=== PATIENT | female | born 1995 | race Caucasian/White ===

== ENCOUNTER 2023-04-06 20:28 | Outpatient (REF) | payer OTHER, SELFPAY ==
[2023-04-09 14:09] LABS: Age Gdln ACOG Testing Note (.); IGP, rfx Aptima HPV ASCU Note (.)
== END 2023-04-06 20:29 | disposition home or self-care (01) ==
LOC: LAB 20:28
PROVIDERS: PCP Obstetrics & Gynecology; Visit Provider Obstetrics & Gynecology
DX: Z01.419 Encounter for gynecological examination (general) (routine) without abnormal findings (principal)
CPT/HCPCS: G0145

== ENCOUNTER 2023-05-14 08:22 | Outpatient (OUT) | payer OTHER, SELFPAY ==
--- NOTE | 2023-05-14 08:23 | US_ITS ---
[address] [address] Patient Name: NEGIN BURNHAM MRN: [id number] date: 1995 Sex: F Assigned Patient Location: US Current Patient Location: US Accession/Order Number: [id number] Exam Date: 05/14/2023 08:23 Report Date: 05/14/2023 09:11 At the request of: ERMELINDA JOHN Procedure: US OB transvaginal EXAMINATION: US OB transvaginal HISTORY: MISSED MENSES COMPARISON: No relevant comparison available. FINDINGS: Johnson intrauterine gestation Gestational sac: 4.62 cm, 10 weeks 2 days CRL: 3.7 cm, 10 weeks 5 days Yolk sac: 4 m Heart rate: 183 bpm Cervix: Closed, 5.6 cm Uterus is normal, anteverted, anteflexed The ovaries are not visualized Clinical age: 10 weeks 4 days Clinical CHANDA: 12/06/2023 Ultrasound age: 10 weeks 5 days Ultrasound CHANDA: 12/05/2023 US/US OB transvaginal IMPRESSION: Viable johnson intrauterine gestation measuring 10 weeks 5 days Electronically authenticated by: SCOT PRICE Date: 05/14/2023 09:11
--- OUTSIDE RECORDS SUMMARY | 2023-05-14 08:26 | XMS_ITS | CCD ---
Author Name Unknown Address [id number] [place] [address] Organization [facility] Care Team Providers Care Extended Day Teacher Name Role Phone Macie Lorenzana Unavailable DR MACIE LORENZANA Primary Care Unavailable RENEE BORJAS Admitting Unavailable RENEE BORJAS Attending Unavailable RENEE BORJAS Consulting Unavailable DR ERMELINDA CODY Admitting Unavailable DR ERMELINDA CODY Attending Unavailable DR MACIE LORENZANA Primary Care Unavailable DR ERMELINDA CODY Consulting Unavailable ERMELINDA CODY Attending Unavailable Allergies Allergy Classification Reported Allergen(s) Allergy Type Date of Onset Reaction(s) Facility (5 sources) Azithromycin Drug Allergy migraines [facility] Other Medications Current Medications Medication Drug Class(es) Dates Sig (Normalized) Sig (Original) [id number] 200 actuat albuterol 0.09 mg/actuat metered dose inhaler (2 sources) beta2-Adrenergic Agonist Start: 10-26-2017 take 2 puff(s) by inhalation every four hours as needed ProAir HFA 108 (90 Base) MCG/ACT 2 puffs as needed Inhalation every 4 hrs prn PRN Oct, Active ethinyl estradiol 0.02 mg / norethindrone acetate 1 mg oral tablet (5 sources) Estrogen take 1 tablet by mouth every twenty-four hours 05/29 1-20 MG-MCG 1 tablet Orally Once a day Active levoFLOXacin 500 mg oral tablet (6 sources) Quinolone Antimicrobial Start: 04-08-2021 take 1 tablet by mouth every twenty-four hours levoFLOXacin 500 MG 1 tablet Orally Once a day for 10 day(s) Apr, Active oseltamivir 75 mg oral capsule (3 sources) Neuraminidase Inhibitor Start: 04-07-2022 take 1 capsule by mouth every twelve hours Tamiflu 75 MG 1 capsule Orally Twice a day for 5 day(s) Mar, Active predniSONE 20 mg oral tablet (5 sources) Start: 11-13-2021 predniSONE 20 MG 1 tablet Orally TID x 3 days, BID x 3 days then daily x 3 days Nov, Active ProAir HFA 108 (90 Base) MCG/ACT (3 sources) Start: 10-26-2017 take 2 puff(s) by inhalation every four hours as needed ProAir HFA 108 (90 Base) MCG/ACT 2 puffs as needed Inhalation every 4 hrs prn PRN Oct, Active Completed/Discontinued Medications Medication Drug Class(es) Dates Sig (Normalized) Sig (Original) dexamethasone 2 mg oral tablet (5 sources) Corticosteroid Start: 04-08-2021 Dexamethasone 2 MG 1 tablet Orally TID x 3 days, BID x 3 days then daily x 3 days for 9 days Mar, Not-Taking ibuprofen 800 mg oral tablet (5 sources) Nonsteroidal Anti-inflammatory Drug Start: 10-26-2017 take 1 tablet by mouth three times daily at mealtime as needed Ibuprofen 800 MG 1 tablet with food or milk as needed Orally Three times a day PRN Oct, Not-Taking LORazepam 0.5 mg oral tablet (5 sources) Benzodiazepine Start: 10-26-2017 take 1 tablet by mouth every twelve hours as needed Ativan 0.5 MG 1 tablet as needed Orally every 12 hours PRN Oct, Not-Taking phentermine hydrochloride 37.5 mg oral tablet (5 sources) Sympathomimetic Amine Anorectic Start: 08-31-2019 take 1 tablet by mouth every twenty-four hours Adipex-P 37.5 MG 1 tablet Orally Once a day for 30 days Aug, Not-Taking sulfamethoxazole 800 mg / trimethoprim 160 mg oral tablet (5 sources) Dihydrofolate Reductase Inhibitor Antibacterial, Sulfonamide Antimicrobial Start: 06-18-2020 take 1 tablet by mouth every twelve hours Bactrim DS 800-160 MG 1 tablet Orally Twice a day for 10 day(s) Jun, Not-Taking vitamin b12 0.1 mg oral tablet (5 sources) Vitamin B12 Vitamin B-12 100 MCG as directed Orally Not-Taking Problems Active Problems Problem Classification Problem Date Documented Date Episodic/Chronic Administrative/social admission (5 sources) Dietary management surveillance; Translations: [Dietary counseling and surveillance] Episodic Anxiety disorders (5 sources) Anxiety; Translations: [Anxiety disorder, unspecified] Chronic Asthma (5 sources) Asthma; Translations: [Unspecified asthma, uncomplicated] Chronic Diseases of white blood cells (5 sources) Lymphocytosis; Translations: [Lymphocytosis (symptomatic)] Chronic Headache; including migraine (5 sources) Migraine; Translations: [Migraine, unspecified, not intractable, without status migrainosus] Chronic Immunizations and screening for infectious disease (1 source) Encounter for screening for human papillomavirus (HPV); Translations: [ENC SCREENING HUMAN PAPILLOMAVIRUS] Onset: 03-27-2022 Episodic Malaise and fatigue (5 sources) Fatigue; Translations: [Other fatigue] Episodic Other nutritional; endocrine; and metabolic disorders (5 sources) Obesity; Translations: [Obesity, unspecified] Chronic Other nutritional; endocrine; and metabolic disorders (5 sources) Obese class I; Translations: [Body mass index (BMI) 33.0-33.9, adult] Chronic Other screening for suspected conditions (not mental disorders or infectious disease) (4 sources) Encounter for screening for malignant neoplasm of cervix; Translations: [ENC SCREENING MALIG NEOPLASM CERV] Onset: 03-24-2022 Episodic Unclassified (2 sources) CONTACT W/AND (SUSP) EXPOS COVID-19; Translations: [CONTACT W/AND (SUSP) EXPOS COVID-19] Onset: 04-08-2021 Viral infection (1 source) COVID-19; Translations: [COVID-19] Onset: 04-08-2021 Past or Other Problems Problem Classification Problem Date Documented Da te Episodic/Chronic Superficial injury; contusion (1 source) Insect bite (nonvenomous) of right upper arm, initial encounter Onset: 11-13-2021 Resolved: 11-13-2021 Episodic Unclassified (1 source) CONTACT W/AND (SUSP) EXPOS COVID-19; Translations: [CONTACT W/AND (SUSP) EXPOS COVID-19] Onset: 04-07-2021 Unclassified (1 source) Acute cough R05.1 Results Test Name Value Interpretation Reference Range Facility Quick Fluon 04-07-2022 FLUAV Ab CF (S) [Titer] Positive [facility] Other FLUBV Ab CF (S) [Titer] Negative [facility] Other PAP ACOG PANEL 2: 21 to 29on 04-04-2022 . . Normal [facility] Comment on above: Performed By: #### [id number] #### [facility] [address] [place] [address] Dr. Aranza Dolan Age Gdln ACOG Testing 21-29 Normal [facility] Comment on above: Performed By: #### [id number] #### [facility] [address] [address] [address] Aranza Dolan DIAGNOSIS: Comment Abnormal [facility] Comment on above: Result Comment: EPIT HELIAL CELL ABNORMALITY. ATYPICAL SQUAMOUS CELLS OF UNDETERMINED SIGNIFICANCE (ASC-US). FUNGAL ORGANISMS MORPHOLOGICALLY CONSISTENT WITH RAQUEL SPECIES ARE PRESENT. Performed By: #### [id number] #### [facility] [address] [place] [address] Dr. Aranza Dolan Electronically signed by: Comment Normal [facility] Comment on above: Result Comment: Adelina Ochoa MD, Pathologist Performed By: #### [id number] #### [facility] [address] [place] [address] Dr. Aranza Dolan HPV Aptima Negative Normal Negative [facility] Comment on above: Result Comment: This nucleic acid amplification test detects fourteen high-risk HPV types (16,18,31,33,35,39,45,51,52,56,58,59,66,68) without differentiation. Performed By: #### [id number] #### [facility] [address] [place] [address] Dr. Aranza Dolan Methodology: Comment Normal [facility] Comment on above: Result Comment: This liquid based ThinPrep(R) pap test was screened with the use of an image guided system. Performed By: #### [id number] #### [facility] [address] [place] [address] Dr. Aranza Dolan Note: Comment Normal [facility] Comment on above: Result Comment: The Pap smear is a screening test designed to aid in the detection of premalignant and malignant conditions of the uterine cervix. It is not a diagnostic procedure and should not be used as the sole means of detecting cervical cancer. Both false-positive and false-negative reports do occur. . Performed By: #### [id number] #### [facility] [address] [place] [address] Dr. Aranza Dolan Pathologist Provided ICD10 Comment Normal [facility] Comment on above: Result Comment: R87. 610, R87.5 Performed By: #### [id number] #### [facility] [address] [place] [address] Dr. Aranza Dolan Performed by: Comment Normal [facility] Comment on above: Result Comment: Francheska Gee Production Dispatcher (ASCP) Performed By: #### [id number] #### [facility] [address] [place] [address] Dr. Aranza Dolan Recommendation: Comment Abnormal [facility] Comment on above: Result Comment: Sugg est follow up as clinically appropriate. Performed By: #### [id number] #### [facility] [address] [place] [address] Dr. Aranza Dolan Reflex Criteria: Comment Normal [facility] Comment on above: Result Comment: See below for HPV testing results. . Performed By: #### [id number] #### [facility] [address] [place] [address] Dr. Aranza Dolan Specimen adequacy: Comment Normal [facility] Comment on above: Result Comment: Sati sfactory for evaluation. Endocervical and/or squamous metaplastic cells (endocervical component) are present. Performed By: #### [id number] #### [facility] [address] [place] [address] Dr. Aranza Dolan [facility]11 SARS-CoV-2 (COVID-19) RNA RAMON+probe Ql (Unsp spec) Detected Critically abnormal NOT DETECTED [facility] Comment on above: Result Comment: This test is not yet approved or cleared by the [place] FDA. When there are no FDA-approved or cleared tests available, and other criteria are met, FDA can make tests available under an emergency access mechanism called an Emergency Use Authorization (EUA). The EUA for this test is supported by the [place] of Health and Human Service's declaration that circumstances exist to justify the emergency use of in vitro diagnostics for the detection and/or diagnosis of the virus that causes COVID-19. This EUA will remain in effect for the duration of the COVID-19 declaration justifying emergency of IVDs, unless it is terminated or revoked by the FDA (after which the test may no longer be used). Performed By: #### [facility] #### [facility] [address] [place] [address] Dr. Aranza Dolan Vital Signs Date Time Vital Sign Value Performing Clinician Facility 11-13-2021 16:45-0400 Body height 170.18 cm Macie Lorenzana Other [facility] Other 11-13-2021 16:45-0400 Body mass index (BMI) [Ratio] 33.83 kg/m2 Macie Lorenzana Other [facility] Other 11-13-2021 16:45-0400 Body weight 97.98 kg Macie Lorenzana Other [facility] Other 11-13-2021 16:45-0400 Diastolic blood pressure 80 mm[Hg] Macie Lorenzana Other [facility] Other 11-13-2021 16:45-0400 Respiratory rate 16 /min Macie Lorenzana Other [facility] Other 11-13-2021 16:45-0400 SaO2% (BldA) [Mass fraction] 98 % Macie Lorenzana Other [facility] Other 11-13-2021 16:45-0400 Systolic blood pressure 126 mm[Hg] Macie Lorenzana Other [facility] Other Encounters Encounter Date Encounter Type Care Provider Facility Start: 04-06-2023 End: 04-06-2023 ambulatory ERMELINDA CODY Not Available Start: 04-15-2022 End: 04-15-2022 ambulatory Macie Lorenzana Other [facility] Other Start: 04-15-2022 Telephone encounter Macie Lorenzana [facility] Start: 04-07-2022 End: 04-07-2022 ambulatory Macie Lorenzana Other [facility] Other Start: 04-07-2022 Nursing evaluation o f patient and report Macie Lorenzana [facility] Start: 04-07-2022 Telephone encounter Macie Lorenzana [facility] Start: 03-24-2022 End: 03-24-[address] ERMELINDA CODY Facility:[facility] Start: 11-13-2021 End: 11-13-2021 ambulatory Macie Lorenzana Other [facility] Other Start: 11-13-2021 Office outpatient vi sit 15 minutes Macie Lorenzana [facility] Start: 11-13-2021 Telephone encounter Macie Lorenzana [facility] Start: 04-07-2021 End: 04-07-[address] MACIE LORENZANA Facility:[facility] Immunizations Immunization Date Immunization Notes Care Provider Fa cility NEGATED: Highlighted row has not occurred!07-18-2019 influenza, seasonal, injectable Patient Objection Macie Lorenzana Other [facility] Other Payers Date Payer Category Payer Medicaid [id number] 1995 Unknown [id number] 1995 Unknown [id number] 1995 Unknown [id number] 1960 Unknown [id number] 2.1 [id number] Social History Date Type Detail Facility Unknown if ever smoked [facility] Other Sex Assigned At Sex Assigned At Bir th [facility] Other Evaluation note 04-07-2022 Note Date & Type Note Facility 04-07-2022 Evaluation note Encounter Date Diagnosis Assessment Notes Mar, Acute cough (ICD-10 - R05.1) [facility] Other Evaluation note 11-13-2021 Note Date & Type Note Facility 11-13-2021 Evaluation note Encounter Date Diagnosis Assessment Notes Nov, Insect bite (nonvenomous) of right upper arm, initial encounter (ICD-10 - S40.861A) Noted of left forearm. I did prescribe the above prednisone and patient is to continue taking benadryl at bedtime. Patient is to call next week with an update. [facility] Other History general Narrative - Reported 06-24-2016 Note Date & Type Note Facility 06-24-2016 History general N arrative - Reported Type Medical History follows with Dr. Ananth Cody for PAP Medical History Biometric Screening 06/24/[place] [facility] [place] Medical History 02/13/2019 EKG Surgical History tubes in ears Surgical History 03/05/21 Hospitalization History Childbirth [facility] Other Evaluation note Note Date & Type Note Facility Evaluation note No Information [facility] Other Summary Purpose Family History No Family History Records FoundNo Family History Records Found Advance Directives No Advanced Directives Records FoundNo Advanced Directives Records Found Additional Source Comments REASON FOR VISIT (unrecogniz ed section and content) Clinical Acute Illnessbug bi te on right armClinicalflu swab-( positive)Clinical INFORMATION SOURCE (unrecogn ized section and content) DATE CREATED AUTHOR 04/04/2022 [facility] DATE CREATED AUTHOR AUTHOR'S ORGANIZ ATION 04/08/2023 [facility] EPIC FOR RECORDS PERTAINING TO PATIENTS WHO ARE OR HAVE BEEN ENROLLED IN A CHEMICAL DEPENDENCY/SUBSTANCEABUSE PROGRAM, SOME INFORMATION MAY BE OMITTED. This clinical summary was aggregated from multiple sources. Caution should be exercised in using it in the provision of clinical care. This summary normalizes information from multiple sources, and as a consequence, information in this document may materially change the coding, format and clinical context of patient data. In addition, data may be omitted in some cases. CLINICAL DECISIONS SHOULD BE BASED ON THE PRIMARY CLINICAL RECORDS. [facility] [employer], [facility]. provides no warranty or guarantee of the accuracy or completeness of information in this document.
== END 2023-05-14 08:23 | disposition home or self-care (01) ==
LOC: US 08:22
PROVIDERS: PCP Obstetrics & Gynecology; Visit Provider Obstetrics & Gynecology
DX: Z34.91 Encounter for supervision of normal pregnancy, unspecified, first trimester (principal); Z3A.10 10 weeks gestation of pregnancy
CPT/HCPCS: 76817

== ENCOUNTER 2023-05-14 09:24 | Outpatient (OUT) | payer OTHER, SELFPAY ==
--- OUTSIDE RECORDS SUMMARY | 2023-05-14 09:46 | XMS_ITS | CCD ---
Author Name Unknown Address [address] [place] [address] Organization [facility] Care Team Providers Care Laborer Heading Name Role Phone Macie Lorenzana Unavailable DR [...] Facility (5 sources) Azithromycin Drug Allergy migraines [facility] Other Medications Current Medications Medication Drug Class(es) Dates Sig (Normalized) Sig (Original) [id number] 200 actuat albuterol 0.09 mg/actuat metered dose [...] 04-07-2022 FLUAV Ab CF (S) [Titer] Positive [facility] Other FLUBV Ab CF (S) [Titer] Negative [facility] Other PAP ACOG PANEL 2: 21 to 29on 04-04-2022 . . Normal [facility] Comment on above: Performed By: #### [id number] #### [facility] [address] [place] [address] Dr. Aranza Dolan Age Gdln ACOG Testing 21-29 Normal [facility] Comment on above: Performed By: #### [id number] #### [facility] [address] [address] [address] Aranza Dolan DIAGNOSIS: Comment Abnormal [facility] Comment on above: Result Comment: EPIT HELIAL CELL ABNORMALITY. ATYPICAL SQUAMOUS CELLS OF UNDETERMINED SIGNIFICANCE (ASC-US). FUNGAL ORGANISMS MORPHOLOGICALLY CONSISTENT WITH RAQUEL SPECIES ARE PRESENT. Performed By: #### [id number] #### [facility] [address] [place] [address] Dr. Aranza oDlan Electronically signed by: Comment Normal [facility] Comment on above: Result Comment: Adelina Ochoa MD, Pathologist Performed By: #### 4 [id number] #### [facility] [address] [place] [address] Dr. Aranza Dolan HPV Aptima Negative Normal Negative [facility] Comment on above: Result Comment: This nucleic acid amplification test detects fourteen high-risk HPV types (16,18,31,33,35,39,45,51,52,56,58,59,66,68) without differentiation. Performed By: #### 4 [id number] #### [facility] [address] [place] [address] Dr. Aranza Dolan Methodology: Comment Normal [facility] Comment on above: Result Comment: This liquid based ThinPrep(R) pap test was screened with the use of an image guided system. Performed By: #### 4 [id number] #### [facility] [address] [place] [address] Dr. Aranza Dolan Note: Comment Normal [facility] Comment on above: Result Comment: The Pap smear is a screening test designed to aid in the detection of premalignant and malignant conditions of the uterine cervix. It is not a diagnostic procedure and should not be used as the sole means of detecting cervical cancer. Both false-positive and false-negative reports do occur. . Performed By: #### 4 [id number] #### [facility] [address] [place] [address] Dr. Aranza Dolan Pathologist Provided ICD10 Comment Normal [facility] Comment on above: Result Comment: R87. 610, R87.5 Performed By: #### 4 [id number] #### [facility] [address] [place] [address] Dr. Aranza Dolan Performed by: Comment Normal [facility] Comment on above: Result Comment: Francheska Gee Spray Mixer (ASCP) Performed By: #### 4 [id number] #### [facility] [address] [place] [address] Dr. Aranza Dolan Recommendation: Comment Abnormal [facility] Comment on above: Result Comment: Sugg est follow up as clinically appropriate. Performed By: #### 4 [id number] #### [facility] [address] [place] [address] Dr. Aranza Dolan Reflex Criteria: Comment Normal [facility] Comment on above: Result Comment: See below for HPV testing results. . Performed By: #### 4 [id number] #### [facility] [address] [place] [address] Dr. Aranza Dolan Specimen adequacy: Comment Normal [facility] Comment on above: Result Comment: Sati sfactory for evaluation. Endocervical and/or squamous metaplastic cells (endocervical component) are present. Performed By: #### 4 [id number] #### [facility] [address] [place] [address] Dr. Aranza Dolan [facility] SARS-CoV-2 (COVID-19) RNA RAMON+probe Ql (Unsp spec) Detected Critically abnormal NOT DETECTED [facility] Comment on above: Result Comment: This test is not yet approved or cleared by the [place] FDA. When there are no FDA-approved or cleared tests available, and other criteria are met, FDA can make tests available under an emergency access mechanism called an Emergency Use Authorization (EUA). The EUA for this test is supported by the [place] of Health and Human Service's declaration that [...] longer be used). Performed By: #### [facility] #### [facility] [address] [place] [address] Dr. Aranza Dolan Vital Signs Date Time Vital Sign Value Performing Clinician Facility 11-13-2021 16:45-0400 Body height 170.18 cm Macie Lorenzana Other [facility] Other 11-13-2021 16:45-0400 Body mass index (BMI) [Ratio] 33.83 kg/m2 Macie Lorenzana Other [facility] Other 11-13-2021 16:45-0400 Body weight 97.98 kg Macie Lorenzana Other [facility] Other 11-13-2021 16:45-0400 Diastolic blood pressure 80 mm[Hg] Macie Lorenzana Other [facility] Other 11-13-2021 16:45-0400 Respiratory rate 16 /min Macie Lorenzana Other [facility] Other 11-13-2021 16:45-0400 SaO2% (BldA) [Mass fraction] 98 % Macie Lorenzana Other [facility] Other 11-13-2021 16:45-0400 Systolic blood pressure 126 mm[Hg] Macie Lorenzana Other [facility] Other Encounters Encounter Date Encounter Type Care Provider Facility Start: 04-06-2023 End: 04-06-2023 ambulatory ERMELINDA CODY Not Available Start: 04-15-2022 End: 04-15-2022 ambulatory Macie Lorenzana Other [facility] Other Start: 04-15-2022 Telephone encounter Macie Lorenzana [facility] Start: 04-07-2022 End: 04-07-2022 ambulatory Macie Lorenzana Other [facility] Other Start: 04-07-2022 Nursing evaluation o f patient and report Macie Lorenzana [facility] Start: 04-07-2022 Telephone encounter Macie Lorenzana [facility] Start: 03-24-2022 End: 03-24-[address] ERMELINDA CODY Facility:[facility] Start: 11-13-2021 End: 11-13-2021 ambulatory Macie Lorenzana Other [facility] Other Start: 11-13-2021 Office outpatient vi sit 15 minutes Macie Lorenzana [facility] Start: 11-13-2021 Telephone encounter Macie Lorenzana [facility] Start: 04-07-2021 End: 04-07-[address] MACIE LORENZANA Facility:[facility] Immunizations Immunization Date Immunization Notes Care Provider Fa cility NEGATED: Highlighted row has not occurred!07-18-2019 influenza, seasonal, injectable Patient Objection Macie Lorenzana Other [facility] Other Payers Date Payer Category Payer Medicaid [id number] 1995 Unknown [id number] [id number] [id number] 1995 Unknown [id number] 2.16.84 [id number] 1994 Unknown [id number] 1959 Unknown [id number] 2.1 [id number] Social History Date Type Detail Facility Unknown if ever smoked [facility] Other Sex Assigned At Sex Assigned At Bir th [facility] Other Evaluation note 04-07-2022 Note Date & Type Note Facility 04-07-2022 Evaluation note Encounter Date Diagnosis Assessment Notes Mar, Acute cough (ICD-10 - R05.1) [facility] Other Evaluation note 11-13-2021 Note Date & Type Note Facility 11-13-2021 Evaluation note Encounter Date Diagnosis Assessment Notes Nov, Insect bite (nonvenomous) of right upper arm, initial encounter (ICD-10 - S40.861A) Noted of left forearm. I did prescribe the above prednisone and patient is to continue taking benadryl at bedtime. Patient is to call next week with an update. [facility] Other History general Narrative - Reported 06-24-2016 Note Date & Type Note Facility 06-24-2016 History general N arrative - Reported Type Medical History follows with Dr. Ananth Cody for PAP Medical History Biometric Screening 06/24/16 [facility] Medical History 02/13/2019 EKG Surgical History tubes in ears Surgical History 03/05/21 Hospitalization History Childbirth [facility] Other Evaluation note Note Date & Type Note Facility Evaluation note No Information [employer] Other Summary Purpose Family History No Family [...] DATE CREATED AUTHOR AUTHOR'S ORGANIZ ATION 04/08/2023 [facility] dical Specialists EPIC FOR RECORDS PERTAINING [...] BE BASED ON THE PRIMARY CLINICAL RECORDS. [facility] [employer], [facility]. provides no warranty or guarantee of the accuracy or completeness of information in this document.
[2023-05-14 10:10] LABS: Basophils Absolute Auto 0.1 10^3/uL (0.0-0.1); Basophils Percent Auto 0.6 % (0.2-2.0); Eosinophils Absolute Auto 0.2 10^3/uL (0.0-0.7); Eosinophils Percent Auto 1.7 % (0.9-7.0); Hematocrit 40.2 % (36.0-48.0); Hemoglobin 13.3 g/dL (12.0-16.0); Immature Granulocytes Abs Auto 0.06 10^3/uL (0.00-0.03); Immature Granulocytes Pct Auto 0.6 % (0.0-0.5); Lymphocytes Absolute Auto 2.6 10^3/uL (1.2-3.8); Lymphocytes Percent Auto 24.8 % (20.5-60.0); Mean Corpuscular HGB Conc 33.1 g/dL (29.9-35.2); Mean Corpuscular Hemoglobin 28.7 pg (26.7-34.0); Mean Corpuscular Volume 86.8 fL (81.0-99.0); Mean Platelet Volume 8.9 fL (9.5-13.5); Monocytes Absolute Auto 0.6 10^3/uL (0.3-0.8); Monocytes Percent Auto 5.9 % (1.7-12.0); Neutrophils Absolute Auto 6.8 10^3/uL (1.4-6.5); Neutrophils Percent Auto 66.4 % (43.0-75.0); Platelet Count 324 10^3/uL (150-450); Red Blood Count 4.63 10^6/uL (4.20-5.40); Red Cell Distribution Width 13.6 % (11.0-15.0); White Blood Count 10.3 10^3/uL (4.0-11.0)
[2023-05-14 10:53] LABS: Estimated Average Glucose 111 mg/dL; Glycohemoglobin A1C 5.5 % (4.5-6.2)
[2023-05-14 12:25] LABS: Thyroid Stimulating Hormone 0.657 uIU/mL (0.358-3.740)
[2023-05-15 07:49] LABS: HBsAg Screen Negative (Negative); HCV Ab Non Reactive (Non Reactive); HIV Ab/p24 Ag Screen Non Reactive (Non Reactive)
[2023-05-15 09:38] LABS: Rubella Antibodies, IgG 1.82 index (Immune >0.99)
[2023-05-15 12:25] LABS: Rapid Plasma Reagin, Quant Non Reactive titer (NonRea<1:1)
== END 2023-05-14 09:25 | disposition home or self-care (01) ==
LOC: LAB 09:27
PROVIDERS: PCP Family Medicine; Visit Provider Obstetrics & Gynecology
DX: Z34.91 Encounter for supervision of normal pregnancy, unspecified, first trimester (principal); Z3A.10 10 weeks gestation of pregnancy; Z36.0 Encounter for antenatal screening for chromosomal anomalies
CPT/HCPCS: 36415; 76817; 83036; 84443; 85025; 86592; 86762; 86803; 86850; 86900; 86901; 87086; 87340; 87389

== ENCOUNTER 2023-06-15 09:22 | Outpatient (OUT) | payer OTHER, SELFPAY ==
--- OUTSIDE RECORDS SUMMARY | 2023-06-15 09:25 | XMS_ITS | CCD ---
Author Name Unknown Address [address] [place] [address] Organization [facility] Care Team Providers Care Laboratory Manager Name Role Phone Macie Lorenzana Unavailable DR MACIE LORENZANA Primary Care Unavailable RENEE BORJAS Admitting Unavailable RENEE OBRJAS Attending Unavailable RENEE BORJAS Consulting Unavailable DR ERMELINDA CODY Admitting Unavailable DR ERMELINDA CODY Attending Unavailable DR MACIE LORENZANA Primary Care Unavailable DR ERMELINDA CODY Consulting Unavailable ERMELINDA CODY Attending Unavailable Allergies Allergy Classification Reported Allergen(s) Allergy Type Date of Onset Reaction(s) Facility (5 sources) Azithromycin Drug Allergy [employer] [employer] [facility] Other Medications Current Medications Medication Drug Class(es) Dates Sig (Normalized) Sig (Original) [id number] 200 actuat albuterol 0.09 mg/actuat metered dose [...] 04-07-2022 FLUAV Ab CF (S) [Titer] Positive [facility] [employer] [facility] Other FLUBV Ab CF (S) [Titer] Negative [facility] [facility] Other PAP ACOG PANEL 2: 21 to 29on 04-04-2022 . . Normal [facility] Comment on above: Performed By: #### 4 [id number] #### [facility] [address] [place] [address] Dr. Aranza Dolan Age Gdln ACOG Testing 21-29 Normal [facility] Comment on above: Performed By: #### 4 [id number] #### [facility] [address] [address] [address] Aranza Dolan DIAGNOSIS: Comment Abnormal [facility] Comment on above: Result Comment: EPIT HELIAL CELL ABNORMALITY. ATYPICAL SQUAMOUS CELLS OF UNDETERMINED SIGNIFICANCE (ASC-US). FUNGAL ORGANISMS MORPHOLOGICALLY CONSISTENT WITH RAQUEL SPECIES ARE PRESENT. Performed By: #### 4 [id number] #### [facility] [address] [place] [address] Dr. Aranza Dolan Electronically signed by: Comment Normal [facility] Comment on above: Result Comment: Adelina Ochoa MD, Pathologist Performed By: #### 4 [id number] #### [facility] [address] [place] [address] Dr. Aranza Dolan HPV Aptima Negative Normal Negative [facility] Comment on above: Result Comment: This nucleic acid amplification test detects fourteen high-risk HPV types (16,18,31,33,35,39,45,51,52,56,58,59,66,68) without differentiation. Performed By: #### 4 [id number] #### [facility] [address] [place] [address] Dr. Aranza Dolan Methodology: Comment Normal [facility] Comment on above: Result Comment: This liquid based ThinPrep(R) pap test was screened with the use of an image guided system. Performed By: #### 4 [id number] #### [facility] [address] [place] [address] Dr. Aranza Dolan Note: Comment Normal [facility] Comment on above: Result Comment: The Pap smear is a screening test designed to aid in the detection of premalignant and malignant conditions of the uterine cervix. It is not a diagnostic procedure and should not be used as the sole means of detecting cervical cancer. Both false-positive and false-negative reports do occur. . Performed By: #### 4 [id number] #### [facility] [address] [address] [address] Aranza Dolan Pathologist Provided ICD10 Comment Normal [facility] Comment on above: Result Comment: R87. 610, R87.5 Performed By: #### 4 [id number] #### [facility] [address] [address] [address] Aranza Dolan Performed by: Comment Normal [facility] Comment on above: Result Comment: Francheska Gee Program Arranger (ASCP) Performed By: #### 4 [id number] #### [facility] [address] [place] [address] Dr. Aranza Dolan Recommendation: Comment Abnormal [facility] Comment on above: Result Comment: Sugg est follow up as clinically appropriate. Performed By: #### 4 [id number] #### [facility] [address] [address] [address] Aranza Dolan Reflex Criteria: Comment Normal [facility] Comment on above: Result Comment: See below for HPV testing results. . Performed By: #### 4 [id number] #### [facility] [address] [place] [address] Dr. Aranza Dolan Specimen adequacy: Comment Normal [facility] Comment on above: Result Comment: Sati sfactory for evaluation. Endocervical and/or squamous metaplastic cells (endocervical component) are present. Performed By: #### 4 [id number] #### [facility] [address] [place] [address] Dr. Aranza Dolan [facility]on [facility]11 SARS-CoV-2 (COVID-19) RNA RAMON+probe Ql (Unsp spec) Detected Critically abnormal NOT DETECTED [facility] Comment on above: Result Comment: This test is not yet approved or cleared by the [place] FDA. When there are no FDA-approved or cleared tests available, and other criteria are met, FDA can make tests available under an emergency access mechanism called an Emergency Use Authorization (EUA). The EUA for this test is supported by the [place] of Health and Human Service's declaration that [...] longer be used). Performed By: #### C [facility] #### [facility] [address] [place] [address] Dr. Aranza Dolan Vital Signs Date Time Vital Sign Value Performing Clinician Facility 11-13-2021 16:45-0400 Body height 170.18 cm Macie Lorenzana Other [employer] Other 11-13-2021 16:45-0400 Body mass index (BMI) [Ratio] 33.83 kg/m2 Macie Lorenzana Other [employer] Other 11-13-2021 16:45-0400 Body weight 97.98 kg Macie Lorenzana Other [facility] [facility] Other 11-13-2021 16:45-0400 Diastolic blood pressure 80 mm[Hg] Macie Lorenzana Other [employer] Other 11-13-2021 16:45-0400 Respiratory rate 16 /min Macie Lorenzana Other [employer] Other 11-13-2021 16:45-0400 SaO2% (BldA) [Mass fraction] 98 % Macie Lorenzana Other [employer] Other 11-13-2021 16:45-0400 Systolic blood pressure 126 mm[Hg] Macie Lorenzana Other [employer] Other Encounters Encounter Date Encounter Type Care Provider Facility Start: 05-14-2023 End: 05-14-2023 ambulatory ERMELINDA CODY Not Available Start: 04-06-2023 End: 04-06-2023 ambulatory ERMELINDA CODY Not Available Start: 04-15-2022 End: 04-15-2022 ambulatory Macie Lorenzana Other [employer] Other Start: 04-15-2022 Telephone encounter Macie Lorenzana [facility] Start: 04-07-2022 End: 04-07-2022 ambulatory Macie Lorenzana Other [employer] Other Start: 04-07-2022 Nursing evaluation o f patient and report Macie Lorenzana [facility] Start: 04-07-2022 Telephone encounter Macie Lorenzana [facility] Start: 03-24-2022 End: 03-24-[address] ERMELINDA CODY Facility:[facility] Start: 11-13-2021 End: 11-13-2021 ambulatory Macie Lorenzana Other [employer] Other Start: 11-13-2021 Office outpatient vi sit 15 minutes Macie Lorenzana [facility] Start: 11-13-2021 Telephone encounter Macie Lorenzana [facility] Start: 04-07-2021 End: 04-07-[address] MACIE LORENZANA Facility:[facility] Immunizations Immunization Date Immunization Notes Care Provider Fa cility NEGATED: Highlighted row has not occurred!07-18-2019 influenza, seasonal, injectable Patient Objection Macie Lorenzana Other [employer] Other Payers Date Payer Category Payer Medicaid [id number] 1995 Unknown [id number] 2.16.84 [id number] 1995 Unknown [id number] 2.16.84 [id number] 1995 Unknown [id number] 1994 Unknown [id number] [id number] 1994 Unknown [id number] 1959 Unknown [id number] 2.1 [id number] Social History Date Type Detail Facility Unknown if ever smoked [employer] Other Sex Assigned At Sex Assigned At Bir th [employer] Other Evaluation note 04-07-2022 Note Date & Type Note Facility 04-07-2022 Evaluation note Encounter Date Diagnosis Assessment Notes Mar, Acute cough (ICD-10 - R05.1) [facility] Other Evaluation note 11-13-2021 Note Date & Type Note Facility 11-13-2021 Evaluation note Encounter Date Diagnosis Assessment Notes Nov, Insect bite (nonvenomous) of right upper arm, initial encounter (ICD-10 - S40.861A) Noted of left forearm. I did prescribe the above prednisone and patient is to continue taking benadryl at bedtime. Patient is to call next week with an update. [employer] [employer] [facility] Other History general Narrative - Reported 06-24-2016 Note Date & Type Note Facility 06-24-2016 History general N arrative - Reported Type Medical History follows with Dr. Ananth Cody for PAP Medical History Biometric Screening 06/24/16 [facility] [place], [place] Medical History 02/13/2019 EKG Surgical History tubes in ears Surgical History 03/05/21 Hospitalization History Childbirth [employer] Other Evaluation note Note Date & Type Note Facility Evaluation note No Information [employer] Other Summary Purpose Family History No Family [...] [facility] DATE CREATED AUTHOR AUTHOR'S TASHIA ATFREDIS 05/15/2023 [facility] dical Specialists EPIC FOR RECORDS PERTAINING [...] BE BASED ON THE PRIMARY CLINICAL RECORDS. [employer]. provides no warranty or guarantee of the accuracy or completeness of information in this document.
[2023-06-17 02:08] LABS: AFP Value 24.2 ng/mL (.); Gest. Age on Collection Date 15.1 weeks (.); Insulin Dep Diabetes No (.); Maternal Age At EDD 29.8 yr (.); OSBR Risk 1 IN 10000 (.); Results Report (.)
== END 2023-06-15 09:23 | disposition home or self-care (01) ==
LOC: LAB 09:22
PROVIDERS: PCP Family Medicine; Visit Provider Obstetrics & Gynecology
DX: Z34.92 Encounter for supervision of normal pregnancy, unspecified, second trimester (principal)
CPT/HCPCS: 36415; 82105

== ENCOUNTER 2023-07-21 14:24 | Outpatient (OUT) | payer OTHER, SELFPAY ==
--- NOTE | 2023-07-21 14:26 | US_ITS ---
[address] [address] Patient Name: NEGIN BURNHAM MRN: [id number] date: 1995 Sex: F Assigned Patient Location: US Current Patient Location: Accession/Order Number: [id number] Exam Date: 07/21/2023 14:36 Report Date: 07/22/2023 06:18 At the request of: ERMELINDA JOHN Procedure: US OB anatomy EXAMINATION: US OB anatomy, US OB cervical length HISTORY: screening, for anatomic survey Z36.89 COMPARISON: Ultrasound OB transvaginal 05/14/2023 TECHNIQUE: Transabdominal sonographic examination was performed for obstetrical and evaluation. FINDINGS: Number: 1 Heart Rate: 156.1 bpm H.B. /min Amniotic Fluid Volume: Subjectively normal Placental Location: ANTERIOR , grade 1, with lower margin 6.7 cm from os. Cervix Length: 4.8 cm, closed. Small nabothian cyst within cervix. ANATOMY: Normal Structures -cerebellum, choroid plexus, cisterna magna, lateral cerebral ventricles, orbits, midline falx, stomach, kidneys, bladder, umbilical cord insertion into abdomen, three-vessel cord, cervical spine, thoracic spine, lumbar spine, sacral spine, right upper extremity, left upper extremity, right lower extremity, left lower extremity. SUBOPTIMALLY SEEN: Hard palate, four-chamber heart, cardiac outflow tracts ABNORMALITIES: None BIOMETRY: BPD: 4.7 cm 20 weeks 2 days ; 48% HC: 18.1 cm 20 weeks 4 days; 53% AC: 16.7 cm 21 weeks 5 days; 85% FL: 3.3 cm 20 weeks 3 days ; 47% EFW:393.8 grams; 84% FL/AC: 20.0 FL/BPD: 70.7 HC/AC: 1.1 GESTATIONAL AGE: Age by EDC: 20 weeks 2 days CHANDA by EDC: 12/06/2023 Age by current US: 20 weeks 5 days CHANDA by current US: 12/03/2023 US/US OB anatomy IMPRESSION: 1. Single live intrauterine with growth detailed above. 2. Suboptimal visualization of the hard palate, four-chamber heart, and cardiac outflow tracts due to position. Electronically authenticated by: ERNIE DURAN Date: 07/22/2023 06:18
--- NOTE | 2023-07-21 14:27 | US_ITS ---
[address] [address] Patient Name: NEGIN BURNHAM MRN: [id number] date: 1995 Sex: F Assigned Patient Location: US Current Patient Location: Accession/Order Number: [id number] Exam Date: 07/21/2023 14:36 Report Date: 07/22/2023 06:18 At the request of: ERMELINDA JOHN Procedure: US OB cervical length EXAMINATION: US OB anatomy, US OB cervical length HISTORY: screening, for anatomic survey Z36.89 COMPARISON: Ultrasound OB transvaginal 05/14/2023 TECHNIQUE: Transabdominal sonographic examination was performed for obstetrical and evaluation. FINDINGS: Number: 1 Heart Rate: 156.1 bpm H.B. /min Amniotic Fluid Volume: Subjectively normal Placental Location: ANTERIOR , grade 1, with lower margin 6.7 cm from os. Cervix Length: 4.8 cm, closed. Small nabothian cyst within cervix. ANATOMY: Normal Structures -cerebellum, choroid plexus, cisterna magna, lateral cerebral ventricles, orbits, midline falx, stomach, kidneys, bladder, umbilical cord insertion into abdomen, three-vessel cord, cervical spine, thoracic spine, lumbar spine, sacral spine, right upper extremity, left upper extremity, right lower extremity, left lower extremity. SUBOPTIMALLY SEEN: Hard palate, four-chamber heart, cardiac outflow tracts ABNORMALITIES: None BIOMETRY: BPD: 4.7 cm 20 weeks 2 days ; 48% HC: 18.1 cm 20 weeks 4 days; 53% AC: 16.7 cm 21 weeks 5 days; 85% FL: 3.3 cm 20 weeks 3 days ; 47% EFW:393.8 grams; 84% FL/AC: 20.0 FL/BPD: 70.7 HC/AC: 1.1 GESTATIONAL AGE: Age by EDC: 20 weeks 2 days CHANDA by EDC: 12/06/2023 Age by current US: 20 weeks 5 days CHANDA by current US: 12/03/2023 US/US OB cervical length IMPRESSION: 1. Single live intrauterine with growth detailed above. 2. Suboptimal visualization of the hard palate, four-chamber heart, and cardiac outflow tracts due to position. Electronically authenticated by: ERNIE DURAN Date: 07/22/2023 06:18
== END 2023-07-21 14:25 | disposition home or self-care (01) ==
LOC: US 14:24
PROVIDERS: PCP Family Medicine; Visit Provider Obstetrics & Gynecology
DX: Z36.89 Encounter for other specified antenatal screening (principal); Z3A.20 20 weeks gestation of pregnancy
CPT/HCPCS: 76805; 76817

== ENCOUNTER 2023-07-28 04:01 | Observation (INO) | payer OTHER, SELFPAY ==
--- OUTSIDE RECORDS SUMMARY | 2023-07-28 04:05 | XMS_ITS | CCD ---
Author Organization [facility] Care Team Providers Care Supervisor Pairing And Inspecting Name Role Phone Macie Lorenzana Unavailable DR MACIE LORENZANA Primary Care Unavailable RENEE BORJAS Admitting Unavailable RENEE BORJAS Attending Unavailable RENEE BORJAS Consulting Unavailable DR ERMELINDA COYD Admitting Unavailable DR ERMELINDA CODY Attending Unavailable DR MACIE LORENZANA Primary Care Unavailable DR ERMELINDA CODY Consulting Unavailable ERMELINDA CODY Attending Unavailable ERMELINDA CODY Attending Unavailable Allergies Allergy Classification Reported Allergen(s) Allergy Type Date of Onset Reaction(s) Facility (5 sources) Azithromycin Drug Allergy migraines [facility] Other Medications Current Medications Medication Drug Class(es) Dates Sig (Normalized) Sig (Original) [id number] 200 actuat albuterol 0.09 mg/actuat metered dose [...] 04-07-2022 FLUAV Ab CF (S) [Titer] Positive [facility] Other FLUBV Ab CF (S) [Titer] Negative [facility] Other PAP ACOG PANEL 2: 21 to 29on 04-04-2022 . . Normal [facility] Comment on above: Performed By: #### [id number] #### [facility] [address] [place] [address] Dr. Aranza Dolan Age Gdln ACOG Testing - Normal [facility] Comment on above: Performed By: #### [id number] #### [facility] [address] [place] [address] Dr. Aranza Dolan DIAGNOSIS: Comment Abnormal [facility] Comment on above: Result Comment: EPIT HELIAL CELL ABNORMALITY. ATYPICAL SQUAMOUS CELLS OF UNDETERMINED SIGNIFICANCE (ASC-US). FUNGAL ORGANISMS MORPHOLOGICALLY CONSISTENT WITH RAQUEL SPECIES ARE PRESENT. Performed By: #### [id number] #### [facility] [address] [place] [address] Dr. Aranza Dolan Electronically signed by: Comment Normal [facility] Comment on above: Result Comment: Adelina Ochoa MD, Pathologist Performed By: #### [id number] #### [facility] [address] [place] [address] Dr. Aranza Dolan HPV Aptima Negative Normal Negative [facility] Comment on above: Result Comment: This nucleic acid amplification test detects fourteen high-risk HPV types (16,18,31,33,35,39,45,51,52,56,58,59,66,68) without differentiation. Performed By: #### [id number] #### [facility] [address] [place] [address] Dr. Aranza Dolan Methodology: Comment Normal [facility] Comment on above: Result Comment: This liquid based ThinPrep(R) pap test was screened with the use of an image guided system. Performed By: #### [id number] #### [facility] [address] [place] [address] Dr. Aranza Dolan Note: Comment Normal [facility] Comment on above: Result Comment: The Pap smear is a screening test designed to aid in the detection of premalignant and malignant conditions of the uterine cervix. It is not a diagnostic procedure and should not be used as the sole means of detecting cervical cancer. Both false-positive and false-negative reports do occur. . Performed By: #### [id number] #### [facility] [address] [address] [address] Aranza oDlan Pathologist Provided ICD10 Comment Normal [facility] Comment on above: Result Comment: R87. 610, R87.5 Performed By: #### 4 [id number] #### [facility] [address] [address] [address] Aranza Dolan Performed by: Comment Normal [facility] Comment on above: Result Comment: Francheska Gee Research And Evaluation Analyst (ASCP) Performed By: #### [id number] #### [facility] [address] [address] [address] Aranza Dolan Recommendation: Comment Abnormal [facility] Comment on above: Result Comment: Sugg est follow up as clinically appropriate. Performed By: #### 4 [id number] #### [facility] [address] [address] [address] Aranza Dolan Reflex Criteria: Comment Normal [facility] Comment on above: Result Comment: See below for HPV testing results. . Performed By: #### [id number] #### [facility] [address] [address] [address] Aranza Dolan Specimen adequacy: Comment Normal [facility] Comment on above: Result Comment: Sati sfactory for evaluation. Endocervical and/or squamous metaplastic cells (endocervical component) are present. Performed By: #### 4 [id number] #### [facility] [address] [address] [address] Aranza Dolan Covid-19 PCR (CVDTB)on 03-11 SARS-CoV-2 (COVID-19) RNA RAMON+probe Ql (Unsp spec) Detected Critically abnormal NOT DETECTED [facility] Comment on above: Result Comment: This test is not yet approved or cleared by the [place] FDA. When there are no FDA-approved or cleared tests available, and other criteria are met, FDA can make tests available under an emergency access mechanism called an Emergency Use Authorization (EUA). The EUA for this test is supported by the [place] of Health and Human Service's declaration that [...] longer be used). Performed By: #### C [facility] #### [facility] [address] [place] [address] Dr. Aranza Dolan Vital Signs Date Time Vital Sign Value Performing Clinician Facility 11-13-2021 16:45-0400 Body height 170.18 cm Macie Lorenzana Other [facility] Other 11-13-2021 16:45-0400 Body mass index (BMI) [Ratio] 33.83 kg/m2 Macie Lorenzana Other [facility] Other 11-13-2021 16:45-0400 Body weight 97.98 kg Macie Lorenzana Other [facility] Other 11-13-2021 16:45-0400 Diastolic blood pressure 80 mm[Hg] Macie Lorenzana Other [facility] Other 11-13-2021 16:45-0400 Respiratory rate 16 /min Macie Lorenzana Other [facility] Other 11-13-2021 16:45-0400 SaO2% (BldA) [Mass fraction] 98 % Macie Lorenzana Other [facility] Other 11-13-2021 16:45-0400 Systolic blood pressure 126 mm[Hg] Macie Lorenzana Other [facility] Other Encounters Encounter Date Encounter Type Care Provider Facility Start: 06-15-2023 End: 06-15-2023 ambulatory ERMELINDA ALVARO Not Available Start: 05-14-2023 End: 05-14-2023 ambulatory ERMELINDA ALVARO Not Available Start: 04-06-2023 End: 04-06-2023 ambulatory ERMELINDA ALVARO Not Available Start: 04-15-2022 End: 04-15-2022 ambulatory Macie Lorenzana Other [facility] Other Start: 04-15-2022 Telephone encounter Macie Lorenzana [facility] Start: 04-07-2022 End: 04-07-2022 ambulatory Macie Lorenzana Other [facility] Other Start: 04-07-2022 Nursing evaluation o f patient and report Macie Lorenzana [facility] Start: 04-07-2022 Telephone encounter Macie Lorenzana [facility] Start: 03-24-2022 End: 03-24-[address] ERMELINDA CODY Facility:[facility] Start: 11-13-2021 End: 11-13-2021 ambulatory Macie Lorenzana Other [facility] Other Start: 11-13-2021 Office outpatient vi sit 15 minutes Macie Lorenzana [facility] Start: 11-13-2021 Telephone encounter Macie Lorenzana [facility] Start: 04-07-2021 End: 04-07-[address] MACIE LORENZANA Facility:[facility] Immunizations Immunization Date Immunization Notes Care Provider Fa cility NEGATED: Highlighted row has not occurred!07-18-2019 influenza, seasonal, injectable Patient Objection Macie Lorenzana Other [facility] Other Payers Date Payer Category Payer Medicaid [id number] 1995 Unknown [id number] 2.16.84 [id number] 1995 Unknown [id number] 2.16.84 [id number] 1994 Unknown [id number] 2.16.84 [id number] 1994 Unknown [id number] 2.16.840 .[id number] 1994 Unknown [id number] 2.16.840 .[id number] 1994 Unknown [id number] 2.16.840 .[id number] 1959 Unknown [id number] 2.1 [id number] Social History Date Type Detail Facility Unknown if ever smoked [facility] Other Sex Assigned At Sex Assigned At Bir th [facility] Other Evaluation note 04-07-2022 Note Date & Type Note Facility 04-07-2022 Evaluation note Encounter Date Diagnosis Assessment Notes Mar, Acute cough (ICD-10 - R05.1) [facility] Other Evaluation note 11-13-2021 Note Date & Type Note Facility 11-13-2021 Evaluation note Encounter Date Diagnosis Assessment Notes Nov, Insect bite (nonvenomous) of right upper arm, initial encounter (ICD-10 - S40.861A) Noted of left forearm. I did prescribe the above prednisone and patient is to continue taking benadryl at bedtime. Patient is to call next week with an update. [facility] Other History general Narrative - Reported 06-24-2016 Note Date & Type Note Facility 06-24-2016 History general N arrative - Reported Type Medical History follows with Dr. Ananth Cody for PAP Medical History Biometric Screening 06/24/16 [facility] Medical History 02/13/2019 EKG Surgical History tubes in ears Surgical History 03/05/21 Hospitalization History Childbirth [facility] Other Evaluation note Note Date & Type Note Facility Evaluation note No Information [employer] Other Summary Purpose Family History No Family History Records FoundNo Family History Records Found Advance Directives No Advanced Directives Records FoundNo Advanced Directives Records Found Additional Source Comments REASON FOR VISIT (unrecogniz ed section and content) Clinical Acute Illnessbug bi te on right armClinicalflu swab-( positive)Clinical INFORMATION SOURCE (unrecogn ized section and content) DATE CREATED AUTHOR 04/04/2022 [facility] DATE CREATED AUTHOR AUTHOR'S ORGANIZ ATION 06/15/2023 [facility] EPIC FOR RECORDS PERTAINING [...] BE BASED ON THE PRIMARY CLINICAL RECORDS. [employer] provides no warranty or guarantee of the accuracy or completeness of information in this document.
[2023-07-28 04:17] VITALS: BP 112/71; PULSE 118
[2023-07-28 05:10] LABS: Clarity Urine CLEAR (CLEAR); Color Urine YELLOW (YELLOW); Specific Gravity Urine >=1.030 (1.005-1.025)
[2023-07-28 05:11] LABS: Bilirubin Urine NEGATIVE (NEGATIVE); Blood Urine NEGATIVE (NEGATIVE); Glucose Urine UA NEGATIVE (NEGATIVE); Ketones Urine TRACE mg/dL (NEGATIVE); Nitrite Urine NEGATIVE (NEGATIVE); Protein Urine NEGATIVE (NEG/TRACE); Urobilinogen Urine 0.2 EU/dL (0.2-1.0)
[2023-07-28 05:12] LABS: Leukocyte Esterase Urine NEGATIVE (NEGATIVE); Urine Microscopic Indicated NO
[2023-07-28 06:21] LABS: Basophils Percent Auto 0.2 % (0.2-2.0); Eosinophils Percent Auto 0.2 % (0.9-7.0); Hematocrit 35.1 % (36.0-48.0); Hemoglobin 11.6 g/dL (12.0-16.0); Immature Granulocytes Abs Auto 0.05 10^3/uL (0.00-0.03); Immature Granulocytes Pct Auto 0.4 % (0.0-0.5); Lymphocytes Absolute Auto 1.9 10^3/uL (1.2-3.8); Lymphocytes Percent Auto 14.7 % (20.5-60.0); Mean Corpuscular Hemoglobin 29.1 pg (26.7-34.0); Mean Corpuscular Volume 88.2 fL (81.0-99.0); Mean Platelet Volume 9.1 fL (9.5-13.5); Monocytes Absolute Auto 0.7 10^3/uL (0.3-0.8); Monocytes Percent Auto 5.7 % (1.7-12.0); Neutrophils Absolute Auto 10.2 10^3/uL (1.4-6.5); Neutrophils Percent Auto 78.8 % (43.0-75.0); Platelet Count 239 10^3/uL (150-450); Red Blood Count 3.98 10^6/uL (4.20-5.40); Red Cell Distribution Width 13.8 % (11.0-15.0)
[2023-07-28] MEDS: ONDANSETRON 4 MG RAPDIS TABLET SL (08:16)
--- NOTE | 2023-07-28 08:26 | PM.OBHP ---
OB - H&P: HPI History of Present Illness Chief complaint: CRAMPING : 3 Para: 2 Date of last menstrual period: 03/01/2023 Gestational age based on last menstrual period: 06/16 Narrative: pt states she feels like she had the flu, complains of abdominal cramping, positive nausea, neg diarrhea neg lof, vb History of Present Dating criteria: LMP confirmed by 1st trimester US care: good care Labs Blood type: A (+) positive Rubella: immune RPR/VDLR: nonreactive Review of Systems ROS Status of ROS: 10 or more systems reviewed and unremarkable except as noted in history and below Exam Constitutional Vital Signs, click to edit/add: Last Vital Signs Pulse 118 H 07/28/23 04:17 BP 112/71 07/28/23 04:17 Documenting provider has reviewed patient's vital signs: yes Common normals: no apparent distress Respiratory Common normals: clear to auscultation bilaterally Cardio Common normals: regular rate and regular rhythm GI Common normals: Normal to inspection, nondistended, normoactive bowel sounds present Extremity Common normals: no clubbing, cyanosis or edema and no calf tenderness Results Labs Labs: Short CBC 07/28/23 Range/Units 06:10 WBC 13.0 H (4.0-11.0) 10^3/uL Hgb 11.6 L (12.0-16.0) g/dL Hct 35.1 L (36.0-48.0) % Plt Count 239 (150-450) 10^3/uL Urine 07/28/23 Range/Units 04:58 Urine Color Yellow (YELLOW) Urine Clarity Clear (CLEAR) Urine pH 6.0 (5.0-9.0) Ur Specific [place] >=1.030 A (1.005-1.025) Urine Protein Negative (NEG/TRACE) mg/dL Urine Glucose (UA) Negative (NEGATIVE) mg/dL OB - A/P Assessment and Plan (1) Intrauterine : Plan iup at 21wks, flu like symptoms, previous c/s times 2-iv, cbc, iv antiemetic
[2023-07-28] MEDS: 0.9 % SODIUM CHLORIDE 1,000 ML 1000 ML IV (08:45)
--- NOTE | 2023-07-28 09:40 | W.PC.ACHO ---
Registration Status: ADM JOSÉ MIGUEL Primary Language: Preferred Language: Active Medications Generic Name Dose Route Start Last Admin Trade Name Freq PRN Reason Stop Dose Admin Ondansetron HCl 4 mg 07/28/23 07:31 07/28/23 08:16 Ondansetron 4 Mg Rapdis Tablet SL 4 mg Q6H PRN Administration Nausea And Vomiting Ondansetron HCl 4 mg 07/28/23 08:31 Ondansetron Pf 4 Mg/2 Ml Vial IV Q6H PRN Nausea IV Insertion/Site Date of IV Line Insertion [18g 07/28/23 right Forearm] IV Insertion Time [18g right 08:45 Forearm]
== END 2023-07-28 09:40 | disposition home or self-care (01) ==
PROVIDERS: Admitting Provider Obstetrics & Gynecology; PCP Family Medicine; Visit Provider Obstetrics & Gynecology
DX: O26.892 Other specified pregnancy related conditions, second trimester (principal); R10.9 Unspecified abdominal pain; R11.0 Nausea; Z3A.21 21 weeks gestation of pregnancy; O34.219 Maternal care for unspecified type scar from previous cesarean delivery
CPT/HCPCS: 36415; 59025; 81003; 85025; G0378; G0379

== ENCOUNTER 2023-08-18 07:13 | Outpatient (OUT) | payer OTHER, SELFPAY ==
--- NOTE | 2023-08-18 07:15 | US_ITS ---
[address] [address] Patient Name: NEGIN BURNHAM MRN: [id number] date: 1995 Sex: F Assigned Patient Location: US Current Patient Location: US Accession/Order Number: [id number] Exam Date: 08/18/2023 07:16 Report Date: 08/18/2023 08:28 At the request of: ERMELINDA JOHN Procedure: US OB incomplete anatomy EXAM: US OB incomplete anatomy HISTORY: Follow Up Anatomy Z36.2 COMPARISON: 07/21/2023 TECHNIQUE: Transabdominal FINDINGS: position: Cephalic presentation, longitudinal lie Heart rate: 154 beats minute Normal anatomy: Nose, lips, four-chamber heart, RVOT, LVOT US/US OB incomplete anatomy IMPRESSION: Normal observed anatomy Electronically authenticated by: SCOT PRICE Date: 08/18/2023 08:28
--- OUTSIDE RECORDS SUMMARY | 2023-08-18 07:15 | XMS_ITS | CCD ---
Author Organization [facility] Care Team Providers Care Production Support Consultant Name Role Phone Macie Lorenzana Unavailable DR MACIE LORENZANA Primary Care Unavailable RENEE BORJAS Admitting Unavailable RENEE BORJAS Attending Unavailable RENEE BORJAS Consulting Unavailable DR ERMELINDA CODY Admitting Unavailable ALVARO, DR WADSWORTH Attending Unavailable DR MACIE LORENZANA Primary Care Unavailable DR ERMELINDA CODY Consulting Unavailable ERMELINDA CODY Attending Unavailable PHYLLIS LADD Attending Unavailable ERMELINDA CODY Attending Unavailable ERMELINDA CODY Attending Unavailable Allergies Allergy Classification Reported Allergen(s) Allergy Type Date of Onset Reaction(s) Facility (5 sources) Azithromycin Drug Allergy [facility] Other Medications Current Medications Medication Drug Class(es) Dates Sig (Normalized) Sig (Original) [id number] 200 actuat albuterol 0.09 mg/actuat metered dose [...] 04-07-2022 FLUAV Ab CF (S) [Titer] Positive [facility] Other FLUBV Ab CF (S) [Titer] Negative [facility] Other PAP ACOG PANEL 2: 21 to 29on 04-04-2022 . . Normal [facility] Comment on above: Performed By: #### [id number] #### [facility] [address] [place] [address] Dr. Aranza Dolan Age Gdln ACOG Testing 21-29 Normal [facility] Comment on above: Performed By: #### 4 [id number] #### [facility] [address] [address] [address] Aranza Dolan DIAGNOSIS: Comment Abnormal [facility] Comment on above: Result Comment: EPIT HELIAL CELL ABNORMALITY. ATYPICAL SQUAMOUS CELLS OF UNDETERMINED SIGNIFICANCE (ASC-US). FUNGAL ORGANISMS MORPHOLOGICALLY CONSISTENT WITH RAQUEL SPECIES ARE PRESENT. Performed By: #### [id number] #### [facility] [address] [place] [address] Dr. Aranza Dolan Electronically signed by: Comment Normal [facility] Comment on above: Result Comment: Adelina Ochoa MD, Pathologist Performed By: #### [id number] #### [facility] [address] [place] [address] Dr. Aranza Dolan HPV Aptima Negative Normal Negative [facility] Comment on above: Result Comment: This nucleic acid amplification test detects fourteen high-risk HPV types (16,18,31,33,35,39,45,51,52,56,58,59,66,68) without differentiation. Performed By: #### 4 [id number] #### [facility] [address] [place] [address] Dr. Aranza Dolan Methodology: Comment Normal [facility] Comment on above: Result Comment: This liquid based ThinPrep(R) pap test was screened with the use of an image guided system. Performed By: #### 4 [id number] #### [facility] [address] [place] [address] Dr. Aranza Dolan Note: Comment Normal [facility] Comment on above: Result Comment: The Pap smear is a screening test designed to aid in the detection of premalignant and malignant conditions of the uterine cervix. It is not a diagnostic procedure and should not be used as the sole means of detecting cervical cancer. Both false-positive and false-negative reports do occur. . Performed By: #### 4 [id number] #### [facility] [address] [address] [address] Aranza Dolan Pathologist Provided ICD10 Comment Normal [facility] Comment on above: Result Comment: R87. 610, R87.5 Performed By: #### [id number] #### [facility] [address] [place] [address] Dr. Aranza Dolan Performed by: Comment Normal [facility] Comment on above: Result Comment: Francheska Gee Computing Systems Mechanic (ASCP) Performed By: #### 4 [id number] #### [facility] [address] [place] [address] Dr. Aranza Dolan Recommendation: Comment Abnormal [facility] Comment on above: Result Comment: Sugg est follow up as clinically appropriate. Performed By: #### [id number] #### [facility] [address] [place] [address] Dr. Aranza Dolan Reflex Criteria: Comment Normal [facility] Comment on above: Result Comment: See below for HPV testing results. . Performed By: #### 4 [id number] #### [facility] [address] [place] [address] Dr. Aranza Dolan Specimen adequacy: Comment Normal [facility] Comment on above: Result Comment: Sati sfactory for evaluation. Endocervical and/or squamous metaplastic cells (endocervical component) are present. Performed By: #### 4 [id number] #### [facility] [address] [place] [address] Dr. Aranza Dolan [facility] SARS-CoV-2 (COVID-19) RNA RAMON+probe Ql (Unsp spec) Detected Critically abnormal NOT DETECTED [facility] Comment on above: Result Comment: This test is not yet approved or cleared by the [place] FDA. When there are no FDA-approved or cleared tests available, and other criteria are met, FDA can make tests available under an emergency access mechanism called an Emergency Use Authorization (EUA). The EUA for this test is supported by the [place] of Health and Human Service's declaration that [...] be used). Performed By: #### C [facility] #### [facility] [address] [place] [address] Dr. Aranza Dolan Vital Signs Date Time Vital Sign Value Performing Clinician Facility 11-13-2021 16:45-0400 Body height 170.18 cm Macie Lorenzana Other [facility] Other 11-13-2021 16:45-0400 Body mass index (BMI) [Ratio] 33.83 kg/m2 Macie Lorenzana Other [facility] Other 11-13-2021 16:45-0400 Body weight 97.98 kg Macie Lorenzana Other [facility] Other 11-13-2021 16:45-0400 Diastolic blood pressure 80 mm[Hg] Macie Lorenzana Other [facility] Other 11-13-2021 16:45-0400 Respiratory rate 16 /min Macie Lorenzana Other [facility] Other 11-13-2021 16:45-0400 SaO2% (BldA) [Mass fraction] 98 % Macie Lorenzana Other [facility] Other 11-13-2021 16:45-0400 Systolic blood pressure 126 mm[Hg] Macie Lorenzana Other [facility] Other Encounters Encounter Date Encounter Type Care Provider Facility Start: 08-10-2023 End: 08-10-2023 ambulatory ERMELINDA ALVARO Not Available Start: 07-13-2023 End: 07-13-2023 ambulatory PHYLLIS LADD Not Available Start: 06-15-2023 End: 06-15-2023 ambulatory ERMELINDA ALVARO Not Available Start: 05-14-2023 End: 05-14-2023 ambulatory ERMELINAD ALVARO Not Available Start: 04-06-2023 End: 04-06-2023 ambulatory ERMELINDA ALVARO Not Available Start: 04-15-2022 End: 04-15-2022 ambulatory Macie Lorenzana Other [facility] Other Start: 04-15-2022 Telephone encounter Macie Lorenzana [facility] [place] Start: 04-07-2022 End: 04-07-2022 ambulatory Macie Lorenzana Other [facility] Other Start: 04-07-2022 Nursing evaluation o f patient and report Macie Lorenzana [facility] [place] Start: 04-07-2022 Telephone encounter Macie Lorenzana [facility] [place] Start: 03-24-2022 End: 03-24-[address] ERMELINDA CODY Facility:[facility] Start: 11-13-2021 End: 11-13-2021 ambulatory Macie Lorenzana Other [facility] Other Start: 11-13-2021 Office outpatient vi sit 15 minutes Macie Lorenzana [facility] [place] Start: 11-13-2021 Telephone encounter Macie Lorenzana [facility] [place] Start: 04-07-2021 End: 04-07-[address] MACIE LORENZANA Facility:[facility] Immunizations Immunization Date Immunization Notes Care Provider Fa cility NEGATED: Highlighted row has not occurred!07-18-2019 influenza, seasonal, injectable Patient Objection Macie Lorenzana Other [facility] Other Payers Date Payer Category Payer Medicaid [id number] 1995 Unknown [id number] 2.16.84 [id number] 1995 Unknown [id number] 2.16.84 [id number] 1994 Unknown [id number] 2.16.84 [id number] 1994 Unknown [id number] 2.16.84 [id number] 1994 Unknown [id number] 2.16.84 [id number] 1994 Unknown [id number] 2.16.840 .[id number] 1994 Unknown [id number] 2.16.840 .[id number] 1994 Unknown [id number] 2.16.840 .[id number] 1959 Unknown [id number] 2.1 [id number] Social History Date Type Detail Facility Unknown if ever smoked [facility] Other Sex Assigned At Sex Assigned At Bir th [facility] Other Evaluation note 04-07-2022 Note Date & Type Note Facility 04-07-2022 Evaluation note Encounter Date Diagnosis Assessment Notes Mar, Acute cough (ICD-10 - R05.1) [facility] Other Evaluation note 11-13-2021 Note Date & Type Note Facility 11-13-2021 Evaluation note Encounter Date Diagnosis Assessment Notes Nov, Insect bite (nonvenomous) of right upper arm, initial encounter (ICD-10 - S40.861A) Noted of left forearm. I did prescribe the above prednisone and patient is to continue taking benadryl at bedtime. Patient is to call next week with an update. [facility] Other History general Narrative - Reported 06-24-2016 Note Date & Type Note Facility 06-24-2016 History general N arrative - Reported Type Medical History follows with Dr. Ananth Cody for PAP Medical History Biometric Screening 06/24/16 [facility] [place] Medical History 02/13/2019 EKG Surgical History tubes in ears Surgical History 03/05/21 Hospitalization History Childbirth [facility] Other Evaluation note Note Date & Type Note Facility Evaluation note No Information [facility] [employer] Other Summary Purpose Family History No Family History Records FoundNo Family History Records Found Advance Directives No Advanced Directives Records FoundNo Advanced Directives Records Found Additional Source Comments REASON FOR VISIT (unrecogniz ed section and content) Clinical Acute Illnessbug bi te on right armClinicalflu swab-( positive)Clinical INFORMATION SOURCE (unrecogn ized section and content) DATE CREATED AUTHOR 04/04/2022 [facility] DATE CREATED AUTHOR 'S ORGANIZ ATION 08/11/2023 [facility] EPIC FOR RECORDS PERTAINING TO PATIENTS [...] BE BASED ON THE PRIMARY CLINICAL RECORDS. [employer] provides no warranty or guarantee of the accuracy or completeness of information in this document.
== END 2023-08-18 07:14 | disposition home or self-care (01) ==
LOC: US 07:13
PROVIDERS: PCP Family Medicine; Visit Provider Obstetrics & Gynecology
DX: Z36.2 Encounter for other antenatal screening follow-up (principal)
CPT/HCPCS: 76815

== ENCOUNTER 2023-08-31 14:30 | Outpatient (REF) | payer OTHER, SELFPAY ==
--- OUTSIDE RECORDS SUMMARY | 2023-08-31 14:52 | XMS_ITS | CCD ---
Author Organization [facility] Care Team Providers Care Motor Setter Name Role Phone Macie Lorenzana Unavailable DR [...] Reaction(s) Facility (5 sources) Azithromycin Drug Allergy [employer] [facility] Other Medications Current Medications Medication Drug Class(es) Dates Sig (Normalized) Sig (Original) [id number] 200 actuat albuterol 0.09 mg/actuat metered dose [...] 04-07-2022 FLUAV Ab CF (S) [Titer] Positive [facility] Other FLUBV Ab CF (S) [Titer] Negative [facility] Other PAP ACOG PANEL 2: 21 to 29on 04-04-2022 . . Normal [facility] Comment on above: Performed By: #### [id number] #### [facility] [address] [place] [address] Dr. Aranza Dolan Age Gdln ACOG Testing 21-29 Normal [facility] Comment on above: Performed By: #### [id number] #### [facility] [address] [address] [address] Aranza Dolan DIAGNOSIS: Comment Abnormal [facility] Comment on above: Result Comment: EPIT HELIAL CELL ABNORMALITY. ATYPICAL SQUAMOUS CELLS OF UNDETERMINED SIGNIFICANCE (ASC-US). FUNGAL ORGANISMS MORPHOLOGICALLY CONSISTENT WITH RAQUEL SPECIES ARE PRESENT. Performed By: #### [id number] #### [facility] [address] [place] [address] Dr. Aranza Dolan Electronically signed by: Comment Normal [facility] Comment on above: Result Comment: Adelina Ochoa MD, Pathologist Performed By: #### [id number] #### [facility] [address] [place] [address] Dr. Aranza Dolan HPV Aptima Negative Normal Negative [facility] Comment on above: Result Comment: This nucleic acid amplification test detects fourteen high-risk HPV types (16,18,31,33,35,39,45,51,52,56,58,59,66,68) without differentiation. Performed By: #### [id number] #### [facility] [address] [place] [address] Dr. Aranza Dolan Methodology: Comment Normal [facility] Comment on above: Result Comment: This liquid based ThinPrep(R) pap test was screened with the use of an image guided system. Performed By: #### [id number] #### [facility] [address] [place] [address] Dr. Aranza Dolan Note: Comment Normal [facility] Comment on above: Result Comment: The Pap smear is a screening test designed to aid in the detection of premalignant and malignant conditions of the uterine cervix. It is not a diagnostic procedure and should not be used as the sole means of detecting cervical cancer. Both false-positive and false-negative reports do occur. . Performed By: #### [id number] #### [facility] [address] [address] [address] Aranza Dolan Pathologist Provided ICD10 Comment Normal [facility] Comment on above: Result Comment: R87. 610, R87.5 Performed By: #### 4 [id number] #### [facility] [address] [place] [address] Dr. Aranza Dolan Performed by: Comment Normal [facility] Comment on above: Result Comment: Francheska Gee Geophysical Operator (ASCP) Performed By: #### [id number] #### [facility] [address] [place] [address] Dr. Aranza Dolan Recommendation: Comment Abnormal [facility] Comment on above: Result Comment: Sugg est follow up as clinically appropriate. Performed By: #### 4 [id number] #### [facility] [address] [place] [address] Dr. Aranza Dolan Reflex Criteria: Comment Normal [facility] Comment on above: Result Comment: See below for HPV testing results. . Performed By: #### [id number] #### [facility] [address] [place] [address] Dr. Aranza Dolan Specimen adequacy: Comment Normal [facility] Comment on above: Result Comment: Sati sfactory for evaluation. Endocervical and/or squamous metaplastic cells (endocervical component) are present. Performed By: #### 4 [id number] #### [facility] [address] [place] [address] Dr. Aranza Dolan [facility] SARS-CoV-2 (COVID-19) RNA RAMON+probe Ql (Unsp spec) Detected Critically abnormal NOT DETECTED [facility] Comment on above: Result Comment: This test is not yet approved or cleared by the [place] FDA. When there are no FDA-approved or cleared tests available, and other criteria are met, FDA can make tests available under an emergency access mechanism called an Emergency Use Authorization (EUA). The EUA for this test is supported by the Sed Special Education Teacher of Health and Human Service's declaration that [...] longer be used). Performed By: #### C [facility] #### [facility] [address] [place] [address] Dr. Aranza Dolan Vital Signs Date Time Vital Sign Value Performing Clinician Facility 11-13-2021 16:45-0400 Body height 170.18 cm Macie Lorenzana Other [facility] Other 11-13-2021 16:45-0400 Body mass index (BMI) [Ratio] 33.83 kg/m2 Macie Lorenzana Other [facility] Other 11-13-2021 16:45-0400 Body weight 97.98 kg Macie Lorenzana Other [facility] Other 11-13-2021 16:45-0400 Diastolic blood pressure 80 mm[Hg] Macie Lorenzana Other [facility] Other 11-13-2021 16:45-0400 Respiratory rate 16 /min Macie Lorenzana Other [facility] Other 11-13-2021 16:45-0400 SaO2% (BldA) [Mass fraction] 98 % Macie Lorenzana Other [facility] Other 11-13-2021 16:45-0400 Systolic blood pressure 126 mm[Hg] Macie Lorenzana Other [facility] Other Encounters Encounter Date Encounter Type Care Provider Facility Start: 08-10-2023 End: 08-10-2023 ambulatory ERMELINDA ALVARO Not Available Start: 07-13-2023 End: 07-13-2023 ambulatory PHYLLIS LADD Not Available Start: 06-15-2023 End: 06-15-2023 ambulatory ERMELINDA ALVARO Not Available Start: 05-14-2023 End: 05-14-2023 ambulatory ERMELINDA ALVARO Not Available Start: 04-06-2023 End: 04-06-2023 ambulatory ERMELINDA ALVARO Not Available Start: 04-15-2022 End: 04-15-2022 ambulatory Macie Lorenzana Other [facility] Other Start: 04-15-2022 Telephone encounter [address]ie Lorenzana [facility] [place] Start: 04-07-2022 End: 04-07-2022 ambulatory Macie Lorenzana Other [facility] Other Start: 04-07-2022 Nursing evaluation o f patient and report Macie Lorenzana [facility] [place] Start: 04-07-2022 Telephone encounter Macie Lorenzana [facility] [place] Start: 03-24-2022 End: 03-24-[address] ERMELINDA CODY Facility:[facility] Start: 11-13-2021 End: 11-13-2021 ambulatory Macie Lorenzana Other [facility] Other Start: 11-13-2021 Office outpatient vi sit [address] [facility] [place] Start: 11-13-2021 Telephone encounter Macie Lorenzana [facility] [place] Start: 04-07-2021 End: 04-07-[address] MACIE LORENZANA Facility:[facility]1 Immunizations Immunization Date Immunization Notes Care Provider Fa cility NEGATED: Highlighted row has not occurred!07-18-2019 influenza, seasonal, injectable Patient Objection Macie Lorenzana Other [facility] Other Payers Date Payer Category Payer Medicaid [id number] 1995 Unknown [id number] 2.16.84 [id number] 1995 Unknown [id number] 2.16.84 [id number] 1994 Unknown [id number] 2.16.84 0.1.136915.3.579.2.1259 1994 Unknown [id number] 2.16.84 0.1.082311.3.579.2.1259 1994 Unknown [id number] 2.16.84 0.1.480910.3.579.2.1259 1994 Unknown [id number] 2.16.840 .1.298481.3.579.2.1259 1994 Unknown [id number] 2.16.840 .1.526174.3.579.2.1259 1994 Unknown [id number] 2.16.840 .1.335226.3.579.2.1259 1959 Unknown [id number] 2.1 [id number] Social History Date Type Detail Facility Unknown if ever smoked [facility] Other Sex Assigned At Sex Assigned At Bir th [facility] Other Evaluation note 04-07-2022 Note Date & Type Note Facility 04-07-2022 Evaluation note Encounter Date Diagnosis Assessment Notes Mar, Acute cough (ICD-10 - R05.1) [facility] Other Evaluation note 11-13-2021 Note Date & Type Note Facility 11-13-2021 Evaluation note Encounter Date Diagnosis Assessment Notes Nov, Insect bite (nonvenomous) of right upper arm, initial encounter (ICD-10 - S40.861A) Noted of left forearm. I did prescribe the above prednisone and patient is to continue taking benadryl at bedtime. Patient is to call next week with an update. [facility] Other History general Narrative - Reported 06-24-2016 Note Date & Type Note Facility 06-24-2016 History general N arrative - Reported Type Medical History follows with Dr. Ananth Cdoy for PAP Medical History Biometric Screening 06/24/16 [facility] [place], [place] Medical History 02/13/2019 EKG Surgical History tubes in ears Surgical History 03/05/21 Hospitalization History Childbirth [facility] [employer] Other Evaluation note Note Date & Type Note Facility Evaluation note No Information [facility] [employer] Other Summary Purpose Family History No Family [...] DATE CREATED AUTHOR 'S ORGANIZ ATION 08/11/2023 [facility] Special[facility] EPIC FOR RECORDS PERTAINING TO PATIENTS [...] BE BASED ON THE PRIMARY CLINICAL RECORDS. [employer] provides no warranty or guarantee of the accuracy or completeness of information in this document.
[2023-08-31 14:59] LABS: Influenza Virus A Antigen Negative; Influenza Virus B Antigen Negative; Internal Control Within Normal Limits; SARS-CoV-2 Ag NEGATIVE (NEGATIVE)
== END 2023-08-31 14:31 | disposition home or self-care (01) ==
LOC: LAB 14:30
PROVIDERS: PCP Family Medicine; Visit Provider Obstetrics & Gynecology
DX: Z20.822 Contact with and (suspected) exposure to COVID-19 (principal); R50.9 Fever, unspecified; R23.2 Flushing; R06.02 Shortness of breath
CPT/HCPCS: 87804; 87811

== ENCOUNTER 2023-08-31 19:38 | Emergency (ER) | payer OTHER, SELFPAY ==
[2023-08-31 19:42] VITALS: BP 146/71; PULSE 124; TEMP 37.9; O2SAT 99
--- OUTSIDE RECORDS SUMMARY | 2023-08-31 19:46 | XMS_ITS | CCD ---
Author Organization [facility] Care Team Providers Care Fashion Design Professor Name Role Phone Macie Lorenzana Unavailable DR [...] Reaction(s) Facility (5 sources) Azithromycin Drug Allergy [employer] [facility] Other Medications Current Medications Medication Drug Class(es) Dates Sig (Normalized) Sig (Original) [id number] 200 actuat albuterol 0.09 mg/actuat metered dose [...] 04-07-2022 FLUAV Ab CF (S) [Titer] Positive [facility] Other FLUBV Ab CF (S) [Titer] Negative [facility] Other PAP ACOG PANEL 2: 21 to 29on 04-04-2022 . . Normal [facility] Comment on above: Performed By: #### [id number] #### [facility] [address] [place] [address] Dr. Aranza Dolan Age Gdln ACOG Testing 21-29 Normal [facility] Comment on above: Performed By: #### 4 [id number] #### [facility] [address] [address] [address] Aranza Dolan DIAGNOSIS: Comment Abnormal [facility] Comment on above: Result Comment: EPIT HELIAL CELL ABNORMALITY. ATYPICAL SQUAMOUS CELLS OF UNDETERMINED SIGNIFICANCE (ASC-US). FUNGAL ORGANISMS MORPHOLOGICALLY CONSISTENT WITH RAQUEL SPECIES ARE PRESENT. Performed By: #### 4 [id number] #### [facility] [address] [place] [address] Dr. Aranza Dolan Electronically signed by: Comment Normal [facility] Comment on above: Result Comment: Adelina Ochoa MD, Pathologist Performed By: #### 4 [id number] #### [facility] [address] [place] [address] Dr. Aranza Dolan HPV Aptima Negative Normal Negative [facility] Comment on above: Result Comment: This nucleic acid amplification test detects fourteen high-risk HPV types (16,18,31,33,35,39,45,51,52,56,58,59,66,68) without differentiation. Performed By: #### 4 [id number] #### [facility] [address] [place] [address] Dr. Aranza Dolan Methodology: Comment Normal [facility] Comment on above: Result Comment: This liquid based ThinPrep(R) pap test was screened with the use of an image guided system. Performed By: #### 4 [id number] #### [facility] [address] [place] [address] Dr. Aranza Dolan Note: Comment Normal [facility] Comment on above: Result Comment: The Pap smear is a screening test designed to aid in the detection of premalignant and malignant conditions of the uterine cervix. It is not a diagnostic procedure and should not be used as the sole means of detecting cervical cancer. Both false-positive and false-negative reports do occur. . Performed By: #### 4 [id number] #### [facility] [address] [address] [address] Aranza Dolan Pathologist Provided ICD10 Comment Normal [facility] Comment on above: Result Comment: R87. 610, R87.5 Performed By: #### 4 [id number] #### [facility] [address] [place] [address] Dr. Aranza Dolan Performed by: Comment Normal [facility] Comment on above: Result Comment: Francheska Gee Clerk Of Court (ASCP) Performed By: #### 4 [id number] #### [facility] [address] [place] [address] Dr. Aranza Dolan Recommendation: Comment Abnormal [facility] Comment on above: Result Comment: Sugg est follow up as clinically appropriate. Performed By: #### 4 [id number] #### [facility] [address] [place] [address] Dr. Aranza Dolan Reflex Criteria: Comment Normal [facility] Comment on above: Result Comment: See below for HPV testing results. . Performed By: #### 4 [id number] #### [facility] [address] [place] [address] Dr. Aranza Dolan Specimen adequacy: Comment Normal [facility] Comment on above: Result Comment: Sati sfactory for evaluation. Endocervical and/or squamous metaplastic cells (endocervical component) are present. Performed By: #### 4 [id number] #### [facility] [address] [place] [address] Dr. Aranza Dolan [facility]11 SARS-CoV-2 (COVID-19) RNA RAMON+probe Ql (Unsp spec) Detected Critically abnormal NOT DETECTED [facility] Comment on above: Result Comment: This test is not yet approved or cleared by the [place] FDA. When there are no FDA-approved or cleared tests available, and other criteria are met, FDA can make tests available under an emergency access mechanism called an Emergency Use Authorization (EUA). The EUA for this test is supported by the Outbound Sales Consultant of Health and Human Service's declaration that [...] longer be used). Performed By: #### C [facility] #### [facility] [address] [place] [address] Dr. Aranza Dolan Vital Signs Date Time Vital Sign Value Performing Clinician Facility 11-13-2021 16:45-0400 Body height 170.18 cm Macie Lorenzana Other [facility] Other 11-13-2021 16:45-0400 Body mass index (BMI) [Ratio] 33.83 kg/m2 Macie Lorenzana Other [facility] Other 11-13-2021 16:45-0400 Body weight 97.98 kg Macie Lorenzana Other [facility] Other 11-13-2021 16:45-0400 Diastolic blood pressure 80 mm[Hg] Macie Lorenzana Other [facility] Other 11-13-2021 16:45-0400 Respiratory rate 16 /min Macie Lorenzana Other [facility] Other 11-13-2021 16:45-0400 SaO2% (BldA) [Mass fraction] 98 % Macie Lorenzana Other [facility] Other 11-13-2021 16:45-0400 Systolic blood pressure 126 mm[Hg] Macie Lorenzana Other [facility] Other Encounters Encounter Date Encounter Type Care Provider Facility Start: 08-10-2023 End: 08-10-2023 ambulatory ERMELINDA ALVARO Not Available Start: 07-13-2023 End: 07-13-2023 ambulatory PHYLLIS LADD Not Available Start: 06-15-2023 End: 06-15-2023 ambulatory ERMELINDA ALVARO Not Available Start: 05-14-2023 End: 05-14-2023 ambulatory ERMELINDA ALVARO Not Available Start: 04-06-2023 End: 04-06-2023 ambulatory ERMELINDA ALVARO Not Available Start: 04-15-2022 End: 04-15-2022 ambulatory Macie Lorenzana Other [facility] Other Start: 04-15-2022 Telephone encounter Macie Lorenzana [facility] [place] Start: 04-07-2022 End: 04-07-2022 ambulatory Macie Lorenzana Other [facility] Other Start: 04-07-2022 Nursing evaluation o f patient and report Macie Lorenzana [facility] [place] Start: 04-07-2022 Telephone encounter Macie Lorenzana [facility] [place] Start: 03-24-2022 End: 03-24-[address] ERMELINDA CODY Facility:[facility]1 Start: 11-13-2021 End: 11-13-2021 ambulatory Macie Lorenzana Other [facility] Other Start: 11-13-2021 Office outpatient vi sit 15 minutes Macie Lorenzana [facility] [place] Start: 11-13-2021 Telephone encounter Macie Lorenzana [facility] [place] Start: 04-07-2021 End: 04-07-[address] MACIE LORENZANA Facility:[facility]1 Immunizations Immunization Date Immunization Notes Care Provider Fa cility NEGATED: Highlighted row has not occurred!07-18-2019 influenza, seasonal, injectable Patient Objection Macie Lorenzana Other [facility] Other Payers Date Payer Category Payer Medicaid [id number] 1995 Unknown [id number] 2.16.84 [id number] 1995 Unknown [id number] 2.16.84 [id number] 1994 Unknown [id number] 2.16.84 0.1.353313.3.579.2.1259 1994 Unknown [id number] 2.16.84 0.1.441361.3.579.2.1259 1994 Unknown [id number] 2.16.84 0.1.220512.3.579.2.1259 1994 Unknown [id number] 2.16.840 .1.236772.3.579.2.1259 1994 Unknown [id number] 2.16.840 .1.866594.3.579.2.1259 1994 Unknown [id number] 2.16.840 .1.621918.3.579.2.1259 1959 Unknown [id number] 2.1 6.840.1.123390.19 Social History Date Type Detail Facility Unknown if ever smoked [facility] Other Sex Assigned At Sex Assigned At Bir th [facility] Other Evaluation note 04-07-2022 Note Date & Type Note Facility 04-07-2022 Evaluation note Encounter Date Diagnosis Assessment Notes Mar, Acute cough (ICD-10 - R05.1) [facility] Other Evaluation note 11-13-2021 Note Date & Type Note Facility 11-13-2021 Evaluation note Encounter Date Diagnosis Assessment Notes Nov, Insect bite (nonvenomous) of right upper arm, initial encounter (ICD-10 - S40.861A) Noted of left forearm. I did prescribe the above prednisone and patient is to continue taking benadryl at bedtime. Patient is to call next week with an update. [facility] Other History general Narrative - Reported 06-24-2016 Note Date & Type Note Facility 06-24-2016 History general N arrative - Reported Type Medical History follows with Dr. Ananth Cody for PAP Medical History Biometric Screening 06/24/16 [facility] [place], [place] Medical History 02/13/2019 EKG Surgical History tubes in ears Surgical History 03/05/[address] [facility] [employer] Other Evaluation note Note Date & Type Note Facility Evaluation note No Information [facility] [email or web address] Other Summary Purpose Family History No Family History Records FoundNo Family History Records Found Advance Directives No Advanced Directives Records FoundNo Advanced Directives Records Found Additional Source Comments REASON FOR VISIT (unrecogniz ed section and content) Clinical Acute Illnessbug bi te on right armClinicalflu swab-( positive)Clinical INFORMATION SOURCE (unrecogn ized section and content) DATE CREATED AUTHOR 04/04/2022 [facility] DATE CREATED AUTHOR 'S ORGANIZ ATION 08/11/2023 [facility] EPIC FOR RECORDS PERTAINING TO PATIENTS [...] BE BASED ON THE PRIMARY CLINICAL RECORDS. [employer] provides no warranty or guarantee of the accuracy or completeness of information in this document.
--- NOTE | 2023-08-31 19:57 | XR_ITS ---
The [address] [address] Patient Name: NEGIN BURNHAM MRN: [id number] date: 1995 Sex: F Assigned Patient Location: ER Current Patient Location: ER Accession/Order Number: [id number] Exam Date: 08/31/2023 20:10 Report Date: 08/31/2023 20:53 At the request of: ABRAHAM HUGGINS Procedure: XR chest 1V EXAM: XR chest 1V COMPARISON: None available. CLINICAL INDICATION: Chills. FINDINGS: The cardiomediastinal silhouette is within normal limits. No focal consolidation. No pleural effusion. No pneumothorax. XR/XR chest 1V IMPRESSION: No evidence of acute cardiopulmonary abnormality. Electronically authenticated by: AIDE THOMAS Date: 08/31/2023 20:53
--- NOTE | 2023-08-31 19:58 | ED.GENADUL1 ---
HPI HPI - General Adult General Chief complaint: Shortness of Breath/Dyspnea Stated complaint: Chills. Pt is 27-wks FB said ER first Time Seen by Provider: 08/31/23 19:40 Source: patient Mode of arrival: walk-in Limitations: no limitations History of Present Illness HPI narrative: Patient is a 28-year-old female who presents to the emergency department at 27 weeks of for chills over the last 2 days. She has not had any cough or congestion. She states she had some ear pain. She was not seen by her EXECUTIVE BUSINESS COACH but called the office to report not feeling well and a Z-Oswaldo was called in for her which she started. She states the Z-Oswaldo upsets her stomach and states that she did tell her OB that but he insisted she take it. She states she does not know why she is taking it was not given a diagnosis. She had negative COVID and flu testing earlier today. She denies abdominal pain, vaginal bleeding or fluid leakage. She states she does have urinary frequency. No flank or back pain. She states if she takes a deep breath she does cough but has no persistent cough or shortness of breath. Related Data Allergies Allergy/AdvReac Type Severity Reaction Status Date / Time No Known Drug Allergies Allergy Verified 08/31/23 19:42 Opioid HPI Opioid Management Most Recent Opioid Data: No Data to Display Review of Systems ROS Constitutional Reports: chills; Denies: fever Ears, nose, mouth, and throat Denies: throat pain or nasal congestion Cardiovascular Denies: chest pain Respiratory Denies: shortness of breath or cough Gastrointestinal Denies: abdominal pain, nausea, vomiting or diarrhea Genitourinary Reports: urinary frequency; Denies: painful urination Musculoskeletal Denies: back pain Integumentary/Breast Denies: rash Hematologic/Lymphatic Denies: easy bruising or easy bleeding Exam Narrative Exam Narrative: Gen.: Awake, alert, in no distress Head: Normocephalic, atraumatic ENT: Moist mucous membranes; Bilateral TMs clear, no pharyngeal erythema Respiratory: No respiratory distress, lungs clear bilaterally; No coughing, no wheezing or rhonchi Cardio: Tachycardia Extremities: Moves extremities equally Psych: Normal mood and affect Neuro: No focal neuro deficit Skin: Warm, dry, intact Constitutional Vital Signs, click to edit/add: Last Vital Signs Temp 99.7 F 08/31/23 21:15 Pulse 118 H 08/31/23 21:15 Resp 18 08/31/23 21:15 BP 119/75 08/31/23 21:15 Pulse Ox 100 08/31/23 21:15 O2 Del Method Room Air 08/31/23 19:42 Course Vital Signs Vital signs: Vital Signs Temperature 100.3 F 08/31/23 19:42 Pulse Rate 124 H 08/31/23 19:42 Respiratory Rate 17 08/31/23 19:42 Blood Pressure 146/71 H 08/31/23 19:42 Pulse Oximetry 99 08/31/23 19:42 Oxygen Delivery Method Room Air 08/31/23 19:42 Temperature 99.7 F 08/31/23 21:15 Pulse Rate 118 H 08/31/23 21:15 Respiratory Rate 18 08/31/23 21:15 Blood Pressure 119/75 08/31/23 21:15 Pulse Oximetry 100 08/31/23 21:15 Oxygen Delivery Method Room Air 08/31/23 19:42 Medical Decision Making MDM Narrative Medical decision making narrative: Sepsis orders were obtained, blood cultures are pending. COVID, flu and RSV testing is negative, chest x-ray is unremarkable and lab studies show mild leukopenia with no bandemia, normal lactic acid. I suspect the patient has a viral syndrome. She was placed on a Z-Oswaldo by her EXECUTIVE BUSINESS COACH and was encouraged to finish any medication that was prescribed to her. Vital signs rechecked prior to discharge and the patient is reevaluated by attending physician. She will be discharged home to continue Tylenol for fever and bodyaches. Follow-up closely with PCP and EXECUTIVE BUSINESS COACH and return to the ER if symptoms change or worsen. Medical Records Medical records reviewed: Yes I reviewed the patient's medical records Lab Data Lab results reviewed: Yes I reviewed the patient's lab results Labs: Lab Results 08/31/23 08/31/23 Range/Units 20:10 20:14 WBC 3.7 L (4.0-11.0) 10^3/uL RBC 4.06 L (4.20-5.40) 10^6/uL Hgb 11.7 L (12.0-16.0) g/dL Hct 35.2 L (36.0-48.0) % MCV 86.7 (81.0-99.0) fL MCH 28.8 (26.7-34.0) pg MCHC 33.2 (29.9-35.2) g/dL RDW 14.3 (11.0-15.0) % Plt Count 186 (150-450) 10^3/uL MPV 9.0 L (9.5-13.5) fL Neut % (Auto) 69.2 (43.0-75.0) % Lymph % (Auto) 23.2 (20.5-60.0) % Quay % (Auto) 5.7 (1.7-12.0) % Eos % (Auto) 0.0 L (0.9-7.0) % Baso % (Auto) 0.5 (0.2-2.0) % Neut # (Auto) 2.5 (1.4-6.5) 10^3/uL Lymph # (Auto) 0.9 L (1.2-3.8) 10^3/uL Quay # (Auto) 0.2 L (0.3-0.8) 10^3/uL Eos # (Auto) 0.0 (0.0-0.7) 10^3/uL Baso # (Auto) 0.0 (0.0-0.1) 10^3/uL Abs Immat Gran (auto) 0.05 H (0.00-0.03) 10^3/uL Imm/Tot Granulo (auto) 1.4 H (0.0-0.5) % VBG pH 7.486 H (7.330-7.430) VBG pCO2 30.0 L (40.0-52.0) mmHg Sodium 138 (136-145) mmol/L Potassium 3.0 L (3.5-5.1) mmol/L Chloride 102 (98-107) mmol/L Carbon Dioxide 25.7 (21.0-32.0) mmol/L Anion Gap 13.3 BUN 4.0 L (7.0-18.0) mg/dL Creatinine 0.56 (0.55-1.02) mg/dL Est GFR ( Amer) >60 (>=60) Est GFR (Non-Af Amer) >60 (>=60) BUN/Creatinine Ratio 7.1 Glucose 100 (74-106) mg/dL Lactate 2.0 (0.4-2.0) mmol/L Calcium 9.1 (8.5-10.1) mg/dL Total Bilirubin 0.4 (0.2-1.0) mg/dL AST 68 H (15-37) U/L ALT 53 (14-59) U/L Alkaline Phosphatase 88 (46-116) U/L Total Protein 6.7 (6.4-8.2) g/dL Albumin 2.6 L (3.4-5.0) g/dL Globulin 4.1 g/dL Albumin/Globulin Ratio 0.6 Urine Color Yellow (YELLOW) Urine Clarity Clear (CLEAR) Urine pH 7.0 (5.0-9.0) Ur Specific [place] 1.015 (1.005-1.025) Urine Protein Negative (NEG/TRACE) mg/dL Urine Glucose (UA) Negative (NEGATIVE) mg/dL Urine Ketones Negative (NEGATIVE) mg/dL Urine Occult Blood Negative (NEGATIVE) Urine Nitrite Negative (NEGATIVE) Urine Bilirubin Negative (NEGATIVE) Urine Urobilinogen 1.0 (0.2-1.0) EU/dL Ur Leukocyte Esterase Negative (NEGATIVE) Influenza Type A Ag Negative Influenza Type B Ag Negative RSV Antigen Not detected (NOT DETECTE) SARS-CoV-2 Ag (CV2AG) Negative (NEGATIVE) Imaging Data Chest x-ray: Attestation: I have reviewed the pertinent imaging results. Radiologist's impression: ITS Impressions Chest X-Ray 08/31/23 19:57 IMPRESSION: No evidence of acute cardiopulmonary abnormality. Electronically authenticated by: AIDE THOMAS Date: 08/31/2023 20:53 Discharge Plan Discharge Stand Alone Forms: Portal Instructions Chief Complaint: Shortness of Breath/Dyspnea Clinical Impression: Fever, Myalgia Patient Disposition: Home, Self-Care Time of Disposition Decision: 21:10 Condition: Good Print Language: Macanese Instructions: Fever in Adults (ED), Viral Syndrome (ED) Referrals: Maximus Parmar DO [Primary Care Provider] - 1 week
[2023-08-31] MEDS: 0.9 % SODIUM CHLORIDE 1,000 ML 999 ML IV (20:18)
[2023-08-31] MEDS: ACETAMINOPHEN 500 MG TABLET 1000 MG PO (20:18)
[2023-08-31 20:22] LABS: pH VBG 7.486 (7.330-7.430)
[2023-08-31 20:25] LABS: Basophils Percent Auto 0.5 % (0.2-2.0); Hematocrit 35.2 % (36.0-48.0); Hemoglobin 11.7 g/dL (12.0-16.0); Immature Granulocytes Abs Auto 0.05 10^3/uL (0.00-0.03); Immature Granulocytes Pct Auto 1.4 % (0.0-0.5); Lymphocytes Absolute Auto 0.9 10^3/uL (1.2-3.8); Lymphocytes Percent Auto 23.2 % (20.5-60.0); Mean Corpuscular HGB Conc 33.2 g/dL (29.9-35.2); Mean Corpuscular Hemoglobin 28.8 pg (26.7-34.0); Mean Corpuscular Volume 86.7 fL (81.0-99.0); Monocytes Absolute Auto 0.2 10^3/uL (0.3-0.8); Monocytes Percent Auto 5.7 % (1.7-12.0); Neutrophils Absolute Auto 2.5 10^3/uL (1.4-6.5); Neutrophils Percent Auto 69.2 % (43.0-75.0); Platelet Count 186 10^3/uL (150-450); Red Blood Count 4.06 10^6/uL (4.20-5.40); Red Cell Distribution Width 14.3 % (11.0-15.0); White Blood Count 3.7 10^3/uL (4.0-11.0)
[2023-08-31 20:36] LABS: Bilirubin Urine NEGATIVE (NEGATIVE); Blood Urine NEGATIVE (NEGATIVE); Clarity Urine CLEAR (CLEAR); Color Urine YELLOW (YELLOW); Glucose Urine UA NEGATIVE (NEGATIVE); Ketones Urine NEGATIVE (NEGATIVE); Leukocyte Esterase Urine NEGATIVE (NEGATIVE); Nitrite Urine NEGATIVE (NEGATIVE); Protein Urine NEGATIVE (NEG/TRACE); Specific Gravity Urine 1.015 (1.005-1.025)
[2023-08-31 20:38] LABS: Influenza Virus A Antigen Negative; Influenza Virus B Antigen Negative; Internal Control Within Normal Limits
[2023-08-31 20:39] LABS: Internal Control Within Normal Limits; Respiratory Syncytial Virus Not Detected (NOT DETECTE); SARS-CoV-2 Ag NEGATIVE (NEGATIVE)
[2023-08-31 20:42] LABS: Alanine Aminotransferase 53 U/L (14-59); Albumin Globulin Ratio 0.6; Albumin Level 2.6 g/dL (3.4-5.0); Alkaline Phosphatase 88 U/L (46-116); Anion Gap 13.3; Aspartate Amino Transferase 68 U/L (15-37); BUN Creatinine Ratio 7.1; Bilirubin Total 0.4 mg/dL (0.2-1.0); Calcium 9.1 mg/dL (8.5-10.1); Carbon Dioxide 25.7 mmol/L (21.0-32.0); Chloride 102 mmol/L (98-107); Estimated GFR (African America >60 (>=60); Estimated GFR (Non-African Ame >60 (>=60); Globulin 4.1 g/dL; Glucose 100 mg/dL (74-106); Sodium 138 mmol/L (136-145); Total Protein 6.7 g/dL (6.4-8.2); Urine Microscopic Indicated NO
[2023-08-31 21:15] VITALS: BP 119/75; PULSE 118; TEMP 37.6; O2SAT 100
[2023-08-31] MEDS: POTASSIUM CHLORIDE 10 MEQ ER TABLET 40 MEQ PO (21:34)
== END 2023-08-31 21:46 | disposition home or self-care (01) ==
PROVIDERS: Physician Assistant; Emergency Provider Emergency Medicine; PCP Family Medicine
DX: O26.892 Other specified pregnancy related conditions, second trimester (principal); M79.10 Myalgia, unspecified site; R50.9 Fever, unspecified; Z3A.27 27 weeks gestation of pregnancy; Z20.822 Contact with and (suspected) exposure to COVID-19; R23.2 Flushing; R06.02 Shortness of breath
CPT/HCPCS: 36415; 71045; 80053; 81003; 82800; 83605; 85025; 87040; 87420; 87804; 87811; 99285

== ENCOUNTER 2023-09-07 06:35 | Outpatient (OUT) | payer OTHER, SELFPAY ==
--- OUTSIDE RECORDS SUMMARY | 2023-09-07 06:36 | XMS_ITS | CCD ---
Author Organization [facility] Care Team Providers Care Pasting Machine Offbearer Name Role Phone Macie Lorenzana Unavailable DR MACIE LORENZANA Primary Care Unavailable RENEE BORJAS Admitting Unavailable RENEE BORJAS Attending Unavailable RENEE BORJAS Consulting Unavailable DR ERMELINDA CODY Admitting Unavailable ALVARO, DR WADSWORTH Attending Unavailable DR MACIE LORENZANA Primary Care Unavailable DR ERMELINDA CODY Consulting Unavailable ERMELINDA CODY Attending Unavailable PHYLLIS LADD Attending Unavailable ERMELINDA CODY Attending Unavailable REMELINDA CODY Attending Unavailable Allergies Allergy Classification Reported Allergen(s) Allergy Type Date of Onset Reaction(s) Facility (5 sources) Azithromycin Drug Allergy [facility] Other Medications Current Medications Medication Drug Class(es) Dates Sig (Normalized) Sig (Original) [id number] 200 actuat albuterol 0.09 mg/actuat metered dose [...] 04-07-2022 FLUAV Ab CF (S) [Titer] Positive [facility] Other FLUBV Ab CF (S) [Titer] Negative [facility] Other PAP ACOG PANEL 2: 21 to 29on 04-04-2022 . . Normal [facility] Comment on above: Performed By: #### [id number] #### [facility] [address] [place] [address] Dr. Aranza Dolan Age Gdln ACOG Testing 21-29 Normal [facility] Comment on above: Performed By: #### [id number] #### [facility] [address] [address] [address] Aranza Dolan DIAGNOSIS: Comment Abnormal [facility] Comment on above: Result Comment: EPIT HELIAL CELL ABNORMALITY. ATYPICAL SQUAMOUS CELLS OF UNDETERMINED SIGNIFICANCE (ASC-US). FUNGAL ORGANISMS MORPHOLOGICALLY CONSISTENT WITH RAQUEL SPECIES ARE PRESENT. Performed By: #### [id number] #### [facility] [address] [place] [address] Dr. Aranza Dolan Electronically signed by: Comment Normal [facility] Comment on above: Result Comment: Adelina Ochoa MD, Pathologist Performed By: #### [id number] #### [facility] [address] [place] [address] Dr. Aranza Dolan HPV Aptima Negative Normal Negative [facility] Comment on above: Result Comment: This nucleic acid amplification test detects fourteen high-risk HPV types (16,18,31,33,35,39,45,51,52,56,58,59,66,68) without differentiation. Performed By: #### [id number] #### [facility] [address] [place] [address] Dr. Aranza Dolan Methodology: Comment Normal [facility] Comment on above: Result Comment: This liquid based ThinPrep(R) pap test was screened with the use of an image guided system. Performed By: #### [id number] #### [facility] [address] [place] [address] Dr. Aranza Dolan Note: Comment Normal [facility] Comment on above: Result Comment: The Pap smear is a screening test designed to aid in the detection of premalignant and malignant conditions of the uterine cervix. It is not a diagnostic procedure and should not be used as the sole means of detecting cervical cancer. Both false-positive and false-negative reports do occur. . Performed By: #### [id number] #### [facility] [address] [address] [address] Aranza Dolan Pathologist Provided ICD10 Comment Normal [facility] Comment on above: Result Comment: R87. 610, R87.5 Performed By: #### [id number] #### [facility] [address] [place] [address] Dr. Aranza Dolan Performed by: Comment Normal [facility] Comment on above: Result Comment: Francheska eGe Secretary To Board Of Commissioners (ASCP) Performed By: #### [id number] #### [facility] [address] [place] [address] Dr. Aranza Dolan Recommendation: Comment Abnormal [facility] Comment on above: Result Comment: Sugg est follow up as clinically appropriate. Performed By: #### [id number] #### [facility] [address] [place] [address] Dr. Aranza Dolan Reflex Criteria: Comment Normal [facility] Comment on above: Result Comment: See below for HPV testing results. . Performed By: #### [id number] #### [facility] [address] [place] [address] Dr. Aranza Dolan Specimen adequacy: Comment Normal [facility] Comment on above: Result Comment: Sati sfactory for evaluation. Endocervical and/or squamous metaplastic cells (endocervical component) are present. Performed By: #### [id number] #### [facility] [address] [place] [address] Dr. Aranza Dolan [facility]11 SARS-CoV-2 (COVID-19) RNA RAMON+probe Ql (Unsp spec) Detected Critically abnormal NOT DETECTED [facility] Comment on above: Result Comment: This test is not yet approved or cleared by the [place] FDA. When there are no FDA-approved or cleared tests available, and other criteria are met, FDA can make tests available under an emergency access mechanism called an Emergency Use Authorization (EUA). The EUA for this test is supported by the [employer] Program Coordinator of Health and Human Service's declaration that [...] longer be used). Performed By: #### C [facility] #### [facility] [address] [place] [address] Dr. Aranza Dolan Vital Signs Date Time Vital Sign Value Performing Clinician Facility 11-13-2021 16:45-0400 Body height 170.18 cm Macie Lorenzana Other [facility] Other 11-13-2021 16:45-0400 Body mass index (BMI) [Ratio] 33.83 kg/m2 Macie Lorenzana Other [facility] Other 11-13-2021 16:45-0400 Body weight 97.98 kg Macie Lorenzana Other [facility] Other 11-13-2021 16:45-0400 Diastolic blood pressure 80 mm[Hg] Macie Lorenzana Other [facility] Other 11-13-2021 16:45-0400 Respiratory rate 16 /min Macie Lorenzana Other [facility] Other 11-13-2021 16:45-0400 SaO2% (BldA) [Mass fraction] 98 % Macie Lorenzana Other [facility] Other 11-13-2021 16:45-0400 Systolic blood pressure 126 mm[Hg] Macie Lorenzana Other [facility] Other Encounters Encounter Date Encounter Type Care Provider Facility Start: 08-10-2023 End: 08-10-2023 ambulatory ERMELINDA ALVARO Not Available Start: 07-13-2023 End: 07-13-2023 ambulatory PHYLLIS LADD Not Available Start: 06-15-2023 End: 06-15-2023 ambulatory ERMELINDA ALVARO Not Available Start: 05-14-2023 End: 05-14-2023 ambulatory ERMELINDA ALVARO Not Available Start: 04-06-2023 End: 04-06-2023 ambulatory ERMELINDA ALVARO Not Available Start: 04-15-2022 End: 04-15-2022 ambulatory Macie Lorenzana Other [facility] Other Start: 04-15-2022 Telephone encounter Macie Lorenzana [facility] [place] Start: 04-07-2022 End: 04-07-2022 ambulatory Macie Lorenzana Other [facility] Other Start: 04-07-2022 Nursing evaluation o f patient and report Macie Lorenzana [facility] [place] Start: 04-07-2022 Telephone encounter Macie Lorenzana [facility] [place] Start: 03-24-2022 End: 03-24-[address] ERMELINDA CODY Facility:[facility] Start: 11-13-2021 End: 11-13-2021 ambulatory Macie Lorenzana Other [facility] Other Start: 11-13-2021 Office outpatient vi sit 15 minutes Macie Lorenzana [facility] [place] Start: 11-13-2021 Telephone encounter Macie Lorenzana [facility] [place] Start: 04-07-2021 End: 04-07-[address] MACIE LORENZANA Facility:[facility] Immunizations Immunization Date Immunization Notes Care Provider Fa cility NEGATED: Highlighted row has not occurred!07-18-2019 influenza, seasonal, injectable Patient Objection Macie Lorenzana Other [facility] Other Payers Date Payer Category Payer Medicaid [id number] 1995 Unknown [id number] 2.16.84 [id number] 1994 Unknown [id number] 2.16.84 [id number] 1994 Unknown [id number] 2.16.84 [id number] 1994 Unknown [id number] 2.16.84 [id number] 1994 Unknown [id number] 2.16.84 [id number] 1994 Unknown [id number] 2.16.840 .[id number] 1994 Unknown [id number] 2.16.840 .[id number] 1994 Unknown [id number] 2.16.840 .[id number] 1959 Unknown [id number] 2.1 [id number] Social History Date Type Detail Facility Unknown if ever smoked [facility] Other Sex Assigned At Sex Assigned At Bir th [facility] Other Evaluation note 04-07-2022 Note Date & Type Note Facility 04-07-2022 Evaluation note Encounter Date Diagnosis Assessment Notes Mar, Acute cough (ICD-10 - R05.1) [facility] Other Evaluation note 11-13-2021 Note Date & Type Note Facility 11-13-2021 Evaluation note Encounter Date Diagnosis Assessment Notes Nov, Insect bite (nonvenomous) of right upper arm, initial encounter (ICD-10 - S40.861A) Noted of left forearm. I did prescribe the above prednisone and patient is to continue taking benadryl at bedtime. Patient is to call next week with an update. [facility] Other History general Narrative - Reported 06-24-2016 Note Date & Type Note Facility 06-24-2016 History general N arrative - Reported Type Medical History follows with Dr. Ananth Cody for PAP Medical History Biometric Screening 06/24/16 [facility] [place] Medical History 02/13/2019 EKG Surgical History tubes in ears Surgical History 03/05/21 Hospitalization History Childbirth [facility] [email or web address] Other Evaluation note Note Date & Type Note Facility Evaluation note No Information [facility] Other Summary Purpose Family History No Family History Records FoundNo Family History Records Found Advance Directives No Advanced Directives Records FoundNo Advanced Directives Records Found Additional Source Comments REASON FOR VISIT (unrecogniz ed section and content) Clinical Acute Illnessbug bi te on right armClinicalflu swab-( positive)Clinical INFORMATION SOURCE (unrecogn ized section and content) DATE CREATED AUTHOR 04/04/2022 [facility] p[facility] DATE CREATED AUTHOR 'S ORGANIZ ATION 08/11/2023 [facility] EPIC FOR RECORDS PERTAINING TO PATIENTS [...] BE BASED ON THE PRIMARY CLINICAL RECORDS. [employer] provides no warranty or guarantee of the accuracy or completeness of information in this document.
[2023-09-07 07:49] LABS: Basophils Percent Auto 0.2 % (0.2-2.0); Eosinophils Absolute Auto 0.1 10^3/uL (0.0-0.7); Hematocrit 32.2 % (36.0-48.0); Hemoglobin 10.4 g/dL (12.0-16.0); Immature Granulocytes Abs Auto 0.18 10^3/uL (0.00-0.03); Immature Granulocytes Pct Auto 1.4 % (0.0-0.5); Lymphocytes Percent Auto 31.1 % (20.5-60.0); Mean Corpuscular HGB Conc 32.3 g/dL (29.9-35.2); Mean Corpuscular Hemoglobin 28.8 pg (26.7-34.0); Mean Corpuscular Volume 89.2 fL (81.0-99.0); Mean Platelet Volume 9.2 fL (9.5-13.5); Monocytes Absolute Auto 0.5 10^3/uL (0.3-0.8); Monocytes Percent Auto 3.9 % (1.7-12.0); Neutrophils Percent Auto 62.4 % (43.0-75.0); Platelet Count 209 10^3/uL (150-450); Red Blood Count 3.61 10^6/uL (4.20-5.40); Red Cell Distribution Width 15.5 % (11.0-15.0); White Blood Count 12.8 10^3/uL (4.0-11.0)
[2023-09-07 08:08] LABS: Glucose 1 Hour 159 mg/dL (<130)
[2023-09-07 09:25] LABS: Potassium 3.6 mmol/L (3.5-5.1)
== END 2023-09-07 06:36 | disposition home or self-care (01) ==
LOC: LAB 06:35
PROVIDERS: PCP Family Medicine; Visit Provider Obstetrics & Gynecology
DX: Z34.90 Encounter for supervision of normal pregnancy, unspecified, unspecified trimester (principal); E87.6 Hypokalemia
CPT/HCPCS: 36415; 82950; 84132; 85025

== ENCOUNTER 2023-09-25 07:30 | Outpatient (OUT) | payer OTHER, SELFPAY ==
--- NOTE | 2023-09-25 07:32 | US_ITS ---
[address] [address] Patient Name: NEGIN BURNHAM MRN: [id number] date: 1995 Sex: F Assigned Patient Location: US Current Patient Location: Accession/Order Number: [id number] Exam Date: 09/25/2023 07:35 Report Date: 09/27/2023 11:15 At the request of: ERMELINDA JOHN Procedure: US OB growth EXAMINATION: US OB growth HISTORY: Gestational diabetes mellitus O24.414 COMPARISON: Ultrasound OB anatomy 07/21/2023 FINDINGS: Heart Rate: 143.6 bpm Number: 1.0 Position: CEPHALIC Amniotic Fluid Volume: 21.5 cm Maximum Vertical Pocket: 8.5 cm BIOMETRY: BPD: 7.9 cm cm; 31 weeks 4 days; 90% HC: 28.8 cmcm; 31 weeks 5 days; 73% AC: 28.5 cm cm; 32 weeks 4 days; >97% FL: 5.7 cm cm; 30 weeks 0 days; 43% % EFW: 1806.1 grams; 94% FL/AC: 20.1 FL/BPD: 72.6 HC/AC: 1.0 GESTATIONAL AGE: Age by EDC: 29 weeks 5 days CHANDA by EDC: 12/06/2023 Age by US: 31 weeks 3 days CHANDA by US: 11/24/2023 US/US OB growth IMPRESSION: 1. Single live intrauterine with growth detailed above. Electronically authenticated by: ERNIE DURAN Date: 09/27/2023 11:15
--- OUTSIDE RECORDS SUMMARY | 2023-09-25 07:32 | XMS_ITS | CCD ---
Author Organization [facility] Care Team Providers Care Rat Culturist Name Role Phone Macie Lorenzana Unavailable DR MACIE LORENZANA Primary Care Unavailable RENEE BORJAS Admitting Unavailable RENEE BORJAS Attending Unavailable RENEE BORJAS Consulting Unavailable DR ERMELINDA CODY Admitting Unavailable ALVARO, DR WADSWORTH Attending Unavailable DR MACIE LORENZANA Primary Care Unavailable DR ERMELINDA CODY Consulting Unavailable ERMELINDA CODY Attending Unavailable ERMELINDA CODY Attending Unavailable PHYLLIS LADD Attending Unavailable ERMELINDA CODY Attending Unavailable PHYLLIS LADD Attending Unavailable ERMELINDA CODY Attending Unavailable Allergies Allergy Classification Reported Allergen(s) Allergy Type Date of Onset Reaction(s) Facility (5 sources) Azithromycin Drug Allergy migraines [facility] Arrayent Other Medications Current Medications Medication Drug Class(es) Dates Sig (Normalized) Sig (Original) [id number] 200 actuat albuterol 0.09 mg/actuat metered dose [...] Test Name Value Interpretation Reference Range Facility [facility] 04-07-2022 FLUAV Ab CF (S) [Titer] Positive PO-[facility] Other FLUBV Ab CF (S) [Titer] Negative [facility] Other PAP ACOG PANEL 2: 21 to 29on 04-04-2022 . . Normal [facility] Comment on above: Performed By: #### [id number] #### [facility] [address] [address] [address] Aranza Dolan Age Gdln ACOG Testing 20- Normal [facility] Comment on above: Performed By: #### [id number] #### [facility] [address] [address] [address] Aranza Dolan DIAGNOSIS: Comment Abnormal [facility] Comment on above: Result Comment: EPIT HELIAL CELL ABNORMALITY. ATYPICAL SQUAMOUS CELLS OF UNDETERMINED SIGNIFICANCE (ASC-US). FUNGAL ORGANISMS MORPHOLOGICALLY CONSISTENT WITH RAQUEL SPECIES ARE PRESENT. Performed By: #### [id number] #### [facility] [address] [place] [address] Dr. Aranza Dolan Electronically signed by: Comment Normal [facility] Comment on above: Result Comment: Adelina Ochoa MD, Pathologist Performed By: #### [id number] #### [facility] [address] [address] [address] Aranza Dolan HPV Aptima Negative Normal Negative [facility] Comment on above: Result Comment: This nucleic acid amplification test detects fourteen high-risk HPV types (16,18,31,33,35,39,45,51,52,56,58,59,66,68) without differentiation. Performed By: #### 4 [id number] #### [facility] [address] [address] [address] Aranza Dolan Methodology: Comment Normal [facility] Comment on above: Result Comment: This liquid based ThinPrep(R) pap test was screened with the use of an image guided system. Performed By: #### [id number] #### [facility] [address] [place] [address] Dr. Aranza Dolan Note: Comment Normal [facility] Comment on above: Result Comment: The Pap smear is a screening test designed to aid in the detection of premalignant and malignant conditions of the uterine cervix. It is not a diagnostic procedure and should not be used as the sole means of detecting cervical cancer. Both false-positive and false-negative reports do occur. . Performed By: #### 4 [id number] #### [facility] [address] [address] [address] Aranza Dolan Pathologist Provided ICD10 Comment Normal [facility] Comment on above: Result Comment: R87. 610, R87.5 Performed By: #### 4 [id number] #### [facility] [address] [address] [address] Aranza Dolan Performed by: Comment Normal [facility] Comment on above: Result Comment: Francheska Gee [employer] (ASCP) Performed By: #### 4 [id number] #### [facility] [address] [place] [address] Dr. Aranza Dolan Recommendation: Comment Abnormal [facility] Comment on above: Result Comment: Sugg est follow up as clinically appropriate. Performed By: #### 4 [id number] #### [facility] [address] [place] [address] Dr. Aranza Dolan Reflex Criteria: Comment Normal [facility] Comment on above: Result Comment: See below for HPV testing results. . Performed By: #### 4 [id number] #### [facility] [address] [place] [address] Dr. Aranza Dolan Specimen adequacy: Comment Normal [facility] Comment on above: Result Comment: Sati sfactory for evaluation. Endocervical and/or squamous metaplastic cells (endocervical component) are present. Performed By: #### 4 [id number] #### [facility] [address] [place] [address] Dr. Aranza Dolan Covid-19 PCR (CVDTB)on 03-11 SARS-CoV-2 (COVID-19) RNA RAMON+probe Ql (Unsp spec) Detected Critically abnormal NOT DETECTED [facility] Comment on above: Result Comment: This test is not yet approved or cleared by the [place] FDA. When there are no FDA-approved or cleared tests available, and other criteria are met, FDA can make tests available under an emergency access mechanism called an Emergency Use Authorization (EUA). The EUA for this test is supported by the [place] of Health and Human Service's declaration that [...] used). Performed By: #### C [facility] #### [facility] [address] [place] [address] Dr. Aranza Dolan Vital Signs Date Time Vital Sign Value Performing Clinician Facility 11-13-2021 16:45-0400 Body height 170.18 cm Macie Lorenzana Other [facility] Other 11-13-2021 16:45-0400 Body mass index (BMI) [Ratio] 33.83 kg/m2 Macie Lorenzana Other [facility] Other 11-13-2021 16:45-0400 Body weight 97.98 kg Macie Lorenzana Other [facility] Other 11-13-2021 16:45-0400 Diastolic blood pressure 80 mm[Hg] Macie Lorenzana Other [facility] Other 11-13-2021 16:45-0400 Respiratory rate 16 /min Macie Lorenzana Other [facility] Other 11-13-2021 16:45-0400 SaO2% (BldA) [Mass fraction] 98 % Macie Lorenzana Other [facility] Other 11-13-2021 16:45-0400 Systolic blood pressure 126 mm[Hg] Macie Lorenzana Other [facility] Other Encounters Encounter Date Encounter Type Care Provider Facility Start: 09-21-2023 End: 09-21-2023 ambulatory ERMELINDA ALVARO Not Available Start: 09-07-2023 End: 09-07-2023 ambulatory PHYLLIS LADD Not Available Start: 08-10-2023 End: 08-10-2023 ambulatory ERMELINDA ALVARO Not Available Start: 07-13-2023 End: 07-13-2023 ambulatory PHYLLIS LADD Not Available Start: 06-15-2023 End: 06-15-2023 ambulatory ERMELINDA ALVARO Not Available Start: 05-14-2023 End: 05-14-2023 ambulatory ERMELINDA ALVARO Not Available Start: 04-06-2023 End: 04-06-2023 ambulatory ERMELINDA ALVARO Not Available Start: 04-15-2022 End: 04-15-2022 ambulatory Macie Lorenzana Other [facility] Other Start: 04-15-2022 Telephone encounter Macie Lorenzana [facility] [place] Start: 04-07-2022 End: 04-07-2022 ambulatory Macie Lorenzana Other [facility] Other Start: 04-07-2022 Nursing evaluation o f patient and report Macie Lorenzana [facility] [place] Start: 04-07-2022 Telephone encounter aMcie Lorenzana [facility] Start: 03-24-2022 End: 03-24-[address] ERMELINDA CODY Facility:[facility]1 Start: 11-13-2021 End: 11-13-2021 ambulatory Macie Lorenzana Other [facility] Other Start: 11-13-2021 Office outpatient vi sit 15 minutes Macie Lorenzana [facility] [place] Start: 11-13-2021 Telephone encounter Macie Lorenzana [facility] [place] Start: 04-07-2021 End: 04-07-[address] MACIE LORENZANA Facility:[facility]1 Immunizations Immunization Date Immunization Notes Care Provider Fa cility NEGATED: Highlighted row has not occurred!07-18-2019 influenza, seasonal, injectable Patient Objection Macie Lorenzana Other [facility] Other Payers Date Payer Category Payer Medicaid [id number] 1995 Unknown [id number] 2.16.84 [id number] 1995 Unknown [id number] 2.16.84 0.1.225210.3.579.2.593 1994 Unknown [id number] 2.16.84 0.1.114325.3.579.2.1259 1994 Unknown [id number] 2.16.84 0.1.900179.3.579.2.1259 1994 Unknown [id number] 2.16.84 0.1.829432.3.579.2.1259 1994 Unknown [id number] 2.16.84 0.1.581998.3.579.2.1259 1994 Unknown [id number] 2.16.84 0.1.721162.3.579.2.1259 1994 Unknown [id number] 2.16.840 .1.799900.3.579.2.1259 1994 Unknown [id number] 2.16.840 .1.422267.3.579.2.1259 1994 Unknown [id number] 2.16.840 .1.236221.3.579.2.1259 1959 Unknown [id number] 2.1 [id number] Social History Date Type Detail Facility Unknown if ever smoked [facility] Other Sex Assigned At Sex Assigned At Bir th [facility] Other Evaluation note 04-07-2022 Note Date & Type Note Facility 04-07-2022 Evaluation note Encounter Date Diagnosis Assessment Notes Mar, Acute cough (ICD-10 - R05.1) [facility] Other Evaluation note 11-13-2021 Note Date & Type Note Facility 11-13-2021 Evaluation note Encounter Date Diagnosis Assessment Notes Nov, Insect bite (nonvenomous) of right upper arm, initial encounter (ICD-10 - S40.861A) Noted of left forearm. I did prescribe the above prednisone and patient is to continue taking benadryl at bedtime. Patient is to call next week with an update. [facility] Other History general Narrative - Reported 06-24-2016 Note Date & Type Note Facility 06-24-2016 History general N arrative - Reported Type Medical History follows with Dr. Ananth Cody for PAP Medical History Biometric Screening 06/24/16 [facility] [place], [place] Medical History 02/13/2019 EKG Surgical History tubes in ears Surgical History 03/05/21 Hospitalization History Childbirth [facility] Other Evaluation note Note Date & Type Note Facility Evaluation note No Information Meedor Other Summary Purpose Family History No Family History Records FoundNo Family History Records Found Advance Directives No Advanced Directives Records FoundNo Advanced Directives Records Found Additional Source Comments REASON FOR VISIT (unrecogniz ed section and content) Clinical Acute Illnessbug bi te on right armClinicalflu swab-( positive)Clinical INFORMATION SOURCE (unrecogn ized section and content) DATE CREATED AUTHOR 04/04/2022 [facility] DATE CREATED AUTHOR AUTHOR'S ORGANIZ ATION 09/22/2023 [facility] FOR RECORDS PERTAINING TO PATIENTS WHO ARE [...] BE BASED ON THE PRIMARY CLINICAL RECORDS. [employer] [facility]. provides no warranty or guarantee of the accuracy or completeness of information in this document.
== END 2023-09-25 07:31 | disposition home or self-care (01) ==
LOC: US 07:30
PROVIDERS: PCP Family Medicine; Visit Provider Obstetrics & Gynecology
DX: O24.414 Gestational diabetes mellitus in pregnancy, insulin controlled (principal); Z3A.31 31 weeks gestation of pregnancy
CPT/HCPCS: 76816

== ENCOUNTER 2023-10-12 07:23 | Outpatient (OUT) | payer OTHER, SELFPAY ==
--- NOTE | 2023-10-12 07:14 | US_ITS ---
[address] [address] Patient Name: NEGIN BURNHAM MRN: [id number] date: 1995 Sex: F Assigned Patient Location: US Current Patient Location: [facility] Accession/Order Number: [id number] Exam Date: 10/12/2023 07:15 Report Date: 10/12/2023 08:38 At the request of: ERMELINDA JOHN Procedure: US OB BPP w non-stress EXAMINATION: US OB BPP w non-stress HISTORY: Gestational diabetes mellitus O24.419 COMPARISON: Ultrasound OB growth 09/25/2023 TECHNIQUE: Ultrasound biophysical profile was performed in the radiology department. BREATHING MOVEMENTS: 2.0 GROSS BODY MOVEMENTS: 2.0 TONE: 2.0 QUALITATIVE AMNIOTIC FLUID VOLUME: 2.0 PRESENTATION: CEPHALIC HEART RATE: 138.5 bpm bpm. AMNIOTIC FLUID VOLUME: 20.2 cm GESTATIONAL AGE: 32 weeks 1 days CONCLUSION: Total biophysical profile score 8.0. Electronically authenticated by: ERNIE DURAN Date: 10/12/2023 08:38
--- OUTSIDE RECORDS SUMMARY | 2023-10-12 07:25 | XMS_ITS | CCD ---
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 Name Role Phone Maximus Lorenzana Unavailable DR MAXIMUS LORENZANA Primary Care Unavailable RENEE BORJAS Admitting Unavailable RENEE BORJAS Attending Unavailable RENEE BORJAS Consulting Unavailable ALVARO, DR WADSWORTH Admitting Unavailable ALVARO, DR WADSWORTH Attending Unavailable GHULAM, DR QUIJANO Primary Care Unavailable ALVARO, DR WADSWORTH Consulting Unavailable ERMELINDA CODY Attending Unavailable ERMELINDA CODY Attending Unavailable PHYLLIS LADD Attending Unavailable ERMELINDA CODY Attending Unavailable PHYLLIS LADD Attending Unavailable ERMELINDA CODY Attending Unavailable ERMELINDA CODY Attending Unavailable Allergies Allergy Classification Reported Allergen(s) Allergy Type Date of Onset Reaction(s) Facility (5 sources) Azithromycin Drug Allergy myVBOs Why Not Give Back Other Medications Current Medications Medication Drug Class(es) Dates Sig (Normalized) Sig (Original) [id number] 200 actuat albuterol 0.09 mg/actuat metered dose [...] Orally Once a day for 10 day(s) 07 Dec, 2022 Active oseltamivir 75 mg oral capsule (3 [...] 04-07-2022 FLUAV Ab CF (S) [Titer] Positive Why Not Give Back Other FLUBV Ab CF (S) [Titer] Negative Why Not Give Back Other PAP ACOG PANEL 2: 21 to 29on 04-04-2022 . . Normal [facility] Comment on above: Performed By: #### [id number] #### [facility] [address] [place] [address] Dr. Aranza Dolan Age Gdln ACOG Testing - Normal [facility] Comment on above: Performed By: #### 4 [id number] #### [facility] [address] [place] [address] Dr. Aranza Dolan DIAGNOSIS: Comment Abnormal [facility] Comment on above: Result Comment: EPIT HELIAL CELL ABNORMALITY. ATYPICAL SQUAMOUS CELLS OF UNDETERMINED SIGNIFICANCE (ASC-US). FUNGAL ORGANISMS MORPHOLOGICALLY CONSISTENT WITH RAQUEL SPECIES ARE PRESENT. Performed By: #### [id number] #### [facility] [address] [place] [address] Dr. Aranza Dolan Electronically signed by: Comment Normal [facility] Comment on above: Result Comment: Adelina Ochoa MD, Pathologist Performed By: #### [id number] #### [facility] [address] [place] [address] Dr. Aranza Dolan HPV Aptima Negative Normal Negative [facility] Comment on above: Result Comment: This nucleic acid amplification test detects fourteen high-risk HPV types (16,18,31,33,35,39,45,51,52,56,58,59,66,68) without differentiation. Performed By: #### 4 [id number] #### [facility] [address] [place] [address] Dr. Aranza Dolan Methodology: Comment Normal [facility] Comment on above: Result Comment: This liquid based ThinPrep(R) pap test was screened with the use of an image guided system. Performed By: #### 4 [id number] #### [facility] [address] [place] [address] Dr. Aranza Dolan Note: Comment Normal [facility] [...] do occur. . Performed By: #### 4 [id number] #### [facility] [address] [address] [address] Aranza Dolan Pathologist Provided ICD10 Comment Normal [facility] Comment on above: Result Comment: R87. 610, R87.5 Performed By: #### 4 [id number] #### [facility] [address] [address] [address] Aranza Dolan Performed by: Comment Normal [facility] Comment on above: Result Comment: Francheska Gee [employer] (ASCP) Performed By: #### [id number] #### [facility] [address] [place] [address] Dr. Aranza Dolan Recommendation: Comment Abnormal [facility] Comment on above: Result Comment: Sugg est follow up as clinically appropriate. Performed By: #### 4 [id number] #### [facility] [address] [address] [address] Aranza Dolan Reflex Criteria: Comment Normal [facility] Comment on above: Result Comment: See below for HPV testing results. . Performed By: #### [id number] #### [facility] [address] [place] [address] Dr. Aranza Dolan Specimen adequacy: Comment Normal [facility] Comment on above: Result Comment: Sati sfactory for evaluation. Endocervical and/or squamous metaplastic cells (endocervical component) are present. Performed By: #### 4 [id number] #### [facility] [address] [address] [address] Aranza Dolan Covid-19 PCR ([facility])on 03-11 SARS-CoV-2 (COVID-19) RNA RAMON+probe Ql (Unsp spec) Detected Critically abnormal NOT DETECTED [facility] Comment on above: Result Comment: This test is not yet approved or cleared by the [place] FDA. When there are no FDA-approved or cleared tests available, and other criteria are met, FDA can make tests available under an emergency access mechanism called an Emergency Use Authorization (EUA). The EUA for this test is supported by the [place] of Health and Human Service's declaration that [...] longer be used). Performed By: #### C [facility] #### [facility] [address] [place] [address] Dr. Aranza Dolan Vital Signs Date Time Vital Sign Value Performing Clinician Facility 11-13-2021 16:45-0400 Body height 170.18 cm Maximus Artemiolillian Other Why Not Give Back Other 11-13-2021 16:45-0400 Body mass index (BMI) [Ratio] 33.83 kg/m2 Maximus Lorenzana Other Why Not Give Back Other 11-13-2021 16:45-0400 Body weight 97.98 kg Maximus Lorenzana Other Why Not Give Back Other 11-13-2021 16:45-0400 Diastolic blood pressure 80 mm[Hg] Maximus Lorenzana Other Why Not Give Back Other 11-13-2021 16:45-0400 Respiratory rate 16 /min Maximus Ghulam Other Why Not Give Back Other 11-13-2021 16:45-0400 SaO2% (BldA) [Mass fraction] 98 % Maximus Lorenzana Other Why Not Give Back Other 11-13-2021 16:45-0400 Systolic blood pressure 126 mm[Hg] Maximus Lorenzana Other Why Not Give Back Other Encounters Encounter Date Encounter Type Care Provider Facility Start: 10-05-2023 End: 10-05-2023 ambulatory ERMELINDA ALVARO Not Available Start: 09-21-2023 End: 09-21-2023 ambulatory ERMELINDA ALVARO Not Available Start: 09-07-2023 End: 09-07-2023 ambulatory PHYLLIS JULEE Not Available Start: 08-10-2023 End: 08-10-2023 ambulatory ERMELINDA ALVARO Not Available Start: 07-13-2023 End: 07-13-2023 ambulatory PHYLLIS JULEE Not Available Start: 06-15-2023 End: 06-15-2023 ambulatory ERMELINDA ALVARO Not Available Start: 05-14-2023 End: 05-14-2023 ambulatory ERMELINDA ALVARO Not Available Start: 04-06-2023 End: 04-06-2023 ambulatory ERMELINDA ALVARO Not Available Start: 04-15-2022 End: 04-15-2022 ambulatory Maximus Lorenzana Other Why Not Give Back Other Start: 04-15-2022 Telephone encounter Maximus Lorenzana [facility] Start: 04-07-2022 End: 04-07-2022 ambulatory Maximus Lorenzana Other Why Not Give Back Other Start: 04-07-2022 Nursing evaluation o f patient and report Maximus Lorenzana [facility] Start: 04-07-2022 Telephone encounter Maximus Lorenzana [facility] Start: 03-24-2022 End: 03-24-2022 ambulatory ERMELINDA ALVARO Facility: Start: 11-13-2021 End: 11-13-2021 ambulatory Maximus Lorenzana Other Why Not Give Back Other Start: 11-13-2021 Office outpatient vi sit 15 minutes Maximus Lorenzana [facility] Start: 11-13-2021 Telephone encounter Maximus Lorenzana [facility] Start: 04-07-2021 End: 04-07-[address] MAXIMUS LORENZANA Facility:H1 Immunizations Immunization Date Immunization Notes Care Provider Fa cility NEGATED: Highlighted row has not occurred!07-18-2019 influenza, seasonal, injectable Patient Objection Mxaimus Lorenzana Other Why Not Give Back Other Payers Date Payer Category Payer Medicaid [id number] 1995 Unknown [id number] 2.16.84 [id number] 1995 Unknown [id number] 2.16.84 0.1.390164.3.579.2.593 1994 Unknown [id number] 2.16.84 0.1.341725.3.579.2.1259 1994 Unknown [id number] 2.16.84 0.1.236632.3.579.2.1259 1994 Unknown [id number] 2.16.84 0.1.824637.3.579.2.1259 1994 Unknown [id number] 2.16.84 0.1.208556.3.579.2.1259 1994 Unknown [id number] 2.16.84 0.1.289891.3.579.2.1259 1994 Unknown [id number] 2.16.84 0.1.188967.3.579.2.1259 1994 Unknown [id number] 2.16.840 .1.768335.3.579.2.1259 1994 Unknown [id number] 2.16.840 .1.858004.3.579.2.1259 1994 Unknown [id number] 2.16.840 .1.805832.3.579.2.1259 1959 Unknown [id number] 2.1 [id number] Social History Date Type Detail Facility Unknown if ever smoked Why Not Give Back Other Sex Assigned At Sex Assigned At Bir th Why Not Give Back Other Evaluation note 04-07-2022 Note Date & Type Note Facility 04-07-2022 Evaluation note Encounter Date Diagnosis Assessment Notes Mar, Acute cough (ICD-10 - R05.1) Why Not Give Back Other Evaluation note 11-13-2021 Note Date & Type Note Facility 11-13-2021 Evaluation note Encounter Date Diagnosis Assessment Notes Nov, Insect bite (nonvenomous) of right upper arm, initial encounter (ICD-10 - S40.861A) Noted of left forearm. I did prescribe the above prednisone and patient is to continue taking benadryl at bedtime. Patient is to call next week with an update. Why Not Give Back Other History general Narrative - Reported 06-24-2016 Note Date & Type Note Facility 06-24-2016 History general N arrative - Reported Type Medical History follows with Dr. Ananth Cody for PAP Medical History Biometric Screening 06/24/16 [facility] [place], [place] Medical History 02/13/2019 EKG Surgical History tubes in ears Surgical History 03/05/21 Hospitalization History Childbirth Why Not Give Back Other Evaluation note Note Date & Type Note Facility Evaluation note No Information Hythiam Other Summary Purpose Family History No Family [...] [facility] DATE CREATED AUTHOR 'S ORGANIZ ATION 10/05/2023 [facility] dical Specialists EPIC FOR RECORDS [...] BE BASED ON THE PRIMARY CLINICAL RECORDS. [facility] [employer] [facility]. provides no warranty or guarantee of the accuracy or completeness of information in this document.
[2023-10-12 07:58] VITALS: BP 124/73; PULSE 101
== END 2023-10-12 08:40 | disposition home or self-care (01) ==
LOC: US 07:23 → FBC 07:24
PROVIDERS: PCP Family Medicine; Visit Provider Obstetrics & Gynecology
DX: O24.414 Gestational diabetes mellitus in pregnancy, insulin controlled (principal); Z3A.32 32 weeks gestation of pregnancy
CPT/HCPCS: 76818

== ENCOUNTER 2023-10-15 05:26 | Outpatient (OUT) | payer OTHER, SELFPAY ==
--- OUTSIDE RECORDS SUMMARY | 2023-10-15 05:29 | XMS_ITS | CCD ---
Author Organization [facility] Care Team Providers Care Supervisor [employer] Name Role Phone Maximus Lorenzana Unavailable DR [...] Reaction(s) Facility (5 sources) Azithromycin Drug Allergy [employer]in[employer] Spoon[employer] [facility] Other Medications Current Medications Medication Drug Class(es) Dates Sig (Normalized) Sig (Original) [id number] 200 actuat albuterol 0.09 mg/actuat metered dose [...] 04-07-2022 FLUAV Ab CF (S) [Titer] Positive [facility] Other FLUBV Ab CF (S) [Titer] Negative [facility] Other PAP ACOG PANEL 2: 21 to 29on 04-04-2022 . . Normal [facility] Comment on above: Performed By: #### [id number] #### [facility] [address] [place] [address] Dr. Aranza Dolan Age Gdln ACOG Testing - Normal [facility] Comment on above: Performed By: #### [id number] #### [facility] [address] [place] [address] Dr. Aranza Dolan DIAGNOSIS: Comment Abnormal [facility] Comment on above: Result Comment: EPIT HELIAL CELL ABNORMALITY. ATYPICAL SQUAMOUS CELLS OF UNDETERMINED SIGNIFICANCE (ASC-US). FUNGAL ORGANISMS MORPHOLOGICALLY CONSISTENT WITH RAQUEL SPECIES ARE PRESENT. Performed By: #### [id number] #### [facility] [address] [place] [address] Dr. Aranza Dolan Electronically signed by: Comment Normal [facility] Comment on above: Result Comment: Adelina Ochoa MD, Pathologist Performed By: #### 4 [id number] #### [facility] [address] [place] [address] Dr. Aranza Dolan HPV Aptima Negative Normal Negative [facility] Comment on above: Result Comment: This nucleic acid amplification test detects fourteen high-risk HPV types (16,18,31,33,35,39,45,51,52,56,58,59,66,68) without differentiation. Performed By: #### 4 [id number] #### [facility] [address] [place] [address] Dr. Aranza Dolan Methodology: Comment Normal [facility] Comment on above: Result Comment: This liquid based ThinPrep(R) pap test was screened with the use of an image guided system. Performed By: #### 4 [id number] #### [facility] [address] [place] [address] Dr. Aranza Dolan Note: Comment Normal [facility] Comment on above: Result Comment: The Pap smear is a screening test designed to aid in the detection of premalignant and malignant conditions of the uterine cervix. It is not a diagnostic procedure and should not be used as the sole means of detecting cervical cancer. Both false-positive and false-negative reports do occur. . Performed By: #### 4 [id number] #### [facility] [address] [address] [address] Aranza Dolan Pathologist Provided ICD10 Comment Normal [facility] Comment on above: Result Comment: R87. 610, R87.5 Performed By: #### 4 [id number] #### [facility] [address] [address] [address] Aranza Dolan Performed by: Comment Normal [facility] Comment on above: Result Comment: Francheska Gee Baseball Inspector And Repairer (ASCP) Performed By: #### 4 [id number] #### [facility] [address] [place] [address] Dr. Aranza Dolan Recommendation: Comment Abnormal [facility] Comment on above: Result Comment: Sugg est follow up as clinically appropriate. Performed By: #### 4 [id number] #### [facility] [address] [address] [address] Aranza Dolan Reflex Criteria: Comment Normal [facility] Comment on above: Result Comment: See below for HPV testing results. . Performed By: #### 4 [id number] #### [facility] [address] [place] [address] Dr. Aranza Dolan Specimen adequacy: Comment Normal [facility] Comment on above: Result Comment: Sati sfactory for evaluation. Endocervical and/or squamous metaplastic cells (endocervical component) are present. Performed By: #### 4 [id number] #### [facility] [address] [address] [address] Aranza Dolan Covid-19 PCR ([facility])on 03-11 SARS-CoV-2 (COVID-19) RNA RAMON+probe Ql (Unsp spec) Detected Critically abnormal NOT DETECTED [facility] Comment on above: Result Comment: This test is not yet approved or cleared by the [place] FDA. When there are no FDA-approved or cleared tests available, and other criteria are met, FDA can make tests available under an emergency access mechanism called an Emergency Use Authorization (EUA). The EUA for this test is supported by the [place] of Health and Human Service's declaration that [...] longer be used). Performed By: #### C [facility] #### [facility] [address] [place] [address] Dr. Aranza Dolan Vital Signs Date Time Vital Sign Value Performing Clinician Facility 11-13-2021 16:45-0400 Body height 170.18 cm Maximus Artemiolillian Other [facility] Other 11-13-2021 16:45-0400 Body mass index (BMI) [Ratio] 33.83 kg/m2 Maximus Lorenzana Other [facility] Other 11-13-2021 16:45-0400 Body weight 97.98 kg Maximus Lorenzana Other [facility] Other 11-13-2021 16:45-0400 Diastolic blood pressure 80 mm[Hg] Maximus Lorenzana Other [facility] Other 11-13-2021 16:45-0400 Respiratory rate 16 /min Maximus Ghulam Other [facility] Other 11-13-2021 16:45-0400 SaO2% (BldA) [Mass fraction] 98 % Maximus Lorenzana Other [facility] Other 11-13-2021 16:45-0400 Systolic blood pressure 126 mm[Hg] Maximus Lorenzana Other [facility] Other Encounters Encounter Date Encounter Type Care [...] 04-15-2022 End: 04-15-2022 ambulatory Maximus Lorenzana Other [facility] Other Start: 04-15-2022 Telephone encounter Maximus Lorenzana [facility] Start: 04-07-2022 End: 04-07-2022 ambulatory Maximus Lorenzana Other [facility] Other Start: 04-07-2022 Nursing evaluation o f patient and report Maximus Lorenzana [facility] Start: 04-07-2022 Telephone encounter Maximus Lorenzana [facility] Start: 03-24-2022 End: 03-24-2022 ambulatory ERMELINDA ALVARO Facility: Start: 11-13-2021 End: 11-13-2021 ambulatory Maximus Lorenzana Other [facility] Other Start: 11-13-2021 Office outpatient vi sit 15 minutes Maximus Lorenzana [facility] Start: 11-13-2021 Telephone encounter Maximus Lorenzana [facility] Family [facility] Start: 04-07-2021 End: 04-07-[address] MAXIMUS LORENZANA Facility:H1 Immunizations Immunization Date Immunization Notes Care Provider Fa cility NEGATED: Highlighted row has not occurred!07-18-2019 influenza, seasonal, injectable Patient Objection Maximus Lorenzana Other [facility] Other Payers Date Payer Category Payer Medicaid [id number] 1995 Unknown [id number] 2.16.84 0.1.235766.3.579.2.593 1994 Unknown [id number] 2.16.84 0.1.295890.3.579.2.593 1994 Unknown [id number] 2.16.84 0.1.452415.3.579.2.1259 1994 Unknown [id number] 2.16.84 0.1.023342.3.579.2.1259 1994 Unknown [id number] 2.16.84 0.1.275791.3.579.2.1259 1994 Unknown [id number] 2.16.84 0.1.642661.3.579.2.1259 1994 Unknown [id number] 2.16.84 0.1.211738.3.579.2.1259 1994 Unknown [id number] 2.16.84 0.1.080499.3.579.2.1259 1994 Unknown [id number] 2.16.840 .1.863410.3.579.2.1259 1994 Unknown [id number] 2.16.840 .1.750391.3.579.2.1259 1994 Unknown [id number] 2.16.840 .1.394580.3.579.2.1259 1959 Unknown [id number] 2.1 6.840.1.639425.19 Social History Date Type Detail Facility Unknown if ever smoked [facility] Other Sex Assigned At Sex Assigned At Bir th [facility] Other Evaluation note 04-07-2022 Note Date & Type Note Facility 04-07-2022 Evaluation note Encounter Date Diagnosis Assessment Notes Mar, Acute cough (ICD-10 - R05.1) [facility] Other Evaluation note 11-13-2021 Note Date & Type Note Facility 11-13-2021 Evaluation note Encounter Date Diagnosis Assessment Notes Nov, Insect bite (nonvenomous) of right upper arm, initial encounter (ICD-10 - S40.861A) Noted of left forearm. I did prescribe the above prednisone and patient is to continue taking benadryl at bedtime. Patient is to call next week with an update. [facility] Other History general Narrative - Reported 06-24-2016 Note Date & Type Note Facility 06-24-2016 History general N arrative - Reported Type Medical History follows with Dr. Ananth Cody for PAP Medical History Biometric Screening 06/24/16 [facility] [place], [place] Medical History 02/13/2019 EKG Surgical History tubes in ears Surgical History 03/05/21 Hospitalization History Childbirth [facility] Other Evaluation note Note Date & Type Note Facility Evaluation note No Information [email or web address] Other Summary Purpose Family History No Family [...] DATE CREATED AUTHOR 'S ORGANIZ ATION 10/05/2023 [facility] EPIC FOR RECORDS PERTAINING TO [...] BE BASED ON THE PRIMARY CLINICAL RECORDS. [facility]. provides no warranty or guarantee of the accuracy or completeness of information in this document.
[2023-10-15 05:50] VITALS: BP 115/74; PULSE 109; TEMP 36.9
== END 2023-10-15 06:10 | disposition home or self-care (01) ==
LOC: FBCO 05:26 → FBC 05:27 → FBCO 05:32 → FBC 05:34
PROVIDERS: PCP Family Medicine; Visit Provider Obstetrics & Gynecology
DX: O24.419 Gestational diabetes mellitus in pregnancy, unspecified control (principal)
CPT/HCPCS: 59025

== ENCOUNTER 2023-10-19 07:14 | Outpatient (OUT) | payer OTHER, SELFPAY ==
--- NOTE | 2023-10-19 07:16 | US_ITS ---
[address] [address] Patient Name: NEGIN BURNHAM MRN: [id number] date: 1995 Sex: F Assigned Patient Location: [facility] Current Patient Location: [facility] Accession/Order Number: [id number] Exam Date: 10/19/2023 07:17 Report Date: 10/19/2023 08:42 At the request of: ERMELINDA JOHN Procedure: US OB BPP w non-stress EXAMINATION: US OB BPP w non-stress HISTORY: Gestational diabetes mellitus COMPARISON: No relevant comparison available. TECHNIQUE: Ultrasound biophysical profile was performed in the radiology department. non-reactive stress testing was performed by nursing staff in the birthing center. FINDINGS: BREATHING MOVEMENTS: 2.0 GROSS BODY MOVEMENTS: 2.0 TONE: 2.0 QUALITATIVE AMNIOTIC FLUID VOLUME: 2.0 PRESENTATION: CEPHALIC HEART RATE: 145.9 bpm H.B./min AMNIOTIC FLUID VOLUME: 25.0 cm cm GESTATIONAL AGE: 33 weeks 1 days CONCLUSION: Total biophysical profile score: 8.0 Electronically authenticated by: SCOT PRICE Date: 10/19/2023 08:42
--- OUTSIDE RECORDS SUMMARY | 2023-10-19 07:17 | XMS_ITS | CCD ---
Author Organization [facility] Care Team Providers Care Mail Deliverer Name Role Phone Maximus Lorenzana Unavailable DR [...] Reaction(s) Facility (5 sources) Azithromycin Drug Allergy [employer] [facility] Other Medications Current Medications Medication Drug Class(es) Dates Sig (Normalized) Sig (Original) [id number] 200 actuat albuterol 0.09 mg/actuat metered dose [...] 04-07-2022 FLUAV Ab CF (S) [Titer] Positive [facility] Other FLUBV Ab CF (S) [Titer] Negative [facility] Other PAP ACOG PANEL 2: 21 to 29on 04-04-2022 . . Normal [facility] Comment on above: Performed By: #### [id number] #### [facility] [address] [place] [address] Dr. Aranza Dolan Age Gdln ACOG Testing - Normal [facility] Comment on above: Performed By: #### 4 [id number] #### [facility] [address] [place] [address] Dr. Aranza Dolan DIAGNOSIS: Comment Abnormal [facility] Comment on above: Result Comment: EPIT HELIAL CELL ABNORMALITY. ATYPICAL SQUAMOUS CELLS OF UNDETERMINED SIGNIFICANCE (ASC-US). FUNGAL ORGANISMS MORPHOLOGICALLY CONSISTENT WITH RAQUEL SPECIES ARE PRESENT. Performed By: #### 4 [id number] #### [facility] [address] [place] [address] Dr. Aranza Dolan Electronically signed by: Comment Normal [facility] Comment on above: Result Comment: Adelina Ochoa MD, Pathologist Performed By: #### 4 [id number] #### [facility] [address] [place] [address] Dr. Aranza Dolan HPV Aptima Negative Normal Negative [facility] Comment on above: Result Comment: This nucleic acid amplification test detects fourteen high-risk HPV types (16,18,31,33,35,39,45,51,52,56,58,59,66,68) without differentiation. Performed By: #### 4 [id number] #### [facility] [address] [place] [address] Dr. Aranza Dolan Methodology: Comment Normal [facility] Comment on above: Result Comment: This liquid based ThinPrep(R) pap test was screened with the use of an image guided system. Performed By: #### 4 [id number] #### [facility] [address] [place] [address] Dr. Aranza Dolan Note: Comment Normal [facility] Comment on above: Result Comment: The Pap smear is a screening test designed to aid in the detection of premalignant and malignant conditions of the uterine cervix. It is not a diagnostic procedure and should not be used as the sole means of detecting cervical cancer. Both false-positive and false-negative reports do occur. . Performed By: #### 4 [id number] #### [facility] [address] [address] [address] Aranza Dolan Pathologist Provided ICD10 Comment Normal [facility] Comment on above: Result Comment: R87. 610, R87.5 Performed By: #### 4 [id number] #### [facility] [address] [address] [address] Aranza Dolan Performed by: Comment Normal [facility] Comment on above: Result Comment: Francheska Gee Train System Operator (ASCP) Performed By: #### 4 [id number] #### [facility] [address] [place] [address] Dr. Aranza Dolan Recommendation: Comment Abnormal The [facility] Comment on above: Result Comment: Sugg est follow up as clinically appropriate. Performed By: #### 4 [id number] #### [facility] [address] [address] [address] Aranza Dolan Reflex Criteria: Comment Normal [facility] Comment on above: Result Comment: See below for HPV testing results. . Performed By: #### 4 [id number] #### [facility] [address] [place] [address] Dr. Aranza Dolan Specimen adequacy: Comment Normal [facility] Comment on above: Result Comment: Sati sfactory for evaluation. Endocervical and/or squamous metaplastic cells (endocervical component) are present. Performed By: #### 4 [id number] #### [facility] [address] [address] [address] Aranza Dolan Cov[facility] PCR ([facility])on 03-11 SARS-CoV-2 (COVID-19) RNA RAMON+probe Ql (Unsp spec) Detected Critically abnormal NOT DETECTED [facility] Comment on above: Result Comment: This test is not yet approved or cleared by the [place] FDA. When there are no FDA-approved or cleared tests available, and other criteria are met, FDA can make tests available under an emergency access mechanism called an Emergency Use Authorization (EUA). The EUA for this test is supported by the [place] of Health and Human Service's declaration that [...] be used). Performed By: #### C [facility] #### [facility] [address] [place] [address] Dr. Aranza Dolan Vital Signs Date Time Vital Sign Value Performing Clinician Facility 11-13-2021 16:45-0400 Body height 170.18 cm Maximus Artemiolillian Other [facility] Other 11-13-2021 16:45-0400 Body mass index (BMI) [Ratio] 33.83 kg/m2 Maximus Lorenzana Other [facility] Other 11-13-2021 16:45-0400 Body weight 97.98 kg Maximus Lorenzana Other [facility] Other 11-13-2021 16:45-0400 Diastolic blood pressure 80 mm[Hg] Maximus Lorenzana Other [facility] Other 11-13-2021 16:45-0400 Respiratory rate 16 /min Maximus Ghulam Other [facility] Other 11-13-2021 16:45-0400 SaO2% (BldA) [Mass fraction] 98 % Maximus Lorenzana Other [facility] Other 11-13-2021 16:45-0400 Systolic blood pressure 126 mm[Hg] Maximus Lorenzana Other [facility] Other Encounters Encounter Date Encounter Type Care [...] 04-15-2022 End: 04-15-2022 ambulatory Maximus Lorenzana Other [facility] Other Start: 04-15-2022 Telephone encounter Maximus Lorenzana [facility] [place] Start: 04-07-2022 End: 04-07-2022 ambulatory Maximus Lorenzana Other [facility] Other Start: 04-07-2022 Nursing evaluation o f patient and report Maximus Lorenzana [facility] Start: 04-07-2022 Telephone encounter Maximus Lorenzana [facility] Start: 03-24-2022 End: 03-24-2022 ambulatory ERMELINDA ALVARO Facility: Start: 11-13-2021 End: 11-13-2021 ambulatory Maximus Lorenzana Other [facility] Other Start: 11-13-2021 Office outpatient vi sit 15 minutes Maximus Lorenzana [facility] Start: 11-13-2021 Telephone encounter Maximus Lorenzana [facility] Family [facility] Start: 04-07-2021 End: 04-07-[address] MAXIMUS LORENZANA Facility:H1 Immunizations Immunization Date Immunization Notes Care Provider Fa cility NEGATED: Highlighted row has not occurred!07-18-2019 influenza, seasonal, injectable Patient Objection Maximus Lorenzana Other [facility] Other Payers Date Payer Category Payer Medicaid [id number] 1995 Unknown [id number] 2.16.84 0.1.725042.3.579.2.593 1995 Unknown [id number] 2.16.84 0.1.540558.3.579.2.593 1995 Unknown [id number] 2.16.84 0.1.279933.3.579.2.1259 1994 Unknown [id number] 2.16.84 0.1.827907.3.579.2.1259 1994 Unknown [id number] 2.16.84 0.1.916322.3.579.2.1259 1994 Unknown [id number] 2.16.84 0.1.585772.3.579.2.1259 1994 Unknown [id number] 2.16.84 0.1.619788.3.579.2.1259 1994 Unknown [id number] 2.16.84 0.1.915730.3.579.2.1259 1994 Unknown [id number] 2.16.840 .1.508841.3.579.2.1259 1994 Unknown [id number] 2.16.840 .1.451318.3.579.2.1259 1994 Unknown [id number] 2.16.840 .1.624141.3.579.2.1259 1959 Unknown [id number] 2.1 6.840.1.024064.19 Social History Date Type Detail Facility Unknown if ever smoked [facility] Other Sex Assigned At Sex Assigned At Bir th [facility] Other Evaluation note 04-07-2022 Note Date & Type Note Facility 04-07-2022 Evaluation note Encounter Date Diagnosis Assessment Notes Mar, Acute cough (ICD-10 - R05.1) [facility] Other Evaluation note 11-13-2021 Note Date & Type Note Facility 11-13-2021 Evaluation note Encounter Date Diagnosis Assessment Notes Nov, Insect bite (nonvenomous) of right upper arm, initial encounter (ICD-10 - S40.861A) Noted of left forearm. I did prescribe the above prednisone and patient is to continue taking benadryl at bedtime. Patient is to call next week with an update. [facility] Other History general Narrative - Reported 06-24-2016 Note Date & Type Note Facility 06-24-2016 History general N arrative - Reported Type Medical History follows with Dr. Ananth Cody for PAP Medical History Biometric Screening 06/24/16 [facility] [place], [place] Medical History 02/13/2019 EKG Surgical History tubes in ears Surgical History 03/05/21 Hospitalization History Childbirth [facility] Other Evaluation note Note Date & Type Note Facility Evaluation note No Information [id number] Other Summary Purpose Family History No Family [...] DATE CREATED AUTHOR 'S ORGANIZ ATION 10/05/2023 [facility] EPIC FOR RECORDS PERTAINING [...] BE BASED ON THE PRIMARY CLINICAL RECORDS. [facility]. provides no warranty or guarantee of the accuracy or completeness of information in this document.
[2023-10-19 08:12] VITALS: BP 130/82; PULSE 114
== END 2023-10-19 08:45 | disposition home or self-care (01) ==
LOC: US 07:16 → FBC 07:16
PROVIDERS: PCP Family Medicine; Visit Provider Obstetrics & Gynecology
DX: O24.414 Gestational diabetes mellitus in pregnancy, insulin controlled (principal); Z3A.33 33 weeks gestation of pregnancy
CPT/HCPCS: 76818

== ENCOUNTER 2023-10-22 05:27 | Outpatient (OUT) | payer OTHER, SELFPAY ==
--- OUTSIDE RECORDS SUMMARY | 2023-10-22 05:29 | XMS_ITS ---
Patient Summarization (C-CDA 2.1 CCD) Created on: October 22, 2023 NEGIN BURNHAM : 1995 Sex: Female Author Organization Sample organization Care Team Providers Care Water Carter Name Role Phone Maximus Lorenzana Unavailable DR MAXIMUS LORENZANA Primary Care Unavailable RENEE BORJAS Admitting Unavailable SUAD, RENEE Attending Unavailable RENEE BORJAS Consulting Unavailable ALVARO, DR WADSWORTH Admitting Unavailable ALVARO, DR WADSWORTH Attending Unavailable HARRIETT, DR QUIJANO Primary Care Unavailable ALVARO, DR WADSWORTH Consulting Unavailable ALVARO, ERMELINDA Attending Unavailable ALVARO, ERMELINDA Attending Unavailable JULEE, PHYLLIS Attending Unavailable ALVARO, ERMELINDA Attending Unavailable JULEE, PHYLLIS Attending Unavailable ALVARO, ERMELINDA Attending Unavailable ALVARO, ERMELINDA Attending Unavailable ALVARO, ERMELINDA Attending Unavailable Allergies Allergy Classification Reported Allergen(s) Allergy Type Date of Onset Reaction(s) Facility (5 sources) Azithromycin Drug Allergy migraines [facility] Other Encounters Encounter Date Encounter Type Care Provider Facility Start: 10-19-2023 End: 10-19-2023 ambulatory ERMELINDA ALVARO Not Available Start: 10-05-2023 End: 10-05-2023 ambulatory ERMELINDA ALVARO [...] 04-15-2022 End: 04-15-2022 ambulatory Maximus Lorenzana Other [facility] Other Start: 04-15-2022 Telephone encounter Maximus Lorenzana [facility] Start: 04-07-2022 End: 04-07-2022 ambulatory Maximus Lorenzana Other [facility] Other Start: 04-07-2022 Nursing evaluation o f patient and report Maximus Lorenzana [facility] Start: 04-07-2022 Telephone encounter Maximus Lorenzana [facility] Start: 03-24-2022 End: 03-24-[address] ERMELINDA CODY Facility:H1 Start: 11-13-2021 End: 11-13-2021 ambulatory Maximus Lorenzana Other [facility] Other Start: 11-13-2021 Office outpatient vi sit 15 minutes Maximus Lorenzana [facility] Start: 11-13-2021 Telephone encounter Maximus Lorenzana [facility] Start: 04-07-2021 End: 04-07-[address] MAXIMUS LORENZANA Facility:H1 Immunizations Immunization Date Immunization Notes Care Provider Fa cility NEGATED: Highlighted row has not occurred!07-18-2019 influenza, seasonal, injectable Patient Objection Maximus Lorenzana Other [facility] Other Medications Current Medications Medication Drug Class(es) Dates Sig (Normalized) Sig (Original) [id number] 200 actuat albuterol 0.09 mg/actuat metered dose [...] 1 tablet by mouth every twenty-four hours June05/29 1-20 MG-MCG 1 tablet Orally Once a [...] B-12 100 MCG as directed Orally Not-Taking Payers Date Payer Category Payer Medicaid [id number] 1995 Unknown [id number] 2.16.84 0.1.584299.3.579.2.593 1995 Unknown [id number] 2.16.84 0.1.923845.3.579.2.593 1995 Unknown [id number] 2.16.84 0.1.854996.3.579.2.1259 1994 Unknown [id number] 2.16.84 0.1.768586.3.579.2.1259 1994 Unknown [id number] 2.16.84 0.1.029003.3.579.2.1259 1994 Unknown [id number] 2.16.84 0.1.374379.3.579.2.1259 1994 Unknown [id number] 2.16.84 0.1.913756.3.579.2.1259 1994 Unknown [id number] 2.16.84 0.1.999184.3.579.2.1259 1994 Unknown [id number] 2.16.84 0.1.731407.3.579.2.1259 1994 Unknown [id number] 2.16.840 .1.240162.3.579.2.1259 1994 Unknown [id number] 2.16.840 .1.939509.3.579.2.1259 1994 Unknown [id number] 2.16.840 .1.023360.3.579.2.1259 1959 Unknown [id number] 2.1 [id number] Problems Active Problems Problem Classification Problem Date [...] 04-07-2022 FLUAV Ab CF (S) [Titer] Positive [facility] Other FLUBV Ab CF (S) [Titer] Negative [facility] Other PAP ACOG PANEL 2: 21 to 29on 04-04-2022 . . Normal [facility] Comment on above: Performed By: #### [id number] #### [facility] [address] [place] [address] Dr. Aranza Dolan Age Gdln ACOG Testing - Normal [facility] Comment on above: Performed By: #### [id number] #### [facility] [address] [place] [address] Dr. Aranza Dolan DIAGNOSIS: Comment Abnormal [facility] Comment on above: Result Comment: EPIT HELIAL CELL ABNORMALITY. ATYPICAL SQUAMOUS CELLS OF UNDETERMINED SIGNIFICANCE (ASC-US). FUNGAL ORGANISMS MORPHOLOGICALLY CONSISTENT WITH RAQUEL SPECIES ARE PRESENT. Performed By: #### [id number] #### [facility] [address] [place] [address] Dr. Aranza oDlan Electronically signed by: Comment Normal [facility] Comment on above: Result Comment: Adelina Ochoa MD, Pathologist Performed By: #### [id number] #### [facility] [address] [place] [address] Dr. Aranza Dolan HPV Aptima Negative Normal Negative [facility] Comment on above: Result Comment: This nucleic acid amplification test detects fourteen high-risk HPV types (16,18,31,33,35,39,45,51,52,56,58,59,66,68) without differentiation. Performed By: #### 4 [id number] #### [facility] [address] [place] [address] Dr. Aranza Dolan Methodology: Comment Normal [facility] Comment on above: Result Comment: This liquid based ThinPrep(R) pap test was screened with the use of an image guided system. Performed By: #### [id number] #### [facility] [address] [place] [address] Dr. Aranza Dolan Note: Comment Normal [facility] Comment on above: Result Comment: The Pap smear is a screening test designed to aid in the detection of premalignant and malignant conditions of the uterine cervix. It is not a diagnostic procedure and should not be used as the sole means of detecting cervical cancer. Both false-positive and false-negative reports do occur. . Performed By: #### [id number] #### [facility] [address] [address] [address] Aarnza Dolan Pathologist Provided ICD10 Comment Normal [facility] Comment on above: Result Comment: R87. 610, R87.5 Performed By: #### 4 [id number] #### [facility] [address] [address] [address] Aranza Dolan Performed by: Comment Normal [facility] Comment on above: Result Comment: Francheska Gee Clerical Methods Analyst (ASCP) Performed By: #### [id number] #### [facility] [address] [place] [address] Dr. Aranza Dolan Recommendation: Comment Abnormal [facility] Comment on above: Result Comment: Sugg est follow up as clinically appropriate. Performed By: #### 4 [id number] #### [facility] [address] [place] [address] Dr. Aranza Dolan Reflex Criteria: Comment Normal [facility] Comment on above: Result Comment: See below for HPV testing results. . Performed By: #### [id number] #### [facility] [address] [place] [address] Dr. Aranza Dolan Specimen adequacy: Comment Normal [facility] Comment on above: Result Comment: Sati sfactory for evaluation. Endocervical and/or squamous metaplastic cells (endocervical component) are present. Performed By: #### 4 [id number] #### [facility] [address] [address] [address] Aranza Dolan Covid-19 PCR ([facility]on 03-11 SARS-CoV-2 (COVID-19) RNA RAMON+probe Ql (Unsp spec) Detected Critically abnormal NOT DETECTED [facility] Comment on above: Result Comment: This test is not yet approved or cleared by the [place] FDA. When there are no FDA-approved or cleared tests available, and other criteria are met, FDA can make tests available under an emergency access mechanism called an Emergency Use Authorization (EUA). The EUA for this test is supported by the [place] of Health and Human Service's declaration that [...] used). Performed By: #### C [facility] #### [facility] [address] [place] [address] Dr. Aranza Dolan Social History Date Type Detail Facility Unknown if ever smoked [facility] Other Sex Assigned At Sex Assigned At Bir th [facility] Other Vital Signs Date Time Vital Sign Value Performing Clinician Facility 11-13-2021 16:45-0400 Body height 170.18 cm Maximus Ulloalillian Other [facility] Other 11-13-2021 16:45-0400 Body mass index (BMI) [Ratio] 33.83 kg/m2 Maximus Lorenzana Other [facility] Other 11-13-2021 16:45-0400 Body weight 97.98 kg Maximus Lorenzana Other [facility] Other 11-13-2021 16:45-0400 Diastolic blood pressure 80 mm[Hg] Maximus Lorenzana Other [facility] Other 11-13-2021 16:45-0400 Respiratory rate 16 /min Maximus Lorenzana Other [facility] Other 11-13-2021 16:45-0400 SaO2% (BldA) [Mass fraction] 98 % Maximus Lorenzana Other [facility] Other 11-13-2021 16:45-0400 Systolic blood pressure 126 mm[Hg] Maximus Lorenzana Other [facility] Other Evaluation note 04-07-2022 Note Date & Type Note Facility 04-07-2022 Evaluation note Encounter Date Diagnosis Assessment Notes Mar, Acute cough (ICD-10 - R05.1) [facility] Other Evaluation note 11-13-2021 Note Date & Type Note Facility 11-13-2021 Evaluation note Encounter Date Diagnosis Assessment Notes Nov, Insect bite (nonvenomous) of right upper arm, initial encounter (ICD-10 - S40.861A) Noted of left forearm. I did prescribe the above prednisone and patient is to continue taking benadryl at bedtime. Patient is to call next week with an update. [facility] Other History general Narrative - Reported 06-24-2016 Note Date & Type Note Facility 06-24-2016 History general N arrative - Reported Type Medical History follows with Dr. Ananth Cody for PAP Medical History Biometric Screening 06/24/16 [facility] Medical History 02/13/2019 EKG Surgical History tubes in ears Surgical History 03/05/21 Hospitalization History Childbirth [facility] Other Evaluation note Note Date & Type Note Facility Evaluation note No Information [facility] Other Summary Purpose Family History No Family [...] pital DATE CREATED AUTHOR AUTHOR'S ORGANIZ ATION 10/19/2023 [facility] EPIC FOR RECORDS PERTAINING TO [...] BE BASED ON THE PRIMARY CLINICAL RECORDS. [facility]. provides no warranty or guarantee of the accuracy or completeness of information in this document.
[2023-10-22 05:37] VITALS: BP 125/63; PULSE 116
== END 2023-10-22 06:20 | disposition home or self-care (01) ==
LOC: FBCO 05:27 → FBC 05:28 → FBCO 05:31 → FBC 05:33
PROVIDERS: PCP Family Medicine; Visit Provider Obstetrics & Gynecology
DX: O24.419 Gestational diabetes mellitus in pregnancy, unspecified control (principal)
CPT/HCPCS: 59025

== ENCOUNTER 2023-10-23 08:38 | Outpatient (OUT) | payer OTHER, SELFPAY ==
--- NOTE | 2023-10-23 08:40 | US_ITS ---
[address] [address] Patient Name: NEGIN BURNHAM MRN: [id number] date: 1995 Sex: F Assigned Patient Location: US Current Patient Location: Accession/Order Number: [id number] Exam Date: 10/23/2023 08:46 Report Date: 10/25/2023 06:42 At the request of: ERMELINDA JOHN Procedure: US OB growth EXAMINATION: US OB growth HISTORY: INSULIN CONTROLLED GESTATIONAL DIABETES MELLITUS O24.414 COMPARISON: Ultrasound OB growth 09/25/2023 FINDINGS: Heart Rate: 143.6 bpm Number: 1.0 Position: CEPHALIC Amniotic Fluid Volume: 20.7 cm Maximum Vertical Pocket: 7.2 cm BIOMETRY: BPD: 8.7 cm cm; 35 weeks 2 days; 87% HC: 32.5 cmcm; 36 weeks 6 days ; 87% AC: 32.8 cm cm; 36 weeks 5 days; >97% FL: 6.8 cm cm; 35 weeks 1 days; 76% EFW: 2869.8 grams; >97% FL/AC: 20.8 FL/BPD: 78.1 HC/AC: 1.0 GESTATIONAL AGE: Age by EDC: 33 weeks 5 days CHANDA by EDC: 12/06/2023 Age by US: 36 weeks 0 days CHANDA by US: 11/20/2023 US/US OB growth IMPRESSION: 1. Single live intrauterine with growth detailed above. 2. Estimated weight is greater than 97th percentile. Electronically authenticated by: ERNIE DURAN Date: 10/25/2023 06:42
--- OUTSIDE RECORDS SUMMARY | 2023-10-23 08:40 | XMS_ITS | CCD ---
Author Organization [facility] Care Team Providers Care Utility Forester Name Role Phone Maximus Lorenzana Unavailable DR [...] CODY Attending Unavailable ERMELINDA CODY Attending Unavailable ERMELINDA CODY Attending Unavailable Allergies Allergy Classification Reported Allergen(s) Allergy Type Date of Onset Reaction(s) Facility (5 sources) Azithromycin Drug Allergy [place] [facility] Other Medications Current Medications Medication Drug Class(es) Dates Sig (Normalized) Sig (Original) [id number] 200 actuat albuterol 0.09 mg/actuat metered dose [...] 04-07-2022 FLUAV Ab CF (S) [Titer] Positive [facility] Other FLUBV Ab CF (S) [Titer] Negative [facility] Other PAP ACOG PANEL 2: 21 to 29on 04-04-[address] [facility] Comment on above: Performed By: #### [id number] #### [facility] [address] [place] [address] Dr. Aranza Dolan Age Gdln ACOG Testing Normal [facility] Comment on above: Performed By: #### 4 [id number] #### [facility] [address] [place] [address] Dr. Aranza Dolan DIAGNOSIS: Comment Abnormal [facility] Comment on above: Result Comment: EPIT HELIAL CELL ABNORMALITY. ATYPICAL SQUAMOUS CELLS OF UNDETERMINED SIGNIFICANCE (ASC-US). FUNGAL ORGANISMS MORPHOLOGICALLY CONSISTENT WITH RAQUEL SPECIES ARE PRESENT. Performed By: #### 4 [id number] #### [facility] [address] [place] [address] Dr. Aranza Dolan Electronically signed by: Comment Normal [facility] Comment on above: Result Comment: Adelina Ochoa MD, Pathologist Performed By: #### 4 [id number] #### [facility] [address] [place] [address] Dr. Aranza Dolan HPV Aptima Negative Normal Negative [facility] Comment on above: Result Comment: This nucleic acid amplification test detects fourteen high-risk HPV types (16,18,31,33,35,39,45,51,52,56,58,59,66,68) without differentiation. Performed By: #### 4 [id number] #### [facility] [address] [place] [address] Dr. Aranza Dolan Methodology: Comment Normal [facility] Comment on above: Result Comment: This liquid based ThinPrep(R) pap test was screened with the use of an image guided system. Performed By: #### 4 [id number] #### [facility] [address] [place] [address] Dr. Aranza Dolan Note: Comment Normal [facility] Comment on above: Result Comment: The Pap smear is a screening test designed to aid in the detection of premalignant and malignant conditions of the uterine cervix. It is not a diagnostic procedure and should not be used as the sole means of detecting cervical cancer. Both false-positive and false-negative reports do occur. . Performed By: #### 4 [id number] #### [facility] [address] [address] [address] Aranza Dolan Pathologist Provided ICD10 Comment Normal [facility] Comment on above: Result Comment: R87. 610, R87.5 Performed By: #### 4 [id number] #### [facility] [address] [address] [address] Aranza Dolan Performed by: Comment Normal [facility] Comment on above: Result Comment: Francheska Gee Roofing Layer (ASCP) Performed By: #### 4 [id number] #### [facility] [address] [place] [address] Dr. Aranza Dolan Recommendation: Comment Abnormal [facility] Comment on above: Result Comment: Sugg est follow up as clinically appropriate. Performed By: #### 4 [id number] #### [facility] [address] [address] [address] Aranza Dolan Reflex Criteria: Comment Normal [facility] Comment on above: Result Comment: See below for HPV testing results. . Performed By: #### 4 [id number] #### [facility] [address] [address] [address] Aranza Dolan Specimen adequacy: Comment Normal [facility] Comment on above: Result Comment: Sati sfactory for evaluation. Endocervical and/or squamous metaplastic cells (endocervical component) are present. Performed By: #### 4 [id number] #### [facility] [address] [address] [address] Aranza Dolan [facility] SARS-CoV-2 (COVID-19) RNA RAMON+probe Ql (Unsp spec) Detected Critically abnormal NOT DETECTED [facility] Comment on above: Result Comment: This test is not yet approved or cleared by the [place] FDA. When there are no FDA-approved or cleared tests available, and other criteria are met, FDA can make tests available under an emergency access mechanism called an Emergency Use Authorization (EUA). The EUA for this test is supported by the [place] of Health and Human Service's declaration that [...] longer be used). Performed By: #### C [facility] #### [facility] [address] [place] [address] Dr. Aranza Dolan Vital Signs Date Time Vital Sign Value Performing Clinician Facility 11-13-2021 16:45-0400 Body height 170.18 cm Maximus Lorenzana Other [facility] Other 11-13-2021 16:45-0400 Body mass index (BMI) [Ratio] 33.83 kg/m2 Maximus Lorenzana Other [facility] Other 11-13-2021 16:45-0400 Body weight 97.98 kg Maximus Lorenzana Other [facility] Other 11-13-2021 16:45-0400 Diastolic blood pressure 80 mm[Hg] Maximus Lorenzana Other [facility] Other 11-13-2021 16:45-0400 Respiratory rate 16 /min Maximus Lorenzana Other [facility] Other 11-13-2021 16:45-0400 SaO2% (BldA) [Mass fraction] 98 % Maximus Lorenzana Other [facility] Other 11-13-2021 16:45-0400 Systolic blood pressure 126 mm[Hg] Maximus Lorenzana Other [facility] Other Encounters Encounter Date Encounter Type Care [...] 04-15-2022 End: 04-15-2022 ambulatory Maximus Lorenzana Other [facility] Other Start: 04-15-2022 Telephone encounter Maximus Lorenzana [facility] Start: 04-07-2022 End: 04-07-2022 ambulatory Maximus Lorenzana Other [facility] Other Start: 04-07-2022 Nursing evaluation o f patient and report Maximus Lorenzana [facility] Start: 04-07-2022 Telephone encounter Maximus Lorenzana [facility] Start: 03-24-2022 End: 03-24-2022 ambulatory ERMELINDA ALVARO Facility: Start: 11-13-2021 End: 11-13-2021 ambulatory Maximus Lorenzana Other [facility] Other Start: 11-13-2021 Office outpatient vi sit 15 minutes Maximus Lorenzana [facility] Start: 11-13-2021 Telephone encounter Maximus Lorenzana [facility] Start: 04-07-2021 End: 04-07-[address] MAXIMUS LORENZANA Facility:H1 Immunizations Immunization Date Immunization Notes Care Provider Chalino holt NEGATED: Highlighted row has not occurred!07-18-2019 influenza, seasonal, injectable Patient Objection Maximus Lorenzana Other [facility] Other Payers Date Payer Category Payer Medicaid [id number] 1995 Unknown [id number] 2.16.84 0.1.435110.3.579.2.593 1995 Unknown [id number] 2.16.84 0.1.450585.3.579.2.593 1994 Unknown [id number] 2.16.84 0.1.154269.3.579.2.1259 1994 Unknown [id number] 2.16.84 0.1.387776.3.579.2.1259 1994 Unknown [id number] 2.16.84 0.1.515482.3.579.2.1259 1994 Unknown [id number] 2.16.84 0.1.827209.3.579.2.1259 1994 Unknown [id number] 2.16.84 0.1.278848.3.579.2.1259 1994 Unknown [id number] 2.16.84 0.1.695585.3.579.2.1259 1994 Unknown [id number] 2.16.84 0.1.545481.3.579.2.1259 1994 Unknown [id number] 2.16.840 .1.520442.3.579.2.1259 1994 Unknown [id number] 2.16.840 .1.677937.3.579.2.1259 1994 Unknown [id number] 2.16.840 .1.996170.3.579.2.1259 1959 Unknown [id number] 2.1 6.840.1.974500.19 Social History Date Type Detail Facility Unknown if ever smoked [facility] Other Sex Assigned At Sex Assigned At Bir th [facility] Other Evaluation note 04-07-2022 Note Date & Type Note Facility 04-07-2022 Evaluation note Encounter Date Diagnosis Assessment Notes Mar, Acute cough (ICD-10 - R05.1) [facility] Other Evaluation note 11-13-2021 Note Date & Type Note Facility 11-13-2021 Evaluation note Encounter Date Diagnosis Assessment Notes Nov, Insect bite (nonvenomous) of right upper arm, initial encounter (ICD-10 - S40.861A) Noted of left forearm. I did prescribe the above prednisone and patient is to continue taking benadryl at bedtime. Patient is to call next week with an update. [facility] Other History general Narrative - Reported 06-24-2016 Note Date & Type Note Facility 06-24-2016 History general N arrative - Reported Type Medical History follows with Dr. Ananth Cody for PAP Medical History Biometric Screening [place] [facility] Medical History 02/13/2019 EKG Surgical History tubes in ears Surgical History 03/05/21 Hospitalization History Childbirth [facility] Other Evaluation note Note Date & Type Note Facility Evaluation note No Information [place] Other Summary Purpose Family History No Family History Records FoundNo Family History Records Found Advance Directives No Advanced Directives Records FoundNo Advanced Directives Records Found Additional Source Comments REASON FOR VISIT (unrecogniz ed section and content) Clinical Acute Illnessbug bi te on right armClinicalflu swab-( positive)Clinical INFORMATION SOURCE (unrecogn ized section and content) DATE CREATED AUTHOR 04/04/2022 [facility] DATE CREATED AUTHOR AUTHOR'S ORGANIZ ATION 10/19/2023 [facility] EPIC FOR RECORDS PERTAINING TO [...] BE BASED ON THE PRIMARY CLINICAL RECORDS. [facility]. provides no warranty or guarantee of the accuracy or completeness of information in this document.
== END 2023-10-23 08:39 | disposition home or self-care (01) ==
LOC: US 08:39
PROVIDERS: PCP Family Medicine; Visit Provider Obstetrics & Gynecology
DX: O24.414 Gestational diabetes mellitus in pregnancy, insulin controlled (principal); Z3A.36 36 weeks gestation of pregnancy
CPT/HCPCS: 76816

== ENCOUNTER 2023-10-25 06:55 | Outpatient (OUT) | payer OTHER, SELFPAY ==
--- OUTSIDE RECORDS SUMMARY | 2023-10-25 06:57 | XMS_ITS | CCD ---
Author Organization [facility] Care Team Providers Care Packing Machine Can Feeder Name Role Phone Maximus Lorenzana Unavailable DR MAXIUMS LORENZANA Primary Care Unavailable RENEE BORJAS Admitting [...] Reaction(s) Facility (5 sources) Azithromycin Drug Allergy [facility] Other Medications Current Medications Medication Drug Class(es) Dates Sig (Normalized) Sig (Original) [id number] 200 actuat albuterol 0.09 mg/actuat metered dose [...] 04-07-2022 FLUAV Ab CF (S) [Titer] Positive [facility] Other FLUBV Ab CF (S) [Titer] Negative [facility] Other PAP ACOG PANEL 2: 21 to 29on 04-04-2022 . . Normal [facility] Comment on above: Performed By: #### [id number] #### [facility] [address] [place] [address] Dr. Aranza Dolan Age Gdln ACOG Testing Normal [facility] Comment on above: Performed By: #### [id number] #### [facility] [address] [place] [address] Dr. Aranza Dolan DIAGNOSIS: Comment Abnormal [facility] Comment on above: Result Comment: EPIT HELIAL CELL ABNORMALITY. ATYPICAL SQUAMOUS CELLS OF UNDETERMINED SIGNIFICANCE (ASC-US). FUNGAL ORGANISMS MORPHOLOGICALLY CONSISTENT WITH RAQUEL SPECIES ARE PRESENT. Performed By: #### [id number] #### [facility] [address] [place] [address] Dr. Aranza Dolan Electronically signed by: Comment Normal [facility] Comment on above: Result Comment: Adelina Ochoa MD, Pathologist Performed By: #### [id number] #### [facility] [address] [place] [address] Dr. Aranza Dolan HPV Aptima Negative Normal Negative [facility] Comment on above: Result Comment: This nucleic acid amplification test detects fourteen high-risk HPV types (16,18,31,33,35,39,45,51,52,56,58,59,66,68) without differentiation. Performed By: #### [id number] #### [facility] [address] [place] [address] Dr. Aranza Dolan Methodology: Comment Normal [facility] Comment on above: Result Comment: This liquid based ThinPrep(R) pap test was screened with the use of an image guided system. Performed By: #### [id number] #### [facility] [address] [place] [address] Dr. Aranza Dolan Note: Comment Normal [facility] Comment on above: Result Comment: The Pap smear is a screening test designed to aid in the detection of premalignant and malignant conditions of the uterine cervix. It is not a diagnostic procedure and should not be used as the sole means of detecting cervical cancer. Both false-positive and false-negative reports do occur. . Performed By: #### 4 [id number] #### [facility] [address] [address] [address] Aranza Dolan Pathologist Provided ICD10 Comment Normal [facility] Comment on above: Result Comment: R87. 610, R87.5 Performed By: #### 4 [id number] #### [facility] [address] [address] [address] Aranza Dolan Performed by: Comment Normal [facility] Comment on above: Result Comment: Francheska Gee Private Sector Executive (ASCP) Performed By: #### [id number] #### [facility] [address] [place] [address] Dr. Aranza Dolan Recommendation: Comment Abnormal [facility] Comment on above: Result Comment: Sugg est follow up as clinically appropriate. Performed By: #### 4 [id number] #### [facility] [address] [address] [address] Aranza Dolan Reflex Criteria: Comment Normal [facility] Comment on above: Result Comment: See below for HPV testing results. . Performed By: #### 4 [id number] #### [facility] [address] [address] [address] Aranza Dolan Specimen adequacy: Comment Normal [facility] Comment on above: Result Comment: Sati sfactory for evaluation. Endocervical and/or squamous metaplastic cells (endocervical component) are present. Performed By: #### 4 [id number] #### [facility] [address] [address] [address] Aranza Dolan [facility]11 SARS-CoV-2 (COVID-19) RNA RAMON+probe Ql (Unsp spec) Detected Critically abnormal NOT DETECTED [facility] Comment on above: Result Comment: This test is not yet approved or cleared by the [place] FDA. When there are no FDA-approved or cleared tests available, and other criteria are met, FDA can make tests available under an emergency access mechanism called an Emergency Use Authorization (EUA). The EUA for this test is supported by the [place] of Health and Human Service's declaration that [...] longer be used). Performed By: #### C [facility] #### [facility] [address] [place] [address] Dr. Aranza Dolan Vital Signs Date Time Vital Sign Value Performing Clinician Facility 11-13-2021 16:45-0400 Body height 170.18 cm Maximus Lorenzana Other [facility] Other 11-13-2021 16:45-0400 Body mass index (BMI) [Ratio] 33.83 kg/m2 Maximus Lorenzana Other [facility] Other 11-13-2021 16:45-0400 Body weight 97.98 kg Maximus Lorenzana Other [facility] Other 11-13-2021 16:45-0400 Diastolic blood pressure 80 mm[Hg] Maximus Lorenzana Other [facility] Other 11-13-2021 16:45-0400 Respiratory rate 16 /min Maximus Lorenzana Other [facility] Other 11-13-2021 16:45-0400 SaO2% (BldA) [Mass fraction] 98 % Maximus Lorenzana Other [facility] Other 11-13-2021 16:45-0400 Systolic blood pressure 126 mm[Hg] Maximus Lorenzana Other [facility] Other Encounters Encounter Date Encounter Type Care [...] 04-15-2022 End: 04-15-2022 ambulatory Maximus Lorenzana Other [facility] Other Start: 04-15-2022 Telephone encounter Maximus Lorenzana [facility] Start: 04-07-2022 End: 04-07-2022 ambulatory Maximus Lorenzana Other [facility] Other Start: 04-07-2022 Nursing evaluation o f patient and report Maximus Lorenzana [facility] Start: 04-07-2022 Telephone encounter Maximus Lorenzana [facility] Start: 03-24-2022 End: 03-24-2022 ambulatory ERMELINDA ALVARO Facility: Start: 11-13-2021 End: 11-13-2021 ambulatory Maximus Lorenzana Other [facility] Other Start: 11-13-2021 Office outpatient vi sit 15 minutes Maximus Lorenzana [facility] Start: 11-13-2021 Telephone encounter Maximus Lorenzana [facility] [place] Start: 04-07-2021 End: 04-07-[address] MAXIMUS LORENZANA Facility:H1 Immunizations Immunization Date Immunization Notes Care Provider Chalino holt NEGATED: Highlighted row has not occurred!07-18-2019 influenza, seasonal, injectable Patient Objection Maximus Lorenzana Other [facility] Other Payers Date Payer Category Payer Medicaid [id number] 1995 Unknown [id number] 2.16.84 0.1.561822.3.579.2.593 1994 Unknown [id number] 2.16.84 0.1.540367.3.579.2.593 1994 Unknown [id number] 2.16.84 0.1.161406.3.579.2.1259 1994 Unknown [id number] 2.16.84 0.1.037869.3.579.2.1259 1994 Unknown [id number] 2.16.84 0.1.644408.3.579.2.1259 1994 Unknown [id number] 2.16.84 0.1.092143.3.579.2.1259 1994 Unknown [id number] 2.16.84 0.1.687440.3.579.2.1259 1994 Unknown [id number] 2.16.84 0.1.157821.3.579.2.1259 1994 Unknown [id number] 2.16.84 0.1.554760.3.579.2.1259 1994 Unknown [id number] 2.16.840 .1.091897.3.579.2.1259 1994 Unknown [id number] 2.16.840 .1.396533.3.579.2.1259 1994 Unknown [id number] 2.16.840 .1.485368.3.579.2.1259 1959 Unknown [id number] 2.1 6.840.1.847693.19 Social History Date Type Detail Facility Unknown if ever smoked [facility] Other Sex Assigned At Sex Assigned At Bir th [facility] Other Evaluation note 04-07-2022 Note Date & Type Note Facility 04-07-2022 Evaluation note Encounter Date Diagnosis Assessment Notes Mar, Acute cough (ICD-10 - R05.1) [facility] Other Evaluation note 11-13-2021 Note Date & Type Note Facility 11-13-2021 Evaluation note Encounter Date Diagnosis Assessment Notes Nov, Insect bite (nonvenomous) of right upper arm, initial encounter (ICD-10 - S40.861A) Noted of left forearm. I did prescribe the above prednisone and patient is to continue taking benadryl at bedtime. Patient is to call next week with an update. [facility] Other History general Narrative - Reported 06-24-2016 Note Date & Type Note Facility 06-24-2016 History general N arrative - Reported Type Medical History follows with Dr. Ananth Cody for PAP Medical History [place] Medical History 02/13/2019 EKG Surgical History tubes in ears Surgical History 03/05/21 Hospitalization History Childbirth [facility] Other Evaluation note Note Date & Type Note Facility Evaluation note No Information [email or web address] Other Summary Purpose Family History No Family [...] DATE CREATED AUTHOR AUTHOR'S ORGANIZ ATION 10/19/2023 [facility] EPIC FOR RECORDS PERTAINING TO [...] BE BASED ON THE PRIMARY CLINICAL RECORDS. [facility] [employer] [facility]. provides no warranty or guarantee of the accuracy or completeness of information in this document.
--- NOTE | 2023-10-25 07:49 | US_ITS ---
[address] [address] Patient Name: NEGIN BURNHAM MRN: [id number] date: 1995 Sex: F Assigned Patient Location: [facility] Current Patient Location: [facility] Accession/Order Number: [id number] Exam Date: 10/25/2023 07:50 Report Date: 10/25/2023 08:31 At the request of: ERMELINDA JOHN Procedure: US OB BPP w non-stress EXAMINATION: US OB BPP w non-stress HISTORY: Gestational diabetes mellitus O24.419 COMPARISON: Ultrasound OB biophysical 10/19/2023 TECHNIQUE: Ultrasound biophysical profile was performed in the radiology department. BREATHING MOVEMENTS: 2.0 GROSS BODY MOVEMENTS: 2.0 TONE: 2.0 QUALITATIVE AMNIOTIC FLUID VOLUME: 2.0 PRESENTATION: CEPHALIC HEART RATE: 131.7 bpm bpm. AMNIOTIC FLUID VOLUME: 19.8 cm GESTATIONAL AGE: 34 weeks 0 days CONCLUSION: 1. Total biophysical profile score 8.0. 2. Slightly dilated renal pelvis bilaterally. Electronically authenticated by: ERNIE DURAN Date: 10/25/2023 08:31
[2023-10-25 08:14] VITALS: BP 122/58; PULSE 100
== END 2023-10-25 09:12 | disposition home or self-care (01) ==
LOC: US 06:55 → FBC 07:47
PROVIDERS: PCP Family Medicine; Visit Provider Obstetrics & Gynecology
DX: O24.414 Gestational diabetes mellitus in pregnancy, insulin controlled (principal); Z3A.34 34 weeks gestation of pregnancy
CPT/HCPCS: 76818

== ENCOUNTER 2023-10-28 05:31 | Outpatient (OUT) | payer OTHER, SELFPAY ==
--- OUTSIDE RECORDS SUMMARY | 2023-10-28 05:34 | XMS_ITS | CCD ---
Author Organization [facility] Care Team Providers Care [employer] Consultant Name Role Phone Maximus Lorenzana Unavailable DR [...] Reaction(s) Facility (5 sources) Azithromycin Drug Allergy [facility] Other Medications Current Medications Medication Drug Class(es) Dates Sig (Normalized) Sig (Original) [id number] 200 actuat albuterol 0.09 mg/actuat metered dose [...] 04-07-2022 FLUAV Ab CF (S) [Titer] Positive [facility] Other FLUBV Ab CF (S) [Titer] Negative [facility] Other PAP ACOG PANEL 2: 21 to 29on 04-04-2022 . . Normal [facility] Comment on above: Performed By: #### [id number] #### [facility] [address] [place] [address] Dr. Aranza Dolan Age Gdln ACOG Testing Normal [facility] Comment on above: Performed By: #### 4 [id number] #### [facility] [address] [place] [address] Dr. Aranza Dolan DIAGNOSIS: Comment Abnormal [facility] Comment on above: Result Comment: EPIT HELIAL CELL ABNORMALITY. ATYPICAL SQUAMOUS CELLS OF UNDETERMINED SIGNIFICANCE (ASC-US). FUNGAL ORGANISMS MORPHOLOGICALLY CONSISTENT WITH RAQUEL SPECIES ARE PRESENT. Performed By: #### [id number] #### [facility] [address] [place] [address] Dr. Aranza Dolan Electronically signed by: Comment Normal [facility] Comment on above: Result Comment: Adelina Ochoa MD, Pathologist Performed By: #### 4 [id number] #### [facility] [address] [place] [address] Dr. Aranza Dolan HPV Aptima Negative Normal Negative [facility] Comment on above: Result Comment: This nucleic acid amplification test detects fourteen high-risk HPV types (16,18,31,33,35,39,45,51,52,56,58,59,66,68) without differentiation. Performed By: #### 4 [id number] #### [facility] [address] [place] [address] Dr. Aranza Dolan Methodology: Comment Normal [facility] Comment on above: Result Comment: This liquid based ThinPrep(R) pap test was screened with the use of an image guided system. Performed By: #### 4 [id number] #### [facility] [address] [place] [address] Dr. Aranza Dolan Note: Comment Normal [facility] Comment on above: Result Comment: The Pap smear is a screening test designed to aid in the detection of premalignant and malignant conditions of the uterine cervix. It is not a diagnostic procedure and should not be used as the sole means of detecting cervical cancer. Both false-positive and false-negative reports do occur. . Performed By: #### 4 [id number] #### [facility] [address] [address] [address] Aranza Dolan Pathologist Provided ICD10 Comment Normal [facility] Comment on above: Result Comment: R87. 610, R87.5 Performed By: #### 4 [id number] #### [facility] [address] [address] [address] Aranza Dolan Performed by: Comment Normal [facility] Comment on above: Result Comment: Francheska Gee Epidemiology Internship (ASCP) Performed By: #### 4 [id number] #### [facility] [address] [place] [address] Dr. Aranza Dolan Recommendation: Comment Abnormal [facility] Comment on above: Result Comment: Sugg est follow up as clinically appropriate. Performed By: #### 4 [id number] #### [facility] [address] [address] [address] Aranza Dolan Reflex Criteria: Comment Normal [facility] Comment on above: Result Comment: See below for HPV testing results. . Performed By: #### 4 [id number] #### [facility] [address] [address] [address] Aranza Dolan Specimen adequacy: Comment Normal [facility] Comment on above: Result Comment: Sati sfactory for evaluation. Endocervical and/or squamous metaplastic cells (endocervical component) are present. Performed By: #### 4 [id number] #### [facility] [address] [address] [address] Aranza Dolan [facility]11 SARS-CoV-2 (COVID-19) RNA RAMON+probe Ql (Unsp spec) Detected Critically abnormal NOT DETECTED [facility] Comment on above: Result Comment: This test is not yet approved or cleared by the [place] FDA. When there are no FDA-approved or cleared tests available, and other criteria are met, FDA can make tests available under an emergency access mechanism called an Emergency Use Authorization (EUA). The EUA for this test is supported by the [place] of Health and Human Service's declaration that [...] be used). Performed By: #### C [facility] #### [facility] [address] [place] [address] Dr. Aranza Dolan Vital Signs Date Time Vital Sign Value Performing Clinician Facility 11-13-2021 16:45-0400 Body height 170.18 cm Maximus Lorenzana Other [facility] Other 11-13-2021 16:45-0400 Body mass index (BMI) [Ratio] 33.83 kg/m2 Maximus Lorenzana Other [facility] Other 11-13-2021 16:45-0400 Body weight 97.98 kg Maximus Lorenzana Other [facility] Other 11-13-2021 16:45-0400 Diastolic blood pressure 80 mm[Hg] Maximus Lorenzana Other [facility] Other 11-13-2021 16:45-0400 Respiratory rate 16 /min Maximus Lorenzana Other [facility] Other 11-13-2021 16:45-0400 SaO2% (BldA) [Mass fraction] 98 % Maximus Lorenzana Other [facility] Other 11-13-2021 16:45-0400 Systolic blood pressure 126 mm[Hg] Maximus Lorenzana Other [facility] Other Encounters Encounter Date Encounter Type Care [...] 04-15-2022 End: 04-15-2022 ambulatory Maximus Lorenzana Other [facility] Other Start: 04-15-2022 Telephone encounter Maximus Lorenzana [facility] Start: 04-07-2022 End: 04-07-2022 ambulatory Maximus Lorenzana Other [facility] Other Start: 04-07-2022 Nursing evaluation o f patient and report Maximus Lorenzana [facility] Start: 04-07-2022 Telephone encounter Maximus Lorenzana [facility] Start: 03-24-2022 End: 03-24-2022 ambulatory ERMELINDA ALVARO Facility: Start: 11-13-2021 End: 11-13-2021 ambulatory Maximus Lorenzana Other [facility] Other Start: 11-13-2021 Office outpatient vi sit 15 minutes Maximus Lorenzana [facility] [place] Start: 11-13-2021 Telephone encounter Maximus Lorenzana [facility] [place] Start: 04-07-2021 End: 04-07-[address] MAXIMUS LORENZANA Facility:H1 Immunizations Immunization Date Immunization Notes Care Provider Chalino holt NEGATED: Highlighted row has not occurred!07-18-2019 influenza, seasonal, injectable Patient Objection Maximus Lorenzana Other [facility] Other Payers Date Payer Category Payer Medicaid [id number] 1995 Unknown [id number] 2.16.84 0.1.323393.3.579.2.593 1995 Unknown [id number] 2.16.84 0.1.301266.3.579.2.593 1994 Unknown [id number] 2.16.84 0.1.639075.3.579.2.1259 1994 Unknown [id number] 2.16.84 0.1.744033.3.579.2.1259 1994 Unknown [id number] 2.16.84 0.1.951117.3.579.2.1259 1994 Unknown [id number] 2.16.84 0.1.719755.3.579.2.1259 1994 Unknown [id number] 2.16.84 0.1.089379.3.579.2.1259 1994 Unknown [id number] 2.16.84 0.1.868256.3.579.2.1259 1994 Unknown [id number] 2.16.84 0.1.284469.3.579.2.1259 1994 Unknown [id number] 2.16.840 .1.672925.3.579.2.1259 1994 Unknown [id number] 2.16.840 .1.386393.3.579.2.1259 1994 Unknown [id number] 2.16.840 .1.058029.3.579.2.1259 1959 Unknown [id number] 2.1 6.840.1.214452.19 Social History Date Type Detail Facility Unknown if ever smoked [facility] Other Sex Assigned At Sex Assigned At Bir th [facility] Other Evaluation note 04-07-2022 Note Date & Type Note Facility 04-07-2022 Evaluation note Encounter Date Diagnosis Assessment Notes Mar, Acute cough (ICD-10 - R05.1) [facility] Other Evaluation note 11-13-2021 Note Date & Type Note Facility 11-13-2021 Evaluation note Encounter Date Diagnosis Assessment Notes Nov, Insect bite (nonvenomous) of right upper arm, initial encounter (ICD-10 - S40.861A) Noted of left forearm. I did prescribe the above prednisone and patient is to continue taking benadryl at bedtime. Patient is to call next week with an update. [facility] Other History general Narrative - Reported 06-24-2016 Note Date & Type Note Facility 06-24-2016 History general N arrative - Reported Type Medical History follows with Dr. Ananth Cody for PAP Medical History Biometric Scre[place] Medical History 02/13/2019 EKG Surgical History tubes in ears Surgical History 03/05/21 Hospitalization History Childbirth [facility] Other Evaluation note Note Date & Type Note Facility Evaluation note No Information [employer] Other Summary Purpose Family History No Family [...] DATE CREATED AUTHOR AUTHOR'S ORGANIZ ATION 10/19/2023 [facility] EPIC FOR RECORDS PERTAINING [...] BE BASED ON THE PRIMARY CLINICAL RECORDS. [facility] [employer] [facility]. provides no warranty or guarantee of the accuracy or completeness of information in this document.
[2023-10-28 05:45] VITALS: BP 116/54; PULSE 106
== END 2023-10-28 06:12 | disposition home or self-care (01) ==
LOC: FBCO 05:31 → FBC 05:33
PROVIDERS: PCP Family Medicine; Visit Provider Obstetrics & Gynecology
DX: O24.419 Gestational diabetes mellitus in pregnancy, unspecified control (principal)
CPT/HCPCS: 59025

== ENCOUNTER 2023-11-01 06:45 | Outpatient (OUT) | payer OTHER, SELFPAY ==
--- OUTSIDE RECORDS SUMMARY | 2023-11-01 06:55 | XMS_ITS ---
Patient Summarization (C-CDA 2.1 CCD) Created on: November 01, 2023 NEGIN BURNHAM : 1995 Sex: Female Author Organization Sample organization Care Team Providers Care Outpatient Therapist Name Role Phone Maximus Lorenzana Unavailable DR [...] Facility (5 sources) Azithromycin Drug Allergy migraines [facility] Other Encounters Encounter Date Encounter Type Care [...] 04-15-2022 End: 04-15-2022 ambulatory Maximus Lorenzana Other [facility] Other Start: 04-15-2022 Telephone encounter Maximus Lorenzana [facility] Start: 04-07-2022 End: 04-07-2022 ambulatory Maximus Lorenzana Other [facility] Other Start: 04-07-2022 Nursing evaluation o f patient and report Maximus Lorenzana [facility] Start: 04-07-2022 Telephone encounter Maximus Lorenzana [facility] Start: 03-24-2022 End: 03-24-[address] ERMELINDA CODY Facility:H1 Start: 11-13-2021 End: 11-13-2021 ambulatory Maximus Lorenzana Other [facility] Other Start: 11-13-2021 Office outpatient vi sit 15 minutes Maximus Lorenzana [facility] Start: 11-13-2021 Telephone encounter Maximus Lorenzana [facility] Start: 04-07-2021 End: 04-07-[address] MAXIMUS LORENZANA Facility:H1 Immunizations Immunization Date Immunization Notes Care Provider Fa cility NEGATED: Highlighted row has not occurred!07-18-2019 influenza, seasonal, injectable Patient Objection Maxmius Lorenzana Other [facility] Other Medications Current Medications Medication Drug Class(es) Dates Sig (Normalized) Sig (Original) [id number] 200 actuat albuterol 0.09 mg/actuat metered dose [...] Not-Taking Payers Date Payer Category Payer Medicaid [id number] 1995 Unknown [id number] 2.16.84 0.1.712780.3.579.2.593 1995 Unknown [id number] 2.16.84 0.1.516382.3.579.2.593 1995 Unknown [id number] 2.16.84 0.1.538434.3.579.2.1259 1994 Unknown [id number] 2.16.84 0.1.930363.3.579.2.1259 1994 Unknown [id number] 2.16.84 0.1.000201.3.579.2.1259 1994 Unknown [id number] 2.16.84 0.1.489017.3.579.2.1259 1994 Unknown [id number] 2.16.84 0.1.309142.3.579.2.1259 1994 Unknown [id number] 2.16.84 0.1.179758.3.579.2.1259 1994 Unknown [id number] 2.16.84 0.1.702194.3.579.2.1259 1994 Unknown [id number] 2.16.840 .1.534192.3.579.2.1259 1994 Unknown [id number] 2.16.840 .1.751086.3.579.2.1259 1994 Unknown [id number] 2.16.840 .1.813331.3.579.2.1259 1959 Unknown [id number] 2.1 6.840.1.684186.19 Problems Active Problems Problem Classification Problem Date [...] 04-07-2022 FLUAV Ab CF (S) [Titer] Positive [facility] Other FLUBV Ab CF (S) [Titer] Negative [facility] Other PAP ACOG PANEL 2: 21 to 29on 04-04-2022 . . Normal [facility] Comment on above: Performed By: #### [id number] #### [facility] [address] [place] [address] Dr. Aranza Dolna Age Gdln ACOG Testing - Normal [facility] Comment on above: Performed By: #### 4 [id number] #### [facility] [address] [place] [address] Dr. Aranza Dolan DIAGNOSIS: Comment Abnormal [facility] Comment on above: Result Comment: EPIT HELIAL CELL ABNORMALITY. ATYPICAL SQUAMOUS CELLS OF UNDETERMINED SIGNIFICANCE (ASC-US). FUNGAL ORGANISMS MORPHOLOGICALLY CONSISTENT WITH RAQUEL SPECIES ARE PRESENT. Performed By: #### 4 [id number] #### [facility] [address] [place] [address] Dr. Aranza Dolan Electronically signed by: Comment Normal [facility] Comment on above: Result Comment: Adelina Ochoa MD, Pathologist Performed By: #### 4 [id number] #### [facility] [address] [place] [address] Dr. Aranza Dolan HPV Aptima Negative Normal Negative [facility] Comment on above: Result Comment: This nucleic acid amplification test detects fourteen high-risk HPV types (16,18,31,33,35,39,45,51,52,56,58,59,66,68) without differentiation. Performed By: #### 4 [id number] #### [facility] [address] [place] [address] Dr. Aranza Dolan Methodology: Comment Normal [facility] Comment on above: Result Comment: This liquid based ThinPrep(R) pap test was screened with the use of an image guided system. Performed By: #### 4 [id number] #### [facility] [address] [place] [address] Dr. Aranza Dolna Note: Comment Normal [facility] Comment on above: Result Comment: The Pap smear is a screening test designed to aid in the detection of premalignant and malignant conditions of the uterine cervix. It is not a diagnostic procedure and should not be used as the sole means of detecting cervical cancer. Both false-positive and false-negative reports do occur. . Performed By: #### 4 [id number] #### [facility] [address] [address] [address] Aranza Dolan Pathologist Provided ICD10 Comment Normal [facility] Comment on above: Result Comment: R87. 610, R87.5 Performed By: #### 4 [id number] #### [facility] [address] [address] [address] Aranza Dolan Performed by: Comment Normal [facility] Comment on above: Result Comment: Francheska Gee Animal Nurse (ASCP) Performed By: #### 4 [id number] #### [facility] [address] [place] [address] Dr. Aranza Dolan Recommendation: Comment Abnormal [facility] Comment on above: Result Comment: Sugg est follow up as clinically appropriate. Performed By: #### 4 [id number] #### [facility] [address] [place] [address] Dr. Aranza Dolan Reflex Criteria: Comment Normal [facility] Comment on above: Result Comment: See below for HPV testing results. . Performed By: #### 4 [id number] #### [facility] [address] [place] [address] Dr. Aranza Dolan Specimen adequacy: Comment Normal [facility] Comment on above: Result Comment: Sati sfactory for evaluation. Endocervical and/or squamous metaplastic cells (endocervical component) are present. Performed By: #### 4 [id number] #### [facility] [address] [address] [address] Aranza Dolan [facility]11 SARS-CoV-2 (COVID-19) RNA RAMON+probe Ql (Unsp spec) Detected Critically abnormal NOT DETECTED [facility] Comment on above: Result Comment: This test is not yet approved or cleared by the [place] FDA. When there are no FDA-approved or cleared tests available, and other criteria are met, FDA can make tests available under an emergency access mechanism called an Emergency Use Authorization (EUA). The EUA for this test is supported by the [place] of Health and Human Service's declaration that [...] longer be used). Performed By: #### C [facility] #### [facility] [address] [place] [address] Dr. Aranza Dolan Social History Date Type Detail Facility Unknown if ever smoked [facility] Other Sex Assigned At Sex Assigned At Bir th [facility] Other Vital Signs Date Time Vital Sign Value Performing Clinician Facility 11-13-2021 16:45-0400 Body height 170.18 cm Maximus Ulloalillian Other [facility] Other 11-13-2021 16:45-0400 Body mass index (BMI) [Ratio] 33.83 kg/m2 Maximus Lorenzana Other [facility] Other 11-13-2021 16:45-0400 Body weight 97.98 kg Maximus Lorenzana Other [facility] Other 11-13-2021 16:45-0400 Diastolic blood pressure 80 mm[Hg] Maximus Lorenzana Other [facility] Other 11-13-2021 16:45-0400 Respiratory rate 16 /min Maximus Lorenzana Other [facility] Other 11-13-2021 16:45-0400 SaO2% (BldA) [Mass fraction] 98 % Maximus Lorenzana Other [facility] Other 11-13-2021 16:45-0400 Systolic blood pressure 126 mm[Hg] Maximus Lorenzana Other [facility] Other Evaluation note 04-07-2022 Note Date & Type Note Facility 04-07-2022 Evaluation note Encounter Date Diagnosis Assessment Notes Mar, Acute cough (ICD-10 - R05.1) [facility] Other Evaluation note 11-13-2021 Note Date & Type Note Facility 11-13-2021 Evaluation note Encounter Date Diagnosis Assessment Notes Nov, Insect bite (nonvenomous) of right upper arm, initial encounter (ICD-10 - S40.861A) Noted of left forearm. I did prescribe the above prednisone and patient is to continue taking benadryl at bedtime. Patient is to call next week with an update. [facility] Other History general Narrative - Reported 06-24-2016 Note Date & Type Note Facility 06-24-2016 History general N arrative - Reported Type Medical History follows with Dr. Ananth Cody for PAP Medical History Biometric Screening [place] [facility] Medical History 02/13/2019 EKG Surgical History tubes in ears Surgical History 03/05/21 Hospitalization History Childbirth [facility] Other Evaluation note Note Date & Type Note Facility Evaluation note No Information [address] Other Summary Purpose Family History No Family [...] DATE CREATED AUTHOR AUTHOR'S ORGANIZ ATION 10/19/2023 [facility] d[facility] Specialists EPIC FOR RECORDS PERTAINING [...] BE BASED ON THE PRIMARY CLINICAL RECORDS. [facility]. provides no warranty or guarantee of the accuracy or completeness of information in this document.
[2023-11-01 06:57] VITALS: BP 135/84; PULSE 111
--- NOTE | 2023-11-01 07:08 | US_ITS ---
[address] [address] Patient Name: NEGIN BURNHAM MRN: [id number] date: 1995 Sex: F Assigned Patient Location: US Current Patient Location: US Accession/Order Number: [id number] Exam Date: 11/01/2023 07:30 Report Date: 11/01/2023 08:08 At the request of: ERMELINDA JOHN Procedure: US OB BPP w non-stress EXAMINATION: US OB BPP w non-stress HISTORY: GESTATIONAL DIABETES MELITUS O24.419 COMPARISON: No relevant comparison available. TECHNIQUE: Ultrasound biophysical profile was performed in the radiology department. non-reactive stress testing was performed by nursing staff in the birthing center. FINDINGS: BREATHING MOVEMENTS: 2 GROSS BODY MOVEMENTS: 2 TONE: 2 QUALITATIVE AMNIOTIC FLUID VOLUME: 2 PRESENTATION: BREECH HEART RATE: 152.54 bpm AMNIOTIC FLUID VOLUME: 13.0 cm GESTATIONAL AGE: 89 Day US/US OB BPP w non-stress IMPRESSION: Total biophysical profile score: 8 Electronically authenticated by: SCOT PRICE Date: 11/01/2023 08:08
== END 2023-11-01 07:54 | disposition home or self-care (01) ==
LOC: US 06:53 → FBC 06:53
PROVIDERS: PCP Family Medicine; Visit Provider Obstetrics & Gynecology
DX: O24.414 Gestational diabetes mellitus in pregnancy, insulin controlled (principal); Z3A.35 35 weeks gestation of pregnancy
CPT/HCPCS: 76818

== ENCOUNTER 2023-11-04 05:30 | Outpatient (OUT) | payer OTHER, SELFPAY ==
--- OUTSIDE RECORDS SUMMARY | 2023-11-04 05:33 | XMS_ITS | CCD ---
Author Organization [facility] Care Team Providers Care Police Detective Name Role Phone Maximus Lorenzana Unavailable DR MAXIMUS LORENZANA Primary Care Unavailable RENEE BORJAS Admitting Unavailable RENEE BORJAS Attending Unavailable RENEE BORJAS Consulting Unavailable ALVARO, DR WADSWORTH Admitting Unavailable ALVARO, DR WADSWORTH Attending Unavailable HARRIETT, DR QUIJANO Primary Care Unavailable ALVARO, DR WADSWORTH Consulting Unavailable ALVARO, ERMELINDA Attending Unavailable ALVARO, ERMELINDA Attending Unavailable PHYLLIS LADD Attending Unavailable ERMELINDA CODY Attending Unavailable PHYLLIS LADD Attending Unavailable ERMELINDA CODY Attending Unavailable ERMELINDA CODY Attending Unavailable ERMELINDA CODY Attending Unavailable ERMELINDA CODY Attending Unavailable Allergies Allergy Classification Reported Allergen(s) Allergy Type Date of Onset Reaction(s) Facility (5 sources) Azithromycin Drug Allergy migraines [facility] Other Medications Current Medications Medication Drug Class(es) Dates Sig (Normalized) Sig (Original) [id number] 200 actuat albuterol 0.09 mg/actuat metered dose [...] 04-07-2022 FLUAV Ab CF (S) [Titer] Positive [facility] Exit[facility] Other FLUBV Ab CF (S) [Titer] Negative [facility] Other PAP ACOG PANEL 2: 21 to 29on 04-04-2022 . . Normal [facility] Comment on above: Performed By: #### 4 [id number] #### [facility] [address] [place] [address] Dr. Aranza Dolan Age Gdln ACOG Testing Normal [facility] Comment on above: Performed By: #### 4 [id number] #### [facility] [address] [place] [address] Dr. Aranza Dolan DIAGNOSIS: Comment Abnormal [facility] Comment on above: Result Comment: EPIT HELIAL CELL ABNORMALITY. ATYPICAL SQUAMOUS CELLS OF UNDETERMINED SIGNIFICANCE (ASC-US). FUNGAL ORGANISMS MORPHOLOGICALLY CONSISTENT WITH RAQUEL SPECIES ARE PRESENT. Performed By: #### 4 [id number] #### [facility] [address] [place] [address] Dr. Aranza Dolan Electronically signed by: Comment Normal [facility] Comment on above: Result Comment: Adelina Ochoa MD, Pathologist Performed By: #### 4 [id number] #### [facility] [address] [place] [address] Dr. Aranza Dolan HPV Aptima Negative Normal Negative [facility] Comment on above: Result Comment: This nucleic acid amplification test detects fourteen high-risk HPV types (16,18,31,33,35,39,45,51,52,56,58,59,66,68) without differentiation. Performed By: #### 4 [id number] #### [facility] [address] [place] [address] Dr. Aranza Dolan Methodology: Comment Normal [facility] Comment on above: Result Comment: This liquid based ThinPrep(R) pap test was screened with the use of an image guided system. Performed By: #### 4 [id number] #### [facility] [address] [place] [address] Dr. Aranza Dolan Note: Comment Normal [facility] Comment on above: Result Comment: The Pap smear is a screening test designed to aid in the detection of premalignant and malignant conditions of the uterine cervix. It is not a diagnostic procedure and should not be used as the sole means of detecting cervical cancer. Both false-positive and false-negative reports do occur. . Performed By: #### 4 [id number] #### [facility] [address] [place] [address] Dr. Aranza Dolan Pathologist Provided ICD10 Comment Normal [facility] Comment on above: Result Comment: R87. 610, R87.5 Performed By: #### 4 [id number] #### [facility] [address] [address] [address] Aranza Dolan Performed by: Comment Normal [facility] Comment on above: Result Comment: Francheska Gee Float Remover (ASCP) Performed By: #### 4 [id number] #### [facility] [address] [place] [address] Dr. Aranza Dolan Recommendation: Comment Abnormal [facility] Comment on above: Result Comment: Sugg est follow up as clinically appropriate. Performed By: #### 4 [id number] #### [facility] [address] [place] [address] Dr. Aranza Dolan Reflex Criteria: Comment Normal [facility] Comment on above: Result Comment: See below for HPV testing results. . Performed By: #### 4 [id number] #### [facility] [address] [place] [address] Dr. Aranza Doaln Specimen adequacy: Comment Normal [facility] Comment on above: Result Comment: Sati sfactory for evaluation. Endocervical and/or squamous metaplastic cells (endocervical component) are present. Performed By: #### 4 [id number] #### [facility] [address] [place] [address] Dr. Aranza Dolan [facility]on [facility]-11 SARS-CoV-2 (COVID-19) RNA RAMON+probe Ql (Unsp spec) Detected Critically abnormal NOT DETECTED [facility] Comment on above: Result Comment: This test is not yet approved or cleared by the [place] FDA. When there are no FDA-approved or cleared tests available, and other criteria are met, FDA can make tests available under an emergency access mechanism called an Emergency Use Authorization (EUA). The EUA for this test is supported by the Die Casting Machine Operator of Health and Human Service's declaration [...] longer be used). Performed By: #### C [facility] #### [facility] [address] [place] [address] Dr. Aranza Dolan Vital Signs Date Time Vital Sign Value Performing Clinician Facility 11-13-2021 16:45-0400 Body height 170.18 cm Maximus Lorenzana Other [facility] Other 11-13-2021 16:45-0400 Body mass index (BMI) [Ratio] 33.83 kg/m2 Maximus Lorenzana Other [facility] Other 11-13-2021 16:45-0400 Body weight 97.98 kg Maximus Ulloalillian Other [facility] Other 11-13-2021 16:45-0400 Diastolic blood pressure 80 mm[Hg] Maximus Ulloalillian Other [facility] Other 11-13-2021 16:45-0400 Respiratory rate 16 /min Maximus Lorenzana Other [facility] Other 11-13-2021 16:45-0400 SaO2% (BldA) [Mass fraction] 98 % Maximus Lorenzana Other [facility] Other 11-13-2021 16:45-0400 Systolic blood pressure 126 mm[Hg] Maximus Lorenzana Other [facility] Other Encounters Encounter Date Encounter Type Care Provider Facility Start: 11-02-2023 End: 11-02-2023 ambulatory ERMELINDA ALVARO Not Available Start: 10-19-2023 End: 10-19-2023 ambulatory ERMELINDA ALVARO [...] 04-15-2022 End: 04-15-2022 ambulatory Maximus Lorenzana Other [facility] Other Start: 04-15-2022 Telephone encounter Maximus Lorenzana [facility] Start: 04-07-2022 End: 04-07-2022 ambulatory Maximus Lorenzana Other [facility] Other Start: 04-07-2022 Nursing evaluation o f patient and report Maximus Lorenzana [facility] Start: 04-07-2022 [facility] Start: 03-24-2022 End: 03-24-[address] ERMELINDA ALVARO Facility: Start: 11-13-2021 End: 11-13-2021 ambulatory Maximus Lorenzana Other [facility] Other Start: 11-13-2021 Office outpatient vi sit 15 minutes Maximus Lorenzana [facility] San[facility] Start: 11-13-2021 Telephone encounter Maximus Lorenzana [facility] Jaziel Start: 04-07-2021 End: 04-07-[address] MAXIMUS LORENZANA Facility:H1 Immunizations Immunization Date Immunization Notes Care Provider Fa cility NEGATED: Highlighted row has not occurred!07-18-2019 influenza, seasonal, injectable Patient Objection Maximus Lorenzana Other [facility] Other Payers Date Payer Category Payer Medicaid [id number] 1995 Unknown [id number] 2.16.84 0.1.001527.3.579.2.593 1995 Unknown [id number] 2.16.84 0.1.074807.3.579.2.593 1995 Unknown [id number] 2.16.84 0.1.056863.3.579.2.1259 1994 Unknown [id number] 2.16.84 0.1.537914.3.579.2.1259 1994 Unknown [id number] 2.16.84 0.1.233064.3.579.2.1259 1994 Unknown [id number] 2.16.84 0.1.827263.3.579.2.1259 1994 Unknown [id number] 2.16.84 0.1.056179.3.579.2.1259 1994 Unknown [id number] 2.16.84 0.1.089134.3.579.2.1259 1994 Unknown [id number] 2.16.84 0.1.504817.3.579.2.1259 1994 Unknown [id number] 2.16.84 0.1.558900.3.579.2.1259 1994 Unknown [id number] 2.16.840 .1.797672.3.579.2.1259 1994 Unknown [id number] 2.16.840 .1.627158.3.579.2.1259 1994 Unknown [id number] 2.16.840 .1.278484.3.579.2.1259 1959 Unknown [id number] 2.1 6.840.1.724966.19 Social History Date Type Detail Facility Unknown if ever smoked [facility] Other Sex Assigned At Sex Assigned At Bir th [facility] Other Evaluation note 04-07-2022 Note Date & Type Note Facility 04-07-2022 Evaluation note Encounter Date Diagnosis Assessment Notes Mar, Acute cough (ICD-10 - R05.1) [facility] Other Evaluation note 11-13-2021 Note Date & Type Note Facility 11-13-2021 Evaluation note Encounter Date Diagnosis Assessment Notes Nov, Insect bite (nonvenomous) of right upper arm, initial encounter (ICD-10 - S40.861A) Noted of left forearm. I did prescribe the above prednisone and patient is to continue taking benadryl at bedtime. Patient is to call next week with an update. [facility] Other History general Narrative - Reported 06-24-2016 Note Date & Type Note Facility 06-24-2016 History general N arrative - Reported Type Medical History follows with Dr. Ananth Cody for PAP Medical History Biometric Screening 06/24/16 [facility] [place], [place] Medical History 02/13/2019 EKG Surgical History tubes in ears Surgical History 03/05/21 Hospitalization History Childbirth [facility] Other Evaluation note Note Date & Type Note Facility Evaluation note No Information [employer] Other Summary Purpose Family History No Family History Records FoundNo Family History Records Found Advance Directives No Advanced Directives Records FoundNo Advanced Directives Records Found Additional Source Comments REASON FOR VISIT (unrecogniz ed section and content) Clinical Acute Illnessbug bi te on right armClinicalflu swab-( positive)Clinical INFORMATION SOURCE (unrecogn ized section and content) DATE CREATED AUTHOR 04/04/2022 [facility] DATE CREATED AUTHOR AUTHOR'S TASHIA GOLDBERG 11/03/2023 [facility] dical Specialists [facility] FOR RECORDS PERTAINING TO PATIENTS WHO [...] BE BASED ON THE PRIMARY CLINICAL RECORDS. [employer] provides no warranty or guarantee of the accuracy or completeness of information in this document.
[2023-11-04 05:40] VITALS: TEMP 35.7
[2023-11-04 05:41] VITALS: BP 107/66; PULSE 127
== END 2023-11-04 06:39 | disposition home or self-care (01) ==
LOC: FBCO 05:31 → FBC 05:33
PROVIDERS: PCP Family Medicine; Visit Provider Obstetrics & Gynecology
DX: O24.419 Gestational diabetes mellitus in pregnancy, unspecified control (principal)
CPT/HCPCS: 59025

== ENCOUNTER 2023-11-09 06:59 | Outpatient (OUT) | payer OTHER, SELFPAY ==
--- NOTE | 2023-11-09 | US_ITS ---
[address] [address] Patient Name: NEGIN BURNHAM MRN: [id number] date: 1995 Sex: F Assigned Patient Location: [facility] Current Patient Location: [facility] Accession/Order Number: [id number] Exam Date: 11/09/2023 07:26 Report Date: 11/09/2023 08:20 At the request of: ERMELINDA JOHN Procedure: US OB BPP w non-stress EXAMINATION: US OB BPP w non-stress HISTORY:GESTATIONAL DIABETES MELITIS O24.419 COMPARISON: No relevant comparison available. TECHNIQUE: Ultrasound biophysical profile was performed in the radiology department. BREATHING MOVEMENTS: 2 GROSS BODY MOVEMENTS: 2 TONE: 2 QUALITATIVE AMNIOTIC FLUID VOLUME: 2 PRESENTATION: CEPHALIC HEART RATE: 131.71 bpm AMNIOTIC FLUID VOLUME: 13.72 cm GESTATIONAL AGE: 89 Day US/US OB BPP w non-stress IMPRESSION: Total biophysical profile score: 8 Electronically authenticated by: ERNIE DURAN Date: 11/09/2023 08:20
--- OUTSIDE RECORDS SUMMARY | 2023-11-09 07:01 | XMS_ITS | CCD ---
Author Organization [facility] Care Team Providers Care Search Engineer Name Role Phone Maximus Lorenzana Unavailable DR [...] LADD Attending Unavailable ERMELINDA CODY Attending Unavailable ALVARO, ERMELINDA Attending Unavailable ERMELINDA CODY Attending Unavailable ERMELINDA CDOY Attending Unavailable Allergies Allergy Classification Reported Allergen(s) Allergy Type Date of Onset Reaction(s) Facility (5 sources) Azithromycin Drug Allergy migraines [facility] Other Medications Current Medications Medication Drug Class(es) Dates Sig (Normalized) Sig (Original) [id number] 200 actuat albuterol 0.09 mg/actuat metered dose [...] 04-07-2022 FLUAV Ab CF (S) [Titer] Positive [employer] [facility] [employer] Other FLUBV Ab CF (S) [Titer] Negative [facility] Other PAP ACOG PANEL 2: 21 to 29on 04-04-2022 . . Normal [facility] Comment on above: Performed By: #### [id number] #### [facility] [address] [place] [address] Dr. Aranza Dolan Age Gdln ACOG Testing Normal [facility] Comment on above: Performed By: #### 4 [id number] #### [facility] [address] [place] [address] Dr. Aranza Dolan DIAGNOSIS: Comment Abnormal [facility] Comment on above: Result Comment: EPIT HELIAL CELL ABNORMALITY. ATYPICAL SQUAMOUS CELLS OF UNDETERMINED SIGNIFICANCE (ASC-US). FUNGAL ORGANISMS MORPHOLOGICALLY CONSISTENT WITH RAQUEL SPECIES ARE PRESENT. Performed By: #### 4 [id number] #### [facility] [address] [place] [address] Dr. Aranza Dolan Electronically signed by: Comment Normal [facility] Comment on above: Result Comment: Adelina Ochoa MD, Pathologist Performed By: #### 4 [id number] #### [facility] [address] [place] [address] Dr. Aranza Dolan HPV Aptima Negative Normal Negative [facility] Comment on above: Result Comment: This nucleic acid amplification test detects fourteen high-risk HPV types (16,18,31,33,35,39,45,51,52,56,58,59,66,68) without differentiation. Performed By: #### 4 [id number] #### [facility] [address] [place] [address] Dr. Aranza Dolan Methodology: Comment Normal [facility] Comment on above: Result Comment: This liquid based ThinPrep(R) pap test was screened with the use of an image guided system. Performed By: #### 4 [id number] #### [facility] [address] [place] [address] Dr. Aranza Dolan Note: Comment Normal [facility] Comment on above: Result Comment: The Pap smear is a screening test designed to aid in the detection of premalignant and malignant conditions of the uterine cervix. It is not a diagnostic procedure and should not be used as the sole means of detecting cervical cancer. Both false-positive and false-negative reports do occur. . Performed By: #### 4 [id number] #### [facility] [address] [place] [address] Dr. Aranza Dolan Pathologist Provided ICD10 Comment Normal [facility] Comment on above: Result Comment: R87. 610, R87.5 Performed By: #### 4 [id number] #### [facility] [address] [address] [address] Aranza Dolan Performed by: Comment Normal [facility] Comment on above: Result Comment: Francheska Gee Casting Cleaner (ASCP) Performed By: #### 4 [id number] #### [facility] [address] [place] [address] Dr. Aranza Dolan Recommendation: Comment Abnormal [facility] Comment on above: Result Comment: Sugg est follow up as clinically appropriate. Performed By: #### 4 [id number] #### [facility] [address] [place] [address] Dr. Aranza Dolan Reflex Criteria: Comment Normal [facility] Comment on above: Result Comment: See below for HPV testing results. . Performed By: #### 4 [id number] #### [facility] [address] [place] [address] Dr. Aranza Dolan Specimen adequacy: Comment Normal [facility] Comment on above: Result Comment: Sati sfactory for evaluation. Endocervical and/or squamous metaplastic cells (endocervical component) are present. Performed By: #### 4 [id number] #### [facility] [address] [place] [address] Dr. Aranza Dolan [facility]11 SARS-CoV-2 (COVID-19) RNA RAMON+probe Ql (Unsp spec) Detected Critically abnormal NOT DETECTED [facility] Comment on above: Result Comment: This test is not yet approved or cleared by the [place] FDA. When there are no FDA-approved or cleared tests available, and other criteria are met, FDA can make tests available under an emergency access mechanism called an Emergency Use Authorization (EUA). The EUA for this test is supported by the [place] of Health and Human Service's declaration that [...] used). Performed By: #### C [facility] #### [facility] [address] [place] [address] Dr. Aranza Dolan Vital Signs Date Time Vital Sign Value Performing Clinician Facility 11-13-2021 16:45-0400 Body height 170.18 cm Maximus Lorenzana Other [facility] Other 11-13-2021 16:45-0400 Body mass index (BMI) [Ratio] 33.83 kg/m2 Maximus Lorenzana Other [facility] Other 11-13-2021 16:45-0400 Body weight 97.98 kg Maximus Ulloalillian Other [facility] Other 11-13-2021 16:45-0400 Diastolic blood pressure 80 mm[Hg] Maximus Ulloalillian Other [facility] Other 11-13-2021 16:45-0400 Respiratory rate 16 /min Maximus Lorenzana Other [facility] Other 11-13-2021 16:45-0400 SaO2% (BldA) [Mass fraction] 98 % Maximus Lorenzana Other [facility] Other 11-13-2021 16:45-0400 Systolic blood pressure 126 mm[Hg] Maximus Lorenzana Other [facility] Other Encounters Encounter Date Encounter Type Care [...] 04-15-2022 End: 04-15-2022 ambulatory Maximus Lorenzana Other [facility] Other Start: 04-15-2022 Telephone encounter Maximus Lorenzana [facility] Start: 04-07-2022 End: 04-07-2022 ambulatory Maximus Lorenzana Other [facility] Other Start: 04-07-2022 Nursing evaluation o f patient and report Maximus Lorenzana [facility] Start: 04-07-2022 Telephone encounter [facility] Start: 03-24-2022 End: 03-24-[address] ERMELINDA ALVARO Facility: Start: 11-13-2021 End: 11-13-2021 ambulatory Maximus Lorenzana Other [facility] Other Start: 11-13-2021 Office outpatient vi sit 15 minutes Maximus Lorenzana [facility] Start: 11-13-2021 Telephone encounter Maximus Lorenzana [facility]aziel Start: 04-07-2021 End: 04-07-[address] MAXIMUS LORENZANA Facility:H1 Immunizations Immunization Date Immunization Notes Care Provider Fa cility NEGATED: Highlighted row has not occurred!07-18-2019 influenza, seasonal, injectable Patient Objection Maximus Lorenzana Other [facility] Other Payers Date Payer Category Payer Medicaid [id number] 1995 Unknown [id number] 2.16.84 0.1.674739.3.579.2.593 1994 Unknown [id number] 2.16.84 0.1.210724.3.579.2.593 1994 Unknown [id number] 2.16.84 0.1.750586.3.579.2.1259 1994 Unknown [id number] 2.16.84 0.1.363068.3.579.2.1259 1994 Unknown [id number] 2.16.84 0.1.318261.3.579.2.1259 1994 Unknown [id number] 2.16.84 0.1.310739.3.579.2.1259 1994 Unknown [id number] 2.16.84 0.1.333016.3.579.2.1259 1994 Unknown [id number] 2.16.84 0.1.221021.3.579.2.1259 1994 Unknown [id number] 2.16.84 0.1.618691.3.579.2.1259 1994 Unknown [id number] 2.16.84 0.1.492603.3.579.2.1259 1994 Unknown [id number] 2.16.840 .1.848961.3.579.2.1259 1994 Unknown [id number] 2.16.840 .1.858162.3.579.2.1259 1994 Unknown [id number] 2.16.840 .1.532414.3.579.2.1259 1959 Unknown [id number] 2.1 6.840.1.824710.19 Social History Date Type Detail Facility Unknown if ever smoked [facility] Other Sex Assigned At Sex Assigned At Bir th [facility] Other Evaluation note 04-07-2022 Note Date & Type Note Facility 04-07-2022 Evaluation note Encounter Date Diagnosis Assessment Notes Mar, Acute cough (ICD-10 - R05.1) [facility] Other Evaluation note 11-13-2021 Note Date & Type Note Facility 11-13-2021 Evaluation note Encounter Date Diagnosis Assessment Notes Nov, Insect bite (nonvenomous) of right upper arm, initial encounter (ICD-10 - S40.861A) Noted of left forearm. I did prescribe the above prednisone and patient is to continue taking benadryl at bedtime. Patient is to call next week with an update. [facility] Other History general Narrative - Reported 06-24-2016 Note Date & Type Note Facility 06-24-2016 History general N arrative - Reported Type Medical History follows with Dr. Ananth Cody for PAP Medical History Biometric Screening 06/24/16 [facility] [place], [place] Medical History 02/13/2019 EKG Surgical History tubes in ears Surgical History 03/05/21 Hospitalization History Childbirth [facility] Other Evaluation note Note Date & Type Note Facility Evaluation note No Information [employer] Other Summary Purpose Family History No Family [...] [facility] DATE CREATED AUTHOR AUTHOR'S TASHIA GOLDBERG 11/03/2023 [facility] dical Specialists [facility] FOR RECORDS PERTAINING TO PATIENTS [...] BE BASED ON THE PRIMARY CLINICAL RECORDS. [employer] provides no warranty or guarantee of the accuracy or completeness of information in this document.
[2023-11-09 07:56] VITALS: BP 135/78; PULSE 107
[2023-11-09 08:17] VITALS: BP 132/88; PULSE 89
== END 2023-11-09 08:25 | disposition home or self-care (01) ==
LOC: US 06:59 → FBC 07:19
PROVIDERS: PCP Family Medicine; Visit Provider Obstetrics & Gynecology
DX: O24.419 Gestational diabetes mellitus in pregnancy, unspecified control (principal); Z3A.36 36 weeks gestation of pregnancy
CPT/HCPCS: 76818; 87081

== ENCOUNTER 2023-11-09 18:39 | Outpatient (REF) | payer OTHER, SELFPAY ==
--- OUTSIDE RECORDS SUMMARY | 2023-11-09 18:43 | XMS_ITS | CCD ---
Author Organization [facility] Care Team Providers Care Patient Relations Manager Name Role Phone Maximus Lorenzana Unavailable DR [...] Facility (5 sources) Azithromycin Drug Allergy migraines [employer] Other Medications Current Medications Medication Drug Class(es) Dates Sig (Normalized) Sig (Original) [id number] 200 actuat albuterol 0.09 mg/actuat metered dose [...] 04-07-2022 FLUAV Ab CF (S) [Titer] [facility] [employer] Other FLUBV Ab CF (S) [Titer] Negative [employer] Other PAP ACOG PANEL 2: 21 to 29on 04-04-2022 . . Normal [facility] Comment on above: Performed By: #### 4 [id number] #### [facility] [address] [place] [address] Dr. Aranza Dolan Age Gdln ACOG Testing Normal [facility] Comment on above: Performed By: #### 4 [id number] #### [facility] [address] [place] [address] Dr. Aranza Dolan DIAGNOSIS: Comment Abnormal [facility] Comment on above: Result Comment: EPIT HELIAL CELL ABNORMALITY. ATYPICAL SQUAMOUS CELLS OF UNDETERMINED SIGNIFICANCE (ASC-US). FUNGAL ORGANISMS MORPHOLOGICALLY CONSISTENT WITH RAQUEL SPECIES ARE PRESENT. Performed By: #### 4 [id number] #### [facility] [address] [place] [address] Dr. Aranza Dolan Electronically signed by: Comment Normal [facility] Comment on above: Result Comment: Adelina Ochoa MD, Pathologist Performed By: #### 4 [id number] #### [facility] [address] [place] [address] Dr. Aranza Dolan HPV Aptima Negative Normal Negative [facility] Comment on above: Result Comment: This nucleic acid amplification test detects fourteen high-risk HPV types (16,18,31,33,35,39,45,51,52,56,58,59,66,68) without differentiation. Performed By: #### 4 [id number] #### [facility] [address] [place] [address] Dr. Aranza Dolan Methodology: Comment Normal [facility] Comment on above: Result Comment: This liquid based ThinPrep(R) pap test was screened with the use of an image guided system. Performed By: #### 4 [id number] #### [facility] [address] [place] [address] Dr. Aranza Dolan Note: Comment Normal [facility] Comment on above: Result Comment: The Pap smear is a screening test designed to aid in the detection of premalignant and malignant conditions of the uterine cervix. It is not a diagnostic procedure and should not be used as the sole means of detecting cervical cancer. Both false-positive and false-negative reports do occur. . Performed By: #### 4 [id number] #### [facility] [address] [place] [address] Dr. Aranza Dolan Pathologist Provided ICD10 Comment Normal [facility] Comment on above: Result Comment: R87. 610, R87.5 Performed By: #### 4 [id number] #### [facility] [address] [address] [address] Aranza Dolan Performed by: Comment Normal [facility] Comment on above: Result Comment: Francheska Gee Manager Corporate (ASCP) Performed By: #### 4 [id number] #### [facility] [address] [place] [address] Dr. Aranza Dolan Recommendation: Comment Abnormal [facility] Comment on above: Result Comment: Sugg est follow up as clinically appropriate. Performed By: #### 4 [id number] #### [facility] [address] [place] [address] Dr. Aranza Dolan Reflex Criteria: Comment Normal [facility] Comment on above: Result Comment: See below for HPV testing results. . Performed By: #### 4 [id number] #### [facility] [address] [place] [address] Dr. Aranza Dolan Specimen adequacy: Comment Normal [facility] Comment on above: Result Comment: Sati sfactory for evaluation. Endocervical and/or squamous metaplastic cells (endocervical component) are present. Performed By: #### 4 [id number] #### [facility] [address] [place] [address] Dr. Aranza Dolan [facility]11 SARS-CoV-2 (COVID-19) RNA RAMON+probe Ql (Unsp spec) Detected Critically abnormal NOT DETECTED [facility] Comment on above: Result Comment: This test is not yet approved or cleared by the [place] FDA. When there are no FDA-approved or cleared tests available, and other criteria are met, FDA can make tests available under an emergency access mechanism called an Emergency Use Authorization (EUA). The EUA for this test is supported by the [place] of Health and Human Service's declaration that [...] longer be used). Performed By: #### C [facility] #### [facility] [address] [place] [address] Dr. Aranza Dolan Vital Signs Date Time Vital Sign Value Performing Clinician Facility 11-13-2021 16:45-0400 Body height 170.18 cm Maximus Lorenzana Other [facility] Other 11-13-2021 16:45-0400 Body mass index (BMI) [Ratio] 33.83 kg/m2 Maximus Lorenzana Other [facility] Other 11-13-2021 16:45-0400 Body weight 97.98 kg Maximus Ulloalillian Other [facility] Other 11-13-2021 16:45-0400 Diastolic blood pressure 80 mm[Hg] Maximus Ulloalillian Other [facility] Other 11-13-2021 16:45-0400 Respiratory rate 16 /min Maximus Lorenzana Other [facility] Other 11-13-2021 16:45-0400 SaO2% (BldA) [Mass fraction] 98 % Maximus Lorenzana Other [facility] Other 11-13-2021 16:45-0400 Systolic blood pressure 126 mm[Hg] Maximus Lorenzana Other [facility] Other Encounters Encounter Date Encounter Type Care [...] 04-15-2022 End: 04-15-2022 ambulatory Maximus Lorenzana Other [facility] Other Start: 04-15-2022 Telephone encounter Maximus Lorenzana [facility] Start: 04-07-2022 End: 04-07-2022 ambulatory Maximus Lorenzana Other [facility] Other Start: 04-07-2022 Nursing evaluation o f patient and report Maximus Lorenzana [facility] Start: 04-07-2022 [facility] Start: 03-24-2022 End: 03-24-[address] ERMELINDA ALVARO Facility: Start: 11-13-2021 End: 11-13-2021 ambulatory Maximus Lorenzana Other [facility] Other Start: 11-13-2021 Office outpatient vi sit 15 minutes Maximus Lorenzana [facility] Start: 11-13-2021 Telephone encounter Maximus Lorenzana [facility] Start: 04-07-2021 End: 04-07-[address] MAXIMUS LORENZANA Facility:H1 Immunizations Immunization Date Immunization Notes Care Provider Fa cility NEGATED: Highlighted row has not occurred!07-18-2019 influenza, seasonal, injectable Patient Objection Maximus Lorenzana Other [facility] Other Payers Date Payer Category Payer Medicaid [id number] 1995 Unknown [id number] 2.16.84 0.1.436018.3.579.2.593 1994 Unknown [id number] 2.16.84 0.1.732170.3.579.2.593 1994 Unknown [id number] 2.16.84 0.1.640539.3.579.2.1259 1994 Unknown [id number] 2.16.84 0.1.927607.3.579.2.1259 1994 Unknown [id number] 2.16.84 0.1.892182.3.579.2.1259 1994 Unknown [id number] 2.16.84 0.1.353942.3.579.2.1259 1994 Unknown [id number] 2.16.84 0.1.969607.3.579.2.1259 1994 Unknown [id number] 2.16.84 0.1.278346.3.579.2.1259 1994 Unknown [id number] 2.16.84 0.1.183118.3.579.2.1259 1994 Unknown [id number] 2.16.84 0.1.122607.3.579.2.1259 1994 Unknown [id number] 2.16.840 .1.902780.3.579.2.1259 1994 Unknown [id number] 2.16.840 .1.979626.3.579.2.1259 1994 Unknown [id number] 2.16.840 .1.897743.3.579.2.1259 1959 Unknown [id number] 2.1 6.840.1.750257.19 Social History Date Type Detail Facility Unknown if ever smoked [facility] Other Sex Assigned At Sex Assigned At Bir th [facility] Other Evaluation note 04-07-2022 Note Date & Type Note Facility 04-07-2022 Evaluation note Encounter Date Diagnosis Assessment Notes Mar, Acute cough (ICD-10 - R05.1) [facility] Other Evaluation note 11-13-2021 Note Date & Type Note Facility 11-13-2021 Evaluation note Encounter Date Diagnosis Assessment Notes Nov, Insect bite (nonvenomous) of right upper arm, initial encounter (ICD-10 - S40.861A) Noted of left forearm. I did prescribe the above prednisone and patient is to continue taking benadryl at bedtime. Patient is to call next week with an update. [facility] Other History general Narrative - Reported 06-24-2016 Note Date & Type Note Facility 06-24-2016 History general N arrative - Reported Type Medical History follows with Dr. Ananth Cody for PAP Medical History Biometric Screening 06/24/16 [facility] [place], [place] Medical History 02/13/2019 EKG Surgical History tubes in ears Surgical History 03/05/21 Hospitalization History Childbirth [facility] Other Evaluation note Note Date & Type Note Facility Evaluation note No Information [employer] Other Summary Purpose Family History No Family [...] DATE CREATED AUTHOR AUTHOR'S TASHIA GOLDBERG 11/03/2023 [facility] dical Specialists [facility] FOR RECORDS PERTAINING TO PATIENTS WHO ARE [...] BE BASED ON THE PRIMARY CLINICAL RECORDS. [employer] provides no warranty or guarantee of the accuracy or completeness of information in this document.
== END 2023-11-09 18:40 | disposition home or self-care (01) ==
LOC: LAB 18:39
PROVIDERS: PCP Family Medicine; Visit Provider Obstetrics & Gynecology
DX: Z34.93 Encounter for supervision of normal pregnancy, unspecified, third trimester (principal); Z3A.36 36 weeks gestation of pregnancy
CPT/HCPCS: 87081

== ENCOUNTER 2023-11-10 21:46 | Observation (INO) | payer OTHER, SELFPAY ==
--- OUTSIDE RECORDS SUMMARY | 2023-11-10 21:51 | XMS_ITS | CCD ---
Author Organization [facility] Care Team Providers Care Home Service Consultant Name Role Phone Maximus Lorenzana Unavailable DR MAXIMUS LORENZANA Primary Care Unavailable RENEE BORJAS Admitting Unavailable RENEE BORJAS Attending Unavailable RENEE BORJAS Consulting Unavailable ALVARO, DR WADSWORTH Admitting Unavailable ALVARO, DR WADSWORTH Attending Unavailable HARRIETT, DR QUIJANO Primary Care Unavailable ALVARO, DR WADSWORTH Consulting Unavailable ALVARO, ERMELINDA Attending Unavailable ALVARO, ERMELINDA Attending Unavailable PHYLLIS LADD Attending Unavailable ALVARO, ERMELINDA Attending Unavailable PHYLLIS LADD Attending Unavailable ALVARO, ERMELINDA Attending Unavailable ALVARO, ERMELINDA Attending Unavailable ALVARO, ERMELINDA Attending Unavailable ALVARO, ERMELINDA Attending Unavailable ALVARO, ERMELINDA Attending Unavailable Allergies Allergy Classification Reported Allergen(s) Allergy Type Date of Onset Reaction(s) Facility (5 sources) Azithromycin Drug Allergy migraines [facility] Other Medications Current Medications Medication Drug Class(es) Dates Sig (Normalized) Sig (Original) [id number] 200 actuat albuterol 0.09 mg/actuat metered dose [...] Value Interpretation Reference Range Facility [facility] 11-29-2022 FLUAV Ab CF (S) [Titer] Positive [facility] Other FLUBV Ab CF (S) [Titer] Negative [facility] Other PAP ACOG PANEL 2: 21 to 29on 04-04-2022 . . Normal [facility] Comment on above: Performed By: #### [id number] #### [facility] [address] [place] [address] Dr. Aranza Dolan Age Gdln ACOG Testing Normal [facility] Comment on above: Performed By: #### [id number] #### [facility] [address] [place] [address] Dr. Aranza Dolan DIAGNOSIS: Comment Abnormal [facility] Comment on above: Result Comment: EPIT HELIAL CELL ABNORMALITY. ATYPICAL SQUAMOUS CELLS OF UNDETERMINED SIGNIFICANCE (ASC-US). FUNGAL ORGANISMS MORPHOLOGICALLY CONSISTENT WITH RAQUEL SPECIES ARE PRESENT. Performed By: #### [id number] #### [facility] [address] [place] [address] Dr. Aranza Dolan Electronically signed by: Comment Normal [facility] Comment on above: Result Comment: Adelina Ochoa MD, Pathologist Performed By: #### [id number] #### [facility] [address] [place] [address] Dr. Aranza Dolan HPV Aptima Negative Normal Negative [facility] Comment on above: Result Comment: This nucleic acid amplification test detects fourteen high-risk HPV types (16,18,31,33,35,39,45,51,52,56,58,59,66,68) without differentiation. Performed By: #### 4 [id number] #### [facility] [address] [place] [address] Dr. Aranza Dolan Methodology: Comment Normal [facility] Comment on above: Result Comment: This liquid based ThinPrep(R) pap test was screened with the use of an image guided system. Performed By: #### 4 [id number] #### [facility] [address] [place] [address] Dr. Aranza Dolan Note: Comment Normal [facility] Comment on above: Result Comment: The Pap smear is a screening test designed to aid in the detection of premalignant and malignant conditions of the uterine cervix. It is not a diagnostic procedure and should not be used as the sole means of detecting cervical cancer. Both false-positive and false-negative reports do occur. . Performed By: #### 4 [id number] #### [facility] [address] [place] [address] Dr. Aranza Dolan Pathologist Provided ICD10 Comment Normal [facility] Comment on above: Result Comment: R87. 610, R87.5 Performed By: #### 4 [id number] #### [facility] [address] [place] [address] Dr. Aranza Dolan Performed by: Comment Normal [facility] Comment on above: Result Comment: Francheska Gee Database Support (ASCP) Performed By: #### 4 [id number] #### [facility] [address] [place] [address] Dr. Aranza Dolan Recommendation: Comment Abnormal [facility] Comment on above: Result Comment: Sugg est follow up as clinically appropriate. Performed By: #### 4 [id number] #### [facility] [address] [place] [address] Dr. Aranza Dolan Reflex Criteria: Comment Normal [facility] Comment on above: Result Comment: See below for HPV testing results. . Performed By: #### 4 [id number] #### [facility] [address] [place] [address] Dr. Aranza Dolan Specimen adequacy: Comment Normal [facility] Comment on above: Result Comment: Sati sfactory for evaluation. Endocervical and/or squamous metaplastic cells (endocervical component) are present. Performed By: #### 4 [id number] #### [facility] [address] [place] [address] Dr. Aranza oDlan Covid-19 PCR ([facility])on 03-11 SARS-CoV-2 (COVID-19) RNA RAMON+probe Ql (Unsp spec) Detected Critically abnormal NOT DETECTED [facility] Comment on above: Result Comment: This test is not yet approved or cleared by the [place] FDA. When there are no FDA-approved or cleared tests available, and other criteria are met, FDA can make tests available under an emergency access mechanism called an Emergency Use Authorization (EUA). The EUA for this test is supported by the Wireless Consultant of Health and Human Service's declaration [...] used). Performed By: #### C [facility] #### [facility] [address] [place] [address] Dr. Aranza Dolan Vital Signs Date Time Vital Sign Value Performing Clinician Facility 11-13-2021 16:45-0400 Body height 170.18 cm Maximus Lorenzana Other [facility] Other 11-13-2021 16:45-0400 Body mass index (BMI) [Ratio] 33.83 kg/m2 Maximus Lorenzana Other [facility] Other 11-13-2021 16:45-0400 Body weight 97.98 kg Maximus Lorenzana Other [facility] Other 11-13-2021 16:45-0400 Diastolic blood pressure 80 mm[Hg] Maximus Lorenzana Other [facility] Other 11-13-2021 16:45-0400 Respiratory rate 16 /min Maximus Lorenzana Other [facility] Other 11-13-2021 16:45-0400 SaO2% (BldA) [Mass fraction] 98 % Maximus Lorenzana Other [facility] Other 11-13-2021 16:45-9310 Systolic blood pressure 126 mm[Hg] Maximus Lorenzana Other [facility] Other Encounters Encounter Date Encounter Type Care Provider Facility Start: 11-09-2023 End: 11-09-2023 ambulatory ERMELINDA ALVARO Not Available Start: 11-02-2023 End: 11-02-2023 ambulatory ERMELINDA ALVARO [...] 04-15-2022 End: 04-15-2022 ambulatory Maximus Lorenzana Other [facility] Other Start: 04-15-2022 Telephone encounter Maximus Lorenzana [facility] Start: 04-07-2022 End: 04-07-2022 ambulatory Maximus Lorenzana Other [facility] Other Start: 04-07-2022 Nursing evaluation o f patient and report Maximus Lorenzana [facility] Start: 04-07-2022 Telephone encounter [facility] Start: 03-24-2022 End: 03-24-[address] ERMELINDA ALVARO Facility: Start: 11-13-2021 End: 11-13-2021 ambulatory Maximus Lorenzana Other [facility] Other Start: 11-13-2021 Office outpatient vi sit 15 minutes Maximus Lorenzana [facility] [place] Start: 11-13-2021 Telephone encounter Maximus Lorenzana [facility] [place] Start: 04-07-2021 End: 04-07-[address] MAXIMUS LORENZANA Facility:[facility]1 Immunizations Immunization Date Immunization Notes Care Provider Chalino holt NEGATED: Highlighted row has not occurred!07-18-2019 influenza, seasonal, injectable Patient Objection Maximus Lorenzana Other [facility] Other Payers Date Payer Category Payer Medicaid [id number] 1995 Unknown [id number] 2.16.84 0.1.890298.3.579.2.593 1995 Unknown [id number] 2.16.84 0.1.124470.3.579.2.593 1994 Unknown [id number] 2.16.84 0.1.795379.3.579.2.1259 1994 Unknown [id number] 2.16.84 0.1.861624.3.579.2.1259 1994 Unknown [id number] 2.16.84 0.1.022925.3.579.2.1259 1994 Unknown [id number] 2.16.84 0.1.077571.3.579.2.1259 1994 Unknown [id number] 2.16.84 0.1.808946.3.579.2.1259 1994 Unknown [id number] 2.16.84 0.1.139130.3.579.2.1259 1994 Unknown [id number] 2.16.84 0.1.592973.3.579.2.1259 1994 Unknown [id number] 2.16.84 0.1.476741.3.579.2.1259 1994 Unknown [id number] 2.16.84 0.1.533569.3.579.2.1259 1994 Unknown [id number] 2.16.840 .1.151348.3.579.2.1259 1994 Unknown [id number] 2.16.840 .1.869993.3.579.2.1259 1994 Unknown [id number] 2.16.840 .1.489299.3.579.2.1259 1959 Unknown [id number] 2.1 6.840.1.338631.19 Social History Date Type Detail Facility Unknown if ever smoked [facility] Other Sex Assigned At Sex Assigned At Bir th [facility] Other Evaluation note 04-07-2022 Note Date & Type Note Facility 04-07-2022 Evaluation note Encounter Date Diagnosis Assessment Notes Mar, Acute cough (ICD-10 - R05.1) [facility] Other Evaluation note 11-13-2021 Note Date & Type Note Facility 11-13-2021 Evaluation note Encounter Date Diagnosis Assessment Notes Nov, Insect bite (nonvenomous) of right upper arm, initial encounter (ICD-10 - S40.861A) Noted of left forearm. I did prescribe the above prednisone and patient is to continue taking benadryl at bedtime. Patient is to call next week with an update. [facility] Other History general Narrative - Reported 06-24-2016 Note Date & Type Note Facility 06-24-2016 History general N arrative - Reported Type Medical History follows with Dr. Ananth Cody for PAP Medical History Biometric Screening 06[place]24/[place] Medical History 02/13/2019 EKG Surgical History tubes in ears Surgical History 03/05/21 Hospitalization History Childbirth [facility] Other Evaluation note Note Date & Type Note Facility Evaluation note No Information [facility] Other Summary Purpose Family History No Family [...] [facility] DATE CREATED AUTHOR 'S ORGANIZ ATION 11/10/2023 [facility] Special[facility] EPIC FOR RECORDS [...] BE BASED ON THE PRIMARY CLINICAL RECORDS. [employer] provides no warranty or guarantee of the accuracy or completeness of information in this document.
[2023-11-10 22:09] VITALS: BP 129/77; PULSE 115; TEMP 35.9
[2023-11-10 22:15] LABS: Bilirubin Urine NEGATIVE (NEGATIVE); Blood Urine NEGATIVE (NEGATIVE); Clarity Urine CLEAR (CLEAR); Color Urine YELLOW (YELLOW); Glucose Urine UA NEGATIVE (NEGATIVE); Ketones Urine TRACE mg/dL (NEGATIVE); Leukocyte Esterase Urine NEGATIVE (NEGATIVE); Nitrite Urine NEGATIVE (NEGATIVE); Protein Urine NEGATIVE (NEG/TRACE); Urobilinogen Urine 0.2 EU/dL (0.2-1.0); pH Urine 6.5 (5.0-9.0)
[2023-11-10 22:17] LABS: Urine Microscopic Indicated NO
[2023-11-10 22:39] VITALS: BP 139/80; PULSE 108
[2023-11-10 23:09] VITALS: BP 122/78; PULSE 98
--- NOTE | 2023-11-10 23:51 | PC.NURSE ---
2315: Pt BP WNL. EFM dc'd at this time. Reviewed DC instructions, Pt and spouse VU. Pt DC'd at this time. KG, RN
== END 2023-11-10 23:15 | disposition home or self-care (01) ==
PROVIDERS: Admitting Provider Obstetrics & Gynecology; PCP Family Medicine; Visit Provider Obstetrics & Gynecology
DX: O26.893 Other specified pregnancy related conditions, third trimester (principal); R10.9 Unspecified abdominal pain; O24.419 Gestational diabetes mellitus in pregnancy, unspecified control; Z3A.36 36 weeks gestation of pregnancy
CPT/HCPCS: 59025; 81003; G0378; G0379

== ENCOUNTER 2023-11-12 05:30 | Outpatient (OUT) | payer OTHER, SELFPAY ==
--- OUTSIDE RECORDS SUMMARY | 2023-11-12 05:34 | XMS_ITS ---
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 Name Role Phone Macie Lorenzana Unavailable DR [...] Facility (5 sources) Azithromycin Drug Allergy migraines [facility] Other Encounters Encounter Date Encounter Type Care [...] Available Start: 06-15-2023 End: 06-15-2023 ambulatory ERMELINDA AGUAIRZIO Not Available Start: 05-14-2023 End: 05-14-2023 ambulatory ERMELINDA ALVARO Not Available Start: 04-06-2023 End: 04-06-2023 ambulatory ERMELINDA ALVARO Not Available Start: 04-15-2022 End: 04-15-2022 ambulatory Macie Lorenzana Other [facility] Other Start: 04-15-2022 Telephone encounter Macie Lorenzana [facility] Start: 04-07-2022 End: 04-07-2022 ambulatory Macie Lorenzana Other [facility] Other Start: 04-07-2022 Nursing evaluation o f patient and report Macie Lorenzana [facility] Start: 04-07-2022 Telephone encounter Macie Lorenzana [facility] Start: 03-24-2022 End: 03-24-[address] ERMELINDA CODY Facility:H1 Start: 11-13-2021 End: 11-13-2021 ambulatory Macie Lorenzana Other [facility] Other Start: 11-13-2021 Office outpatient vi sit 15 minutes Macie Lorenzana [facility] Start: 11-13-2021 Telephone encounter Macie Lorenzana [facility] Start: 04-07-2021 End: 04-07-[address] MACIE LORENZANA Facility:H1 Immunizations Immunization Date Immunization Notes Care Provider Fa cility NEGATED: Highlighted row has not occurred!07-18-2019 influenza, seasonal, injectable Patient Objection Macie Lorenzana Other [facility] Other Medications Current Medications Medication Drug Class(es) Dates Sig (Normalized) Sig (Original) [id number] 200 actuat albuterol 0.09 mg/actuat metered dose [...] Not-Taking Payers Date Payer Category Payer Medicaid [id number] 1995 Unknown [id number] 2.16.84 0.1.866208.3.579.2.593 1995 Unknown [id number] 2.16.84 0.1.320069.3.579.2.593 1994 Unknown [id number] 2.16.84 0.1.752503.3.579.2.1259 1994 Unknown [id number] 2.16.84 0.1.463906.3.579.2.1259 1994 Unknown [id number] 2.16.84 0.1.219384.3.579.2.1259 1994 Unknown [id number] 2.16.84 0.1.784711.3.579.2.1259 1994 Unknown [id number] 2.16.84 0.1.809603.3.579.2.1259 1994 Unknown [id number] 2.16.84 0.1.016378.3.579.2.1259 1994 Unknown [id number] 2.16.84 0.1.459908.3.579.2.1259 1994 Unknown [id number] 2.16.84 0.1.425969.3.579.2.1259 1994 Unknown [id number] 2.16.84 0.1.880787.3.579.2.1259 1994 Unknown [id number] 2.16.840 .1.478952.3.579.2.1259 1994 Unknown [id number] 2.16.840 .1.727955.3.579.2.1259 1994 Unknown [id number] 2.16.840 .1.379268.3.579.2.1259 1959 Unknown [id number] 2.1 6.840.1.591033.19 Problems Active Problems Problem Classification Problem Date [...] 04-07-2022 FLUAV Ab CF (S) [Titer] Positive [facility] Other FLUBV Ab CF (S) [Titer] Negative [facility] Other PAP ACOG PANEL 2: 21 to 29on 04-04-2022 . . Normal [facility] Comment on above: Performed By: #### [id number] #### [facility] [address] [place] [address] Dr. Aranza Dolan Age Gdln ACOG Testing Normal [facility] Comment on above: Performed By: #### 4 [id number] #### [facility] [address] [place] [address] Dr. Aranza Dolan DIAGNOSIS: Comment Abnormal [facility] Comment on above: Result Comment: EPIT HELIAL CELL ABNORMALITY. ATYPICAL SQUAMOUS CELLS OF UNDETERMINED SIGNIFICANCE (ASC-US). FUNGAL ORGANISMS MORPHOLOGICALLY CONSISTENT WITH RAQUEL SPECIES ARE PRESENT. Performed By: #### 4 [id number] #### [facility] [address] [place] [address] Dr. Aranza Dolan Electronically signed by: Comment Normal [facility] Comment on above: Result Comment: Adelina Ochoa MD, Pathologist Performed By: #### 4 [id number] #### [facility] [address] [place] [address] Dr. Aranza Dolan HPV Aptima Negative Normal Negative [facility] Comment on above: Result Comment: This nucleic acid amplification test detects fourteen high-risk HPV types (16,18,31,33,35,39,45,51,52,56,58,59,66,68) without differentiation. Performed By: #### 4 [id number] #### [facility] [address] [place] [address] Dr. Aranza Dolan Methodology: Comment Normal [facility] Comment on above: Result Comment: This liquid based ThinPrep(R) pap test was screened with the use of an image guided system. Performed By: #### 4 [id number] #### [facility] [address] [place] [address] Dr. Aranza Dolan Note: Comment Normal [facility] Comment on above: Result Comment: The Pap smear is a screening test designed to aid in the detection of premalignant and malignant conditions of the uterine cervix. It is not a diagnostic procedure and should not be used as the sole means of detecting cervical cancer. Both false-positive and false-negative reports do occur. . Performed By: #### 4 [id number] #### [facility] [address] [place] [address] Dr. Aranza Dolan Pathologist Provided ICD10 Comment Normal [facility] Comment on above: Result Comment: R87. 610, R87.5 Performed By: #### 4 [id number] #### [facility] [address] [place] [address] Dr. Aranza Dolan Performed by: Comment Normal [facility] Comment on above: Result Comment: Francheska Gee Cryogenic Transport Driver (ASCP) Performed By: #### 4 [id number] #### [facility] [address] [place] [address] Dr. Aranza Dolan Recommendation: Comment Abnormal [facility] Comment on above: Result Comment: Sugg est follow up as clinically appropriate. Performed By: #### 4 [id number] #### [facility] [address] [place] [address] Dr. Aranza Dolan Reflex Criteria: Comment [facility] Comment on above: Result Comment: See below for HPV testing results. . Performed By: #### 4 [id number] #### [facility] [address] [place] [address] Dr. Aranza Dolan Specimen adequacy: Comment Normal [facility] Comment on above: Result Comment: Sati sfactory for evaluation. Endocervical and/or squamous metaplastic cells (endocervical component) are present. Performed By: #### 4 [id number] #### [facility] [address] [place] [address] Dr. Aranza Dolan Covid-19 PCR ([facility])on 03-11 SARS-CoV-2 (COVID-19) RNA RAMON+probe Ql (Unsp spec) Detected Critically abnormal NOT DETECTED [facility] Comment on above: Result Comment: This test is not yet approved or cleared by the [place] FDA. When there are no FDA-approved or cleared tests available, and other criteria are met, FDA can make tests available under an emergency access mechanism called an Emergency Use Authorization (EUA). The EUA for this test is supported by the Fleecer of Health and Human Service's declaration that [...] longer be used). Performed By: #### C VDTB #### [facility] [address] [id number] Aranza Dolan Social History Date Type Detail Facility Unknown if ever smoked [facility] Other Sex Assigned At Sex Assigned At Bir th [facility] Other Vital Signs Date Time Vital Sign Value Performing Clinician Facility 11-13-2021 16:45-0400 Body height 170.18 cm Macie Lorenzana Other [facility] Other 11-13-2021 16:45-0400 Body mass index (BMI) [Ratio] 33.83 kg/m2 Macie Lorenzana Other [facility] Other 11-13-2021 16:45-0400 Body weight 97.98 kg Macie Lorenzana Other [facility] Other 11-13-2021 16:45-0400 Diastolic blood pressure 80 mm[Hg] Macie Lorenzana Other [facility] Other 11-13-2021 16:45-0400 Respiratory rate 16 /min Macie Lorenzana Other [facility] Other 11-13-2021 16:45-0400 SaO2% (BldA) [Mass fraction] 98 % Macie Lorenzana Other [facility] Other 11-13-2021 16:45-0400 Systolic blood pressure 126 mm[Hg] Macie Lorenzana Other [facility] Other Evaluation note 04-07-2022 Note Date & Type Note Facility 04-07-2022 Evaluation note Encounter Date Diagnosis Assessment Notes Mar, Acute cough (ICD-10 - R05.1) [facility] Other Evaluation note 11-13-2021 Note Date & Type Note Facility 11-13-2021 Evaluation note Encounter Date Diagnosis Assessment Notes Nov, Insect bite (nonvenomous) of right upper arm, initial encounter (ICD-10 - S40.861A) Noted of left forearm. I did prescribe the above prednisone and patient is to continue taking benadryl at bedtime. Patient is to call next week with an update. [facility] Other History general Narrative - Reported 06-24-2016 Note Date & Type Note Facility 06-24-2016 History general N arrative - Reported Type Medical History follows with Dr. Ananth Cody for PAP Medical History Biometric Screening [place] [facility] [place] Medical History 02/13/2019 EKG Surgical History tubes in ears Surgical History 03/05/21 Hospitalization History Childbirth [facility] Other Evaluation note Note Date & Type Note Facility Evaluation note No Information [facility] Other Summary Purpose Family History No Family [...] pital DATE CREATED AUTHOR AUTHOR'S ORGANIZ ATION 11/10/2023 [facility] EPIC FOR RECORDS PERTAINING TO PATIENTS [...] BE BASED ON THE PRIMARY CLINICAL RECORDS. [facility] [employer] provides no warranty or guarantee of the accuracy or completeness of information in this document.
[2023-11-12 05:42] VITALS: BP 125/81; PULSE 90; TEMP 35.8
== END 2023-11-12 06:15 | disposition home or self-care (01) ==
LOC: FBCO 05:31 → FBC 05:32
PROVIDERS: PCP Family Medicine; Visit Provider Obstetrics & Gynecology
DX: O24.419 Gestational diabetes mellitus in pregnancy, unspecified control (principal)
CPT/HCPCS: 59025

== ENCOUNTER 2023-11-16 06:51 | Outpatient (OUT) | payer OTHER, SELFPAY ==
--- NOTE | 2023-11-16 | US_ITS ---
[address] [address] Patient Name: NEGIN BURNHAM MRN: [id number] date: 1995 Sex: F Assigned Patient Location: [facility] Current Patient Location: [facility] Accession/Order Number: [id number] Exam Date: 11/16/2023 07:10 Report Date: 11/16/2023 07:50 At the request of: ERMELINDA JOHN Procedure: US OB BPP w non-stress EXAMINATION: US OB BPP w non-stress HISTORY: Gestational diabetes mellitus O24.419 COMPARISON: No relevant comparison available. TECHNIQUE: Ultrasound biophysical profile was performed in the radiology department. non-reactive stress testing was performed by nursing staff in the birthing center. FINDINGS: BREATHING MOVEMENTS: 2 GROSS BODY MOVEMENTS: 2 TONE: 2 QUALITATIVE AMNIOTIC FLUID VOLUME: 2 PRESENTATION: CEPHALIC HEART RATE: 136.59 bpm AMNIOTIC FLUID VOLUME: 14.2 cm GESTATIONAL AGE: 37w 1d US/US OB BPP w non-stress IMPRESSION: Total biophysical profile score: 8 Electronically authenticated by: SCOT PRICE Date: 11/16/2023 07:50
[2023-11-16 06:55] VITALS: BP 122/72; PULSE 100
[2023-11-16 06:56] VITALS: TEMP 35.6
== END 2023-11-16 07:58 | disposition home or self-care (01) ==
LOC: US 06:51 → FBC 06:52
PROVIDERS: PCP Family Medicine; Visit Provider Obstetrics & Gynecology
DX: O24.419 Gestational diabetes mellitus in pregnancy, unspecified control (principal); Z3A.37 37 weeks gestation of pregnancy
CPT/HCPCS: 76818

== ENCOUNTER 2023-11-19 05:27 | Outpatient (OUT) | payer OTHER, SELFPAY ==
[2023-11-19 05:36] VITALS: BP 124/78; PULSE 93
== END 2023-11-19 06:00 | disposition home or self-care (01) ==
LOC: FBCO 05:27 → FBC 05:29
PROVIDERS: PCP Family Medicine; Visit Provider Obstetrics & Gynecology
DX: O24.419 Gestational diabetes mellitus in pregnancy, unspecified control (principal); Z3A.37 37 weeks gestation of pregnancy
CPT/HCPCS: 59025

== ENCOUNTER 2023-11-20 08:02 | Outpatient (OUT) | payer OTHER, SELFPAY ==
--- NOTE | 2023-11-20 | US_ITS ---
[address] [address] Patient Name: NEGIN BURNHAM MRN: [id number] date: 1995 Sex: F Assigned Patient Location: US Current Patient Location: Accession/Order Number: [id number] Exam Date: 11/20/2023 08:15 Report Date: 11/22/2023 08:31 At the request of: ERMELINDA JOHN Procedure: US OB growth EXAMINATION: US OB growth HISTORY: INSULIN CONTROLLED GESTATIONAL DIABETES COMPARISON: No relevant comparison available. FINDINGS: Heart Rate: 121.08 bpm Amniotic Fluid Volume: 19.7 cm. Largest fluid pocket 6.3 cm Number: 1 Position: CEPHALIC BIOMETRY: BPD: 9.56 cm cm; 39 weeks 0 days; 93.40 %% HC: 34.28 cm cm; 39 weeks 4 days; 72.30 %% AC: 38.00 cm cm; 42 weeks 0 days; >97 %% FL: 7.17 cm cm; 36 weeks 5 days; 26.90 %% EFW: 4053.51 g; >97 % 8 lbs. 15 oz. FL/AC: 18.88 FL/BPD: 75.01 HC/AC: 0.90 GESTATIONAL AGE: Age by EDC: 37 weeks 5 days CHANDA by EDC: 2023-12-06 Age by US: 39 weeks 2 days CHANDA by US: 2023-11-25 US/US OB growth IMPRESSION: Large for gestational age. Estimated weight greater than the 97th percentile Electronically authenticated by: SCOT PRICE Date: 11/22/2023 08:31
== END 2023-11-20 08:03 | disposition home or self-care (01) ==
LOC: US 08:02
PROVIDERS: PCP Family Medicine; Visit Provider Obstetrics & Gynecology
DX: O24.414 Gestational diabetes mellitus in pregnancy, insulin controlled (principal); O36.63X0 Maternal care for excessive fetal growth, third trimester, not applicable or unspecified; Z3A.37 37 weeks gestation of pregnancy
CPT/HCPCS: 76816

== ENCOUNTER 2023-11-23 07:04 | Outpatient (OUT) | payer OTHER, SELFPAY ==
--- OUTSIDE RECORDS SUMMARY | 2023-11-23 07:07 | XMS_ITS ---
Patient Summarization (C-CDA 2.1 CCD) Created on: November 23, 2023 NEGIN BURNHAM : 1995 Sex: Female Author Organization Sample organization Care Team Providers Care Assembly Manager Name Role Phone Macie Lorenzana Unavailable [...] ERMELINDA Attending Unavailable ALVARO, ERMELINDA Attending Unavailable ALVRAO, ERMELINDA Attending Unavailable Allergies Allergy Classification Reported Allergen(s) Allergy Type Date of Onset Reaction(s) Facility (5 sources) Azithromycin Drug Allergy migraines [facility] Other Encounters Encounter Date Encounter Type Care [...] Available Start: 06-15-2023 End: 06-15-2023 ambulatory ERMELINDA AGUIARZIO Not Available Start: 05-14-2023 End: 05-14-2023 ambulatory ERMELINDA ALVARO Not Available Start: 04-06-2023 End: 04-06-2023 ambulatory ERMELINDA ALVARO Not Available Start: 04-15-2022 End: 04-15-2022 ambulatory Macie Lorenzana Other [facility] Other Start: 04-15-2022 Telephone encounter Macie Lorenzana [facility] Start: 04-07-2022 End: 04-07-2022 ambulatory Macie Lorenzana Other [facility] Other Start: 04-07-2022 Nursing evaluation o f patient and report Macie Lorenzana [facility] Start: 04-07-2022 Telephone encounter Macie Lorenzana [facility] Start: 03-24-2022 End: 03-24-[address] ERMELINDA CODY Facility:[facility]1 Start: 11-13-2021 End: 11-13-2021 ambulatory aMcie Lorenzana Other [facility] Other Start: 11-13-2021 Office outpatient vi sit 15 minutes Macie Lorenzana [facility] Start: 11-13-2021 Telephone encounter Macie Lorenzana [facility] Start: 04-07-2021 End: 04-07-[address] MACIE LORENZANA Facility:[facility]1 Immunizations Immunization Date Immunization Notes Care Provider Fa cility NEGATED: Highlighted row has not occurred!07-18-2019 influenza, seasonal, injectable Patient Objection Macie Lorenzana Other [facility] Other Medications Current Medications Medication Drug Class(es) Dates Sig (Normalized) Sig (Original) [id number] 200 actuat albuterol 0.09 mg/actuat metered dose [...] Not-Taking Payers Date Payer Category Payer Medicaid [id number] 1995 Unknown [id number] 2.16.84 0.1.584962.3.579.2.593 1995 Unknown [id number] 2.16.84 0.1.379836.3.579.2.593 1995 Unknown [id number] 2.16.84 0.1.085020.3.579.2.1259 1994 Unknown [id number] 2.16.84 0.1.080193.3.579.2.1259 1994 Unknown [id number] 2.16.84 0.1.537904.3.579.2.1259 1994 Unknown [id number] 2.16.84 0.1.211018.3.579.2.1259 1994 Unknown [id number] 2.16.84 0.1.488283.3.579.2.1259 1994 Unknown [id number] 2.16.84 0.1.558080.3.579.2.1259 1994 Unknown [id number] 2.16.84 0.1.371777.3.579.2.1259 1994 Unknown [id number] 2.16.84 0.1.983741.3.579.2.1259 1994 Unknown [id number] 2.16.84 0.1.845296.3.579.2.1259 1994 Unknown [id number] 2.16.840 .1.869054.3.579.2.1259 1994 Unknown [id number] 2.16.840 .1.703243.3.579.2.1259 1994 Unknown [id number] 2.16.840 .1.015164.3.579.2.1259 1959 Unknown [id number] 2.1 6.840.1.278151.19 Problems Active Problems Problem Classification Problem Date [...] 04-07-2022 FLUAV Ab CF (S) [Titer] Positive [facility] Other FLUBV Ab CF (S) [Titer] Negative [facility] Other PAP ACOG PANEL 2: 21 to 29on 04-04-2022 . . Normal [facility] Comment on above: Performed By: #### [id number] #### [facility] [address] [place] [address] Dr. Aranza Dolan Age Gdln ACOG Testing Normal [facility] Comment on above: Performed By: #### 4 [id number] #### [facility] [address] [place] [address] Dr. Aranza Dolan DIAGNOSIS: Comment Abnormal [facility] Comment on above: Result Comment: EPIT HELIAL CELL ABNORMALITY. ATYPICAL SQUAMOUS CELLS OF UNDETERMINED SIGNIFICANCE (ASC-US). FUNGAL ORGANISMS MORPHOLOGICALLY CONSISTENT WITH RAQUEL SPECIES ARE PRESENT. Performed By: #### 4 [id number] #### [facility] [address] [place] [address] Dr. Aranza Dolan Electronically signed by: Comment Normal [facility] Comment on above: Result Comment: Adelina Ochoa MD, Pathologist Performed By: #### 4 [id number] #### [facility] [address] [place] [address] Dr. Aranza Dolan HPV Aptima Negative Normal Negative [facility] Comment on above: Result Comment: This nucleic acid amplification test detects fourteen high-risk HPV types (16,18,31,33,35,39,45,51,52,56,58,59,66,68) without differentiation. Performed By: #### 4 [id number] #### [facility] [address] [place] [address] Dr. Aranza Dolan Methodology: Comment Normal [facility] Comment on above: Result Comment: This liquid based ThinPrep(R) pap test was screened with the use of an image guided system. Performed By: #### 4 [id number] #### [facility] [address] [place] [address] Dr. Aranza Dolan Note: Comment Normal [facility] Comment on above: Result Comment: The Pap smear is a screening test designed to aid in the detection of premalignant and malignant conditions of the uterine cervix. It is not a diagnostic procedure and should not be used as the sole means of detecting cervical cancer. Both false-positive and false-negative reports do occur. . Performed By: #### 4 [id number] #### [facility] [address] [place] [address] Dr. Aranza Dolan Pathologist Provided ICD10 Comment Normal [facility] Comment on above: Result Comment: R87. 610, R87.5 Performed By: #### 4 [id number] #### [facility] [address] [place] [address] Dr. Aranza Dolan Performed by: Comment Normal [facility] Comment on above: Result Comment: Francheska Gee Federal District Clerk (ASCP) Performed By: #### 4 [id number] #### [facility] [address] [place] [address] Dr. Aranza Dolan Recommendation: Comment Abnormal [facility] Comment on above: Result Comment: Sugg est follow up as clinically appropriate. Performed By: #### 4 [id number] #### [facility] [address] [place] [address] Dr. Aranza Dolan Reflex Criteria: Comment [facility] Comment on above: Result Comment: See below for HPV testing results. . Performed By: #### 4 [id number] #### [facility] [address] [place] [address] Dr. Aranza Dolan Specimen adequacy: Comment Normal [facility] Comment on above: Result Comment: Sati sfactory for evaluation. Endocervical and/or squamous metaplastic cells (endocervical component) are present. Performed By: #### 4 [id number] #### [facility] [address] [place] [address] Dr. Aranza Dolan Covid-19 PCR ([facility])on 03-11 SARS-CoV-2 (COVID-19) RNA RAMON+probe Ql (Unsp spec) Detected Critically abnormal NOT DETECTED [facility] Comment on above: Result Comment: This test is not yet approved or cleared by the [place] FDA. When there are no FDA-approved or cleared tests available, and other criteria are met, FDA can make tests available under an emergency access mechanism called an Emergency Use Authorization (EUA). The EUA for this test is supported by the Retail Banker of Health and Human Service's declaration that [...] used). Performed By: #### C VDTB #### [facility] [address] [id number] Aranza Dolan Social History Date Type Detail Facility Unknown if ever smoked [facility] Other Sex Assigned At Sex Assigned At Bir th [facility] Other Vital Signs Date Time Vital Sign Value Performing Clinician Facility 11-13-2021 16:45-0400 Body height 170.18 cm Macie Lornezana Other [facility] Other 11-13-2021 16:45-0400 Body mass index (BMI) [Ratio] 33.83 kg/m2 Macie Lorenzana Other [facility] Other 11-13-2021 16:45-0400 Body weight 97.98 kg Macie Lorenzana Other [facility] Other 11-13-2021 16:45-0400 Diastolic blood pressure 80 mm[Hg] Macie Lorenzana Other [facility] Other 11-13-2021 16:45-0400 Respiratory rate 16 /min Macie Lorenzana Other [facility] Other 11-13-2021 16:45-0400 SaO2% (BldA) [Mass fraction] 98 % Macie Lorenzana Other [facility] Other 11-13-2021 16:45-0400 Systolic blood pressure 126 mm[Hg] Macie Lorenzana Other [facility] Other Evaluation note 04-07-2022 Note Date & Type Note Facility 04-07-2022 Evaluation note Encounter Date Diagnosis Assessment Notes Mar, Acute cough (ICD-10 - R05.1) [facility] Other Evaluation note 11-13-2021 Note Date & Type Note Facility 11-13-2021 Evaluation note Encounter Date Diagnosis Assessment Notes Nov, Insect bite (nonvenomous) of right upper arm, initial encounter (ICD-10 - S40.861A) Noted of left forearm. I did prescribe the above prednisone and patient is to continue taking benadryl at bedtime. Patient is to call next week with an update. [facility] Other History general Narrative - Reported 06-24-2016 Note Date & Type Note Facility 06-24-2016 History general N arrative - Reported Type Medical History follows with Dr. Ananth Cody for PAP Medical History Biometric Screening 06/24/16 [place] Medical History 02/13/2019 EKG Surgical History tubes in ears Surgical History 03/05/21 Hospitalization History Childbirth [facility] Other Evaluation note Note Date & Type Note Facility Evaluation note No Information [employer] Other Summary Purpose Family History No Family [...] DATE CREATED AUTHOR AUTHOR'S ORGANIZ ATION 11/10/2023 [facility] EPIC FOR RECORDS PERTAINING TO PATIENTS [...] BE BASED ON THE PRIMARY CLINICAL RECORDS. [facility] [employer] provides no warranty or guarantee of the accuracy or completeness of information in this document.
--- NOTE | 2023-11-23 07:19 | US_ITS ---
[address] [address] Patient Name: NEGIN BURNHAM MRN: [id number] date: 1995 Sex: F Assigned Patient Location: [facility] Current Patient Location: Accession/Order Number: [id number] Exam Date: 11/23/2023 07:20 Report Date: 11/23/2023 09:27 At the request of: ERMELINDA JOHN Procedure: US OB BPP w non-stress EXAMINATION: US OB BPP w non-stress HISTORY: Gestational diabetes mellitus COMPARISON: No relevant comparison available. TECHNIQUE: Ultrasound biophysical profile was performed in the radiology department. non-reactive stress testing was performed by nursing staff in the birthing center. FINDINGS: BREATHING MOVEMENTS: 2 GROSS BODY MOVEMENTS: 2 TONE: 2 QUALITATIVE AMNIOTIC FLUID VOLUME: 2 PRESENTATION: CEPHALIC HEART RATE: 128.57 bpm AMNIOTIC FLUID VOLUME: 16.7 cm GESTATIONAL AGE: 38 weeks 1 day US/US OB BPP w non-stress IMPRESSION: Total biophysical profile score: 8 Electronically authenticated by: SCOT PRICE Date: 11/23/2023 09:27
[2023-11-23 08:26] VITALS: BP 125/69; PULSE 99
== END 2023-11-23 08:35 | disposition home or self-care (01) ==
LOC: US 07:04 → FBC 07:15
PROVIDERS: PCP Family Medicine; Visit Provider Obstetrics & Gynecology
DX: O24.419 Gestational diabetes mellitus in pregnancy, unspecified control (principal); Z3A.38 38 weeks gestation of pregnancy
CPT/HCPCS: 76818

== ENCOUNTER 2023-11-26 05:09 | Inpatient (IN) | payer OTHER, SELFPAY ==
[2023-11-26] VITALS (22 sets, daily range): BP systolic 97–132; BP diastolic 51–82; PULSE 73–95; TEMP 36.2–37; O2SAT 99–100
--- OUTSIDE RECORDS SUMMARY | 2023-11-26 05:13 | XMS_ITS | CCD ---
Author Organization [facility] Care Team Providers Care Brim Stiffener Name Role Phone Maximus Lorenzana Unavailable DR [...] Facility (5 sources) Azithromycin Drug Allergy migraines [facility] Other Medications Current Medications Medication Drug Class(es) Dates Sig (Normalized) Sig (Original) [id number] 200 actuat albuterol 0.09 mg/actuat metered dose [...] 11-29-2022 FLUAV Ab CF (S) [Titer] Positive [facility] Other FLUBV Ab CF (S) [Titer] Negative [facility] Other PAP ACOG PANEL 2: 21 to 29on 04-04-2022 . . Normal [facility] Comment on above: Performed By: #### 4 [id number] #### [facility] [address] [place] [address] Dr. Aranza Dolan Age Gdln ACOG Testing Normal [facility] Comment on above: Performed By: #### 4 [id number] #### [facility] [address] [place] [address] Dr. Aranza Dolan DIAGNOSIS: Comment Abnormal [facility] Comment on above: Result Comment: EPIT HELIAL CELL ABNORMALITY. ATYPICAL SQUAMOUS CELLS OF UNDETERMINED SIGNIFICANCE (ASC-US). FUNGAL ORGANISMS MORPHOLOGICALLY CONSISTENT WITH RAQUEL SPECIES ARE PRESENT. Performed By: #### 4 [id number] #### [facility] [address] [place] [address] Dr. Aranza Dolan Electronically signed by: Comment Normal [facility] Comment on above: Result Comment: Adelina Ochoa MD, Pathologist Performed By: #### 4 [id number] #### [facility] [address] [place] [address] Dr. Aranza Dolan HPV Aptima Negative Normal Negative [facility] Comment on above: Result Comment: This nucleic acid amplification test detects fourteen high-risk HPV types (16,18,31,33,35,39,45,51,52,56,58,59,66,68) without differentiation. Performed By: #### 4 [id number] #### [facility] [address] [place] [address] Dr. Aranza Dolan Methodology: Comment Normal [facility] Comment on above: Result Comment: This liquid based ThinPrep(R) pap test was screened with the use of an image guided system. Performed By: #### 4 [id number] #### [facility] [address] [place] [address] Dr. Aranza Dolan Note: Comment Normal [facility] Comment on above: Result Comment: The Pap smear is a screening test designed to aid in the detection of premalignant and malignant conditions of the uterine cervix. It is not a diagnostic procedure and should not be used as the sole means of detecting cervical cancer. Both false-positive and false-negative reports do occur. . Performed By: #### 4 [id number] #### [facility] [address] [place] [address] Dr. Aranza Dolan Pathologist Provided ICD10 Comment Normal [facility] Comment on above: Result Comment: R87. 610, R87.5 Performed By: #### 4 [id number] #### [facility] [address] [place] [address] Dr. Aranza Dolan Performed by: Comment Normal [facility] Comment on above: Result Comment: Francheska Gee Head And Neck Surgeon (ASCP) Performed By: #### 4 [id number] #### [facility] [address] [place] [address] Dr. Aranza Dolan Recommendation: Comment Abnormal [facility] Comment on above: Result Comment: Sugg est follow up as clinically appropriate. Performed By: #### 4 [id number] #### [facility] [address] [place] [address] Dr. Aranza Dolan Reflex Criteria: Comment Normal [facility] Comment on above: Result Comment: See below for HPV testing results. . Performed By: #### 4 [id number] #### [facility] [address] [place] [address] Dr. Aranza Dolan Specimen adequacy: Comment Normal [facility] Comment on above: Result Comment: Sati sfactory for evaluation. Endocervical and/or squamous metaplastic cells (endocervical component) are present. Performed By: #### 4 [id number] #### [facility] [address] [place] [address] Dr. Aranza Dolan Covid-19 PCR ([facility])on 03-11 SARS-CoV-2 (COVID-19) RNA RAMON+probe Ql (Unsp spec) Detected Critically abnormal NOT DETECTED [facility] Comment on above: Result Comment: This test is not yet approved or cleared by the [place] FDA. When there are no FDA-approved or cleared tests available, and other criteria are met, FDA can make tests available under an emergency access mechanism called an Emergency Use Authorization (EUA). The EUA for this test is supported by the Membership Sales Manager of Health and Human Service's declaration that [...] longer be used). Performed By: #### C [facility] #### [facility] [address] [place] [address] Dr. Aranza Dolan Vital Signs Date Time Vital Sign Value Performing Clinician Facility 11-13-2021 16:45-0400 Body height 170.18 cm Maximus Lorenzana Other [facility] Other 11-13-2021 16:45-0400 Body mass index (BMI) [Ratio] 33.83 kg/m2 Maximus Lorenzana Other [facility] Other 11-13-2021 16:45-0400 Body weight 97.98 kg Maximus Lorenzana Other [facility] Other 11-13-2021 16:45-0400 Diastolic blood pressure 80 mm[Hg] Maximus Lorenzana Other [facility] Other 11-13-2021 16:45-0400 Respiratory rate 16 /min Maximus Lorenzana Other [facility] Other 11-13-2021 16:45-0400 SaO2% (BldA) [Mass fraction] 98 % Maximus Lorenzana Other [facility] Other 11-13-2021 16:45-5150 Systolic blood pressure 126 mm[Hg] Maximus Lorenzana Other [facility] Other Encounters Encounter Date Encounter Type Care [...] 04-15-2022 End: 04-15-2022 ambulatory Maximus Lorenzana Other [facility] Other Start: 04-15-2022 Telephone encounter Maximus Lorenzana [facility] Start: 04-07-2022 End: 04-07-2022 ambulatory Maximus Lorenzana Other [facility] Other Start: 04-07-2022 Nursing evaluation o f patient and report Maximus Lorenzana [facility] Start: 04-07-2022 Tele[facility] Start: 03-24-2022 End: 03-24-[address] ERMELINDA ALVARO Facility: Start: 11-13-2021 End: 11-13-2021 ambulatory Maximus Lorenzana Other [facility] Other Start: 11-13-2021 Office outpatient vi sit 15 minutes Maximus Lorenzana [facility] [place] Start: 11-13-2021 Telephone encounter Maximus Lorenzana [facility] [place] Start: 04-07-2021 End: 04-07-[address] MAXIMUS LORENZANA Facility:[facility]1 Immunizations Immunization Date Immunization Notes Care Provider Chalino holt NEGATED: Highlighted row has not occurred!07-18-2019 influenza, seasonal, injectable Patient Objection Maximus Lorenzana Other [facility] Other Payers Date Payer Category Payer Medicaid [id number] 1995 Unknown [id number] 2.16.84 0.1.295553.3.579.2.593 1995 Unknown [id number] 2.16.84 0.1.782882.3.579.2.593 1995 Unknown [id number] 2.16.84 0.1.415274.3.579.2.1259 1994 Unknown [id number] 2.16.84 0.1.559353.3.579.2.1259 1994 Unknown [id number] 2.16.84 0.1.473517.3.579.2.1259 1994 Unknown [id number] 2.16.84 0.1.559967.3.579.2.1259 1994 Unknown [id number] 2.16.84 0.1.944391.3.579.2.1259 1994 Unknown [id number] 2.16.84 0.1.755657.3.579.2.1259 1994 Unknown [id number] 2.16.84 0.1.889837.3.579.2.1259 1994 Unknown [id number] 2.16.84 0.1.822112.3.579.2.1259 1994 Unknown [id number] 2.16.84 0.1.722719.3.579.2.1259 1994 Unknown [id number] 2.16.840 .1.855312.3.579.2.1259 1994 Unknown [id number] 2.16.840 .1.425606.3.579.2.1259 1994 Unknown [id number] 2.16.840 .1.306282.3.579.2.1259 1959 Unknown [id number] 2.1 6.840.1.754376.19 Social History Date Type Detail Facility Unknown if ever smoked [facility] Other Sex Assigned At Sex Assigned At Bir th [facility] Other Evaluation note 04-07-2022 Note Date & Type Note Facility 04-07-2022 Evaluation note Encounter Date Diagnosis Assessment Notes Mar, Acute cough (ICD-10 - R05.1) [facility] Other Evaluation note 11-13-2021 Note Date & Type Note Facility 11-13-2021 Evaluation note Encounter Date Diagnosis Assessment Notes Nov, Insect bite (nonvenomous) of right upper arm, initial encounter (ICD-10 - S40.861A) Noted of left forearm. I did prescribe the above prednisone and patient is to continue taking benadryl at bedtime. Patient is to call next week with an update. [facility] Other History general Narrative - Reported 06-24-2016 Note Date & Type Note Facility 06-24-2016 History general N arrative - Reported Type Medical History follows with Dr. Ananth Cody for PAP Medical History Biometric Screening [place]24/[place] [facility] Medical History 02/13/2019 EKG Surgical History tubes in ears Surgical History 03/05/21 Hospitalization History Childbirth [facility] Other Evaluation note Note Date & Type Note Facility Evaluation note No Information [facility] Other Summary Purpose Family History No Family [...] DATE CREATED AUTHOR 'S ORGANIZ ATION 11/10/2023 [facility] EPIC FOR RECORDS PERTAINING [...] BE BASED ON THE PRIMARY CLINICAL RECORDS. [employer] provides no warranty or guarantee of the accuracy or completeness of information in this document.
[2023-11-26] MEDS: 0.9 % SODIUM CHLORIDE 1,000 ML 1000 ML IV ×2 (06:09→06:46)
[2023-11-26 06:14] LABS: Glucometer 82 mg/dL (74-106)
[2023-11-26 06:17] LABS: Basophils Percent Auto 0.4 % (0.2-2.0); Eosinophils Absolute Auto 0.1 10^3/uL (0.0-0.7); Eosinophils Percent Auto 0.6 % (0.9-7.0); Hematocrit 31.8 % (36.0-48.0); Hemoglobin 10.4 g/dL (12.0-16.0); Immature Granulocytes Abs Auto 0.04 10^3/uL (0.00-0.03); Immature Granulocytes Pct Auto 0.4 % (0.0-0.5); Lymphocytes Percent Auto 38.9 % (20.5-60.0); Mean Corpuscular HGB Conc 32.7 g/dL (29.9-35.2); Mean Corpuscular Hemoglobin 26.8 pg (26.7-34.0); Mean Platelet Volume 10.1 fL (9.5-13.5); Monocytes Absolute Auto 0.8 10^3/uL (0.3-0.8); Monocytes Percent Auto 7.5 % (1.7-12.0); Neutrophils Absolute Auto 5.4 10^3/uL (1.4-6.5); Neutrophils Percent Auto 52.2 % (43.0-75.0); Platelet Count 220 10^3/uL (150-450); Red Blood Count 3.88 10^6/uL (4.20-5.40); Red Cell Distribution Width 14.9 % (11.0-15.0); White Blood Count 10.3 10^3/uL (4.0-11.0)
[2023-11-26 06:29] LABS: Amphetamine Screen Urine NEGATIVE (NEGATIVE); Barbiturates Screen Urine NEGATIVE (NEGATIVE); Benzodiazepines Screen Urine NEGATIVE (NEGATIVE); Buprenorphine Screen Urine NEGATIVE (NEGATIVE); Cannabinoid Screen Urine NEGATIVE (NEGATIVE); Cocaine Screen Urine NEGATIVE (NEGATIVE); Methadone Screen Urine NEGATIVE (NEGATIVE); Methamphetamines Screen Urine NEGATIVE (NEGATIVE); Opiate Screen Urine NEGATIVE (NEGATIVE); Oxycodone Screen Urine NEGATIVE (NEGATIVE); Phencyclidine Screen Urine NEGATIVE (NEGATIVE); Tricyclic Antidepressant Urine NEGATIVE (NEGATIVE)
[2023-11-26] MEDS: CITRIC ACID/SODIUM CITRATE 30 ML SOLUTION ORACIT SHOHL'S SOLN PO (06:37)
[2023-11-26] MEDS: FAMOTIDINE/PF 20 MG/2 ML VIAL IV (06:37)
[2023-11-26] MEDS: METOCLOPRAMIDE HCL 10 MG/2 ML VIAL IVP (06:38)
[2023-11-26] MEDS: CEFAZOLIN SODIUM/DEXTROSE,ISO 2 GM/50 ML PIGGYBACK IV ×2 (07:09→13:37)
[2023-11-26] MEDS: LACTATED RINGER'S SOLUTION 1,000 ML 50 ML IV ×2 (08:44→09:06)
--- NOTE | 2023-11-26 09:19 | P.OBPRC_ITS ---
Procedure Pre-op/Post-op diagnoses: Pre-Op/Post-Op Diagnoses Operation Date: 11/26/23 07:30 <No data on this case meets the specified criteria> Procedure: Procedures Operation Date: 11/26/23 07:30 Actual Procedure Side Surgeon p Repeat Not Applicable Tae Cody DO Jewel Oliving Machine Operator: Hyun Mullins Estimated blood loss (mL): 575 Disposition: PACU Anesthesia type: Spinal
--- NOTE | 2023-11-26 09:19 | PM.ONB ---
Brief Operative Note Date of procedure: 11/26/23 Pre-op diagnosis general: iup at 38 4/7wks, gdma2-non compliant, unknown control, previous c/s Post-op diagnosis: same as pre-op Procedure: NAME OF PROCEDURE: [ section ] PROCEDURE: Patient was taken back to the Operating Room where she was given a spinal anesthesia with Duramorph without difficulty. She was prepped and draped in the normal sterile fashion. A Pfannenstiel skin incision was then made 2 cm above the symphysis pubis and carried down to underlying rectus fascia using a Bovie. The fascia was incised in the midline and extended laterally using Huerta scissors. Two Merry clamps were placed on the superior aspect of the fascia and dissected off the underlying rectus muscles. The same was performed on the inferior aspect as well. The muscles were then in the midline. Peritoneum was identified and entered bluntly. The peritoneum was then extended superiorly and inferiorly with good visualization of the bladder. The bladder blade was inserted. A low transverse incision was made on the patient's uterus and extended laterally digitally. The infant was then delivered atraumatically after the bladder blade was removed in the cephalic position. The cord was clamped and cut. Cord blood was obtained. The was handed off to awaiting team. The patient's placenta was spontaneously delivered. The uterus was then exteriorized. The uterus was cleared of all clots and debris. The bladder blade was reinserted. The patient's uterine incision was closed using #0 Vicryl in a running lock fashion. Excellent hemostasis was assured. The uterus was then returned to the patient's abdomen. The patient's abdomen was copiously irrigated using warm saline. Peritoneal gutters were cleared of all clots and debris. Again excellent hemostasis was assured. The patient's peritoneum was closed using 3-0 Vicryl in a running fashion. The patient's fascia was closed using #0 Vicryl in a running fashion. The patient's skin was closed using 4-0 Vicryl subcuticularly. The patient tolerated the procedure well. Sponge, lap, and needle counts were correct x2. The patient was taken to the Recovery Room in stable condition. Anesthesia: spinal Surgeon: Tae Cody Brake Operator Heavy Duty: Hyun Mullins Estimated blood loss (mL): 575 Pathology: other (placenta) Condition: stable Disposition: PACU Urinary Catheter Management Urinary Catheter Management Urethral: Cath placed during this visit: no
[2023-11-26] MEDS: OXYTOCIN/0.9 % SODIUM CHLORIDE 20 UNITS/1,000 ML PLAST..BAG 125 UNIT IV (10:02)
[2023-11-26] MEDS: NALBUPHINE HCL 10 MG/ML AMPULE IV (10:25)
[2023-11-26] MEDS: KETOROLAC TROMETHAMINE 30 MG/ML VIAL IVP ×2 (13:37→21:11)
[2023-11-26] MEDS: DIPHENHYDRAMINE HCL 50 MG/ML VIAL 25 MG IV (13:56)
[2023-11-26] MEDS: ACETAMINOPHEN 500 MG TABLET 1000 MG PO ×2 (16:11→23:40)
[2023-11-26] MEDS: ENOXAPARIN SODIUM 40 MG/0.4 ML SYRINGE SUBQ (21:10)
[2023-11-27] MEDS: KETOROLAC TROMETHAMINE 30 MG/ML VIAL IVP (03:36)
[2023-11-27 03:42] VITALS: BP 112/53; PULSE 66
[2023-11-27 03:43] VITALS: TEMP 36.3
[2023-11-27 07:23] LABS: Basophils Percent Auto 0.1 % (0.2-2.0); Eosinophils Percent Auto 0.1 % (0.9-7.0); Hematocrit 26.4 % (36.0-48.0); Hemoglobin 8.1 g/dL (12.0-16.0); Immature Granulocytes Abs Auto 0.09 10^3/uL (0.00-0.03); Immature Granulocytes Pct Auto 0.5 % (0.0-0.5); Lymphocytes Absolute Auto 3.1 10^3/uL (1.2-3.8); Lymphocytes Percent Auto 18.8 % (20.5-60.0); Mean Corpuscular HGB Conc 30.7 g/dL (29.9-35.2); Mean Corpuscular Hemoglobin 25.9 pg (26.7-34.0); Mean Corpuscular Volume 84.3 fL (81.0-99.0); Mean Platelet Volume 10.7 fL (9.5-13.5); Monocytes Absolute Auto 1.2 10^3/uL (0.3-0.8); Monocytes Percent Auto 7.2 % (1.7-12.0); Neutrophils Percent Auto 73.3 % (43.0-75.0); Platelet Count 200 10^3/uL (150-450); Red Blood Count 3.13 10^6/uL (4.20-5.40); White Blood Count 16.4 10^3/uL (4.0-11.0)
--- NOTE | 2023-11-27 07:33 | W.PC.ACHO ---
Registration Status: ADM IN Primary Language: French Preferred Language: French Report received at 1915. Active Medications Generic Name Dose Route Start Last Admin Trade Name Freq PRN Reason Stop Dose Admin Acetaminophen 1,000 mg 11/26/23 16:00 11/26/23 23:40 Acetaminophen 500 Mg Tablet PO 11/28/23 16:01 1,000 mg Q8H CAITIE Administration Al Hydroxide/Mg Hydroxide 2,400 mg 11/26/23 09:16 Magnesium Hydroxide 2,400 Mg/10 Ml Oral.Susp PO Q6H PRN Dyspepsia Diphenhydramine HCl 25 mg 11/26/23 09:16 11/26/23 13:56 Diphenhydramine Hcl 50 Mg/Ml Vial IV 11/27/23 09:17 25 mg Q6H PRN Administration Itching Diphtheria/Pertussis/Tetanus Vacc 0.5 ml 11/28/23 09:00 Adacel Diph,Pertuss(Acell),Tet Vac/Pf 0.5 Ml Adult Syringe IM 11/28/23 09:01 .ONCE ONE Docusate Sodium 100 mg 11/27/23 09:00 Docusate Sodium 100 Mg Capsule PO BID CAITIE Enoxaparin Sodium 40 mg 11/26/23 21:00 11/26/23 21:10 Enoxaparin Sodium 40 Mg/0.4 Ml Syringe SUBQ 40 mg Q24H CAITIE Administration Sodium Chloride 1,000 mls @ 125 mls/hr 11/26/23 09:30 Sodium Chloride 0.9% 1,000 Ml IV .Q8H CAITIE Promethazine HCl 25 mg/ Sodium 51 mls @ 204 mls/hr 11/26/23 09:16 Chloride IV Q6H PRN Nausea And Vomiting Ibuprofen 800 mg 11/27/23 08:00 Ibuprofen 400 Mg Tablet PO Q6H CAITIE Measles/Mumps/Rubella Vaccine Live 0.5 ml 11/28/23 09:00 Measles,Mumps,Rubella Vacc/Pf 0.5 Ml Vial SQ 11/28/23 09:01 .ONCE ONE Nalbuphine HCl 10 mg 11/26/23 10:07 11/26/23 10:25 Nalbuphine Hcl 10 Mg/Ml Ampule IV 11/27/23 08:00 10 mg Q3H PRN Administration Pain Ondansetron HCl 4 mg 11/26/23 09:16 Ondansetron Pf 4 Mg/2 Ml Vial IV Q6H PRN Nausea And Vomiting Ondansetron HCl 4 mg 11/26/23 09:16 Ondansetron 4 Mg Rapdis Tablet PO Q6H PRN Nausea And Vomiting Oxycodone HCl 5 mg 11/26/23 09:16 Oxycodone Hcl 5 Mg Tablet PO Q4H PRN Breakthrough Pain Senna 17.2 mg 11/26/23 20:00 Sennosides 8.6 Mg Tablet PO QHS PRN Constipation Simethicone 80 mg 11/26/23 09:16 Simethicone 80 Mg Tab.Chew PO QID PRN Abdominal Distention Diet Category Date Time Status Regular Consistency Diet Diet 11/26/23 09:16 Active IV Insertion/Site IV Catheter Type [Left Forearm Peripheral IV ] IV Catheter Type [Left Forearm Peripheral IV ] Respiratory Pulse Oximetry 100 Pulse Oximetry 100 Pulse Oximetry 100 Oxygen Delivery Method Room Air Oxygen Delivery Method Room Air Oxygen Delivery Method Room Air Oxygen Delivery Method Room Air Oxygen Delivery Method Room Air Oxygen Delivery Method Room Air Oxygen Delivery Method Room Air Oxygen Delivery Method Room Air Oxygen Delivery Method Room Air Cardiology Heart Sounds Strong,Regular Bowels Bowel Pattern No Bowel Movement
[2023-11-27 08:05] LABS: Glucometer 88 mg/dL (74-106)
[2023-11-27] MEDS: IBUPROFEN 400 MG TABLET 800 MG PO ×3 (08:20→19:26)
[2023-11-27] MEDS: DOCUSATE SODIUM 100 MG CAPSULE PO ×2 (08:20→21:29)
[2023-11-27] MEDS: ACETAMINOPHEN 500 MG TABLET 1000 MG PO ×3 (08:21→23:27)
--- NOTE | 2023-11-27 09:21 | PM.OBPN ---
OB - PN: Subj Subjective Patient comments: no complaints and pain well controlled [place] status: doing well Exam Constitutional Vital Signs, click to edit/add: Last Vital Signs Temp 97.4 F L 11/27/23 03:43 Pulse 66 11/27/23 03:42 Resp 16 11/27/23 03:43 BP 112/53 11/27/23 03:42 Pulse Ox 100 11/26/23 11:00 O2 Del Method Room Air 11/27/23 03:46 Documenting provider has reviewed patient's vital signs: yes Common normals: no apparent distress Respiratory Common normals: normal respiratory effort and clear to auscultation bilaterally Cardio Common normals: regular rate and regular rhythm GI Common normals: Normal to inspection, nondistended, normoactive bowel sounds present Extremity Common normals: no clubbing, cyanosis or edema Results Labs Labs: Short CBC 11/27/23 Range/Units 06:45 WBC 16.4 H (4.0-11.0) 10^3/uL Hgb 8.1 L (12.0-16.0) g/dL Hct 26.4 L (36.0-48.0) % Plt Count 200 (150-450) 10^3/uL Urinary Catheter Management Urinary Catheter Management Urethral: Cath placed during this visit: no OB - PN: A/P Plan - day: 1 Plan: routine postop care Time Spent with Patient Time: Total time spent is greater than 50% in coordination of care (as documented) at patient's floor/unit and/or counseling patient: Total time spent with greater than 50% in coordination of care (as documented) at patient's floor/unit and/or counseling patient: less than 15 minutes
[2023-11-27 11:20] VITALS: BP 120/58; PULSE 102
[2023-11-27 16:30] VITALS: TEMP 36.5
[2023-11-27 16:35] VITALS: BP 117/66; PULSE 93
--- NOTE | 2023-11-27 19:16 | W.PC.ACHO ---
Registration Status: ADM IN Primary Language: Sammarinese Preferred Language: Sammarinese Report given at 1910. Active Medications Generic Name Dose Route Start Last Admin Trade Name Freq PRN Reason Stop Dose Admin Acetaminophen 1,000 mg 11/26/23 16:00 11/27/23 16:35 Acetaminophen 500 Mg Tablet PO 11/28/23 16:01 1,000 mg Q8H CAITIE Administration Al Hydroxide/Mg Hydroxide 2,400 mg 11/26/23 09:16 Magnesium Hydroxide 2,400 Mg/10 Ml Oral.Susp PO Q6H PRN Dyspepsia Diphtheria/Pertussis/Tetanus Vacc 0.5 ml 11/28/23 09:00 Adacel Diph,Pertuss(Acell),Tet Vac/Pf 0.5 Ml Adult Syringe IM 11/28/23 09:01 .ONCE ONE Docusate Sodium 100 mg 11/27/23 09:00 11/27/23 08:20 Docusate Sodium 100 Mg Capsule PO 100 mg BID CAITIE Administration Enoxaparin Sodium 40 mg 11/26/23 21:00 11/26/23 21:10 Enoxaparin Sodium 40 Mg/0.4 Ml Syringe SUBQ 40 mg Q24H CAITIE Administration Sodium Chloride 1,000 mls @ 125 mls/hr 11/26/23 09:30 Sodium Chloride 0.9% 1,000 Ml IV .Q8H CAITIE Promethazine HCl 25 mg/ Sodium 51 mls @ 204 mls/hr 11/26/23 09:16 Chloride IV Q6H PRN Nausea And Vomiting Ibuprofen 800 mg 11/27/23 08:00 11/27/23 14:49 Ibuprofen 400 Mg Tablet PO 800 mg Q6H CAITIE Administration Measles/Mumps/Rubella Vaccine Live 0.5 ml 11/28/23 09:00 Measles,Mumps,Rubella Vacc/Pf 0.5 Ml Vial SQ 11/28/23 09:01 .ONCE ONE Ondansetron HCl 4 mg 11/26/23 09:16 Ondansetron Pf 4 Mg/2 Ml Vial IV Q6H PRN Nausea And Vomiting Ondansetron HCl 4 mg 11/26/23 09:16 Ondansetron 4 Mg Rapdis Tablet PO Q6H PRN Nausea And Vomiting Oxycodone HCl 5 mg 11/26/23 09:16 Oxycodone Hcl 5 Mg Tablet PO Q4H PRN Breakthrough Pain Senna 17.2 mg 11/26/23 20:00 Sennosides 8.6 Mg Tablet PO QHS PRN Constipation Simethicone 80 mg 11/26/23 09:16 Simethicone 80 Mg Tab.Chew PO QID PRN Abdominal Distention Respiratory Oxygen Delivery Method Room Air Oxygen Delivery Method Room Air Oxygen Delivery Method Room Air Oxygen Delivery Method Room Air Cardiology Heart Sounds Strong,Regular Bowels Bowel Pattern No Bowel Movement Renal Bladder Pattern Continent
[2023-11-27] MEDS: SENNOSIDES 8.6 MG TABLET 17.2 MG PO (19:25)
[2023-11-27] MEDS: SIMETHICONE 80 MG TAB.CHEW PO (19:26)
[2023-11-27] MEDS: ENOXAPARIN SODIUM 40 MG/0.4 ML SYRINGE SUBQ (22:40)
[2023-11-27 23:29] VITALS: BP 112/60; PULSE 72
[2023-11-28] MEDS: IBUPROFEN 400 MG TABLET 800 MG PO ×2 (02:04→08:30)
--- NOTE | 2023-11-28 07:35 | W.PC.ACHO ---
Registration Status: ADM IN Primary Language: Croatian Preferred Language: Croatian Report received from Khris YUAN at 0715. Active Medications Generic Name Dose Route Start Last Admin Trade Name Freq PRN Reason Stop Dose Admin Acetaminophen 1,000 mg 11/26/23 16:00 11/27/23 23:27 Acetaminophen 500 Mg Tablet PO 11/28/23 16:01 1,000 mg Q8H CAITIE Administration Al Hydroxide/Mg Hydroxide 2,400 mg 11/26/23 09:16 Magnesium Hydroxide 2,400 Mg/10 Ml Oral.Susp PO Q6H PRN Dyspepsia Diphtheria/Pertussis/Tetanus Vacc 0.5 ml 11/28/23 09:00 Adacel Diph,Pertuss(Acell),Tet Vac/Pf 0.5 Ml Adult Syringe IM 11/28/23 09:01 .ONCE ONE Docusate Sodium 100 mg 11/27/23 09:00 11/27/23 21:29 Docusate Sodium 100 Mg Capsule PO 100 mg BID CAITIE Administration Enoxaparin Sodium 40 mg 11/26/23 21:00 11/27/23 22:40 Enoxaparin Sodium 40 Mg/0.4 Ml Syringe SUBQ 40 mg Q24H CAITIE Administration Sodium Chloride 1,000 mls @ 125 mls/hr 11/26/23 09:30 Sodium Chloride 0.9% 1,000 Ml IV .Q8H CAITIE Promethazine HCl 25 mg/ Sodium 51 mls @ 204 mls/hr 11/26/23 09:16 Chloride IV Q6H PRN Nausea And Vomiting Ibuprofen 800 mg 11/27/23 08:00 11/28/23 02:04 Ibuprofen 400 Mg Tablet PO 800 mg Q6H CAITIE Administration Measles/Mumps/Rubella Vaccine Live 0.5 ml 11/28/23 09:00 Measles,Mumps,Rubella Vacc/Pf 0.5 Ml Vial SQ 11/28/23 09:01 .ONCE ONE Ondansetron HCl 4 mg 11/26/23 09:16 Ondansetron Pf 4 Mg/2 Ml Vial IV Q6H PRN Nausea And Vomiting Ondansetron HCl 4 mg 11/26/23 09:16 Ondansetron 4 Mg Rapdis Tablet PO Q6H PRN Nausea And Vomiting Oxycodone HCl 5 mg 11/26/23 09:16 Oxycodone Hcl 5 Mg Tablet PO Q4H PRN Breakthrough Pain Senna 17.2 mg 11/26/23 20:00 11/27/23 19:25 Sennosides 8.6 Mg Tablet PO 17.2 mg QHS PRN Administration Constipation Simethicone 80 mg 11/26/23 09:16 11/27/23 19:26 Simethicone 80 Mg Tab.Chew PO 80 mg QID PRN Administration Abdominal Distention Respiratory Oxygen Delivery Method Room Air Oxygen Delivery Method Room Air Cardiology Heart Sounds Strong,Regular Bowels Bowel Pattern Constipated Renal Bladder Pattern Continent
[2023-11-28 08:00] VITALS: TEMP 36.4
[2023-11-28] MEDS: DOCUSATE SODIUM 100 MG CAPSULE PO (08:17)
[2023-11-28 08:19] VITALS: BP 118/75; PULSE 80
[2023-11-28] MEDS: ACETAMINOPHEN 500 MG TABLET 1000 MG PO (09:06)
--- NOTE | 2023-11-28 11:42 | PM.OBDS ---
DS: Providers Provider Date of admission: 11/26/23 05:09 Primary care physician: Maximus Parmar DO Admitting clinician: Tae Cody Attending physician on discharge: Gaby Muniz Anticipated date of discharge: 11/28/23 DS: Diagnosis Discharge Diagnosis (1) delivery delivered: Assessment and plan: condition good, continue vitamins, activity instructions given, wanting to be discharge Plan discharge home, instructions given, stated understanding, Dr. Cody provided with home going prescriptions, follow up appointment for incision check made OB - DS: Summary Hospital Course Hospital Course: uncomplicated Time spent discussing smoking cessation with patient: more than 10 minutes Peripartum Data - Procedures: Procedures Operation Date: 11/26/23 07:30 Actual Procedure Side Surgeon p Repeat Not Applicable Tae Cody DO Peripartum Data - Vaginal Delivery Procedures: Procedures Operation Date: 11/26/23 07:30 Actual Procedure Side Surgeon p Repeat Not Applicable Tae Cody DO Complications complications: none Infant Delivery method: section Gender: male Discharge plan: home Status at Discharge Functional status at discharge: independent ambulation Overall status at discharge: patient is progressing back to baseline Time Spent with Patient Time attestation: Total time spent providing and/or coordinating discharge services: Time spent: less than 30 minutes Specific discharge activities: stated above Exam Narrative Exam Narrative: voicing no complaints Constitutional Vital Signs, click to edit/add: Last Vital Signs Temp 97.6 F 11/28/23 08:00 Pulse 80 11/28/23 08:19 Resp 16 11/28/23 08:00 BP 118/75 11/28/23 08:19 Pulse Ox 100 11/26/23 11:00 O2 Del Method Room Air 11/28/23 08:00 Documenting provider has reviewed patient's vital signs: yes Common normals: no apparent distress Orientation/consciousness: Yes awake, Yes oriented to person, Yes oriented to place and Yes oriented to time HENMT Common normals: normocephalic and head/scalp atraumatic Eye Common normals: PERRL Pupil: accommodation reflex normal Neck & C-Spine Common normals: full ROM and supple Respiratory Common normals: normal respiratory effort and no retractions Cardio Common normals: regular rate and regular rhythm GI Common normals: Normal to inspection, nondistended, normoactive bowel sounds present and soft to palpation Common normals: no CVA tenderness Back & Pelvis Common normals: no thoracic nor lumbar tenderness Extremity Common normals: normal to inspection, full ROM and no calf tenderness Neuro Common normals: CN's II-XII intact bilaterally, moves all extremities, no focal motor deficits and no sensory deficits noted Psych Common normals: mental status grossly normal, thought process normal, cooperative, affect normal and speech normal Discharge Plan Discharge Disposition: Home, Self-Care Condition: Good Assessment: condition good, asking to be discharged Health Concerns: none Plan of Treatment: follow up in one week for incision check Discharge Medications: New ibuprofen 800 mg tablet 800 mg PO Q8H PRN (Reason: pain) 14 Days Qty: 40 0RF Continued Pro Fe 180 mg iron capsule 180 mg PO DAILY insulin glargine [Basaglar KwikPen U-100 Insulin] 100 unit/mL (3 mL) insulin pen 12 unit subcut DAILY loratadine [Claritin] 10 mg tablet 10 mg PO DAILY [id number] [ 1] .ROUTE Activity: increase activity as tolerated Activity Detail: no sex six weeks, no swimming six weeks, may climb stairs, no driving six weeks except for doctor appointment, sports bra on 30/11, call for problem or concern, Dr. Cody provided home prescriptions Diet: regular diet Print Language: Tanzanian Patient Instructions: (DC) Activity Restrictions/Additional Instructions: stated above Forms: Delivery - Discharge, Portal Instructions Follow Up Appointments: 1 WEEK INCISION CHECK Discharge location: home
== END 2023-11-28 11:45 | disposition home or self-care (01) | DRG 540 ==
PROVIDERS: Admitting Provider Obstetrics & Gynecology; PCP Family Medicine; Visit Provider Obstetrics & Gynecology
PROC: 10D00Z1 Extraction of Products of Conception, Low, Open Approach (ICD-10-PCS; CPT 59514; principal; 2023-11-26 07:30)
DX: O34.211 Maternal care for low transverse scar from previous cesarean delivery (principal); O24.424 Gestational diabetes mellitus in childbirth, insulin controlled; Z3A.38 38 weeks gestation of pregnancy; Z37.0 Single live birth; Z91.199 Patient's noncompliance with other medical treatment and regimen due to unspecified reason
CPT/HCPCS: 36415; 64488; 76818; 80307; 82948; 85025; 86850; 86900; 86901; 94667; 94668; 96372; 96374; 96375; 96376; J0131; J0665; J0690; J1100; J1170; J1200; J1650; J1885; J2274; J2300; J2371; J2405; J2590; J2765

== ENCOUNTER 2023-12-04 21:42 | Emergency (ER) | payer OTHER, SELFPAY ==
--- OUTSIDE RECORDS SUMMARY | 2023-12-04 21:54 | XMS_ITS | CCD ---
Author Organization [facility] Care Team Providers Care Soda Worker Name Role Phone Maximus Lorenzana Unavailable DR MAXIMUS LORENZANA Primary Care Unavailable RENEE BORJAS Admitting Unavailable ERNEE BORJAS Attending Unavailable RENEE BORJAS Consulting Unavailable [...] Facility (5 sources) Azithromycin Drug Allergy migraines [facility] Other Medications Current Medications Medication Drug Class(es) Dates Sig (Normalized) Sig (Original) [id number] 200 actuat albuterol 0.09 mg/actuat metered dose [...] 11-29-2022 FLUAV Ab CF (S) [Titer] Positive [facility] Other FLUBV Ab CF (S) [Titer] Negative [facility] Other PAP ACOG PANEL 2: 21 to 29on 04-04-2022 . . Normal [facility] Comment on above: Performed By: #### [id number] #### [facility] [address] [place] [address] Dr. Aranza Dolan Age Gdln ACOG Testing Normal [facility] Comment on above: Performed By: #### [id number] #### [facility] [address] [place] [address] Dr. Aranza Dolan DIAGNOSIS: Comment Abnormal [facility] Comment on above: Result Comment: EPIT HELIAL CELL ABNORMALITY. ATYPICAL SQUAMOUS CELLS OF UNDETERMINED SIGNIFICANCE (ASC-US). FUNGAL ORGANISMS MORPHOLOGICALLY CONSISTENT WITH RAQUEL SPECIES ARE PRESENT. Performed By: #### [id number] #### [facility] [address] [place] [address] Dr. Aranza Dolan Electronically signed by: Comment Normal [facility] Comment on above: Result Comment: Adelina Ochoa MD, Pathologist Performed By: #### [id number] #### [facility] [address] [place] [address] Dr. Aranza Dolan HPV Aptima Negative Normal Negative [facility] Comment on above: Result Comment: This nucleic acid amplification test detects fourteen high-risk HPV types (16,18,31,33,35,39,45,51,52,56,58,59,66,68) without differentiation. Performed By: #### [id number] #### [facility] [address] [place] [address] Dr. Aranza Dolan Methodology: Comment Normal [facility] Comment on above: Result Comment: This liquid based ThinPrep(R) pap test was screened with the use of an image guided system. Performed By: #### [id number] #### [facility] [address] [place] [address] Dr. Aranza Dolan Note: Comment Normal [facility] Comment on above: Result Comment: The Pap smear is a screening test designed to aid in the detection of premalignant and malignant conditions of the uterine cervix. It is not a diagnostic procedure and should not be used as the sole means of detecting cervical cancer. Both false-positive and false-negative reports do occur. . Performed By: #### [id number] #### [facility] [address] [place] [address] Dr. Aranza Dolan Pathologist Provided ICD10 Comment Normal [facility] Comment on above: Result Comment: R87. 610, R87.5 Performed By: #### [id number] #### [facility] [address] [place] [address] Dr. Aranza Dolan Performed by: Comment Normal [facility] Comment on above: Result Comment: Francheska Gee Lining Marker (ASCP) Performed By: #### [id number] #### [facility] [address] [place] [address] Dr. Aranza Dolan Recommendation: Comment Abnormal [facility] Comment on above: Result Comment: Sugg est follow up as clinically appropriate. Performed By: #### [id number] #### [facility] [address] [place] [address] Dr. Aranza Dolan Reflex Criteria: Comment Normal [facility] Comment on above: Result Comment: See below for HPV testing results. . Performed By: #### [id number] #### [facility] [address] [place] [address] Dr. Aranza Dolan Specimen adequacy: Comment Normal [facility] Comment on above: Result Comment: Sati sfactory for evaluation. Endocervical and/or squamous metaplastic cells (endocervical component) are present. Performed By: #### [id number] #### [facility] [address] [place] [address] Dr. Aranza Dolan Covid-19 PCR ([facility])on 03-11 SARS-CoV-2 (COVID-19) RNA RAMON+probe Ql (Unsp spec) Detected Critically abnormal NOT DETECTED [facility] Comment on above: Result Comment: This test is not yet approved or cleared by the [place] FDA. When there are no FDA-approved or cleared tests available, and other criteria are met, FDA can make tests available under an emergency access mechanism called an Emergency Use Authorization (EUA). The EUA for this test is supported by the Planning Rn of Health and Human Service's declaration that [...] used). Performed By: #### C [facility] #### [facility] [address] [place] [address] Dr. Aranza Dolan Vital Signs Date Time Vital Sign Value Performing Clinician Facility 11-13-2021 16:45-0400 Body height 170.18 cm Maximus Lorenzana Other [facility] Other 11-13-2021 16:45-0400 Body mass index (BMI) [Ratio] 33.83 kg/m2 Maximus Lorenzana Other [facility] Other 11-13-2021 16:45-0400 Body weight 97.98 kg Maximus Lorenzana Other [facility] Other 11-13-2021 16:45-0400 Diastolic blood pressure 80 mm[Hg] Maximus Lorenzana Other [facility] Other 11-13-2021 16:45-0400 Respiratory rate 16 /min Maximus Lorenzana Other [facility] Other 11-13-2021 16:45-0400 SaO2% (BldA) [Mass fraction] 98 % Maximus Lorenzana Other [facility] Other 11-13-2021 16:45-7610 Systolic blood pressure 126 mm[Hg] Maximus Lorenzana Other [facility] Other Encounters Encounter Date Encounter Type Care Provider Facility Start: 11-09-2023 End: 11-09-2023 ambulatory ERMELINDA ALVARO Not Available Start: 11-02-2023 End: 11-02-2023 ambulatory ERMELINDA ALVARO Not Available Start: 10-19-2023 End: 10-19-2023 ambulatory ERMELINDA ALVARO Not Available Start: 10-05-2023 End: 10-05-2023 ambulatory ERMELINDA ALVARO Not Available Start: 09-21-2023 End: 09-21-2023 ambulatory ERMELINDA ALVARO Not Available Start: 09-07-2023 End: 09-07-2023 ambulatory PHYLLIS UJLEE Not Available Start: 08-10-2023 End: 08-10-2023 ambulatory ERMELINDA ALVARO Not Available Start: 07-13-2023 End: 07-13-2023 ambulatory PHYLLIS JULEE Not Available Start: 06-15-2023 End: 06-15-2023 ambulatory ERMELINDA ALVARO Not Available Start: 05-14-2023 End: 05-14-2023 ambulatory ERMELINDA ALVARO Not Available Start: 04-06-2023 End: 04-06-2023 ambulatory ERMELINDA ALVARO Not Available Start: 04-15-2022 End: 04-15-2022 ambulatory Maximus Lorenzana Other [facility] Other Start: 04-15-2022 Telephone encounter Maximus Lorenzana [facility] Start: 04-07-2022 End: 04-07-2022 ambulatory Maximus Lorenzana Other [facility] Other Start: 04-07-2022 Nursing evaluation o f patient and report Maximus Lorenzana [facility] Start: 04-07-2022 Telephone encounter [facility] Start: 03-24-2022 End: 03-24-[address] ERMELINDA ALVARO Facility: Start: 11-13-2021 End: 11-13-2021 ambulatory Maximus Lorenzana Other [facility] Other Start: 11-13-2021 Office outpatient vi sit 15 minutes Maximus Lorenzana [facility] [place] Start: 11-13-2021 Telephone encounter Maximus Lorenzana [facility] Start: 04-07-2021 End: 04-07-[address] MAXIMUS LORENZANA Facility:[facility]1 Immunizations Immunization Date Immunization Notes Care Provider Chalino holt NEGATED: Highlighted row has not occurred!07-18-2019 influenza, seasonal, injectable Patient Objection Maximus Lorenzana Other [facility] Other Payers Date Payer Category Payer Medicaid [id number] 1994 Unknown [id number] 2.16.84 [id number] 1994 Unknown [id number] 2.16.84 [id number] 1994 Unknown [id number] 2.16.84 0.1.883647.3.579.2.1259 1994 Unknown [id number] 2.16.84 0.1.067457.3.579.2.1259 1994 Unknown [id number] 2.16.84 0.1.634537.3.579.2.1259 1994 Unknown [id number] 2.16.84 0.1.825610.3.579.2.1259 1994 Unknown [id number] 2.16.84 0.1.016309.3.579.2.1259 1994 Unknown [id number] 2.16.84 0.1.181210.3.579.2.1259 1994 Unknown [id number] 2.16.84 0.1.350438.3.579.2.1259 1994 Unknown [id number] 2.16.84 0.1.546624.3.579.2.1259 1994 Unknown [id number] 2.16.84 0.1.235646.3.579.2.1259 1994 Unknown [id number] 2.16.840 .1.985162.3.579.2.1259 1994 Unknown [id number] 2.16.840 .1.729597.3.579.2.1259 1994 Unknown [id number] 2.16.840 .1.017473.3.579.2.1259 1959 Unknown [id number] 2.1 [id number] Social History Date Type Detail Facility Unknown if ever smoked [facility] Other Sex Assigned At Sex Assigned At Bir th [facility] Other Evaluation note 04-07-2022 Note Date & Type Note Facility 04-07-2022 Evaluation note Encounter Date Diagnosis Assessment Notes Mar, Acute cough (ICD-10 - R05.1) [facility] Other Evaluation note 11-13-2021 Note Date & Type Note Facility 11-13-2021 Evaluation note Encounter Date Diagnosis Assessment Notes Nov, Insect bite (nonvenomous) of right upper arm, initial encounter (ICD-10 - S40.861A) Noted of left forearm. I did prescribe the above prednisone and patient is to continue taking benadryl at bedtime. Patient is to call next week with an update. [facility] Other History general Narrative - Reported 06-24-2016 Note Date & Type Note Facility 06-24-2016 History general N arrative - Reported Type Medical History follows with Dr. Ananth Cody for PAP Medical History Biometric Screening 06[place]24/[place] [facility] Medical History 02/13/2019 EKG Surgical History tubes in ears Surgical History 03/05/21 Hospitalization History Childbirth [facility] Other Evaluation note Note Date & Type Note Facility Evaluation note No Information [facility] Other Summary Purpose Family History No Family [...] DATE CREATED AUTHOR 'S ORGANIZ ATION 11/10/2023 [facility] EPIC FOR RECORDS PERTAINING TO [...] BE BASED ON THE PRIMARY CLINICAL RECORDS. [employer] provides no warranty or guarantee of the accuracy or completeness of information in this document.
[2023-12-04 22:05] VITALS: BP 132/98; PULSE 88; TEMP 36.9; O2SAT 100; BMI 37.4
== END 2023-12-04 22:22 | disposition left against medical advice (07) ==
PROVIDERS: Emergency Provider Internal Medicine; PCP Family Medicine
DX: Z53.21 Procedure and treatment not carried out due to patient leaving prior to being seen by health care provider (principal)

== ENCOUNTER 2023-12-29 09:59 | Outpatient (OUT) | payer OTHER, SELFPAY ==
--- OUTSIDE RECORDS SUMMARY | 2023-12-29 10:24 | XMS_ITS | CCD ---
Author Organization [facility] Team Providers Care House Director Name Role Phone Maximus Lorenzana Unavailable DR [...] LADD Attending Unavailable ALVARO, ERMELINDA Attending Unavailable ERMELINDA CODY Attending Unavailable ALVARO, ERMELINDA Attending Unavailable ALVARO, ERMELINDA Attending Unavailable ERMELINDA CODY Attending Unavailable JESÚS GARDUNO~[id number] Attending Unavailable Allergies Allergy Classification Reported Allergen(s) Allergy Type Date of Onset Reaction(s) Facility (5 sources) Azithromycin Drug Allergy migraines [place] Other Medications Current Medications Medication Drug Class(es) Dates Sig (Normalized) Sig (Original) [id number] 200 actuat albuterol 0.09 mg/actuat metered dose [...] SCREENING MALIG NEOPLASM CERV] Onset: 03-24-2022 Episodic Other skin disorders (1 source) Rash and other nonspecific skin eruption; Translations: [Rash and other nonspecific skin eruption] Onset: 12-04-2023 Episodic Unclassified (2 sources) CONTACT W/AND (SUSP) [...] Test Name Value Interpretation Reference Range Facility Velma Ewing 04-07-2022 FLUAV Ab CF (S) [Titer] Positive [employer] [address] [facility] [employer] Other FLUBV Ab CF (S) [Titer] Negative [place] Other PAP ACOG PANEL 2: 21 to 29on 04-04-2022 . . Normal [facility] Comment on above: Performed By: #### [id number] #### [facility] [address] [place] [address] Dr. Aranza Dolan Age Gdln ACOG Testing Normal [facility] Comment on above: Performed By: #### [id number] #### [facility] [address] [place] [address] Dr. Aranza Dolan DIAGNOSIS: Comment Abnormal [facility] Comment on above: Result Comment: EPIT HELIAL CELL ABNORMALITY. ATYPICAL SQUAMOUS CELLS OF UNDETERMINED SIGNIFICANCE (ASC-US). FUNGAL ORGANISMS MORPHOLOGICALLY CONSISTENT WITH RAQUEL SPECIES ARE PRESENT. Performed By: #### [id number] #### [facility] [address] [place] [address] Dr. Aranza Dolan Electronically signed by: Comment Normal [facility] Comment on above: Result Comment: Adelina Ochoa MD, Pathologist Performed By: #### [id number] #### [facility] [address] [place] [address] Dr. Aranza Dolan HPV Aptima Negative Normal Negative [facility] Comment on above: Result Comment: This nucleic acid amplification test detects fourteen high-risk HPV types (16,18,31,33,35,39,45,51,52,56,58,59,66,68) without differentiation. Performed By: #### 4 [id number] #### [facility] [address] [place] [address] Dr. Aranza Dolan Methodology: Comment Normal [facility] Comment on above: Result Comment: This liquid based ThinPrep(R) pap test was screened with the use of an image guided system. Performed By: #### [id number] #### [facility] [address] [place] [address] Dr. Aranza Dolan Note: Comment Normal [facility] Comment on above: Result Comment: The Pap smear is a screening test designed to aid in the detection of premalignant and malignant conditions of the uterine cervix. It is not a diagnostic procedure and should not be used as the sole means of detecting cervical cancer. Both false-positive and false-negative reports do occur. . Performed By: #### 4 [id number] #### [facility] [address] [place] [address] Dr. Aranza Dolan Pathologist Provided ICD10 Comment Normal [facility] Comment on above: Result Comment: R87. 610, R87.5 Performed By: #### 4 [id number] #### [facility] [address] [place] [address] Dr. Aranza Dolan Performed by: Comment Normal [facility] Comment on above: Result Comment: Francheska [employer] (ASCP) Performed By: #### 4 [id number] #### [facility] [address] [place] [address] Dr. Aranza Dolan Recommendation: Comment Abnormal [facility] Comment on above: Result Comment: Sugg est follow up as clinically appropriate. Performed By: #### 4 [id number] #### [facility] [address] [place] [address] Dr. Aranza Dolan Reflex Criteria: Comment Normal [facility] Comment on above: Result Comment: See below for HPV testing results. . Performed By: #### 4 [id number] #### [facility] [address] [address] [address] Aranza Dolan Specimen adequacy: Comment Normal [facility] Comment on above: Result Comment: Sati sfactory for evaluation. Endocervical and/or squamous metaplastic cells (endocervical component) are present. Performed By: #### 4 [id number] #### [facility] [address] [place] [address] Dr. Aranza Dolan Covid-19 PCR (CVDTBH)on 03-11 SARS-CoV-2 (COVID-19) RNA RAMON+probe Ql (Unsp spec) Detected Critically abnormal NOT DETECTED [facility] Comment on above: Result Comment: This test is not yet approved or cleared by the [place] FDA. When there are no FDA-approved or cleared tests available, and other criteria are met, FDA can make tests available under an emergency access mechanism called an Emergency Use Authorization (EUA). The EUA for this test is supported by the Charging Car Operator of Health and Human Service's declaration [...] longer be used). Performed By: #### C [facility] #### [facility] [address] [place] [address] Dr. Aranza Dolan Vital Signs Date Time Vital Sign Value Performing Clinician Facility 11-13-2021 16:45-0400 Body height 170.18 cm Maximus Lorenzana Other [place] Other 11-13-2021 16:45-0400 Body mass index (BMI) [Ratio] 33.83 kg/m2 Maximus Lorenzana Other [place] Other 11-13-2021 16:45-0400 Body weight 97.98 kg Maximus Lorenzana Other [place] Other 11-13-2021 16:45-0400 Diastolic blood pressure 80 mm[Hg] Maximus Lorenzana Other [place] Other 11-13-2021 16:45-0400 Respiratory rate 16 /min Maximus Lorenzana Other [place] Other 11-13-2021 16:45-0400 SaO2% (BldA) [Mass fraction] 98 % Maximus Lorenzana Other [place] Other 11-13-2021 16:45-0400 Systolic blood pressure 126 mm[Hg] Maximus Lorenzana Other [place] Other Encounters Encounter Date Encounter Type Care Provider Facility Start: 12-04-2023 End: 12-05-2023 Emergency department patient visit JESÚS Dang~[id number] [facility] Start: 11-09-2023 End: 11-09-2023 ambulatory ERMELINDA ALVARO [...] 04-15-2022 End: 04-15-2022 ambulatory Maximus Lorenzana Other [place] Other Start: 04-15-2022 Telephone encounter Maximus Lorenzana [facility] Start: 04-07-2022 End: 04-07-2022 ambulatory Maximus Lorenzana Other [place] Other Start: 04-07-2022 Nursing evaluation o f patient and report Maximus Lorenzana [facility] [place] Start: 04-07-2022 Telephone encounter Maximus LEGGETT [facility] [place] Start: 03-24-2022 End: 03-24-[address] ERMELINDA CODY Facility:[facility] Start: 11-13-2021 End: 11-13-2021 ambulatory Maximus Lorenzana Other [place] Other Start: 11-13-2021 Office outpatient visit 15 minutes Maximus Lorenzana [facility] Start: 11-13-2021 Telephone encounter Maximus Lorenzana [facility] Start: 04-07-2021 End: 04-07-[address] MAXIMUS LORENZANA Facility:[facility] Immunizations Immunization Date Immunization Notes Care Provider Fa cility NEGATED: Highlighted row has not occurred!07-18-2019 influenza, seasonal, injectable Patient Objection Maximus Lorenzana Other [place] Other Payers Date Payer Category Payer Medicaid [id number] 1995 Unknown [id number] 2.16.84 0.1.888215.3.579.2.593 1995 Unknown [id number] 2.16.84 0.1.387594.3.579.2.593 1995 Unknown [id number] 2.16.84 0.1.361647.3.579.2.1259 1994 Unknown [id number] 2.16.84 0.1.701900.3.579.2.1259 1994 Unknown [id number] 2.16.84 0.1.800830.3.579.2.1259 1994 Unknown [id number] 2.16.84 0.1.343719.3.579.2.1259 1994 Unknown [id number] 2.16.84 0.1.981824.3.579.2.1259 1994 Unknown [id number] 2.16.84 0.1.614184.3.579.2.1259 1994 Unknown [id number] 2.16.84 0.1.341761.3.579.2.1259 1994 Unknown [id number] 2.16.84 0.1.050073.3.579.2.1259 1994 Unknown [id number] 2.16.84 0.1.505628.3.579.2.1259 1994 Unknown [id number] 2.16.840 .1.838445.3.579.2.1259 1994 Unknown [id number] 2.16.840 .1.351942.3.579.2.1259 1994 Unknown [id number] 2.16.840 .1.372891.3.579.2.1259 1994 Unknown [id number] 2.16.8 40.1.873233.3.579.2.173 1959 Unknown [id number] 2.1 6.840.1.604770.19 Social History Date Type Detail Facility Unknown if ever smoked [place] Other Sex Assigned At Sex Assigned At Bir th [place] Other Evaluation note 04-07-2022 Note Date & Type Note Facility 04-07-2022 Evaluation note Encounter Date Diagnosis Assessment Notes Mar, Acute cough (ICD-10 - R05.1) [place] Other Evaluation note 11-13-2021 Note Date & Type Note Facility 11-13-2021 Evaluation note Encounter Date Diagnosis Assessment Notes Nov, Insect bite (nonvenomous) of right upper arm, initial encounter (ICD-10 - S40.861A) Noted of left forearm. I did prescribe the above prednisone and patient is to continue taking benadryl at bedtime. Patient is to call next week with an update. [place] Other History general Narrative - Reported 06-24-2016 Note Date & Type Note Facility 06-24-2016 History general N arrative - Reported Type Medical History follows with Dr. Ananth Cody for PAP Medical History Biometric Screening 06/24/16 [facility] [place], [place] Medical History 02/13/2019 EKG Surgical History tubes in ears Surgical History 03/05/21 Hospitalization History Childbirth [facility] [employer] Other Evaluation note Note Date & Type Note Facility Evaluation note No Information [facility] [employer] Other Summary Purpose Family History No Family History Records FoundNo Family History Records FoundNo Family History Records Found Advance Directives No Advanced Directives Records FoundNo Advanced Directives Records FoundNo Advanced Directives Records Found Additional Source Comments REASON FOR VISIT (unrecogniz ed section and content) Clinical Acute Illnessbug bi te on right armClinicalflu swab-( positive)Clinical INFORMATION SOURCE (unrecogn ized section and content) DATE CREATED AUTHOR 04/04/2022 [facility] DATE CREATED AUTHOR AUTHOR'S ORGANIZ ATION 11/10/2023 [facility] DATE CREATED AUTHOR AUTHOR'S ORGANIZ ATION 12/05/2023 [facility] FOR RECORDS PERTAINING TO PATIENTS WHO ARE [...] BE BASED ON THE PRIMARY CLINICAL RECORDS. [employer] provides no warranty or guarantee of the accuracy or completeness of information in this document.
--- NOTE | 2023-12-29 13:34 | PC.NURSE ---
Dea and Ramone arrive for feeding support. is bottle/formula fed by maternal choice. Mom reports that fed poorly on any bottle she tried,same as 1st child. PCP denied tongue or lip tie involvement, but mom had baby evaluated per pediatric dentist 12/24/2023 and was found to have both. Oral revision completed the same day. Mom was requested to follow up with for feeding progress. Mom is currently using Congregational bottle with #2 nipple. Describes infant as leaking formula, gassy, hiccups and easily frustrated wit feeds. Oral exam completed with gloved finger, infant does well with tug of war, high palate noted minimal lateralization of tongue left and right as well as extention of tongue to lips. With encouragement and massage baby does move tongue left to right more freely, but only extends tongue to gums not lip. Shown exercises for suck improvement, able to demo same. bottle fed with Congregational bottle (mom's choice), overwhelmed with flow, gulping and leaking milk. Shows tension in shoulders as gulps continue. Demo of slow paced feeding, more tolerant of feed. Mom replies I've never done that before, and other kids were fine . Discussed advantages of slow paced feeds for , verbalized understanding. then uses Evenflo bottle with wide nipple # 1, in slow paced position and baby feeds well, more relaxed, no longer struggles with flow of milk. Able to relax and allow upper lip to flange out slightly. Mom agrees more controlled feed, less leaking and less fussy, less stressed with feed. Encouraged to continue to use exercises to relax and strengthen muscles as will assist with feeding. will contact as needed for assistance. Mouth wounds healing well as mom continues to complete required stretches. Couplet home.
== END 2023-12-29 13:40 | disposition home or self-care (01) ==
LOC: FBCO 10:02
PROVIDERS: PCP Family Medicine; Visit Provider Obstetrics & Gynecology
DX: Z39.1 Encounter for care and examination of lactating mother (principal)

== ENCOUNTER 2024-02-05 08:44 | Outpatient (OUT) | payer OTHER, SELFPAY ==
--- NOTE | 2024-02-05 08:45 | US_ITS ---
The [address] [address] Patient Name: NEGIN BURNHAM MRN: [id number] date: 1995 Sex: F Assigned Patient Location: [place] Current Patient Location: [place] Accession/Order Number: [id number] Exam Date: 02/05/2024 08:47 Report Date: 02/05/2024 11:01 At the request of: MACIE LORENZANA Procedure: US thyroid EXAM: Ultrasound thyroid CLINICAL: Screening for endocrine disorder . Roberto Pearson pelvis pattern with a patch] the smaller TECHNIQUE: Ultrasound examination of the thyroid was performed. COMPARISON: None. FINDINGS: Thyroid Size: Right lobe: 5.7 x 1.9 x 1.6 cm; Left lobe: 4.8 x 1.5 x 2.1 cm; Isthmus: 0.3 cm Texture: Homogeneous Vascularity: Normal Total number of nodules of any character: 0. No discrete thyroid nodule. Additional findings: None. US/US thyroid IMPRESSION: 1. Normal thyroid ultrasound. Reference: ACR TI-RADS recommendations (Tessler et al., September 2016) Electronically authenticated by: BEBO CALDWELL Date: 02/05/2024 11:01
--- OUTSIDE RECORDS SUMMARY | 2024-02-05 08:46 | XMS_ITS | CCD ---
Author Organization [facility] Care Team Providers Care Intake Manager Name Role Phone Maximus Lorenzana Unavailable DR MAXIMUS LORENZANA Primary Care Unavailable RENEE BORJAS Admitting Unavailable RENEE BORJAS Attending Unavailable RENEE BORJAS Consulting Unavailable ALVARO, DR WADSWORTH Admitting Unavailable ALVARO, DR WADSWORTH Attending Unavailable GHULAM, DR QUIJANO Primary Care Unavailable ALVARO, DR WADSWORTH Consulting Unavailable JESÚS GARDUNO [id number] Attending Unavailable ALVARO, ERMELINDA Attending Unavailable ALVARO, ERMELINDA Attending Unavailable JULEEPHYLLIS Attending Unavailable ALVARO, ERMELINDA Attending Unavailable JULEE, [...] Facility (5 sources) Azithromycin Drug Allergy migraines [facility] Other Medications Current Medications Medication Drug Class(es) Dates Sig (Normalized) Sig (Original) [id number] 200 actuat albuterol 0.09 mg/actuat metered dose [...] 04-07-2022 FLUAV Ab CF (S) [Titer] Positive [facility] Other FLUBV Ab CF (S) [Titer] Negative [facility] Other PAP ACOG PANEL 2: 21 to 29on 04-04-2022 . . Normal [facility] Comment on above: Performed By: #### [id number] #### [facility] [address] [place] [address] Dr. Aranza Dolan Age Gdln ACOG Testing Normal [facility] Comment on above: Performed By: #### [id number] #### [facility] [address] [address] [address] Aranza Dolan DIAGNOSIS: Comment Abnormal [facility] Comment on above: Result Comment: EPIT HELIAL CELL ABNORMALITY. ATYPICAL SQUAMOUS CELLS OF UNDETERMINED SIGNIFICANCE (ASC-US). FUNGAL ORGANISMS MORPHOLOGICALLY CONSISTENT WITH RAQUEL SPECIES ARE PRESENT. Performed By: #### [id number] #### [facility] [address] [place] [address] Dr. Aranza Dolan Electronically signed by: Comment Normal [facility] Comment on above: Result Comment: Adelina Ochoa MD, Pathologist Performed By: #### [id number] #### [facility] [address] [address] [address] Aranza Dolan HPV Aptima Negative Normal Negative [facility] Comment on above: Result Comment: This nucleic acid amplification test detects fourteen high-risk HPV types (16,18,31,33,35,39,45,51,52,56,58,59,66,68) without differentiation. Performed By: #### [id number] #### [facility] [address] [place] [address] Dr. Aranza Dolan Methodology: Comment Normal [facility] Comment on above: Result Comment: This liquid based ThinPrep(R) pap test was screened with the use of an image guided system. Performed By: #### [id number] #### [facility] [address] [address] [address] Aranza Dolan Note: Comment Normal [facility] Comment on above: Result Comment: The Pap smear is a screening test designed to aid in the detection of premalignant and malignant conditions of the uterine cervix. It is not a diagnostic procedure and should not be used as the sole means of detecting cervical cancer. Both false-positive and false-negative reports do occur. . Performed By: #### [id number] #### [facility] [address] [place] [address] Dr. Aranza Dolan Pathologist Provided ICD10 Comment Normal [facility] Comment on above: Result Comment: R87. 610, R87.5 Performed By: #### [id number] #### [facility] [address] [place] [address] Dr. Aranza Dolan Performed by: Comment Normal [facility] Comment on above: Result Comment: Francheska Gee Stitch Burnisher (ASCP) Performed By: #### 4 [id number] #### [facility] [address] [place] [address] Dr. Aranza Dolan Recommendation: Comment Abnormal [facility] Comment on above: Result Comment: Sugg est follow up as clinically appropriate. Performed By: #### 4 [id number] #### [facility] [address] [place] [address] Dr. Aranza Dolan Reflex Criteria: Comment Normal [facility] Comment on above: Result Comment: See below for HPV testing results. . Performed By: #### 4 [id number] #### [facility] [address] [place] [address] Dr. Aranza Dolan Specimen adequacy: Comment Normal [facility] Comment on above: Result Comment: Sati sfactory for evaluation. Endocervical and/or squamous metaplastic cells (endocervical component) are present. Performed By: #### 4 [id number] #### [facility] [address] [place], [place] [address] Dr. Aranza Dolan Covid-19 PCR ([facility])on 03-11 SARS-CoV-2 (COVID-19) RNA RAMON+probe Ql (Unsp spec) Detected Critically abnormal NOT DETECTED [facility] Comment on above: Result Comment: This test is not yet approved or cleared by the [place] FDA. When there are no FDA-approved or cleared tests available, and other criteria are met, FDA can make tests available under an emergency access mechanism called an Emergency Use Authorization (EUA). The EUA for this test is supported by the [place] of Health and Human Service's declaration that [...] longer be used). Performed By: #### C [id number] #### [facility] [address] [place], [place] [address] Dr. Aranza Dolan Vital Signs Date Time Vital Sign Value Performing Clinician Facility 11-13-2021 16:45-0400 Body height 170.18 cm Maximus Lorenzana Other [facility] Other 11-13-2021 16:45-0400 Body mass index (BMI) [Ratio] 33.83 kg/m2 Maximus Lorenzana Other [facility] Other 11-13-2021 16:45-0400 Body weight 97.98 kg Maximus Lorenzana Other [facility] Other 11-13-2021 16:45-0400 Diastolic blood pressure 80 mm[Hg] Maximus Lorenzana Other [facility] Other 07-07-2022 16:45-0400 Respiratory rate 16 /min Maximus Ulloalillian Other [facility] Other 11-13-2021 16:45-0400 SaO2% (BldA) [Mass fraction] 98 % Maximus Lorenzana Other [facility] Other 11-13-2021 16:45-0400 Systolic blood pressure 126 mm[Hg] Maximus Ghulam Other [facility] Other Encounters Encounter Date Encounter Type Care Provider Facility Start: 01-13-2024 End: 01-13-2024 ambulatory ERMELINDA ALVARO Not Available Start: 12-28-2023 End: 12-28-2023 ambulatory ERMELINDA ALVARO Not Available Start: 12-04-2023 End: 12-05-2023 Emergency department patient visit JESÚS [id number] [facility] Start: 12-02-2023 End: 12-02-2023 ambulatory PHYLLIS JULEE Not Available Start: 11-23-2023 End: 11-23-2023 ambulatory ERMELINDA ALVARO Not Available Start: 11-16-2023 End: 11-16-2023 ambulatory ERMELINDA ALVARO Not Available Start: 11-09-2023 End: 11-09-2023 ambulatory ERMELINDA ALVARO [...] Available Start: 04-06-2023 End: 04-06-2023 ambulatory ERMELINDA TREJOO Not Available Start: 04-15-2022 End: 04-15-2022 ambulatory Maximus Lorenzana Other [facility] Other Start: 04-15-2022 Telephone encounter Maximus Lorenzana [facility] Start: 04-07-2022 End: 04-07-2022 ambulatory Maximus Lorenzana Other [facility] Other Start: 04-07-2022 Nursing evaluation o f patient and report Maximus Lorenzana [facility] Start: 04-07-2022 Telephone encounter Maximus Lorenzana [facility] Start: 03-24-2022 End: 03-24-[address] ERMELINDA CODY Facility:[facility] Start: 11-13-2021 End: 11-13-2021 ambulatory Maximus Lorenzana Other [facility] Other Start: 11-13-2021 Office outpatient visit 15 minutes Maximus Lorenzana [facility] Start: 11-13-2021 Telephone encounter Maximus Lorenzana [facility] Start: 04-07-2021 End: 04-07-[address] MAXIMUS LORENZANA Facility:[facility] Immunizations Immunization Date Immunization Notes Care Provider Fa cility NEGATED: Highlighted row has not occurred!07-18-2019 influenza, seasonal, injectable Patient Objection Maximus Lorenzana Other [facility] Other Payers Date Payer Category Payer Unknown [id number] 1995 Unknown [id number] 2.16.84 0.1.900689.3.579.2.593 1995 Unknown [id number] 2.16.84 0.1.396209.3.579.2.593 1994 Unknown [id number] 2.16.8 40.1.822133.3.579.2.173 1994 Unknown [id number] 2.16.84 0.1.879285.3.579.2.1259 1994 Unknown [id number] 2.16.84 0.1.780664.3.579.2.1259 1994 Unknown [id number] 2.16.84 0.1.796841.3.579.2.1259 1994 Unknown [id number] 2.16.84 0.1.579209.3.579.2.1259 1994 Unknown [id number] 2.16.84 0.1.284391.3.579.2.1259 1994 Unknown [id number] 2.16.84 0.1.091134.3.579.2.1259 1994 Unknown [id number] 2.16.84 0.1.319039.3.579.2.1259 1994 Unknown [id number] 2.16.84 0.1.368176.3.579.2.1259 1994 Unknown [id number] 2.16.84 0.1.612015.3.579.2.1259 1994 Unknown [id number] 2.16.84 0.1.536335.3.579.2.1259 1994 Unknown [id number] 2.16.84 0.1.636291.3.579.2.1259 1994 Unknown [id number] 2.16.84 0.1.088125.3.579.2.1259 1994 Unknown [id number] 2.16.84 0.1.750597.3.579.2.1259 1994 Unknown [id number] 2.16.84 0.1.530563.3.579.2.1259 1994 Unknown [id number] 2.16.840 .1.873982.3.579.2.1259 1994 Unknown [id number] 2.16.840 .1.798099.3.579.2.1259 1994 Unknown [id number] 2.16.840 .1.940391.3.579.2.1259 1959 Unknown [id number] 2.1 6.840.1.436719.19 Social History Date Type Detail Facility Unknown if ever smoked [facility] Other Sex Assigned At Sex Assigned At Bir th [facility] Other Evaluation note 04-07-2022 Note Date & Type Note Facility 04-07-2022 Evaluation note Encounter Date Diagnosis Assessment Notes Mar, Acute cough (ICD-10 - R05.1) [facility] Other Evaluation note 11-13-2021 Note Date & Type Note Facility 11-13-2021 Evaluation note Encounter Date Diagnosis Assessment Notes Nov, Insect bite (nonvenomous) of right upper arm, initial encounter (ICD-10 - S40.861A) Noted of left forearm. I did prescribe the above prednisone and patient is to continue taking benadryl at bedtime. Patient is to call next week with an update. [facility] Other History general Narrative - Reported 06-24-2016 Note Date & Type Note Facility 06-24-2016 History general N arrative - Reported Type Medical History follows with Dr. Ananth Cody for PAP Medical History Biometric Screening 06/24/16 [facility] [place], [place] Medical History 02/13/2019 EKG Surgical History tubes in ears Surgical History 03/05/21 Hospitalization History Childbirth [facility] Other Evaluation note Note Date & Type Note Facility Evaluation note No Information [facility] Other Summary Purpose Family History No Family [...] pital DATE CREATED AUTHOR AUTHOR'S ORGANIZ ATION 12/05/2023 [facility] DATE CREATED AUTHOR AUTHOR'S ORGANIZ ATION 01/14/2024 [facility] FOR RECORDS PERTAINING TO PATIENTS WHO [...] BE BASED ON THE PRIMARY CLINICAL RECORDS. [facility] Personal Estate Manager [facility]. provides no warranty or guarantee of the accuracy or completeness of information in this document.
[2024-02-05 10:40] LABS: Free T4 0.84 ng/dL (0.76-1.46)
[2024-02-05 10:46] LABS: Free T3 2.89 pg/mL (2.18-3.98); Thyroid Stimulating Hormone 0.712 uIU/mL (0.358-3.740)
[2024-02-07 17:09] LABS: Thyroglobulin Antibody <1.0 IU/mL (0.0-0.9); Thyroid Peroxidase (TPO) Ab 16 IU/mL (0-34)
== END 2024-02-05 08:45 | disposition home or self-care (01) ==
LOC: US 08:44
PROVIDERS: PCP Family Medicine; Visit Provider Family Medicine
DX: Z80.8 Family history of malignant neoplasm of other organs or systems (principal); Z13.29 Encounter for screening for other suspected endocrine disorder
CPT/HCPCS: 36415; 76536; 84439; 84443; 84481; 86376; 86800

== ENCOUNTER 2024-03-28 17:50 | Outpatient (OUT) | payer OTHER, SELFPAY ==
--- NOTE | 2024-03-28 | XR_ITS ---
The [address] [address] Patient Name: NEGIN BURNHAM MRN: [id number] date: 1995 Sex: F Assigned Patient Location: [facility] Current Patient Location: Accession/Order Number: [id number] Exam Date: 03/28/2024 18:00 Report Date: 03/30/2024 06:53 At the request of: MACIE LORENZANA Procedure: XR lumbar spine min 4V EXAMINATION: XR lumbar spine min 4V HISTORY: lumbar Pain M54.65 COMPARISON: No relevant comparison available. FINDINGS: BONES: No significant spondylosis, scoliosis, fracture, or visible bony lesion. DISC SPACES: Mild-moderate narrowing L3-L4 with posterior disc osteophyte complex. Mild narrowing L4-L5. PARASPINOUS: Negative. No paraspinous abnormality is seen. OTHER: Negative. XR/XR lumbar spine min 4V IMPRESSION: 1. Mild to moderate degenerative disc disease L3-L4 and L4-L5. Electronically authenticated by: ERNIE DURAN Date: 03/30/2024 06:53
--- OUTSIDE RECORDS SUMMARY | 2024-03-28 18:00 | XMS_ITS | CCD ---
Author Organization [facility] Care Team Providers Care Property Technician Name Role Phone Maximus Lorenzana Unavailable DR MAXIMUS LORENZANA Primary Care Unavailable RENEE BORJAS Admitting Unavailable RENEE BORJAS Attending Unavailable RENEE BORJAS Consulting Unavailable ESCOBAR, DR WADSWORTH Admitting Unavailable ESCOBAR, DR WADSWORTH Attending Unavailable HARRIETT, DR QUIJANO Primary Care Unavailable ESCOBAR, DR WADSWORTH Consulting Unavailable JESÚS GARDUNO [id number] Attending Unavailable ESCOBAR, ERMELINDA Attending Unavailable ESCOBAR, ERMELINDA Attending Unavailable JULEE, BRITT Attending Unavailable ESCOBAR, ERMELINDA Attending Unavailable JULEE, BRITT Attending Unavailable ESCOBAR, ERMELINDA Attending Unavailable ESCOBAR, ERMELINDA Attending Unavailable ESCOBAR, ERMELINDA Attending Unavailable ESCOBAR, ERMELINDA Attending Unavailable ESCOBAR, ERMELINDA Attending Unavailable ESCOBAR, ERMELINDA Attending Unavailable ESCOBAR, ERMELINDA Attending Unavailable JULEE, BRITT Attending Unavailable ESCOBAR, ERMELINDA Attending Unavailable ESCOBAR, ERMELINDA Attending Unavailable ESCOBAR, ERMELINDA Attending Unavailable Maximus Lorenzana MD Primary Care Provider Allergies Allergy Classification Reported Allergen(s) Allergy Type Date of Onset Reaction(s) Facility (8 sources) Azithromycin Drug Allergy 09-01-2023 Other [facility] Medications Current Medications Medication Drug Class(es) Dates Sig (Normalized) Sig (Original) [id number] 200 actuat albuterol 0.09 mg/actuat metered dose [...] a day for 10 day(s) Apr, Active levonorgestrel 0.966283 mg/hr intrauterine system (3 sources) Progestin, Progestin-containing Intrauterine Device Start: 01-13-2024 End: 01-11-2029 Levonorgestrel intrauterine device 52 mg loratadine 10 mg oral tablet (3 sources) Start: 09-07-2023 take 1 tablet by mouth once daily loratadine (Claritin) 10 MG tablet Take 10 mg by mouth Daily 09/07/2023 Active oseltamivir 75 mg oral capsule (3 sources) Neuraminidase Inhibitor Start: 04-07-2022 take 1 capsule by mouth every twelve hours Tamiflu 75 MG 1 capsule Orally Twice a day for 5 day(s) Mar, Active phentermine hydrochloride 37.5 mg oral tablet (7 sources) Sympathomimetic Amine Anorectic Start: 02-09-2024 End: 03-10-2024 take 1 tablet by mouth before mealtime phentermine (Adipex-P) 37.5 MG tablet Indications: Encounter for weight management Take 1 tablet (37.5 mg) by mouth in the morning. Take before meals. 30 tablet 02/09/2024 03/10/2024 Active Start: 08-31-2019 take 1 tablet by beth th every twenty-four hours Adipex-P 37.5 MG 1 tablet Orally Once a day for 30 days Aug, Not-Taking predniSONE 20 mg oral tablet (5 sources) Start: 11-13-2021 predniSONE 20 MG 1 tablet Orally TID x 3 days, BID x 3 days then daily x 3 days Nov, Active MV-Min-Fe Fum-FA-DHA ( 1 PO) (3 sources) MV-Min- Fe Fum-FA-DHA ( 1 PO) Take by mouth. Active ProAir HFA 108 (90 Base) MCG/ACT [...] Orally every 12 hours PRN Oct, Not-Taking sulfamethoxazole 800 mg / trimethoprim 160 [...] Problem Date Documented Date Episodic/Chronic Administrative/social admission (7 sources) Dietary management surveillance; Translations: [Dietary counseling and surveillance] 02-09-2024 Episodic Anxiety disorders (5 sources) Anxiety; Translations: [Anxiety disorder, unspecified] Chronic Asthma (5 sources) Asthma; Translations: [Unspecified asthma, uncomplicated] Chronic Contraceptive and procreative management (2 sources) Intrauterine contraceptive device in situ; Translations: [Encounter for routine checking of intrauterine contraceptive device] 02-09-2024 Episodic Diseases of white blood cells (5 sources) [...] mass index (BMI) 33.0-33.9, adult] Chronic Other nutritional; endocrine; and metabolic disorders (2 sources) Weight increased; Translations: [Abnormal weight gain] 02-09-2024 Episodic Other screening for suspected conditions (not mental [...] 04-07-2022 FLUAV Ab CF (S) [Titer] Positive [facility] Other FLUBV Ab CF (S) [Titer] Negative [facility] Other PAP ACOG PANEL 2: 21 to 29on 04-04-2022 . . Normal [facility] Comment on above: Performed By: #### [id number] #### [facility] [address] [place] [address] Dr. Aranza Dolan Age Gdln ACOG Testing 21-[address] [facility] Comment on above: Performed By: #### [id number] #### [facility] [address] [place] [address] Dr. Aranza Dolan DIAGNOSIS: Comment Abnormal [facility] Comment on above: Result Comment: EPIT HELIAL CELL ABNORMALITY. ATYPICAL SQUAMOUS CELLS OF UNDETERMINED SIGNIFICANCE (ASC-US). FUNGAL ORGANISMS MORPHOLOGICALLY CONSISTENT WITH RAQUEL SPECIES ARE PRESENT. Performed By: #### [id number] #### [facility] [address] [place] [address] Dr. Aranza Dolan Electronically signed by: Comment Normal [facility] Comment on above: Result Comment: Adelina Ochoa MD, Pathologist Performed By: #### [id number] #### [facility] [address] [place] [address] Dr. Aranza Dolan HPV Aptima Negative Normal Negative [facility] Comment on above: Result Comment: This nucleic acid amplification test detects fourteen high-risk HPV types (16,18,31,33,35,39,45,51,52,56,58,59,66,68) without differentiation. Performed By: #### [id number] #### [facility] [address] [place] [address] Dr. Aranza Dolan Methodology: Comment Normal [facility] Comment on above: Result Comment: This liquid based ThinPrep(R) pap test was screened with the use of an image guided system. Performed By: #### [id number] #### [facility] [address] [place] [address] Dr. Aranza Dolan Note: Comment Normal [facility] Comment on above: Result Comment: The Pap smear is a screening test designed to aid in the detection of premalignant and malignant conditions of the uterine cervix. It is not a diagnostic procedure and should not be used as the sole means of detecting cervical cancer. Both false-positive and false-negative reports do occur. . Performed By: #### [id number] #### [facility] [address] [address] [address] Aranza Dolan Pathologist Provided ICD10 Comment Normal [facility] Comment on above: Result Comment: R87. 610, R87.5 Performed By: #### [id number] #### [facility] [address] [address] [address] Aranza Dolan Performed by: Comment Normal [facility] Comment on above: Result Comment: Francheska Gee Endocrinology Teacher (ASCP) Performed By: #### [id number] #### [facility] [address] [address] [address] Aranza Dolan Recommendation: Comment Abnormal [facility] Comment on above: Result Comment: Sugg est follow up as clinically appropriate. Performed By: #### [id number] #### [facility] [address] [address] [address] Aranza Dolan Reflex Criteria: Comment Normal [facility] Comment on above: Result Comment: See below for HPV testing results. . Performed By: #### [id number] #### [facility] [address] [address] [address] Aranza Dolan Specimen adequacy: Comment Normal [facility] Comment on above: Result Comment: Sati sfactory for evaluation. Endocervical and/or squamous metaplastic cells (endocervical component) are present. Performed By: #### [id number] #### [facility] [address] [address] [address] Aranza Dolan [facility]on 03-11 SARS-CoV-2 (COVID-19) RNA RAMON+probe Ql (Unsp spec) Detected Critically abnormal NOT DETECTED [facility] Comment on above: Result Comment: This test is not yet approved or cleared by the [place] FDA. When there are no FDA-approved or cleared tests available, and other criteria are met, FDA can make tests available under an emergency access mechanism called an Emergency Use Authorization (EUA). The EUA for this test is supported by the [place] of Health and Human Service's declaration that [...] used). Performed By: #### C [facility] #### [facility] [address] [place] [address] Dr. Aranza Dolan Vital Signs Date Time Vital Sign Value Performing Clinician Facility 02-09-2024 11:14-0400 Body mass index (BMI) [Ratio] 32.58 kg/m2 [facility] Work Phone: [facility] 02-09-2024 11:14-0400 Body weight 94.35 kg [facility] Work Phone: [facility] 02-09-2024 11:14-0400 Diastolic blood pressure 74 mm[Hg] [facility] Work Phone: [facility] 02-09-2024 11:14-0400 Systolic blood pressure 118 mm[Hg] [facility] Work Phone: [facility] 11-13-2021 16:45-0400 Body height 170.18 cm Maximus Lorenzana Other [facility] Other 11-13-2021 16:45-0400 Body mass index (BMI) [Ratio] 33.83 kg/m2 Maximus Lorenzana Other [facility] Other 11-13-2021 16:45-0400 Body weight 97.98 kg Maximus Lorenzana Other [facility] Other 11-13-2021 16:45-0400 Diastolic blood pressure 80 mm[Hg] Maximus Lorenzana Other [facility] Other 11-13-2021 16:45-0400 Respiratory rate 16 /min Maximus Lorenzana Other [facility] Other 11-13-2021 16:45-0400 SaO2% (BldA) [Mass fraction] 98 % Maximus Lorenzana Other [facility] Other 11-13-2021 16:45-0400 Systolic blood pressure 126 mm[Hg] Maximus Lorenzana Other [facility] Other Encounters Encounter Date Encounter Type Care Provider Facility Start: 02-09-2024 End: 02-09-2024 Bamboo flowsheet Ermelinda Escobar DO Work Phone: [facility] Start: 02-09-2024 End: 02-09-2024 Bamboo flowsheet Ermelinda Escobar DO Work Phone: [facility] Start: 02-09-2024 End: 02-09-2024 Office outpatient visit 15 minutes Ermelinda Escobar DO Work Phone: [facility] Comment on above: Weight gain; Intrauterine device surveillance; Encounter for weight management Start: 02-09-2024 End: 02-09-2024 ambulatory ERMELINDA ESCOBAR Not Available Start: 01-13-2024 End: 01-13-2024 ambulatory ERMELINDA ESCOBAR Not Available Start: 12-28-2023 End: 12-28-2023 ambulatory ERMELINDA ESCOBAR Not Available Start: 12-04-2023 End: 12-05-2023 Emergency department [id number] Start: 12-02-2023 End: 12-02-2023 ambulatory BRITT LADD Not Available Start: 11-23-2023 End: 11-23-2023 ambulatory ERMELINDA ESCOBAR Not Available Start: 11-16-2023 End: 11-16-2023 ambulatory ERMELINDA ESCOBAR Not Available Start: 11-09-2023 End: 11-09-2023 ambulatory ERMELINDA ESCOBAR Not Available Start: 11-02-2023 End: 11-02-2023 ambulatory ERMELINDA ESCOBAR Not Available Start: 10-19-2023 End: 10-19-2023 ambulatory ERMELINDA ESCOBAR Not Available Start: 10-05-2023 End: 10-05-2023 ambulatory ERMELINDA ESCOBAR Not Available Start: 09-21-2023 End: 09-21-2023 ambulatory ERMELINDA ESCOBAR Not Available Start: 09-07-2023 End: 09-07-2023 ambulatory BRITT JULEE Not Available Start: 08-10-2023 End: 08-10-2023 ambulatory ERMELINDA ESCOBAR Not Available Start: 07-13-2023 End: 07-13-2023 ambulatory BRITT JULEE Not Available Start: 06-15-2023 End: 06-15-2023 ambulatory ERMELINDA ESCOBAR Not Available Start: 05-14-2023 End: 05-14-2023 ambulatory ERMELINDA ESCOBAR Not Available Start: 04-06-2023 End: 04-06-2023 ambulatory ERMELINDA ESCOBAR Not Available Start: 04-15-2022 End: 04-15-2022 ambulatory Maximus Lorenzana Other [facility] Other Start: 04-15-2022 Telephone encounter Maximus Lorenzana [facility] [place] Start: 04-07-2022 End: 04-07-2022 ambulatory Maximus Lorenzana Other [facility] Other Start: 04-07-2022 Nursing evaluation o f patient and report Maximus Lorenzana [facility] [place] Start: 04-07-2022 Telephone encounter Maximus Lorenzana [facility] [place] Start: 03-24-2022 End: 03-24-[address] ERMELINDA CODY Facility: Start: 11-13-2021 End: 11-13-2021 ambulatory Maximus Lorenzana Other [facility] Start: 11-13-2021 Office outpatient visit 15 minutes Maximus Lorenzana [facility] [place] Start: 11-13-2021 Telephone encounter Maximus Lorenzana [facility] [place] Start: 04-07-2021 End: 04-07-[address] MAXIMUS LORENZANA Facility: Plan of Treatment Date Care Activity Detail Author Start: 04-10-2024 End: 04-10-2024 Patient encounter procedure 04/10/2024 9:20 AM EST Office Visit [facility] [address] [facility] [place] [id number] Ermelinda Cody, DO [address] [place], [place] [id number] [facility] Start: 03-27-2024 End: 03-27-2024 Patient encounter procedure 03/27/2024 8:30 AM EST Office Visit [facility] [address] [facility] [address] [facility] [place] [address] Britt Ladd PA [address] [place], [place] [id number] [facility] Start: 02-09-2024 End: 02-09-2024 Patient encounter procedure 02/09/2024 11:20 AM EDT Office Visit [facility] [address] [facility] [address] [facility] [address] Ermelinda Cody, DO [address] [place], [place] [id number] Arrived [facility] Comment on above: Arrived Immunizations Immunization Date Immunization Notes Care Provider Fa cility NEGATED: Highlighted row has not occurred!07-18-2019 influenza, seasonal, injectable Patient Objection Maximus Lorenzana Other [facility] Other Payers Date Payer Category [facility]ayer [facility] [place] [id number] 2022-Present [address] [place] [address] [id number] 2022 Unknown [id number] 1994 Unknown [id number] 2.16.840.1.545744.3.579.2.593 1994 Unknown [id number] 2.16.840.1.223805.3.579.2.593 1994 Unknown [id number] 2.16.840.1.160324.3.579.2.173 1994 Unknown [id number] 2.16.840.1.775263.3.579.2.1259 1994 Unknown [id number] 2.16.840.1.696788.3.579.2.1259 1994 Unknown [id number] 2.16.840.1.695507.3.579.2.1259 1994 Unknown [id number] 2.16.840.1.004113.3.579.2.1259 1994 Unknown [id number] 2.16.840.1.468644.3.579.2.1259 1994 Unknown [id number] 2.16.840.1.126913.3.579.2.1259 1994 Unknown [id number] 2.16.840.1.806908.3.579.2.1259 1994 Unknown [id number] 2.16.840.1.441180.3.579.2.1259 1994 Unknown [id number] 2.16.840.1.940197.3.579.2.1259 1994 Unknown [id number] 2.16.840.1.802887.3.579.2.1259 1994 Unknown [id number] 2.16.840.1.430301.3.579.2.1259 1994 Unknown [id number] 2.16.840.1.026962.3.579.2.1259 1994 Unknown [id number] 2.16.840.1.252119.3.579.2.1259 1994 Unknown [id number] 2.16.840.1.104517.3.579.2.1259 1994 Unknown [id number] 2.16.840.1.360504.3.579.2.1259 1994 Unknown [id number] 2.16.840.1.534727.3.579.2.1259 1994 Unknown [id number] 2.16.840.1.423066.3.579.2.1259 1994 Unknown [id number] 2.16.840.1.013586.3.579.2.1259 1959 Unknown [id number] 2.16.840.1.302861.19 Social History Date Type Detail Facility Unknown if ever smoked [facility] Other Start: 12-02-2023 End: 02-09-2024 Sex Assigned At [employer] Other Start: 11-23-2023 Tobacco smoking stat [facility] Never smoked tobacco [facility] Start: 11-23-2023 Tobacco use and exposure Smokeless tobacco non-user [facility] Start: 01-13-2024 End: 02-09-2024 Alcoholic beverage intake Ex-drinker (finding) [facility] Start: 12-02-2023 End: 02-09-2024 History of Social function [facility] Start: 03-24-2023 Alcohol Comment Occasional alcohol u se [facility] Start: 1995 Sex assigned at Not on file [facility] History of Present illness Narrative 02-09-2024 Rayna Jameson LPN - 02/09/2024 11:20 AM EDT Note Date & Type Note Facility 02-09-2024 History of Presen t illness Narrative Reason for Appointment: Patient ID: Dea Norris is a 28 y.o. female who presents for Contraception (Pt present today for f/up Mirena string check. 01/13/2024 pt had IUD inserted. ) and Weight Management (Pt present today to restart Adipex for weight management.) Patient presents today for String Check Follow Up appointment. MEDICATIONS Current Outpatient Medications Medication Instructions loratadine (CLARITIN) 10 mg, Oral, Daily phentermine (ADIPEX-P) 37.5 mg, Oral, Daily before breakfast MV-Min-Fe Fum-FA-DHA ( 1 PO) Oral ALLERGIES Allergies Allergen Reactions Zithromax Tri-Oswaldo [Azithromycin] Other Patient gets mild stomach cramping with medication. Pt states she is ok with it the next day. PROBLEMS Active Ambulatory Problems Diagnosis Date Noted No Active Ambulatory Problems Resolved Ambulatory Problems Diagnosis Date Noted No Resolved Ambulatory Problems Past Medical History: Diagnosis Date Abnormal weight gain Anxiety Body mass index (BMI) of 32.0 to 32.9 in adult HISTORY PAST MEDICAL HISTORY SOCIAL HISTORY Past Medical History: Diagnosis Date Abnormal weight gain Anxiety Body mass index (BMI) of 32.0 to 32.9 in adult Social History Tobacco Use Smoking status: Never Smokeless tobacco: Never Substance Use Topics Alcohol use: Not Currently Comment: Occasional alcohol use Drug use: Never FAMILY HISTORY Family History Problem Relation Name Age of Onset Diabetes Father Father Hypertension Father Father Cancer Maternal Grandmother Grandmother SURGICAL HISTORY Past Surgical History: Procedure Laterality Date SECTION, CLASSIC 11/26/2023 SECTION, LOW TRANSVERSE 2019 MYRINGOTOMY W/ TUBES REVIEW OF SYSTEMS Review of Systems: Review of Systems Constitutional: Negative. HENT: Negative. Eyes: Negative. Respiratory: Negative. Cardiovascular: Negative. Gastrointestinal: Negative. Genitourinary: Negative. Musculoskeletal: Negative. Skin: Negative. Neurological: Negative. All other systems reviewed and are negative. Hematological: Negative. Endocrine: Negative. Allergic/Immunologic: Negative. OBJECTIVE Objective: Physical Exam Constitutional: Appearance: Normal appearance. She is well-developed. Genitourinary: Vulva normal. Cardiovascular: Rate and Rhythm: Normal rate and regular rhythm. Pulmonary: Effort: Pulmonary effort is normal. Breath sounds: Normal breath sounds. Abdominal: General: Bowel sounds are normal. There is no distension. Palpations: Abdomen is soft. Tenderness: There is no abdominal tenderness. There is no guarding or rebound. Musculoskeletal: General: No swelling. Normal range of motion. Right lower leg: No edema. Left lower leg: No edema. Neurological: Mental Status: She is alert and oriented to person, place, and time. Skin: General: Skin is warm and dry. Psychiatric: Mood and Affect: Mood normal. Behavior: Behavior normal. Vitals and nursing note reviewed. Exam conducted with a electric wheelchair repairer present. Vitals: Estimated body mass index is 32.58 kg/m as calculated from the following: Height as of 12/28/23: 5' 7 . Weight as of this encounter: 208 lb. BP: 118/74 No LMP recorded (lmp unknown). ASSESSMENT & PLAN ICD-10-CM 1. Weight gain R63.5 2. Intrauterine device surveillance Z30.431 3. Encounter for weight management Z76.89 phentermine (Adipex-P) 37.5 MG tablet IUD String Check: Patient is doing well but has some complaints of bleeding and cramping following IUD placement. Patient presents today for IUD string check. Strings were visualized and are noted to be intact. Patient presents today for initial Adipex prescription. The importance of keeping a food journal, proper nutrition/diet, and exercise regimen while taking Adipex has been discussed. Patient verbalized understanding and signed consents to initiate (Adipex) medication therapy. Patient was given a printed prescription signed by provider to take to their local pharmacy. Follow Up: Patient is to return to the office in 1 month for further evaluation to assess patient progress. Weight and blood pressure will need to be captured in order for patient to receive 2nd prescription. Documented by Rayna Jameson LPN on behalf of: Ermelinda Cody DO documented in this encounter [facility] Evaluation note 04-07-2022 Note Date & Type Note Facility 04-07-2022 Evaluation note Encounter Date Diagnosis Assessment Notes Mar, Acute cough (ICD-10 - R05.1) [facility] Other Evaluation note 11-13-2021 Note Date & Type Note Facility 11-13-2021 Evaluation note Encounter Date Diagnosis Assessment Notes Nov, Insect bite (nonvenomous) of right upper arm, initial encounter (ICD-10 - S40.861A) Noted of left forearm. I did prescribe the above prednisone and patient is to continue taking benadryl at bedtime. Patient is to call next week with an update. [facility] Other History general Narrative - Reported 06-24-2016 Note Date & Type Note Facility 06-24-2016 History general N arrative - Reported Type Medical History follows with Dr. Ananth Cody for PAP Medical History Biometric Screening 06/24/16 [facility] [place], [place] Medical History 02/13/2019 EKG Surgical History tubes in ears Surgical History 03/05/21 Hospitalization History Childbirth [facility] [employer] Other Evaluation note Note Date & Type Note Facility Evaluation note No Information [facility] [employer] Other Evaluation note Note Date & Type Note Facility Evaluation note Diagnosis Weight gain Other symptoms concerning nutrition, metabolism, and development Intrauterine device surveillance Encounter for weight management documented in this encounter [facility] Summary Purpose Family History No Family History Records FoundNo Family History Records FoundNo Family History Records Found Advance Directives No Advanced Directives Records FoundNo Advanced Directives Records FoundNo Advanced Directives Records Found Additional Source Comments REASON FOR VISIT (unrecogniz ed section and content) Reason Comments Contraception Pt present today for f/up Mirena string check. 01/13/2024 pt had IUD inserted. Weight Management Pt present today to restart Adipex for weight management. INFORMATION SOURCE (unrecogn ized section and content) DATE CREATED AUTHOR 04/04/2022 [facility] DATE CREATED AUTHOR AUTHOR'S ORGANIZ ATION 12/05/2023 [facility] DATE CREATED AUTHOR AUTHOR'S ORGANIZ ATION 02/11/2024 [facility] EPIC Care Teams (unrecognized sec tion and content) Property Technician Relationship Specialty Start Date End Date Maximus Lorenzana MD [address] [place] [address] PCP - General 04/06/23 Property Technician Relationship Specialty Start Date End Date Maximus Lorenzana MD [address] [place] [address] PCP - General 04/06/23 FOR RECORDS PERTAINING TO PATIENTS WHO ARE [...] BE BASED ON THE PRIMARY CLINICAL RECORDS. [employer] [facility]. provides no warranty or guarantee of the accuracy or completeness of information in this document.
== END 2024-03-28 17:51 | disposition home or self-care (01) ==
LOC: RAD 17:50
PROVIDERS: PCP Family Medicine; Visit Provider Family Medicine
DX: M54.50 Low back pain, unspecified (principal); M51.369 Other intervertebral disc degeneration, lumbar region without mention of lumbar back pain or lower extremity pain
CPT/HCPCS: 72110

== ENCOUNTER 2024-04-10 20:26 | Outpatient (REF) | payer OTHER, SELFPAY ==
--- OUTSIDE RECORDS SUMMARY | 2024-04-10 20:31 | XMS_ITS | CCD ---
Author Organization [facility] Care Team Providers Care Twist Maker Name Role Phone Maximus Lorenzana Unavailable DR MAXIMUS LORENZANA Primary Care Unavailable RENEE BORJAS Admitting Unavailable RENEE BORJAS Attending Unavailable RENEE BORJAS Consulting Unavailable ESCOBAR, DR WADSWORTH Admitting Unavailable ESCOBAR, DR WADSWORTH Attending Unavailable HARRIETT, DR QUIJANO Primary Care Unavailable ESCOBAR, DR WADSWORTH Consulting Unavailable JESÚS GARDUNO R~[id number] Attending Unavailable ESCOBAR, ERMELINDA Attending Unavailable ESCOBAR, [...] Unavailable Maximus Lorenzana MD Primary Care Provider [phone] Allergies Allergy Classification Reported Allergen(s) Allergy Type Date of Onset Reaction(s) Facility (9 sources) Azithromycin Drug Allergy 09-01-2023 Other [facility] Medications Current Medications Medication Drug Class(es) Dates Sig (Normalized) Sig (Original) [id number] 200 actuat albuterol 0.09 mg/actuat metered dose [...] day for 10 day(s) Apr, Active levonorgestrel 0.093843 mg/hr intrauterine system (4 sources) Progestin, Progestin-containing Intrauterine Device Start: 01-13-2024 End: 01-11-2029 Levonorgestrel intrauterine device 52 mg loratadine 10 mg oral tablet (4 sources) Start: 09-07-2023 take 1 tablet by mouth once daily loratadine (Claritin) 10 MG tablet Take 10 mg by mouth Daily 09/07/2023 Active oseltamivir 75 mg oral capsule (3 sources) Neuraminidase Inhibitor Start: 04-07-2022 take 1 capsule by mouth every twelve hours Tamiflu 75 MG 1 capsule Orally Twice a day for 5 day(s) Mar, Active phentermine hydrochloride 37.5 mg oral tablet (8 sources) Sympathomimetic Amine Anorectic Start: 02-09-2024 End: 03-10-2024 take 1 tablet by mouth before mealtime phentermine (Adipex-P) 37.5 MG tablet Indications: Encounter for weight management Take 1 tablet (37.5 mg) by mouth in the morning. Take before meals. 30 tablet 02/09/2024 Active Start: 08-31-2019 take 1 tablet by beth th every twenty-four hours Adipex-P 37.5 MG 1 tablet Orally Once a day for 30 days Aug, Not-Taking predniSONE 20 mg oral tablet (5 sources) Start: 11-13-2021 predniSONE 20 MG 1 tablet Orally TID x 3 days, BID x 3 days then daily x 3 days Nov, Active MV-Min-Fe Fum-FA-DHA ( 1 PO) (4 sources) MV-Min- Fe Fum-FA-DHA ( 1 PO) [...] 04-07-2022 FLUAV Ab CF (S) [Titer] Positive [employer] Other FLUBV Ab CF (S) [Titer] Negative [employer] Other PAP ACOG PANEL 2: 21 to 29on 04-04-2022 . . Normal [facility] Comment on above: Performed By: #### [id number] #### [facility] [address] [place] [address] Dr. Aranza Dolan Age Gdln ACOG Testing 21-29 Normal [facility] Comment on above: Performed By: #### [id number] #### [facility] [address] [place] [address] Dr. Aranza Dloan DIAGNOSIS: Comment Abnormal [facility] Comment on above: Result Comment: EPIT HELIAL CELL ABNORMALITY. ATYPICAL SQUAMOUS CELLS OF UNDETERMINED SIGNIFICANCE (ASC-US). FUNGAL ORGANISMS MORPHOLOGICALLY CONSISTENT WITH RAQUEL SPECIES ARE PRESENT. Performed By: #### [id number] #### [facility] [address] [place] [address] Dr. Aranza Dolan Electronically signed by: Comment Normal [facility] Comment on above: Result Comment: Adelina Ochoa MD, Pathologist Performed By: #### [id number] #### [facility] [address] [place] [address] Dr. Aranza Dolan HPV Aptima Negative Normal Negative [facility] Comment on above: Result Comment: This nucleic acid amplification test detects fourteen high-risk HPV types (16,18,31,33,35,39,45,51,52,56,58,59,66,68) without differentiation. Performed By: #### 4 [id number] #### [facility] [address] [place] [address] Dr. Aranza Dolan Methodology: Comment Normal [facility] Comment on above: Result Comment: This liquid based ThinPrep(R) pap test was screened with the use of an image guided system. Performed By: #### 4 [id number] #### [facility] [address] [place] [address] Dr. Aranza Dolan Note: Comment Normal [facility] Comment on above: Result Comment: The Pap smear is a screening test designed to aid in the detection of premalignant and malignant conditions of the uterine cervix. It is not a diagnostic procedure and should not be used as the sole means of detecting cervical cancer. Both false-positive and false-negative reports do occur. . Performed By: #### 4 [id number] #### [facility] [address] [place] [address] Dr. Aranza Dolan Pathologist Provided ICD10 Comment Normal [facility] Comment on above: Result Comment: R87. 610, R87.5 Performed By: #### 4 [id number] #### [facility] [address] [address] [address] Aranza oDlan Performed by: Comment Normal [facility] Comment on above: Result Comment: Francheska Gee Cavalry Scout (ASCP) Performed By: #### 4 [id number] #### [facility] [address] [address] [address] Arnaza Dolan Recommendation: Comment Abnormal [facility] Comment on above: Result Comment: Sugg est follow up as clinically appropriate. Performed By: #### 4 [id number] #### [facility] [address] [address] [address] Aranza Doaln Reflex Criteria: Comment Normal [facility] Comment on above: Result Comment: See below for HPV testing results. . Performed By: #### 4 [id number] #### [facility] [address] [address] [address] Aranza Dolan Specimen adequacy: Comment Normal [facility] Comment on above: Result Comment: Sati sfactory for evaluation. Endocervical and/or squamous metaplastic cells (endocervical component) are present. Performed By: #### 4 [id number] #### [facility] [address] [place] [address] Dr. Aranza Dolan [facility]on 03-11 SARS-CoV-2 (COVID-19) RNA RAMON+probe Ql [...] for this test is supported by the Warrior of Health and Human Service's declaration that [...] be used). Performed By: #### [facility] #### [facility] [address] [place] [address] Dr. Aranza Dolan Vital Signs Date Time Vital Sign Value Performing Clinician Facility 02-09-2024 11:14-0400 Body mass index (BMI) [Ratio] 32.58 kg/m2 [employer] Work Phone: [facility] 02-09-2024 11:14040 Body weight 94.35 kg [employer] Work Phone: [facility] 02-09-2024 11:14-0400 Diastolic blood pressure 74 mm[Hg] [employer] Work Phone: [facility] 02-09-2024 11:14-0400 Systolic blood pressure 118 mm[Hg] [employer] Work Phone: [facility] [employer] 11-13-2021 16:45-0400 Body height 170.18 cm Maximus Lorenzana Other [employer] Other 11-13-2021 16:45-0400 Body mass index (BMI) [Ratio] 33.83 kg/m2 Maximus Lorenzana Other [facility] [employer] Other 11-13-2021 16:45-0400 Body weight 97.98 kg Maximus Lorenzana Other [employer] Other 11-13-2021 16:45-0400 Diastolic blood pressure 80 mm[Hg] Maximus Lorenzana Other [employer] Other 11-13-2021 16:45-0400 Respiratory rate 16 /min Maximus Lorenzana Other [employer] Other 11-13-2021 16:45-0400 SaO2% (BldA) [Mass fraction] 98 % Maximus Lorenzana Other [employer] Other 11-13-2021 16:45-0400 Systolic blood pressure 126 mm[Hg] Maximus Lorenzana Other [employer] Other Encounters Encounter Date Encounter Type Care Provider Facility Start: 04-10-2024 End: 04-10-2024 Bamboo flowsheet Ermelinda Escobar DO Work Phone: [facility] Start: 04-10-2024 End: 04-10-2024 Bamboo flowsheet Ermelinda Escobar DO Work Phone: [...] End: 12-05-2023 Emergency department patient visit [id number] Start: 12-02-2023 End: 12-02-2023 ambulatory BRITT [...] Available Start: 09-07-2023 End: 09-07-2023 ambulatory BRITT MCKEONEY Not Available Start: 08-10-2023 End: 08-10-2023 ambulatory ERMELINDA ESCOBAR Not Available Start: 07-13-2023 End: 07-13-2023 ambulatory BRITT JULEE Not Available Start: 06-15-2023 End: 06-15-2023 ambulatory ERMELINDA ESCOBAR Not Available Start: 05-14-2023 End: 05-14-2023 ambulatory ERMELINDA ESCOBAR Not Available Start: 04-06-2023 End: 04-06-2023 ambulatory ERMELINDA ESCOBAR Not Available Start: 04-15-2022 End: 04-15-2022 ambulatory Maximus Lorenzana Other [employer] Other Start: 04-15-2022 Telephone encounter Maximus Lorenzana [facility] Start: 04-07-2022 End: 04-07-2022 ambulatory Maximus Lorenzana Other [employer] Other Start: 04-07-2022 Nursing evaluation o f patient and report Maximus Lorenzana [facility] Start: 04-07-2022 Telephone encounter Maximus Lorenzana [facility] Start: 03-24-2022 End: 03-24-[address] ERMELINDA ESCOBAR Facility: Start: 11-13-2021 End: 11-13-2021 ambulatory Maximus Lorenzana Other [employer] Other Start: 11-13-2021 Office outpatient visit 15 minutes Maximus Lorenzana [facility] Start: 11-13-2021 Telephone encounter Maximus Lorenzana [facility] Jaziel Start: 04-07-2021 End: 04-07-[address] MAXIMUS LORENZANA Facility: Plan of Treatment Date Care Activity Detail Author Start: 04-10-2024 End: 04-10-2024 Patient encounter procedure [facility] Comment on above: Arrived Start: 03-27-2024 End: 03-27-2024 Patient encounter procedure 03/27/2024 8:30 AM EST Office Visit [facility] [address] [address] Britt Ladd PA [address] [place], [facility] Start: 02-09-2024 End: 02-09-2024 Patient encounter procedure 02/09/2024 11:20 AM EDT Office Visit [facility] [address] [address] Ermelinda Cody DO [address] [place], [place] [id number] Arrived [facility] Comment on above: Arrived Immunizations Immunization Date Immunization Notes Care Provider Fa cility NEGATED: Highlighted row has not occurred!07-18-2019 influenza, seasonal, injectable Patient Objection Maximus Lorenzana Other [employer] Other Payers Date Payer Category Payer Medicaid [facility] [place] [id number] 2022-Present [address] [place] [address] [id number] 2022 Private Health Insurance [facility] [id number] 2022 Unknown [id number] 1994 Unknown [id number] 2.16.840.1.992123.3.579.2. 593 1994 Unknown [id number] 2.16.840.1.497079.3.579.2. 593 1994 Unknown [id number] 2.16.840.1.529283.3.579.2. 173 1994 Unknown [id number] 2.16.840.1.673394.3.579.2. 1259 1994 Unknown [id number] 2.16.840.1.662602.3.579.2. 1259 1994 Unknown [id number] 2.16.840.1.940286.3.579.2. 1259 1994 Unknown [id number] 2.16.840.1.381345.3.579.2. 1259 1994 Unknown [id number] 2.16.840.1.519703.3.579.2. 1259 1994 Unknown [id number] 2.16.840.1.420169.3.579.2. 1259 1994 Unknown [id number] 2.16.840.1.404243.3.579.2. 1259 1994 Unknown [id number] 2.16.840.1.021288.3.579.2. 1259 1994 Unknown [id number] 2.16.840.1.115792.3.579.2. 1259 1994 Unknown [id number] 2.16.840.1.355024.3.579.2. 1259 1994 Unknown [id number] 2.16.840.1.750285.3.579.2. 1259 1994 Unknown [id number] 2.16.840.1.223067.3.579.2. 1259 1994 Unknown [id number] 2.16.840.1.283982.3.579.2. 1259 1994 Unknown [id number] 2.16.840.1.223559.3.579.2. 9 1994 Unknown [id number] 2.16.840.1.607344.3.579.2. 1259 1994 Unknown [id number] 2.16.840.1.816088.3.579.2. 1259 1994 Unknown [id number] 2.16.840.1.789199.3.579.2. 1259 1994 Unknown [id number] 2.16.840.1.137954.3.579.2. 1259 1959 Unknown [id number] 2.16.840.1.840497.19 Social History Date Type Detail Facility Unknown if ever smoked [employer] Other Start: 12-02-2023 End: 02-09-2024 Sex Assigned At [employer] Other Start: 11-23-2023 Tobacco smoking stat [facility] Never smoked tobacco [facility] Start: 11-23-2023 Tobacco use and exposure Smokeless tobacco non-user [facility] Start: 01-13-2024 End: 02-09-2024 Alcoholic beverage intake Ex-drinker (finding) [facility] Start: 12-02-2023 End: 02-09-2024 History of Social function [facility] Start: 03-24-2023 Alcohol Comment Occasional alcohol u se [facility] Start: 1994 Sex assigned at Not on file [facility] History of Present illness Narrative 02-09-2024 Rayna Jameson, PROCEDURES RN - 02/09/2024 11:20 AM EDT Note Date [...] nursing note reviewed. Exam conducted with a warranty manager present. Vitals: Estimated body mass index is 32.58 kg/m as calculated from the following: Height as of 12/27/: 5' 7 . Weight as of this [...] Ermelinda Cody DO documented in this encounter [facility] Evaluation note 04-07-2022 Note Date & Type Note Facility 04-07-2022 Evaluation note Encounter Date Diagnosis Assessment Notes Mar, Acute cough (ICD-10 - R05.1) [employer] Other Evaluation note 11-13-2021 Note Date & Type Note Facility 11-13-2021 Evaluation note Encounter Date Diagnosis Assessment Notes Nov, Insect bite (nonvenomous) of right upper arm, initial encounter (ICD-10 - S40.861A) Noted of left forearm. I did prescribe the above prednisone and patient is to continue taking benadryl at bedtime. Patient is to call next week with an update. [employer] [employer] Other History general Narrative - Reported 06-24-2016 Note Date & Type Note Facility 06-24-2016 History general N arrative - Reported Type Medical History follows with Dr. Ananth Cody for PAP Medical History Biometric Screening 06/24/16 [facility] [place], [place] Medical History 02/13/2019 EKG Surgical History tubes in ears Surgical History 03/05/21 Hospitalization History Childbirth [facility] Other Evaluation note Note Date & Type Note Facility Evaluation note No Information [employer] Other Evaluation note Note Date & Type [...] DATE CREATED AUTHOR AUTHOR'S ORGANIZ ATION 02/11/[address] [facility] d[facility] [employer] Care Teams (unrecognized sec tion and content) Twist Maker Relationship Specialty Start Date End Date Maximus Lorenzana MD [facility] [place] [phone] PCP - General 04/06/23 Twist Maker Relationship Specialty Start Date End Date Maximus Lorenzana MD [address] [place] [phone] PCP - General 04/06/23 Twist Maker Relationship Specialty Start Date End Date Maximus Lorenzana MD [address] [place] [phone] PCP - General 04/06/23 FOR RECORDS [...] BE BASED ON THE PRIMARY CLINICAL RECORDS. [facility] [employer] provides no warranty or guarantee of the accuracy or completeness of information in this document.
== END 2024-04-10 20:27 | disposition home or self-care (01) ==
LOC: LAB 20:26
PROVIDERS: PCP Family Medicine; Visit Provider Obstetrics & Gynecology
DX: Z01.419 Encounter for gynecological examination (general) (routine) without abnormal findings (principal)
CPT/HCPCS: 87624; 88175

== ENCOUNTER 2025-04-25 20:17 | Outpatient (REF) | payer OTHER, SELFPAY ==
--- OUTSIDE RECORDS SUMMARY | 2025-04-25 13:20 | XMS_ITS | Encounter Summary ---
Author Organization [facility] Address [address] [place] [address] Care Team Providers Care Research Geneticist Name Role Phone Artemiolillian Maximus Susan ELKINS Primary Care Provider [phone] Reason for Visit * ReasonCommentsGynecologic Exam Encounter Details DateTypeDepartmentCare Team (Latest Contact Info)Ysxesrpuxae34/17/2025 1:20 PM ESTOffice Visit [facility] [address] [place] [address] Tae Cody DO [address] [place] [address] Well woman exam with routine gynecological exam; Abnormal uterine bleeding (AUB) Social History Tobacco UseTypesPacks/DayYears UsedDateSmoking Tobacco: NeverSmokeless Tobacco: NeverAlcohol UseStandard Drinks/WeekCommentsNot Currently0 (1 standard drink = 0.6 oz pure alcohol)Occasional alcohol useCommentsNoSex and Gender InformationValueDate RecordedSex Assigned at BirthNot on fileLegal SexFemale 07/22/2022 6:41 PM EDTGender IdentityNot on fileSexual OrientationNot on file documented as of this encounter Last Filed Vital Signs Vital SignReadingTime TakenCommentsBlood Wrcrvdyk417/7204/25/2025 1:24 PM EST Pulse--Temperature--Respiratory Rate--Oxygen Saturation--Inhaled Oxygen Concentration--Klvcbp66.6 kg (191 lb)04/25/2025 1:24 PM RWPXqbecc529.2 cm (5' 7 )04/25/2025 1:24 PM ESTBody Mass Index29.9104/25/2025 1:24 PM ESTdocumented in this encounter Progress Notes * Rayna Jameson, ELECTRONIC EQUIPMENT INSTALLER - 04/25/2025 1:20 PM EST Reason for Appointment: Patient ID: Dea Norris is a 30 y.o. female who presents for Gynecologic Exam Patient presents today for Annual Exam. MEDICATIONS Current Outpatient Medications Medication Instructions desogestrel-ethinyl estradiol (Apri) 0.15-30 MG-MCG tablet 1 tablet, Oral, Daily, Take 1 tablet by mouth daily loratadine (CLARITIN) 10 mg, Oral, Daily phentermine [...] appearance. She is well-developed. Genitourinary: Vulva normal. Breasts: Breasts are soft. Right: Normal. Left: Normal. Cardiovascular: Rate and Rhythm: Normal rate and [...] nursing note reviewed. Exam conducted with a patent litigation associate present. Vitals: Estimated body mass index is 29.91 kg/m?? as calculated from the following: Height as of this encounter: 5' 7 . Weight as of this encounter: 191 lb. BP: 118/72 No LMP recorded (lmp unknown). (Menstrual status: IUD). ASSESSMENT & PLAN ICD-10-CM 1. Well woman exam with routine gynecological exam Z01.419 Pap Smear HPV DNA probe, amplified Orders Placed This Encounter Procedures HPV DNA probe, amplified Annual Wellness Exam: Patient presents today for routine annual exam. Patient states she has no current complaints. Patients vitals were reviewed and within normal limits. Growth and development is noted to be appropriate for age. Menstrual history is noted to be regular with no concerns reported. No mental health concerns was expressed. Pt currently spotting with IUD since insertion rx for sprintec faxed to pharmacy. Pap Smear: Speculum was inserted into the vagina and pap was obtained without difficulty. HPV testing was performed per age guideline. Patient was advised that pap results could take anywhere from 7 to 10 days to receive and our office will reach out to the patient with those once we have them. Patient can also view results via [employer]. I reinforced importance of condom use for STI prevention. Patient declined cultures to be performed with today's visit. Breast Exam: Upon examination, clinical breast exam was noted to be normal. Patient was counseled on breast self-awareness, including the importance of knowing what is normal for her own breasts and promptly reporting any changes such as new lumps, skin dimpling, nipple discharge, or pain. Screening mammogram recommended annually beginning at age 40 or earlier if risk factors are present. Discussed signs and symptoms of breast cancer and when to seek medical attention. Answered all patient questions. Contraceptive Counseling (if applicable): Patient is currently using IUD as a form of contraceptive. Follow Up: Patient is to return to our office in one year for annual exam unless needed otherwise. Documented by Rayna Jameson LPN on behalf of: Tae Cody DO documented in this encounter Plan of Treatment DateTypeDepartmentCare Team (Latest Contact Info)Ejssmrqfeiq90/04/2027 2:00 PM ESTProcedure Visit [facility] [address] [place] [address] Tae Cody DO [address] [place], [place] [id number] NameTypePriorityAssociated DiagnosesOrder SchedulePap SmearPathology and CytologyRoutine Well woman exam with routine gynecological exam Ordered: 04/25/2025HPV DNA probe, amplifiedMicrobiologyRoutine Well woman exam with routine gynecological exam Ordered: 04/25/2025documented as of this encounter Visit Diagnoses Diagnosis Well woman exam with routine gynecological exam Routine gynecological examination Abnormal uterine bleeding (AUB) documented in this encounter Care Teams Team MemberRelationshipSpecialtyStart DateEnd Date Maximus Parmar DO [address] [place] [phone] PCP - Pinaklp44/28/23documented as of this encounter
--- OUTSIDE RECORDS SUMMARY | 2025-04-25 20:21 | XMS_ITS | Encounter Summary ---
Author Organization [facility] Address [address] [place] [address] Care Team Providers Care Clinical Application Consultant Name Role Phone Maximus Parmar DO Primary Care Provider [phone] Encounter Details DateTypeDepartmentCare Team (Latest Contact Info)Nvcflzddyhq16/10/2025Travel Social History Tobacco UseTypesPacks/DayYears UsedDateSmoking Tobacco: NeverSmokeless Tobacco: NeverAlcohol UseStandard Drinks/WeekCommentsNot Currently0 (1 standard drink = 0.6 oz pure alcohol)Occasional alcohol useCommentsNoSex and Gender InformationValueDate RecordedSex Assigned at BirthNot on fileLegal SexFemale 07/22/2022 6:41 PM EDTGender IdentityNot on fileSexual OrientationNot on file documented as of this encounter Plan of Treatment DateTypeDepartmentCare Team (Latest Contact Info)Befeokffelg44/04/2027 2:00 PM ESTProcedure Visit [facility] [address] [place] [address] Tae Cody DO [address] [facility] [place] [address] documented as of this encounter Visit Diagnoses Not on filedocumented in this encounter Care Teams Team MemberRelationshipSpecialtyStart DateEnd Date Maximus Parmar DO [address] [place] [address] PCP - Fknanxd61/28/23documented as of this encounter
--- OUTSIDE RECORDS SUMMARY | 2025-04-25 20:21 | XMS_ITS | Encounter Summary ---
Author Organization [facility] Address [address] [place] [address] Care Team Providers Care Behavior Interventionist Name Role Phone Maximus Parmar Susan ELKINS Primary Care Provider [phone] Encounter Details DateTypeDepartmentCare Team (Latest Contact Info)Vwabptkkvsi72/17/2025amboo flowsheet KLAUS DUNLAP [address] [place] [address] Tae Cody, [facility] [place], [facility] Social History Tobacco UseTypesPacks/DayYears UsedDateSmoking Tobacco: NeverSmokeless Tobacco: NeverAlcohol UseStandard Drinks/WeekCommentsNot Currently0 (1 standard drink = 0.6 oz pure alcohol)Occasional alcohol useCommentsNoSex and Gender InformationValueDate RecordedSex Assigned at BirthNot on fileLegal SexFemale 07/22/2022 6:41 PM EDTGender IdentityNot on fileSexual OrientationNot on file documented as of this encounter Plan of Treatment DateTypeDepartmentCare Team (Latest Contact Info)Lngvytrcxlw20/04/2027 2:00 PM ESTProcedure Visit [facility] D[facility] [address] [place] [address] Tae Cody, [address] [place] [address] documented as of this encounter Visit Diagnoses Not on filedocumented in this encounter Care Teams Team MemberRelationshipSpecialtyStart DateEnd Date Maximus Parmar DO [facility] [place] [phone] PCP - Kstedxv70/28/23documented as of this encounter
--- OUTSIDE RECORDS SUMMARY | 2025-04-25 20:21 | XMS_ITS | Clinical Summary ---
Author Organization [facility] Healthcare Address [address] [place] [address] Care Team Providers Care Sports Medicine Coordinator Name Role Phone Maximus Parmar DO Primary Care Provider [phone] Allergies Active AllergyReactionsCriticalityNoted DateCommentsAzithromycinOtherLow 09/01/2023 Patient gets mild stomach cramping with medication. Pt states she is ok with it the next day. Medications MedicationSigDispense QuantityRefillsLast FilledStart DateEnd DateStatus MV-Min-Fe Fum-FA-DHA ( 1 PO) Take by mouth.Active loratadine (Claritin) 10 MG tablet Take 10 mg by mouth Daily09/07/2023ctive phentermine (Adipex-P) 37.5 MG tablet Indications:Encounter for weight managementTake 1 tablet (37.5 mg) by mouth in the morning. Take before meals. 30 tablet 02/09/2024ctive desogestrel-ethinyl estradiol (Apri) 0.15-30 MG-MCG tablet Indications:Breakthrough bleeding with IUDTake 1 tablet by mouth Daily for 28 days Take 1 tablet by mouth daily 28 tablet 04/17/2024ctive norgestimate-ethinyl estradiol (Sprintec 28) 0.25-35 MG-MCG tablet Indications:Abnormal uterine bleeding (AUB)Take 1 tablet by mouth Daily Take 1 tablet by mouth daily 28 tablet /ctiveHospital, Clinic, or Other Facility Administered MedicationOrdered DoseRouteFrequencyStart DateEnd DateStatus Levonorgestrel intrauterine device 52 mg Indications:Encounter for IUD evettyell19 enRRRgktejxqia25/05/202409/08/2028 Active Active Problems No known active problems Encounters DateTypeDepartmentCare IlhnFhmbyumphyv63/17/2025 1:20 PM ESTOffice Visit [facility] [address] [place] [address] [place] [address] Tae Cody, Well woman exam with routine gynecological exam; Abnormal uterine bleeding (AUB)04/25/2025amboo flowsheet [facility] [address] [place] [address] [place] [address] Tae Cody DO 04/18/2025Travelfrom Last 3 Months Family History Medical HistoryRelationNameCommentsDiabetesFatherFatherHypertensionFatherFather CancerMaternal GrandmotherGrandmotherRelationNameStatusCommentsFatherFatherAlive Maternal GrandmotherGrandmotherMotherAlive Social History Tobacco UseTypesPacks/DayYears UsedDateSmoking Tobacco: NeverSmokeless Tobacco: Never Tobacco Cessation:Counseling Given: Not Answered Alcohol UseStandard Drinks/WeekCommentsNot Currently0 (1 standard drink = 0.6 oz pure alcohol)Occasional alcohol useCommentsNoSex and Gender Information ValueDate RecordedSex Assigned at BirthNot on fileLegal QjpPxqpho15/15/2023 6:41 PM EDTGender IdentityNot on fileSexual OrientationNot on file Last Filed Vital Signs Vital SignReadingTime TakenCommentsBlood Octttnpb960/7204/25/2025 1:24 PM EST Pulse--Temperature--Respiratory Rate--Oxygen Saturation--Inhaled Oxygen Concentration--Cdxswa38.6 kg (191 lb)04/25/2025 1:24 PM BKLUfafmf337.2 cm (5' 7 )04/25/2025 1:24 PM ESTBody Mass Index29.9104/25/2025 1:24 PM EST Plan of Treatment DateTypeDepartmentCare Team (Latest Contact Info)Iuzgsqkkvjw90/04/2027 2:00 PM ESTProcedure Visit [facility] [address] [place] [address] Tae Cody DO [address] [facility] [place] [address] Insurance Care Teams Team MemberRelationshipSpecialtyStart DateEnd Date Maximus Parmar DO [address] [place] [id number] PCP - Xbajarc88/28/23
== END 2025-04-25 20:18 | disposition home or self-care (01) ==
LOC: LAB 20:17
PROVIDERS: PCP Family Medicine; Visit Provider Obstetrics & Gynecology
DX: Z01.419 Encounter for gynecological examination (general) (routine) without abnormal findings (principal)
CPT/HCPCS: 88175